=== PATIENT | female | born 1940 | race Caucasian/White ===

== ENCOUNTER 2018-01-26 16:31 | Observation (INO) | payer OTHER ==
[2018-01-26] MEDS ORDERED: ONDANSETRON 4 MG/2 ML VIAL ONE (17:05)
[2018-01-26 17:06] LABS: Absolute Lymphocytes (CBC) 3.1 K/uL (0.7-4.9); Absolute Monocytes 0.8 K/uL (0.1-1.3); Absolute Neutrophil 4.6 K/uL (1.8-8.0); Basophils % 0.8 % (0-1.3); Eosinophils % 1.6 % (0-4.4); Hematocrit 36.2 % (36.0-45.0); Lymphocytes % 35.5 % (15.3-44.8); MCV 85.5 fL (80-100); MPV 8.5 fL (7.6-11.3); Monocytes % 8.7 % (3.3-12.3); RBC Red Blood Cell Count 4.23 M/uL (3.86-4.86)
[2018-01-26 17:07] LABS: Protime INR 1.04
[2018-01-26 17:16] LABS: Potassium 4.2 mEq/L (3.6-5.0)
--- NOTE | 2018-01-26 17:41 | RAD REPORT ---
EXAM DESCRIPTION: CT - Chest For Pe Angio - 01/26/2018 5:31 pm CLINICAL HISTORY: Chest pain, shortness of breath, breast cancer history COMPARISON: Chest films same date, PE study May 2016 TECHNIQUE: Dynamically enhanced 3 mm thick images of the chest were obtained during administration o f approximately 150mL Isovue 370 IV contrast. Coronal and oblique reconstruction images were generate d and reviewed. Exam utilizes a protocol to evaluate the pulmonary arterial tree. All CT scans are performed using dose optimization technique as appropriate and may include automated exposure control or mA/KV adjustment according to patient size. FINDINGS: No pulmonary emboli are identified. The aorta as imaged shows no acute or suspicious finding. No pericardial thickening or effusion. No infiltrate or mass in the lung parenchyma. No pleural effusion or pleural thickening. Lung parench yma is similar to comparison. No mediastinal or hilar suspicious masses. No chest wall masses or abnormal axillary lymphadenopathy. IMPRESSION: No pulmonary emboli identified. No other significant or suspicious findings.
--- NOTE | 2018-01-26 18:14 | ER ---
Nurse's Notes [facility] Name: Becky Rodriguez Age: 77 yrs Sex: Female : 1940 Arrival Date: 01/26/2018 Time: 16:32 Bed 7 Private MD: Peter Gomez E Diagnosis: Precordial pain;Dyspnea Presentation: 01/26 16:40 Presenting complaint: Patient states: dizziness, shortness of breath, chest "heaviness" ss and nausea that began approx 1 hour ago. Family friend reports that patient woke him up from a nap and stated that she felt very dizzy as if she was going to "pass out". Transition of care: patient was not received from another setting of care. Onset of symptoms was January 26, 2018. Risk Assessment: Do you want to hurt yourself or someone else? Patient reports no desire to harm self or others. Initial Sepsis Screen: Does the patient meet any 2 criteria? No. Patient's initial sepsis screen is negative. Does the patient have a suspected source of infection? No. Patient's initial sepsis screen is negative. Care prior to arrival: None. 16:40 Method Of Arrival: Ambulatory ss 16:40 Acuity: CORNELIO 2 ss Triage Assessment: 19:00 Respiratory: the patient has mild shortness of breath. bp 19:00 General: Appears in no apparent distress. comfortable. Respiratory: Airway is patent. bp Historical: - Allergies: 16:59 NKDA; ph - Home Meds: 19:00 anastrozole 1 mg Oral tab 1 tab once daily [Active]; hydrochlorothiazide 25 mg Oral tab bp 1 tab once daily [Active]; lisinopril 40 mg Oral tab 1 tab once daily [Active]; metformin 500 mg Oral tab 1 tab 2 times per day [Active]; Motrin 600 mg Oral daily [Active]; probenecid 500 mg Oral tab 1 tab 2 times per day [Active]; Synthroid 50 mcg Oral tab 1 tab once daily [Active]; - PMHx: 16:59 Cancer, Breast; Diabetes - NIDDM; Hypertension; Hypothyroidism; ph - PSHx: 16:59 Mastectomy, Left; Mastectomy, Right; KNEE REPLACEMENT; Cholecystectomy; Appendectomy; ph HAND SURGERY; Hysterectomy; Knee surgery; - Immunization history:: Adult Immunizations unknown. - Social history:: Smoking status: Patient/guardian denies using tobacco. - Ebola Screening: : No symptoms or risks identified at this time. Screenin:10 Abuse screen: Denies threats or abuse. Denies injuries from another. Nutritional ph screening: No deficits noted. Tuberculosis screening: No symptoms or risk factors identified. Fall Risk No fall in past 12 months (0 pts). No secondary diagnosis (0 pts). IV access (20 points). Ambulatory Aid- None/Bed Rest/Nurse Assist (0 pts). Gait- Normal/Bed Rest/Wheelchair (0 pts) Mental Status- Oriented to own ability (0 pts). Total Weaver Fall Scale indicates No Risk (0-24 pts). Assessment: 17:00 General: Appears distressed, uncomfortable, obese, well groomed, Behavior is ph cooperative, appropriate for age, anxious, Denies fever, feeling ill. Pain: Complains of pain in mid-sternal area Pain does not radiate. Pain currently is 2 out of 10 on a pain scale. Quality of pain is described as heavy, pressure, Pain began suddenly. Neuro: Level of Consciousness is awake, alert, obeys commands, Oriented to person, place, time, situation, Bi Lead are equal bilaterally Moves all extremities. Full function Speech is normal, Facial symmetry appears normal, Facial symmetry: tongue is midline, Reports dizziness, Denies weakness difficulty swallowing, numbness headache. Cardiovascular: Reports chest pain, lightheadedness, nausea, shortness of breath, vomiting, Capillary refill < 3 seconds Patient's skin is warm and dry. Rhythm is sinus rhythm Chest pain is described as mild, quality is heaviness, pressure, is located in substernal area. Respiratory: Reports shortness of breath at rest Airway is patent Respiratory effort is even, Respiratory pattern is tachypnea Breath sounds are clear bilaterally. GI: Abdomen is non-distended, obese, Bowel sounds present X 4 quads. Abd is soft and non tender X 4 quads. Reports nausea, vomiting, Patient currently denies abdominal pain, diarrhea. : Denies burning with urination, urinary frequency. Derm: Skin is intact, is healthy with good turgor, Skin is pink, warm \\T\\ dry. Musculoskeletal: Circulation, motion, and sensation intact. Range of motion: intact in all extremities. 18:20 Reassessment: Patient appears in no apparent distress at this time. Patient and/or ph family updated on plan of care and expected duration. Pain level reassessed. Patient is alert, oriented x 3, equal unlabored respirations, skin warm/dry/pink. Pt resting quietly at this time, reports that nausea has improved and denies pain at this time, awaiting room assignment, family at bedside, VSS. 19:00 Reassessment: RECD REPORT FROM OMID ACEVEDO. 77YO WF P/W CP, ANXIETY AND N/V. CURRENT bp STUDIES UNREMARKABLE, ADMIT IN PROCESS. VS STABLE ON MONITOR. Vital Signs: 16:35 BP 179 / 103; Pulse 121; Resp 34; Pulse Ox 99% on R/A; Weight 101.15 kg; Height 5 ft. 4 ss in. (162.56 cm); 16:35 Temp 98.7(TE); ss 17:08 BP 133 / 82; Pulse 75; Resp 22; Pulse Ox 96% on R/A; ph 17:44 BP 124 / 65; Pulse 75; Resp 16; Pulse Ox 99% on R/A; dh3 18:21 BP 126 / 66; Pulse 72; Resp 16; Temp 98.2; Pulse Ox 99% on R/A; ph 19:00 BP 128 / 69; Pulse 76; Resp 9; Pulse Ox 99% ; bp 19:42 BP 129 / 73; Pulse 77; Resp 18; Pulse Ox 98% on R/A; rv 16:35 Body Mass Index 38.28 (101.15 kg, 162.56 cm) ss ED Course: 16:32 Patient arrived in ED. sb2 16:32 Peter Gomez MD is Private Physician. sb2 16:35 Quinton Barbosa MD is Attending Physician. gs 16:35 Arm band placed on right wrist. ss 16:43 Triage completed. ss 16:48 EKG done, by ED staff, reviewed by Quinton Barbosa MD. dh3 16:50 Initial lab(s) drawn, by oh, sent to lab. Inserted saline lock: 20 gauge in left ph antecubital area, using aseptic technique. 16:51 Radiology exam delayed due to lab results not completed at this time. (BUN/Creatinine). cw1 16:57 X-ray completed. Portable x-ray completed in exam room. Patient tolerated procedure mh1 well. 16:58 XRAY Chest (1 view) In Process Unspecified. EDMS 17:01 Kate Booker, RN is Primary Nurse. ph 17:19 Patient has correct armband on for positive identification. Placed in gown. Bed in low ph position. Call light in reach. Side rails up X 1. station cleaning porter on. Pulse ox on. NIBP on. Warm blanket given. Verbal reassurance given. 17:30 CT completed. Patient moved to CT via stretcher. Patient moved back from CT. cw1 17:31 CT Chest For PE Angio In Process Unspecified. EDMS 18:14 Margie Lambert MD is Hospitalizing Provider. 18:55 No provider procedures requiring assistance completed. Patient admitted, IV remains in ph place. Administered Medications: 17:08 Drug: Zofran 4 mg Route: IVP; Site: left antecubital; ph 20:05 Follow up: Response: Nausea is decreased bp Point of Care Testing: Blood Glucose: 16:35 Blood Glucose: 121 mg/dL; Ranges: Outcome: 18:14 Decision to Hospitalize by Provider. gs 18:55 Condition: stable ph 18:55 Instructed on the need for admit. 20:04 Admitted to Tele accompanied by tech, via wheelchair, room 213, with chart, Report bp called to LEOBARDO ACEVEDO 20:20 Patient left the ED. bp Signatures: Dispatcher [employer] EDMS Haleigh Abraham 1 Yaneli Boothe, Faye Price RN 1 Kate Booker, RN RN Sheri Gaxiola 3 Quinton Barbosa MD MD Darwin Saenz RN RN bp Alessandra Stephens 2 Steve Gan, RN RN rv
--- NOTE | 2018-01-26 18:14 | EDPHYS ---
Physician Documentation [facility] Name: Becky Rodriguez Age: 77 yrs Sex: Female : 1940 Arrival Date: 01/26/2018 Time: 16:32 Bed 7 Private MD: Peter Gomez E ED Physician Quinton Barbosa HPI: 01/26 18:21 This 77 yrs old Female presents to ER via Ambulatory with complaints of gs Shortness Of Breath. 18:21 The patient has shortness of breath at rest. Onset: The symptoms/episode began/occurred gs acutely, just prior to arrival. Duration: The symptoms are continuous, and are steadily getting worse. The patient's shortness of breath is aggravated by nothing, is alleviated by nothing. Associated signs and symptoms: Pertinent positives: chest pain, dizziness. Severity of symptoms: At their worst the symptoms were incapacitating in the emergency department the symptoms are unchanged. The patient has not experienced similar symptoms in the past. Historical: - Allergies: 16:59 NKDA; ph - Home Meds: 19:00 anastrozole 1 mg Oral tab 1 tab once daily [Active]; hydrochlorothiazide 25 mg Oral tab bp 1 tab once daily [Active]; lisinopril 40 mg Oral tab 1 tab once daily [Active]; metformin 500 mg Oral tab 1 tab 2 times per day [Active]; Motrin 600 mg Oral daily [Active]; probenecid 500 mg Oral tab 1 tab 2 times per day [Active]; Synthroid 50 mcg Oral tab 1 tab once daily [Active]; - PMHx: 16:59 Cancer, Breast; Diabetes - NIDDM; Hypertension; Hypothyroidism; ph - PSHx: 16:59 Mastectomy, Left; Mastectomy, Right; KNEE REPLACEMENT; Cholecystectomy; Appendectomy; ph HAND SURGERY; Hysterectomy; Knee surgery; - Immunization history:: Adult Immunizations unknown. - Social history:: Smoking status: Patient/guardian denies using tobacco. - Ebola Screening: : No symptoms or risks identified at this time. ROS: 18:21 All other systems are negative. gs Exam: 18:21 Head/Face: Normocephalic, atraumatic. Eyes: Pupils equal round and reactive to light, gs extra-ocular motions intact. Lids and lashes normal. Conjunctiva and sclera are non-icteric and not injected. Cornea within normal limits. Periorbital areas with no swelling, redness, or edema. ENT: Nares patent. No nasal discharge, no septal abnormalities noted. Tympanic membranes are normal and external auditory canals are clear. Oropharynx with no redness, swelling, or masses, exudates, or evidence of obstruction, uvula midline. Mucous membranes moist. Neck: Trachea midline, no thyromegaly or masses palpated, and no cervical lymphadenopathy. Supple, full range of motion without nuchal rigidity, or vertebral point tenderness. No Meningismus. Chest/axilla: Normal chest wall appearance and motion. Nontender with no deformity. No lesions are appreciated. Cardiovascular: Regular rate and rhythm with a normal S1 and S2. No gallops, murmurs, or rubs. Normal PMI, no JVD. No pulse deficits. 18:21 Abdomen/GI: Soft, non-tender, with normal bowel sounds. No distension or tympany. No guarding or rebound. No evidence of tenderness throughout. Back: No spinal tenderness. No costovertebral tenderness. Full range of motion. Skin: Warm, dry with normal turgor. Normal color with no rashes, no lesions, and no evidence of cellulitis. MS/ Extremity: Pulses equal, no cyanosis. Neurovascular intact. Full, normal range of motion. Neuro: Awake and alert, GCS 15, oriented to person, place, time, and situation. Cranial nerves II-XII grossly intact. Motor strength 5/5 in all extremities. Sensory grossly intact. Cerebellar exam normal. Normal gait. 18:21 Constitutional: The patient appears alert, awake. 18:21 Constitutional: The patient appears in obvious distress, severely distressed. 18:21 ECG was reviewed by the Attending Physician. 18:21 Respiratory: the patient does not display signs of respiratory distress, Respirations: normal, Breath sounds: are clear throughout. Vital Signs: 16:35 BP 179 / 103; Pulse 121; Resp 34; Pulse Ox 99% on R/A; Weight 101.15 kg; Height 5 ft. 4 ss in. (162.56 cm); 16:35 Temp 98.7(TE); ss 17:08 BP 133 / 82; Pulse 75; Resp 22; Pulse Ox 96% on R/A; ph 17:44 BP 124 / 65; Pulse 75; Resp 16; Pulse Ox 99% on R/A; dh3 18:21 BP 126 / 66; Pulse 72; Resp 16; Temp 98.2; Pulse Ox 99% on R/A; ph 19:00 BP 128 / 69; Pulse 76; Resp 9; Pulse Ox 99% ; bp 19:42 BP 129 / 73; Pulse 77; Resp 18; Pulse Ox 98% on R/A; rv 16:35 Body Mass Index 38.28 (101.15 kg, 162.56 cm) ss MDM: 16:46 Patient medically screened. 18:21 Differential diagnosis: CHF exacerbation, Chronic Obstructive Pulmonary Disease gs Myocardial Infarction Pulmonary Embolism taa. Data reviewed: vital signs, nurses notes. 01/26 16:42 Order name: Basic Metabolic Panel 01/26 16:42 Order name: BNP 01/26 16:42 Order name: CBC with Diff 01/26 16:42 Order name: PT-INR 01/26 16:42 Order name: Troponin (emerg Dept Use Only) 01/26 16:43 Order name: Basic Metabolic Panel; Complete Time: 17:54 EDMS 01/26 16:43 Order name: BNP B-Type Natriuretic Peptide; Complete Time: 17:54 EDMS 01/26 16:43 Order name: CBC with Automated Diff; Complete Time: 17:54 EDMS 01/26 16:43 Order name: Protime (+INR); Complete Time: 17:54 EDMS 01/26 16:43 Order name: Troponin (Emerg Dept Use Only); Complete Time: 17:54 EDMS 01/26 16:45 Order name: glucometer results - FOR PT WITH NO ID; Complete Time: 17:54 01/26 18:22 Order name: CBC with Automated Diff [facility] 01/26 18:22 Order name: Comprehensive Metabolic Panel [facility] 01/26 18:22 Order name: Creatine Phosphokinase [facility] 01/26 16:42 Order name: XRAY Chest (1 view) 01/26 16:42 Order name: EKG; Complete Time: 16:43 01/26 16:42 Order name: CT Chest For PE Angio; Complete Time: 17:54 01/26 18:22 Order name: Creatine Phosphokinase [facility] 01/26 18:22 Order name: Creatine Phosphokinase [facility] 01/26 18:22 Order name: Creatine Phosphokinase [facility] 01/26 18:22 Order name: Lipid Profile [facility] 01/26 18:22 Order name: Lipid Profile [facility] 01/26 18:22 Order name: Troponin I [facility] 01/26 18:22 Order name: Troponin I [facility] 01/26 18:22 Order name: Troponin I [facility] 01/26 18:22 Order name: Troponin I [facility] 01/26 18:23 Order name: Hemoglobin A1C [facility] 01/26 18:23 Order name: Lipid Profile [facility] 01/26 18:23 Order name: Thyroid Stimulating Hormone [facility] 01/26 16:42 Order name: Cardiac monitoring; Complete Time: 16:59 01/26 16:42 Order name: EKG - Nurse/Tech; Complete Time: 16:45 01/26 16:42 Order name: IV Saline Lock; Complete Time: 16:59 01/26 16:42 Order name: Labs collected and sent; Complete Time: 16:59 01/26 16:42 Order name: O2 Per Protocol; Complete Time: 16:45 01/26 16:42 Order name: O2 Sat Monitoring; Complete Time: 16:45 01/26 18:22 Order name: Heart Healthy EDMA EC:21 Rate is 94 beats/min. Rhythm is regular. [place] interval is normal. QRS interval is normal. gs T waves are Flattened. No ST changes noted. Clinical impression: NSR w/ Non-specific ST/T Changes. Interpreted by me. Administered Medications: 17:08 Drug: Zofran 4 mg Route: IVP; Site: left antecubital; ph 20:05 Follow up: Response: Nausea is decreased bp Point of Care Testing: Blood Glucose: 16:35 Blood Glucose: 121 mg/dL; ss Ranges: Critical Glucose Levels:Adult <50 mg/dl or >400 mg/dl <40 mg/dl or >180 mg/dl Disposition: 01/26/18 18:14 Hospitalization ordered by Margie Lambert for Observation. Preliminary diagnosis are Precordial pain, Dyspnea. - Bed requested for Telemetry/MedSurg (observation). - Status is Observation. bp - Condition is Stable. - Problem is new. - Symptoms have improved. UTI on Admission? No Signatures: Dispatcher [employer] [facility] Jennifer Goff RN RN Kate Booker RN RN Barbosa, Quinton, MD MD gs Dany, Darwin, RN RN bp Corrections: (The following items were deleted from the chart) 18:28 18:14 Hospitalization Ordered by Margie Lambert MD for Observation. Preliminary dw diagnosis is Precordial pain; Dyspnea. Bed requested for Telemetry/MedSurg (observation). Status is Observation. Condition is Stable. Problem is new. Symptoms have improved. UTI on Admission? No. gs 20:20 18:28 01/26/2018 18:14 Hospitalization Ordered by Margie Lambert MD for Observation. bp Preliminary diagnosis is Precordial pain; Dyspnea. Bed requested for Telemetry/MedSurg (observation). Status is Observation. Condition is Stable. Problem is new. Symptoms have improved. UTI on Admission? No. dw
[2018-01-26] MEDS ORDERED: MORPHINE 4 MG/ML SYR IV PRN (18:18)
[2018-01-26] MEDS ORDERED: ALPRAZOLAM 0.25 MG TABLET PO PRN (18:18)
[2018-01-26] MEDS ORDERED: ACETAMINOPHEN 500 MG TAB PO PRN (18:18)
[2018-01-26] MEDS ORDERED: ONDANSETRON 4 MG/2 ML VIAL IV PRN (18:18)
[2018-01-26] MEDS ORDERED: NITROGLYCERIN 0.4 MG/TAB SL PRN (18:35)
[2018-01-26] MEDS ORDERED: GLUCAGON 1 MG/VIAL IM PRN (20:13)
[2018-01-26] MEDS ORDERED: D50W 25 GM/50 ML SYRINGE IV PRN (20:13)
[2018-01-26 20:22] LABS: Absolute Lymphocytes (CBC) 1.9 K/uL (0.7-4.9); Absolute Monocytes 0.7 K/uL (0.1-1.3); Absolute Neutrophil 7.6 K/uL (1.8-8.0); Basophils % 0.7 % (0-1.3); Eosinophils % 0.5 % (0-4.4); Hematocrit 33.6 % (36.0-45.0); Lymphocytes % 18.6 % (15.3-44.8); MCH 29.2 pg (27.0-35.0); MCV 85.7 fL (80-100); MPV 8.3 fL (7.6-11.3); RBC Red Blood Cell Count 3.92 M/uL (3.86-4.86)
--- NOTE | 2018-01-26 20:41 | RAD REPORT ---
EXAM DESCRIPTION: RAD - Chest Single View - 01/26/2018 4:59 pm CLINICAL HISTORY: Chest pain, shortness of breath COMPARISON: May 2016 TECHNIQUE: AP portable chest image was obtained 1651 hours . FINDINGS: Lung volumes are low. No peripheral mass or consolidation. Heart and vasculature are miguel l. No measurable pleural effusion and no pneumothorax. No gross bony abnormality seen. No acute aorti c findings suspected. IMPRESSION: No acute cardiopulmonary process. No significant change from comparison.
[2018-01-26 20:59] LABS: Albumin 3.8 g/dL (3.2-5.5); Bilirubin Total 0.6 mg/dL (0.3-1.2); Protein, Total 7.2 g/dL (6.0-8.3)
[2018-01-26 21:00] VITALS: BMI 37.4
[2018-01-26] MEDS ORDERED: ATORVASTATIN 20 MG TAB PO SCH (21:00)
[2018-01-26 21:02] LABS: Potassium 4.8 mEq/L (3.6-5.0)
[2018-01-26 21:29] LABS: Thyroid Stimulating Hormone 1.85 uIU/mL (0.34-5.60)
[2018-01-26] MEDS: METOPROLOL TAR 50 MG TAB PO SCH (21:36)
[2018-01-26] MEDS: ENOXAPARIN 100 MG/ML SYR SQ SCH (21:36)
[2018-01-26] MEDS: NA CHLORIDE 0.9% 1,000 ML IV SCH (21:36)
[2018-01-26] MEDS: METFORMIN HCL 500 MG TAB PO SCH (21:36)
--- NOTE | 2018-01-26 23:55 | HP ---
Date of Admission: 01/26/2018 Reason For Admission: Dizziness and chest pain. History Of Present Illness: This is a 77-year-old female with history of hypothyroidism, hypertensio n, diabetes, overweight, who presented with history of chest pain that started at first today with di zziness. The patient had nausea and she vomited once. She has shortness of breath and she was not a ble to take a deep breath. In the ER, she was evaluated. A CAT scan of the chest done was negative for PE. Cardiac enzymes first set was negative. She was admitted for rule-out NH. The patient repo rted history of stress test that was negative few years ago. She never had any history of heart riaz ck. Review of Systems: Otherwise as below. Past Medical History: Significant for diabetes, hypertension, overweight, breast cancer. She was on Arimidex status post lumpectomy. Past Surgery History: Known for cholecystectomy, hysterectomy, lumpectomy, total knee replacement. Allergies: NONE. Social History: The patient is . She has 4 kids. She is retired. She does not drink, smoke , or use illicit drugs. Family History: Both father and mother of diabetes. Medication: According to medical records, the patient does not have her med list. She is on Synthro id, lisinopril, Arimidex, metformin, hydrochlorothiazide. Review of Systems: Denies any fever, chills, night sweats, dizziness, lightheaded, headache now, but she had some renal failure. She have no cough or sputum. She does have mild shortness of breath. There is no chest pa in now, but she had it earlier in the middle of her chest. No PND or orthopnea. No palpitations. N o nausea, vomiting now, but she has nausea earlier. No abdominal pain, change in bowel, diarrhea, co nstipation, dysuria, frequency, urgency, hematuria. History of depression, anxiety, seizure or strok e. Physical Examination: Vital Signs: Currently, blood pressure 126/66, respiratory rate 22, heart rate 66, saturating 98% on room air. General: She is fully alert and oriented x3. Does not look in distress. HEENT: Atraumatic, normocephalic. PERRLA. Oral mucosa is moist. Neck: Supple. No JVD. No carotid bruits. Chest: Clear to auscultation. Good air entry. Heart: Regular rate and rhythm. S1, S2 normal. No gallop or murmur. Abdomen: Soft, nontender, with normal tympanic bowel sounds. Extremities: No clubbing, cyanosis, or edema. No calf tenderness. Neurologic: Grossly intact. Cranial exam 2 through 12 intact. Normal sensation. Normal reflexes. Normal muscle strength. Laboratory Data: Labs today showed CBC within normal. CMP was normal except for BUN of 25, creatini ne 1.07 and GFR of 15. Cardiac enzymes all normal. Lipid panel is pending. Hemoglobin A1c pending. TSH pending. EKG showed normal sinus rhythm. Assessment And Plan: This is a 77-year-old female with history of progressive chest pain and shortne ss of breath. Admitted to rule out coronary artery syndrome. 1.Chest pain, rule out myocardial infarction. 2.Dyspnea. PE was ruled out. 3.Hypertension. 4.Hyperlipidemia. 5.Obesity. 6.Renal insufficiency. 7.Hypothyroidism. 8.History of breast cancer. We will admit the patient to the floor, keep her on tele, do cardiac enzyme x3. We will keep her on full dose of Lovenox 1 mg/kg twice a day. We will place the patient on statin, resume her home medic ation for blood pressure with lisinopril, hydrochlorothiazide. We will keep it on hold for now. We will start on IV hydration for renal insufficiency and place her on low-dose metoprolol. She also wi ll be given aspirin and Plavix. I will check her lipid panel and place her on low dose of statin. I will check hemoglobin A1c, place her on metformin and sliding scale. I will check her TSH and resume her Synthroid. YARIEL/NELIDA Voice ID: [id number]
[2018-01-27 04:55] LABS: Urine Appearance CLEAR; Urine Bilirubin NEGATIVE (NEG); Urine Blood NEGATIVE (NEG); Urine Color YELLOW; Urine Glucose NEGATIVE (NEG); Urine Protein NEGATIVE (NEG); Urine Specific Gravity >=1.030 (1.005-1.030); Urine Urobilinogen 0.2 mg/dL (0.2-1.0); Urine pH 5.5 (5.0-7.0)
[2018-01-27] MEDS: NA CHLORIDE 0.9% 1,000 ML IV SCH (05:00)
[2018-01-27 05:17] LABS: Urine Microscopic Reflex NO UMIC
[2018-01-27] MEDS ORDERED: PNEUMOCOCCAL VACCINE 0.5 ML IMVAC ONE (06:00)
[2018-01-27] MEDS ORDERED: LEVOTHYROXINE SOD 0.05 MG TABLET PO SCH (06:00)
[2018-01-27] MEDS: METFORMIN HCL 500 MG TAB PO SCH (08:33)
[2018-01-27] MEDS: METOPROLOL TAR 50 MG TAB PO SCH (08:33)
[2018-01-27] MEDS: ENOXAPARIN 100 MG/ML SYR SQ SCH (08:35)
[2018-01-27] MEDS ORDERED: hydroCHLOROthiazide 25 MG TAB PO SCH (09:00)
[2018-01-27] MEDS ORDERED: LISINOPRIL 20 MG TAB PO SCH (09:00)
[2018-01-27] MEDS ORDERED: ASPIRIN 325 MG TAB PO SCH (09:00)
[2018-01-27] MEDS ORDERED: CLOPIDOGREL 75 MG TABLET PO SCH (09:00)
[2018-01-27 09:52] VITALS: O2SAT 96
--- NOTE | 2018-01-27 10:42 | EKG ---
Test Date: 2018-01-26 Test Time: 16:38:15 Gear Lapper: SUMAN MEASUREMENT RESULTS: Intervals: Rate: 94 PA: 146 QRSD: 76 QT: 362 QTc: 452 Brogue: P: 34 PA: 146 QRS: 21 T: 55 INTERPRETIVE STATEMENTS: Normal sinus rhythm Normal ECG Compared to ECG 12/29/2016 10:02:31 Myocardial infarct finding no longer present Electronically Signed On 01-27-18 10:41:09 CDT by Sean Caruso
[2018-01-27 12:10] VITALS: BP 132/69; TEMP 97.8
[2018-01-27] MEDS ORDERED: METFORMIN HCL 500 MG TAB PO SCH (17:00)
--- NOTE | 2018-01-27 17:43 | DS ---
Date of Discharge: 01/27/2018 Discharge Diagnoses: Chest pain rule out myocardial infarction, dizziness resolved, hyperlipidemia, diabetes. History Of Present Illness: Please refer to my admission note from yesterday. Consult: None. Procedure: CT of the chest done on admission in the ER was negative for PE or any suspicious finding . EKG was normal sinus rhythm. Chest x-ray was normal. Hospital Course: Initially, the patient presented with a nonspecific chest pain associated with some dizziness and shortness of breath. In the ER, she was evaluated for UT and workup for initial cardi ogram was negative. CT of the chest was negative for PE. The patient was observed overnight. Cardi ac enzymes were negative x3. Her lipid panel was checked and her total cholesterol for LDL of 58, wh ich is excellent, triglyceride of 76. Disposition: She will be discharged today home in stable condition. 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 She was advised to av oid exertion. Discharge Condition: Stable. Discharge Diet: 1800 ADA. Discharge Medication: Arimidex 1 mg orally once a day, hydrochlorothiazide 12.5 mg once a day, lisin opril 40 mg once a day, metformin 500 mg twice a day, probenecid 500 mg twice a day. Discharge Examination: Vital Signs: Today, blood pressure is 132/69, respiratory rate 18, pulse 67, temperature 97.8, saturating 97 on room air. General: She is alert and oriented x3. Does not look in any distress. HEENT: Atraumatic, normocephalic. PERRLA. Oral mucosa is moist. Neck: Supple. No JVD. No carotid bruits. Chest: Clear to auscultation. Good air entry. Heart: Regular rate and rhythm. S1, S2 normal. No gallop. Abdomen: Soft, nontender. No masses. No hepatosplenomegaly. Positive bowel sounds. Extremities: No clubbing, cyanosis, or edema. Neuro Exam: Grossly intact. Of note, the patient had mild renal insufficiency and I advised her to discuss that with the primary care physician and repeat the lab in a week. Especially, the patient is on metformin, lisinopril, an d hydrochlorothiazide, and see if primary care physician would like to adjust dose of medication acco rding to her kidney function. YARIEL/NELIDA Voice ID: [id number] Report ID: [id number]
[2018-01-28 18:38] LABS: A1c Component 0.52 mg/dL; Hemoglobin A1c 6.3 % (4-6.0)
== END 2018-01-27 13:15 | disposition home or self-care (01) ==
LOC: ER 16:31 → ERHOLD 18:14 → 2ND 19:36
PROVIDERS: ADMIT Internal Medicine; ATTEND Internal Medicine
DX: R07.9 Chest pain, unspecified (principal); E03.9 Hypothyroidism, unspecified; I10 Essential (primary) hypertension; E11.9 Type 2 diabetes mellitus without complications; R06.00 Dyspnea, unspecified; E78.5 Hyperlipidemia, unspecified; E66.9 Obesity, unspecified; Z68.37 Body mass index [BMI] 37.0-37.9, adult; Z23 Encounter for immunization
CPT/HCPCS: 36415 ×2; 71045; 71275; 80048; 80053; 80061 ×2; 81003; 82550 ×3; 82962 ×3; 83036; 83880; 84443; 84484 ×4; 85025 ×2; 85610; 90670; 93005; 94760 ×2; 96374; 99285; G0009; G0378 ×2; J1650 ×2; J2405; J7030 ×2; Q9967

== ENCOUNTER 2018-09-10 16:47 | Emergency (ER) | payer OTHER ==
[2018-09-10] MEDS ORDERED: HYDROCODONE/APAP 7.5/325 MG TAB ONE (17:23)
[2018-09-10] MEDS ORDERED: HYDROCODONE/APAP 10/325 TAB ONE (17:25)
[2018-09-10] MEDS ORDERED: ONDANSETRON 4 MG (ODT) TAB ONE (17:32)
--- NOTE | 2018-09-10 17:45 | EDPHYS ---
Physician Documentation [facility] Name: Becky Rodriguez Age: 77 yrs Sex: Female : 1940 Arrival Date: 09/10/2018 Time: 16:49 Bed 25 Private MD: Peter Gomez E ED Physician Quinton Barbosa HPI: 09/10 17:30 This 77 yrs old Female presents to ER via Ambulatory with complaints of GOUT. gs 17:30 The patient presents with pain, that is acute. The complaints affect the right foot, gs right first toe. Onset: The symptoms/episode began/occurred acutely, 2 day(s) ago, and became worse and became persistent. Modifying factors: The symptoms are alleviated by elevation of extremity, the symptoms are aggravated by weight bearing, movement. Associated signs and symptoms: Pertinent negatives: fever. Severity of symptoms: At their worst the symptoms were moderate, in the emergency department the symptoms are unchanged. The patient has experienced similar episodes in the past, multiple times. Historical: - Allergies: 16:50 NKDA; sg - PMHx: 16:50 Cancer, Breast; Diabetes - NIDDM; Hypertension; Hypothyroidism; sg - PSHx: 16:50 Mastectomy, Left; Mastectomy, Right; KNEE REPLACEMENT; Cholecystectomy; Appendectomy; sg HAND SURGERY; Hysterectomy; Knee surgery; - Immunization history:: Adult Immunizations up to date. - Social history:: Smoking status: Patient/guardian denies using tobacco. - Ebola Screening: : Patient negative for fever greater than or equal to 101.5 degrees Fahrenheit, and additional compatible Ebola Virus Disease symptoms Patient denies exposure to infectious person Patient denies travel to an Ebola-affected area in the 21 days before illness onset No symptoms or risks identified at this time. ROS: 17:30 All other systems are negative. gs Exam: 17:30 Neuro: Awake and alert, GCS 15, oriented to person, place, time, and situation. gs Cranial nerves II-XII grossly intact. Motor strength 5/5 in all extremities. Sensory grossly intact. Cerebellar exam normal. Normal gait. 17:30 Constitutional: The patient appears alert, awake, uncomfortable. 17:30 Musculoskeletal/extremity: Extremities: noted in the right first toe: erythema, pain, swelling, tenderness, ROM: limited active range of motion due to pain, limited passive range of motion due to pain, Circulation is intact in all extremities. Sensation intact. Joints: 17:30 Skin: Appearance: Color: erythematous, right great toe. Vital Signs: 16:59 BP 156 / 82; Pulse 110; Resp 17; Temp 99.7; Pulse Ox 96% on R/A; Weight 120.2 kg; Pain tl3 7/10; 18:03 BP 154 / 71; Pulse 99; Resp 20; Pulse Ox 99% on R/A; aj MDM: 17:09 Patient medically screened. 17:30 Differential diagnosis: sprain, arthritis, gout. Data reviewed: vital signs, nurses gs notes. Counseling: I had a detailed discussion with the patient and/or guardian regarding: the historical points, exam findings, and any diagnostic results supporting the discharge/admit diagnosis. Medical screen evaluation completed. EMTALA emergency medical condition absent. Response to treatment: the patient's symptoms have mildly improved after treatment, and as a result, I will discharge patient. Administered Medications: 17:23 Drug: [place] 10 mg-325 mg 1 tabs Route: PO; tl3 18:01 Follow up: Response: Pain is decreased aj 17:24 Drug: Zofran 4 mg Route: PO; tl3 18:03 Follow up: Response: No adverse reaction aj Disposition: 09/10/18 17:45 Discharged to Home. Impression: Gout. - Condition is Stable. - Discharge Instructions: Gout, Urun-ex-Rpeo. - Prescriptions for Prednisone 20 mg Oral Tablet - take 1 tablet by ORAL route once daily for 5 days; 5 tablet. Tylenol- Codeine #4 300-60 mg Oral Tablet - take 1 tablet by ORAL route every 6 hours As needed; 10 tablet. - Medication Reconciliation Form, Thank You Letter, Antibiotic Education, Prescription Opioid Use form. - Follow up: Private Physician; When: 2 - 3 days; Reason: Re-evaluation by your physician. Signatures: Ryley Byrd RN RN sg Myers, Amanda, RN RN aj Starr, Gregory, MD MD gs Lowrey, Tammy, RN RN tl3 Corrections: (The following items were deleted from the chart) 18:06 17:45 09/10/2018 17:45 Discharged to Home. Impression: Gout. Condition is Stable. Forms aj are Medication Reconciliation Form, Thank You Letter, Antibiotic Education, Prescription Opioid Use. Follow up: Private Physician; When: 2 - 3 days; Reason: Re-evaluation by your physician. gs
--- NOTE | 2018-09-10 17:45 | ER ---
Nurse's Notes [facility] Name: Becky Rodriguez Age: 77 yrs Sex: Female : 1940 Arrival Date: 09/10/2018 Time: 16:49 Bed 25 Private MD: Peter Gomez E Diagnosis: Gout Presentation: 09/10 16:58 Presenting complaint: Patient states: Left big toe and left big toe joint pain for sg about a day now, reports redness and swelling, worsens with bearing weight and increased activity, has a recent hx of a gout flare up. Transition of care: patient was not received from another setting of care. Onset of symptoms was September 10, 2018. Risk Assessment: Do you want to hurt yourself or someone else? Patient reports no desire to harm self or others. Initial Sepsis Screen: Does the patient meet any 2 criteria? HR > 90 bpm. Does the patient have a suspected source of infection? No. Patient's initial sepsis screen is negative. Care prior to arrival: None. 16:58 Method Of Arrival: Ambulatory sg 16:58 Acuity: CORNELIO 4 sg Historical: - Allergies: 16:50 NKDA; sg - PMHx: 16:50 Cancer, Breast; Diabetes - NIDDM; Hypertension; Hypothyroidism; sg - PSHx: 16:50 Mastectomy, Left; Mastectomy, Right; KNEE REPLACEMENT; Cholecystectomy; Appendectomy; sg HAND SURGERY; Hysterectomy; Knee surgery; - Immunization history:: Adult Immunizations up to date. - Social history:: Smoking status: Patient/guardian denies using tobacco. - Ebola Screening: : Patient negative for fever greater than or equal to 101.5 degrees Fahrenheit, and additional compatible Ebola Virus Disease symptoms Patient denies exposure to infectious person Patient denies travel to an Ebola-affected area in the 21 days before illness onset No symptoms or risks identified at this time. Screenin:03 Abuse screen: Denies threats or abuse. Denies injuries from another. Nutritional aj screening: No deficits noted. Tuberculosis screening: No symptoms or risk factors identified. Fall Risk None identified. Assessment: 18:03 General: Appears in no apparent distress. comfortable, Behavior is calm, cooperative, aj appropriate for age. Pain: Complains of pain in right first toe. Neuro: Level of Consciousness is awake, alert, obeys commands, Oriented to person, place, time, situation, Appropriate for age. Respiratory: Airway is patent Respiratory effort is even, unlabored, Respiratory pattern is regular, symmetrical. Derm: Skin is intact, is healthy with good turgor, Skin is pink, warm \T\ dry. normal, redness and swelling to right great toe. Vital Signs: 16:59 BP 156 / 82; Pulse 110; Resp 17; Temp 99.7; Pulse Ox 96% on R/A; Weight 120.2 kg; Pain tl3 7/10; 18:03 BP 154 / 71; Pulse 99; Resp 20; Pulse Ox 99% on R/A; aj ED Course: 16:49 Patient arrived in ED. sb2 16:49 Peter Gomez MD is Private Physician. sb2 16:50 Arm band placed on. 16:55 Quinton Barbosa MD is Attending Physician. 16:57 Cecelia Kenney RN is Primary Nurse. aj 16:59 Triage completed. sg 18:03 Patient has correct armband on for positive identification. aj 18:03 No provider procedures requiring assistance completed. Patient did not have IV access aj during this emergency room visit. Administered Medications: 17:23 Drug: [place] 10 mg-325 mg 1 tabs Route: PO; tl3 18:01 Follow up: Response: Pain is decreased aj 17:24 Drug: Zofran 4 mg Route: PO; tl3 18:03 Follow up: Response: No adverse reaction Outcome: 17:45 Discharge ordered by . 18:03 Discharged to home ambulatory. aj 18:03 Condition: good 18:03 Discharge instructions given to patient, Instructed on discharge instructions, follow up and referral plans. medication usage, Demonstrated understanding of instructions, follow-up care, medications, Prescriptions given X 2. 18:06 Patient left the ED. aj Signatures: Ryley Byrd, RN RN Cecelia Fernandez RN RN aj Starr, Gregory, MD MD gs Billeau, Sheri sb2 Marla Waterman RN RN tl3 Corrections: (The following items were deleted from the chart) 17:08 16:59 BP 156 / 82; Pulse 110bpm; Resp 17bpm; Pulse Ox 96% RA; Temp 97.7F; 120.2 kg; tl3 Pain 7/10; sg
[2018-09-10 18:52] VITALS: TEMP 99.7
[2018-09-10 18:53] VITALS: BP 154/71; O2SAT 99
== END 2018-09-10 18:06 | disposition home or self-care (01) ==
LOC: ER 16:47
DX: M10.9 Gout, unspecified (principal)
CPT/HCPCS: 99283

== ENCOUNTER 2018-10-11 15:10 | Emergency (ER) | payer OTHER ==
[2018-10-11 15:48] LABS: Absolute Lymphocytes (CBC) 0.7 K/uL (0.7-4.9); Absolute Monocytes 0.7 K/uL (0.1-1.3); Basophils % 0.9 % (0-1.3); Eosinophils % 2.2 % (0-4.4); Hematocrit 31.6 % (36.0-45.0); Lymphocytes % 10.8 % (15.3-44.8); MPV 8.6 fL (7.6-11.3); Monocytes % 10.4 % (3.3-12.3); RBC Red Blood Cell Count 3.72 M/uL (3.86-4.86)
[2018-10-11 16:01] LABS: Protime INR 1.09
[2018-10-11 16:08] LABS: ALT/SGPT 34 U/L (12-78); AST/SGOT 29 U/L (15-37); Albumin 2.9 g/dL (3.4-5.0); Alkaline Phosphatase 62 U/L (45-117); BUN Blood Urea Nitrogen 21 mg/dL (7-18); Bicarbonate 27 mmol/L (21-32); Bilirubin Direct 0.1 mg/dL (0-0.2); Bilirubin Total 0.4 mg/dL (0.2-1.0); CKMB Creatine Kinase MB < 1.0 ng/mL (0.3-3.6); Creatine Phosphokinase 91 U/L (26-192); Glucose Level 150 mg/dL (74-106); Lipase 132 U/L (73-393); Potassium 3.7 mmol/L (3.5-5.1); Protein, Total 6.3 g/dL (6.4-8.2); Sodium Level 139 mmol/L (136-145); Troponin (Emerg Dept Use Only) < 0.02 ng/mL (0.0-0.045)
--- NOTE | 2018-10-11 16:19 | EKG ---
Test Date: 2018-10-11 Test Time: 15:54:57 Well Service Floorperson: KAVITA MEASUREMENT RESULTS: Intervals: Rate: 90 RI: 156 QRSD: 80 QT: 360 QTc: 440 [place]: P: 28 RI: 156 QRS: 27 T: 57 INTERPRETIVE STATEMENTS: Sinus rhythm with premature atrial complexes Cannot rule out Anterior infarct, age undetermined Abnormal ECG Compared to ECG 01/26/2018 16:38:15 Atrial premature complex(es) now present Myocardial infarct finding now present Electronically Signed On 10-11-18 16:18:03 TURNTABLE MAN by Carl Eduardo
--- NOTE | 2018-10-11 16:43 | RAD REPORT ---
EXAM DESCRIPTION: Best Single View10/11/2018 3:48 pm CLINICAL HISTORY: Cough COMPARISON: January 2018 FINDINGS: Bilateral calcified lung granulomas. The lungs appear clear of acute infiltrate. The heart is normal size IMPRESSION: No acute abnormalities displayed
[2018-10-11] MEDS ORDERED: NA CHLORIDE 0.9% 1,000 ML ONE (17:03)
[2018-10-11 17:19] LABS: Urine Amorphous Sediment TRACE /HPF (NONE SEEN); Urine Bacteria 20-50 /HPF (<20); Urine Culture Reflex Order NOT NEEDED; Urine Mucus 1+ /HPF (NONE SEEN); Urine RBC <5 /HPF (NONE SEEN)
[2018-10-11 17:38] LABS: Urine Glucose NEGATIVE (NEG)
[2018-10-11 17:39] LABS: Urine Blood TRACE (NEG); Urine Protein 1+ (NEG); Urine pH 5.5 (5.0-7.0)
[2018-10-11] MEDS ORDERED: CEFTRIAXONE/SWI 1gm 1 GM/10 ML SYR ONE (18:38)
--- NOTE | 2018-10-11 18:56 | EDPHYS ---
Physician Documentation [facility] Name: Becky Rodriguez Age: 77 yrs Sex: Female : 1940 Arrival Date: 10/11/2018 Time: 15:18 Bed 27 Private MD: ED Physician Rudy Foote HPI: 10/11 17:00 This 77 yrs old Female presents to ER via EMS with complaints of Cough, pm1 vomiting, diarrhea. 17:00 The patient presents to the emergency department with nausea, vomiting, diarrhea. pm1 Onset: The symptoms/episode began/occurred 3 day(s) ago. Possible causes: unknown. The symptoms are aggravated by nothing. The symptoms are alleviated by nothing. Associated signs and symptoms: Pertinent positives: fever, cough, Pertinent negatives: chest pain, shortness of breath. The patient has not recently seen a physician. Patient with cough for 2 weeks. No chest pain or shortness of breath. Onset of vomiting and diarrhea 3 days ago. Patient reports urinary frequency onset yesterday. Historical: - Allergies: 15:31 NKDA; mg2 - Home Meds: 15:31 anastrozole 1 mg Oral tab 1 tab once daily [Active]; hydrochlorothiazide 25 mg Oral tab mg2 1 tab once daily [Active]; lisinopril 40 mg Oral tab 1 tab once daily [Active]; metformin 500 mg Oral tab 1 tab 2 times per day [Active]; Motrin 600 mg Oral daily [Active]; probenecid 500 mg Oral tab 1 tab 2 times per day [Active]; Synthroid 50 mcg Oral tab 1 tab once daily [Active]; Sumatriptan Sub-Q [Active]; allopurinol Oral [Active]; montelukast oral oral [Active]; Nitrofurantoin Macrocrystal Oral [Active]; amlodipine oral [Active]; - PMHx: 15:31 Cancer, Breast; Diabetes - NIDDM; Hypertension; Hypothyroidism; Myocardial infarction; mg2 - PSHx: 15:31 Cholecystectomy; Mastectomy; Knee surgery; mg2 - Immunization history:: Flu vaccine is up to date. - Social history:: Smoking status: Patient/guardian denies using tobacco, Patient uses alcohol, occasionally. Patient/guardian denies using street drugs, IV drugs. - Ebola Screening: : No symptoms or risks identified at this time. ROS: 17:00 Eyes: Negative for injury, pain, redness, and discharge, ENT: Negative for injury, pm1 pain, and discharge, Neck: Negative for injury, pain, and swelling. 17:00 Cardiovascular: Negative for chest pain, palpitations, and edema. 17:00 Back: Negative for injury and pain, : Negative for injury, bleeding, discharge, and swelling, MS/Extremity: Negative for injury and deformity, Skin: Negative for injury, rash, and discoloration, Neuro: Negative for headache, weakness, numbness, tingling, and seizure. 17:00 Constitutional: Positive for body aches, fever, Negative for poor PO intake. 17:00 Respiratory: Positive for cough, Negative for shortness of breath, sputum production, wheezing. 17:00 Abdomen/GI: Positive for vomiting, diarrhea, Negative for abdominal pain. Exam: 17:00 Constitutional: This is a well developed, well nourished patient who is awake, alert, pm1 and in no acute distress. Head/Face: Normocephalic, atraumatic. Eyes: Pupils equal round and reactive to light, extra-ocular motions intact. Lids and lashes normal. Conjunctiva and sclera are non-icteric and not injected. Cornea within normal limits. Periorbital areas with no swelling, redness, or edema. ENT: Nares patent. No nasal discharge, no septal abnormalities noted. Tympanic membranes are normal and external auditory canals are clear. Oropharynx with no redness, swelling, or masses, exudates, or evidence of obstruction, uvula midline. Mucous membranes moist. Neck: Trachea midline, no thyromegaly or masses palpated, and no cervical lymphadenopathy. Supple, full range of motion without nuchal rigidity, or vertebral point tenderness. No Meningismus. Chest/axilla: Normal chest wall appearance and motion. Nontender with no deformity. No lesions are appreciated. Cardiovascular: Regular rate and rhythm with a normal S1 and S2. No gallops, murmurs, or rubs. Normal PMI, no JVD. No pulse deficits. Respiratory: Lungs have equal breath sounds bilaterally, clear to auscultation and percussion. No rales, rhonchi or wheezes noted. No increased work of breathing, no retractions or nasal flaring. Abdomen/GI: Soft, non-tender, with normal bowel sounds. No distension or tympany. No guarding or rebound. No evidence of tenderness throughout. Back: No spinal tenderness. No costovertebral tenderness. Full range of motion. Skin: Warm, dry with normal turgor. Normal color with no rashes, no lesions, and no evidence of cellulitis. MS/ Extremity: Pulses equal, no cyanosis. Neurovascular intact. Full, normal range of motion. 17:00 Neuro: Orientation: is normal, Motor: is normal. Vital Signs: 15:25 BP 124 / 64; Pulse 95; Resp 18; Temp 99.1(O); Pulse Ox 98% on R/A; Weight 100.7 kg; mg2 Height 5 ft. 4 in. (162.56 cm); Pain 2/10; 16:48 BP 126 / 92; Pulse 90; Resp 18; Temp 98.8; Pulse Ox 100% on R/A; Pain 0/10; mg2 17:56 BP 101 / 52; Pulse 88; Resp 18; Pulse Ox 98% ; Pain 0/10; mg2 18:54 BP 103 / 54; Pulse 72; Resp 18; Pulse Ox 97% on R/A; Pain 0/10; mg2 19:15 BP 113 / 67; Pulse 71; Resp 18; Pulse Ox 98% on R/A; Pain 0/10; mg2 15:25 Body Mass Index 38.11 (100.70 kg, 162.56 cm) mg2 MDM: 15:21 Patient medically screened. [facility] 18:33 Data reviewed: vital signs. Data interpreted: Pulse oximetry: on room air is 98 %. pm1 Interpretation: normal. 18:33 Counseling: I had a detailed discussion with the patient and/or guardian regarding: the pm1 historical points, exam findings, and any diagnostic results supporting the discharge/admit diagnosis, lab results, radiology results. 10/11 15:26 Order name: Urine Culture pm1 10/11 15:26 Order name: Basic Metabolic Panel; Complete Time: 16:29 pm1 10/11 15:26 Order name: Blood Culture Adult (2) pm1 10/11 15:26 Order name: CBC with Diff; Complete Time: 16:29 pm1 10/11 15:26 Order name: Ckmb; Complete Time: 16:29 pm1 10/11 15:26 Order name: CPK; Complete Time: 16:29 pm1 10/11 15:26 Order name: Lactate; Complete Time: 16:29 pm10/11 15:26 Order name: LFT's; Complete Time: 16:29 pm10/11 15:26 Order name: Lipase; Complete Time: 16:29 pm10/11 15:26 Order name: Procalcitonin; Complete Time: 16:49 pm10/11 15:26 Order name: Protime (+inr); Complete Time: 16:29 pm10/11 15:26 Order name: Ptt, Activated; Complete Time: 16:29 pm10/11 15:26 Order name: Troponin (emerg Dept Use Only); Complete Time: 16:29 pm10/11 15:26 Order name: Urine Microscopic Only; Complete Time: 17:43 pm10/11 15:26 Order name: Chest Single View XRAY; Complete Time: 16:49 pm10/11 15:26 Order name: Accucheck; Complete Time: 15:46 pm10/11 15:26 Order name: Cardiac monitoring; Complete Time: 15:46 pm10/11 15:26 Order name: EKG - Nurse/Tech; Complete Time: 16:17 pm10/11 15:26 Order name: IV Saline Lock - Large Bore; Complete Time: 15:46 pm10/11 15:26 Order name: Labs collected and sent; Complete Time: 15:46 pm10/11 15:26 Order name: O2 Per Protocol; Complete Time: 15:46 pm10/11 15:26 Order name: O2 Sat Monitoring; Complete Time: 15:46 pm10/11 15:26 Order name: Urine Dipstick-Ancillary (obtain specimen); Complete Time: 16:45 pm10/11 15:26 Order name: Flu; Complete Time: 16:29 pm10/11 15:26 Order name: Strep; Complete Time: 16:29 pm10/11 16:03 Order name: Throat Culture EDIA 10/11 16:06 Order name: EKG Electrocardiogram EDIA 10/11 16:50 Order name: Urine Dipstick--Ancillary (enter results); Complete Time: 17:43 eb Administered Medications: 17:47 Drug: NS 0.9% 500 ml Route: IV; Rate: bolus; Site: left forearm; mg2 19:25 Follow up: Response: No adverse reaction; IV Status: Completed infusion mg2 18:31 Drug: Rocephin 1 grams Route: IV; Rate: calculated rate; Site: left forearm; mg2 19:25 Follow up: Response: No adverse reaction; Medication administered at discharge.; IV mg2 Status: Completed infusion Point of Care Testing: Blood Glucose: 15:48 Blood Glucose: 140 mg/dL; mg2 Ranges: Critical Glucose Levels:Adult <50 mg/dl or >400 mg/dl <40 mg/dl or >180 mg/dl Disposition: 10/11/18 18:55 Discharged to Home. Impression: Urinary tract infection, site not specified, Diarrhea, unspecified, Vomiting, Acute upper respiratory infection, unspecified. - Condition is Stable. - Discharge Instructions: Diarrhea, Adult, Upper Respiratory Infection, Adult, Urinary Tract Infection, Adult, Viral Gastroenteritis, Adult, Viral Respiratory Infection, Vomiting, Adult. - Prescriptions for Keflex 500 mg Oral Capsule - take 1 capsule by ORAL route every 12 hours for 10 days; 20 capsule. Zofran 4 mg Oral Tablet - take 1 tablet by ORAL route every 12 hours As needed; 20 tablet. - Medication Reconciliation Form, Thank You Letter, Antibiotic Education, Prescription Opioid Use form. - Follow up: Emergency Department; When: As needed; Reason: Worsening of condition. Follow up: Private Physician; When: 2 - 3 days; Reason: Recheck today's complaints, Continuance of care, Re-evaluation by your physician. - Problem is new. - Symptoms have improved. Addendum: 10/14/2018 05:44 Co-signature as Attending Physician, Rudy Foote MD I agree with the assessment and c willis plan of care. Signatures: Dispatcher [employer] [facility] Rudy Foote MD MD cha Marinas, Patrick, NP LOPPER pm1 Ren Noonan RN RN mg2 Corrections: (The following items were deleted from the chart) 10/11 19:26 18:55 10/11/2018 18:55 Discharged to Home. Impression: Urinary tract infection, site mg2 not specifiedDiarrhea, unspecified; Vomiting; Acute upper respiratory infection, unspecified. Condition is Stable. Forms are Medication Reconciliation Form, Thank You Letter, Antibiotic Education, Prescription Opioid Use. Follow up: Emergency Department; When: As needed; Reason: Worsening of condition. Follow up: Private Physician; When: 2 - 3 days; Reason: Recheck today's complaints, Continuance of care, Re-evaluation by your physician. Problem is new. Symptoms have improved. pm1
--- NOTE | 2018-10-11 18:56 | ER ---
Nurse's Notes [facility] Name: Becky Rodriguez Age: 77 yrs Sex: Female : 1940 Arrival Date: 10/11/2018 Time: 15:18 Bed 27 Private MD: Diagnosis: Diarrhea, unspecified;Vomiting;Urinary tract infection, site not specified;Acute upper respiratory infection, unspecified Presentation: 10/11 15:18 Presenting complaint: EMS states: patient has n/v, diarrhea and fever, mild headache mg2 today, productive cough and congestion for 2 weeks. BGL -157 mg/dl. Transition of care: patient was not received from another setting of care. Onset of symptoms was September 2018. Risk Assessment: Do you want to hurt yourself or someone else? Patient reports no desire to harm self or others. Initial Sepsis Screen: Does the patient meet any 2 criteria? No. Patient's initial sepsis screen is negative. Does the patient have a suspected source of infection? No. Patient's initial sepsis screen is negative. Care prior to arrival: None. 15:18 Method Of Arrival: EMS: [facility] mg2 15:18 Acuity: CORNELIO 3 mg2 Triage Assessment: 15:46 General: Appears in no apparent distress. comfortable, Behavior is calm, cooperative. mg2 Pain: Complains of pain in head and chest Pain does not radiate. Pain currently is 2 out of 10 on a pain scale. Quality of pain is described as aching, Pain began gradually, Is intermittent. EENT: No signs and/or symptoms were reported regarding the EENT system. Neuro: Level of Consciousness is awake, alert, obeys commands, Oriented to person, place, time, situation. Cardiovascular: Capillary refill < 3 seconds Patient's skin is warm and dry. Respiratory: Airway is patent Respiratory effort is even, unlabored, Respiratory pattern is regular, symmetrical. GI: No signs and/or symptoms were reported involving the gastrointestinal system. : No signs and/or symptoms were reported regarding the genitourinary system. Derm: Skin is intact, is healthy with good turgor, Skin is pink, warm \T\ dry. normal. Musculoskeletal: Circulation, motion, and sensation intact. Capillary refill < 3 seconds. Historical: - Allergies: 15:31 NKDA; mg2 - Home Meds: 15:31 anastrozole 1 mg Oral tab 1 tab once daily [Active]; hydrochlorothiazide 25 mg Oral tab mg2 1 tab once daily [Active]; lisinopril 40 mg Oral tab 1 tab once daily [Active]; metformin 500 mg Oral tab 1 tab 2 times per day [Active]; Motrin 600 mg Oral daily [Active]; probenecid 500 mg Oral tab 1 tab 2 times per day [Active]; Synthroid 50 mcg Oral tab 1 tab once daily [Active]; Sumatriptan Sub-Q [Active]; allopurinol Oral [Active]; montelukast oral oral [Active]; Nitrofurantoin Macrocrystal Oral [Active]; amlodipine oral [Active]; - PMHx: 15:31 Cancer, Breast; Diabetes - NIDDM; Hypertension; Hypothyroidism; Myocardial infarction; mg2 - PSHx: 15:31 Cholecystectomy; Mastectomy; Knee surgery; mg2 - Immunization history:: Flu vaccine is up to date. - Social history:: Smoking status: Patient/guardian denies using tobacco, Patient uses alcohol, occasionally. Patient/guardian denies using street drugs, IV drugs. - Ebola Screening: : No symptoms or risks identified at this time. Screenin:32 Abuse screen: Denies threats or abuse. Denies injuries from another. Nutritional mg2 screening: No deficits noted. Tuberculosis screening: No symptoms or risk factors identified. Fall Risk IV access (20 points). Assessment: 15:32 Reassessment: see triage assessment. mg2 18:55 Reassessment: Patient and/or family updated on plan of care and expected duration. Pain mg2 level reassessed. Patient is alert, oriented x 3, equal unlabored respirations, skin warm/dry/pink. 19:02 Reassessment: patient for discharge after completing the iv fluid. mg2 Vital Signs: 15:25 BP 124 / 64; Pulse 95; Resp 18; Temp 99.1(O); Pulse Ox 98% on R/A; Weight 100.7 kg; mg2 Height 5 ft. 4 in. (162.56 cm); Pain 2/10; 16:48 BP 126 / 92; Pulse 90; Resp 18; Temp 98.8; Pulse Ox 100% on R/A; Pain 0/10; mg2 17:56 BP 101 / 52; Pulse 88; Resp 18; Pulse Ox 98% ; Pain 0/10; mg2 18:54 BP 103 / 54; Pulse 72; Resp 18; Pulse Ox 97% on R/A; Pain 0/10; mg2 19:15 BP 113 / 67; Pulse 71; Resp 18; Pulse Ox 98% on R/A; Pain 0/10; mg2 15:25 Body Mass Index 38.11 (100.70 kg, 162.56 cm) mg2 ED Course: 15:18 Patient arrived in ED. mg2 15:18 González Longo NP is PHCP. pm1 15:18 Rudy Foote MD is Attending Physician. pm1 15:25 Triage completed. mg2 15:31 Patient has correct armband on for positive identification. radiation monitor on. Pulse mg2 ox on. NIBP on. Door closed. Warm blanket given. 15:32 No provider procedures requiring assistance completed. Maintain EMS IV. Dressing mg2 intact. Good blood return noted. Site clean \T\ dry. Gauge \T\ site: 20 \T\ LFA. 15:33 Arm band placed on. mg2 15:46 Ren Noonan RN is Primary Nurse. mg2 15:55 Chest Single View XRAY In Process Unspecified. EDMS 16:03 EKG done, by graphics edit technician. reviewed by González Longo NP. sm3 19:16 IV discontinued, intact, bleeding controlled, No redness/swelling at site. Pressure mg2 dressing applied. Administered Medications: 17:47 Drug: NS 0.9% 500 ml Route: IV; Rate: bolus; Site: left forearm; mg2 19:25 Follow up: Response: No adverse reaction; IV Status: Completed infusion mg2 18:31 Drug: Rocephin 1 grams Route: IV; Rate: calculated rate; Site: left forearm; mg2 19:25 Follow up: Response: No adverse reaction; Medication administered at discharge.; IV mg2 Status: Completed infusion Point of Care Testing: Blood Glucose: 15:48 Blood Glucose: 140 mg/dL; mg2 Ranges: Outcome: 18:55 Discharge ordered by . pm1 19:16 Discharged to home via wheelchair, with family. mg2 19:16 Condition: stable 19:16 Discharge instructions given to patient, family, Instructed on discharge instructions, follow up and referral plans. medication usage, Demonstrated understanding of instructions, follow-up care, medications, Prescriptions given X 2. 19:26 Patient left the ED. mg2 Signatures: Dispatcher [employer] EDSD González Longo NP DENTAL FINANCIAL COORDINATOR pm1 Ren Noonan, RN RN mg2 Riana Woods sm3
[2018-10-11 20:45] VITALS: TEMP 98.8
[2018-10-11 20:49] VITALS: BP 113/67; O2SAT 98
== END 2018-10-11 19:26 | disposition home or self-care (01) ==
LOC: ER 15:10
DX: N39.0 Urinary tract infection, site not specified (principal); J06.9 Acute upper respiratory infection, unspecified; R19.7 Diarrhea, unspecified; I10 Essential (primary) hypertension; E11.9 Type 2 diabetes mellitus without complications; E03.9 Hypothyroidism, unspecified; I25.2 Old myocardial infarction; Z85.3 Personal history of malignant neoplasm of breast
CPT/HCPCS: 36415; 71045; 80048; 80076; 82550; 82553; 82962; 83605; 83690; 84145; 84484; 85025; 85610; 85730; 87040; 87070; 87081; 87086; 87088; 87804 ×2; 93005; 96361; 96365; 99284; J0696; J7030; 81003; 81015

== ENCOUNTER 2019-08-29 02:36 | Observation (INO) | payer OTHER ==
--- NOTE | 2019-08-29 03:02 | ER ---
Nurse's Notes [facility] Name: Becky Rodriguez Age: 78 yrs Sex: Female : 1940 Arrival Date: 08/29/2019 Time: 02:37 Bed 7 Private MD: Diagnosis: Chest pain, unspecified;Type 2 diabetes mellitus;Essential (primary) hypertension;Hypomagnesemia Presentation: 08/29 02:48 Presenting complaint: Patient states: she layed down to go to sleep and about 15 mins bb later she started having chest pain with SOB at approx 0130 the pain was bad enough to scare her. Transition of care: patient was not received from another setting of care. Onset of symptoms was August 29, 2019. Risk Assessment: Do you want to hurt yourself or someone else? Patient reports no desire to harm self or others. Initial Sepsis Screen: Does the patient meet any 2 criteria? No. Patient's initial sepsis screen is negative. Does the patient have a suspected source of infection? No. Patient's initial sepsis screen is negative. Care prior to arrival: None. 02:48 Method Of Arrival: Wheelchair bb 02:48 Acuity: CORNELIO 3 bb Historical: - Allergies: 02:52 NKDA; bb - Home Meds: 02:52 Allopurinol Oral [Active]; amlodipine oral [Active]; anastrozole 1 mg Oral tab 1 tab bb once daily [Active]; hydrochlorothiazide 25 mg Oral tab 1 tab once daily [Active]; lisinopril 40 mg Oral tab 1 tab once daily [Active]; metformin 500 mg Oral tab 1 tab 2 times per day [Active]; Synthroid 50 mcg Oral tab 1 tab once daily [Active]; montelukast Oral [Active]; Motrin 600 mg Oral daily [Active]; Nitrofurantoin Macrocrystal Oral [Active]; probenecid 500 mg Oral tab 1 tab 2 times per day [Active]; Sumatriptan Sub-Q [Active]; - PMHx: 02:52 Cancer, Breast; Diabetes - NIDDM; Hypertension; Hypothyroidism; Myocardial infarction; bb - PSHx: 02:52 Cholecystectomy; Mastectomy; Knee surgery; bb - Immunization history:: Adult Immunizations unknown. - Social history:: Smoking status: Patient/guardian denies using tobacco. - Ebola Screening: : No symptoms or risks identified at this time. - Family history:: not pertinent. Screenin:50 Abuse screen: Denies threats or abuse. Denies injuries from another. Nutritional aa1 screening: No deficits noted. Tuberculosis screening: No symptoms or risk factors identified. Fall Risk None identified. Assessment: 02:50 General: Appears in no apparent distress. comfortable, Behavior is calm, cooperative, aa1 appropriate for age. Pain: Complains of pain in chest Pain radiates to left arm Pain currently is 0 out of 10 on a pain scale. at worst was 8 out of 10 on a pain scale. Pain began 1 hour ago. Is intermittent. Neuro: Level of Consciousness is awake, alert, obeys commands, Oriented to person, place, time, situation, Moves all extremities. Full function Gait is steady, Speech is normal. Cardiovascular: Reports chest pain, Denies diaphoresis, nausea, palpitations, shortness of breath, Heart tones S1 S2 present Capillary refill < 3 seconds Clubbing of nail beds is absent JVD is absent Patient's skin is warm and dry. Rhythm is regular Chest pain is described as vague, is located in anterior chest wall radiates to left arm(s) began 1 hour prior to arrival episodes are intermittent. Respiratory: Airway is patent Respiratory effort is even, unlabored, Respiratory pattern is regular, symmetrical. GI: No signs and/or symptoms were reported involving the gastrointestinal system. : No signs and/or symptoms were reported regarding the genitourinary system. EENT: No signs and/or symptoms were reported regarding the EENT system. Derm: Skin is intact, is healthy with good turgor, Skin is pink, warm \T\ dry. Musculoskeletal: Circulation, motion, and sensation intact. Capillary refill < 3 seconds. 03:55 Reassessment: Patient appears in no apparent distress at this time. Patient and/or aa1 family updated on plan of care and expected duration. Pain level reassessed. Patient is alert, oriented x 3, equal unlabored respirations, skin warm/dry/pink. Patient is alert/active/playful, equal unlabored respirations, skin warm/dry/pink. Pt to be ER hold at this time. Vital Signs: 02:52 BP 144 / 70; Pulse 80; Resp 16 S; Temp 97.2(O); Pulse Ox 99% on R/A; Weight 102.51 kg bb (R); Height 5 ft. 4 in. (162.56 cm) (R); Pain 8/10; 03:55 BP 136 / 64; Pulse 67; Resp 18; Temp 97.4; Pulse Ox 98% on R/A; Pain 0/10; aa1 02:52 Body Mass Index 38.79 (102.51 kg, 162.56 cm) bb ED Course: 02:37 Patient arrived in ED. cl3 02:38 Rudy Foote MD is Attending Physician. barbara 02:50 Triage completed. bb 02:50 Patient has correct armband on for positive identification. Placed in gown. Bed in low aa1 position. Call light in reach. school lunch monitor on. Pulse ox on. NIBP on. Warm blanket given. 02:50 EKG done, by ED staff, reviewed by Rudy Foote MD. Patient maintains SpO2 saturation aa1 greater than 95% on room air. 02:52 Arm band placed on Patient placed in an exam room, on a stretcher, on compliance monitor, bb on pulse oximetry. EKG completed in triage. Results shown to MD. 02:59 Jean Mario MD is Hospitalizing Provider. barbara 03:11 Betsy Osborne, RN is Primary Nurse. aa1 03:13 Inserted saline lock: 20 gauge in left antecubital area, using aseptic technique. Blood oe collected. 03:17 XRAY Chest (1 view) In Process Unspecified. EDMS 04:08 No provider procedures requiring assistance completed. Patient admitted, IV remains in aa1 place. 07:03 Primary Nurse role handed off by Betsy Osborne, CURTIS bp 07:03 Darwin Saenz, CURTIS is Primary Nurse. bp Administered Medications: 03:15 Drug: Lopressor 25 mg Route: PO; aa1 04:43 Follow up: Response: No adverse reaction aa1 03:15 Drug: Aspirin Chewable Tablet 324 mg Route: PO; aa1 04:43 Follow up: Response: No adverse reaction aa1 03:15 Drug: Lovenox 100 mg Route: Sub-Q; Site: right lower abdomen; aa1 04:43 Follow up: Response: No adverse reaction aa1 03:21 Drug: Pepcid 20 mg Route: IVP; Site: left forearm; aa1 04:43 Follow up: Response: No adverse reaction aa1 04:48 Drug: Magnesium Sulfate 2 grams Route: IVPB; Infused Over: 2 hrs; Site: left forearm; aa1 06:41 Follow up: IV Status: Completed infusion; IV Intake: 50ml aa1 Intake: 06:41 IV: 50ml; Total: 50ml. aa1 Outcome: 02:59 Decision to Hospitalize by Provider. barbara 03:55 Admitted to ER Hold. Please see [facility] for further documentation. aa1 15:01 Discharged to home ambulatory, with family. bp 15:01 Discharged to D/C FROM ER HOLD IN [facility] 15:01 Condition: stable 15:02 Patient left the ED. bp Signatures: Dispatcher [employer] EDMS Betsy Osborne RN RN aa1 Rudy Foote MD MD cha Ballard, Brenda, RN RN Ernst Vick Brian, RN RN Jian Goins cl3 Corrections: (The following items were deleted from the chart) 04:20 04:09 Reassessment: Patient appears in no apparent distress at this time. Patient aa1 and/or family updated on plan of care and expected duration. Pain level reassessed. Patient is alert, oriented x 3, equal unlabored respirations, skin warm/dry/pink. Patient is alert/active/playful, equal unlabored respirations, skin warm/dry/pink. Pt to be ER hold at this time aa1
--- NOTE | 2019-08-29 03:03 | EDPHYS ---
Physician Documentation [facility] Name: Becky Rodriguez Age: 78 yrs Sex: Female : 1940 Arrival Date: 08/29/2019 Time: 02:37 Bed 7 Private MD: ERNIE Physician Rudy Foote HPI: 08/29 02:54 This 78 yrs old Female presents to ER via Wheelchair with complaints of Chest barbara Pain, Shortness Of Breath. 02:54 The patient or guardian reports chest pain that is located primarily in the substernal barbara area. Onset: this morning. The pain radiates to the left arm. Associated signs and symptoms: The patient has no apparent associated signs or symptoms. The chest pain is described as a heaviness, a pressure. Modifying factors: The symptoms are alleviated by nothing. the symptoms are aggravated by nothing. Severity of pain: At its worst the pain was mild in the emergency department the pain is unchanged. The patient has not experienced similar symptoms in the past. Historical: - Allergies: 02:52 NKDA; bb - Home Meds: 02:52 Allopurinol Oral [Active]; amlodipine oral [Active]; anastrozole 1 mg Oral tab 1 tab bb once daily [Active]; hydrochlorothiazide 25 mg Oral tab 1 tab once daily [Active]; lisinopril 40 mg Oral tab 1 tab once daily [Active]; metformin 500 mg Oral tab 1 tab 2 times per day [Active]; Synthroid 50 mcg Oral tab 1 tab once daily [Active]; montelukast Oral [Active]; Motrin 600 mg Oral daily [Active]; Nitrofurantoin Macrocrystal Oral [Active]; probenecid 500 mg Oral tab 1 tab 2 times per day [Active]; Sumatriptan Sub-Q [Active]; - PMHx: 02:52 Cancer, Breast; Diabetes - NIDDM; Hypertension; Hypothyroidism; Myocardial infarction; bb - PSHx: 02:52 Cholecystectomy; Mastectomy; Knee surgery; bb - Immunization history:: Adult Immunizations unknown. - Social history:: Smoking status: Patient/guardian denies using tobacco. - Ebola Screening: : No symptoms or risks identified at this time. - Family history:: not pertinent. ROS: 02:54 Constitutional: Negative for fever, chills, and weight loss, Eyes: Negative for injury, barbara pain, redness, and discharge, ENT: Negative for injury, pain, and discharge, Neck: Negative for injury, pain, and swelling, Respiratory: Negative for shortness of breath, cough, wheezing, and pleuritic chest pain, Abdomen/GI: Negative for abdominal pain, nausea, vomiting, diarrhea, and constipation, Back: Negative for injury and pain, : Negative for injury, bleeding, discharge, and swelling, MS/Extremity: Negative for injury and deformity, Skin: Negative for injury, rash, and discoloration, Neuro: Negative for headache, weakness, numbness, tingling, and seizure, Psych: Negative for depression, anxiety, suicide ideation, homicidal ideation, and hallucinations, Allergy/Immunology: Negative for hives, rash, and allergies, Endocrine: Negative for neck swelling, polydipsia, polyuria, polyphagia, and marked weight changes, Hematologic/Lymphatic: Negative for swollen nodes, abnormal bleeding, and unusual bruising. 02:54 Cardiovascular: Positive for chest pain. Exam: 02:54 Constitutional: This is a well developed, well nourished patient who is awake, alert, barbara and in no acute distress. Head/Face: Normocephalic, atraumatic. Eyes: Pupils equal round and reactive to light, extra-ocular motions intact. Lids and lashes normal. Conjunctiva and sclera are non-icteric and not injected. Cornea within normal limits. Periorbital areas with no swelling, redness, or edema. ENT: Nares patent. No nasal discharge, no septal abnormalities noted. Tympanic membranes are normal and external auditory canals are clear. Oropharynx with no redness, swelling, or masses, exudates, or evidence of obstruction, uvula midline. Mucous membranes moist. Neck: Trachea midline, no thyromegaly or masses palpated, and no cervical lymphadenopathy. Supple, full range of motion without nuchal rigidity, or vertebral point tenderness. No Meningismus. Chest/axilla: Normal chest wall appearance and motion. Nontender with no deformity. No lesions are appreciated. Cardiovascular: Regular rate and rhythm with a normal S1 and S2. No gallops, murmurs, or rubs. Normal PMI, no JVD. No pulse deficits. Respiratory: Lungs have equal breath sounds bilaterally, clear to auscultation and percussion. No rales, rhonchi or wheezes noted. No increased work of breathing, no retractions or nasal flaring. Abdomen/GI: Soft, non-tender, with normal bowel sounds. No distension or tympany. No guarding or rebound. No evidence of tenderness throughout. Back: No spinal tenderness. No costovertebral tenderness. Full range of motion. Skin: Warm, dry with normal turgor. Normal color with no rashes, no lesions, and no evidence of cellulitis. MS/ Extremity: Pulses equal, no cyanosis. Neurovascular intact. Full, normal range of motion. Neuro: Awake and alert, GCS 15, oriented to person, place, time, and situation. Cranial nerves II-XII grossly intact. Motor strength 5/5 in all extremities. Sensory grossly intact. Cerebellar exam normal. Normal gait. Psych: Awake, alert, with orientation to person, place and time. Behavior, mood, and affect are within normal limits. 02:54 Musculoskeletal/extremity: Extremities: all appear grossly normal, with no appreciated pain with palpation, DVT Exam: No signs of deep vein thrombosis. no pain, no swelling, no tenderness, negative Homans' sign noted on exam, no appreciated bluish discoloration, no erythema, no increased warmth. Vital Signs: 02:52 BP 144 / 70; Pulse 80; Resp 16 S; Temp 97.2(O); Pulse Ox 99% on R/A; Weight 102.51 kg bb (R); Height 5 ft. 4 in. (162.56 cm) (R); Pain 8/10; 03:55 BP 136 / 64; Pulse 67; Resp 18; Temp 97.4; Pulse Ox 98% on R/A; Pain 0/10; aa1 02:52 Body Mass Index 38.79 (102.51 kg, 162.56 cm) MDM: 02:38 Patient medically screened. [facility] 02:57 Data reviewed: vital signs, nurses notes, lab test result(s), EKG, radiologic studies, [facility] plain films. 08/29 02:54 Order name: Basic Metabolic Panel; Complete Time: 04:39 [facility] 08/29 02:54 Order name: CBC with Diff; Complete Time: 04:39 [facility] 08/29 02:54 Order name: LFT's; Complete Time: 04:39 [facility] 08/29 02:54 Order name: Magnesium; Complete Time: 04:39 [facility] 08/29 02:54 Order name: NT PRO-BNP; Complete Time: 04:39 [facility] 08/29 02:54 Order name: PT-INR; Complete Time: 04:39 [facility] 08/29 02:54 Order name: Troponin (emerg Dept Use Only); Complete Time: 04:39 [facility] 08/29 02:54 Order name: XRAY Chest (1 view) [facility] 08/29 02:54 Order name: Lipase; Complete Time: 04:39 [facility] 08/29 06:29 Order name: Troponin I [facility] 08/29 06:29 Order name: Lipid Profile [facility] 08/29 13:21 Order name: NM [facility] 08/29 14:38 Order name: Magnesium [facility] 08/29 02:54 Order name: EKG; Complete Time: 02:56 [facility] 08/29 02:54 Order name: Cardiac monitoring; Complete Time: 03:11 [facility] 08/29 02:54 Order name: EKG - Nurse/Tech; Complete Time: 03:11 [facility] 08/29 02:54 Order name: IV Saline Lock; Complete Time: 03:27 [facility] 08/29 02:54 Order name: Labs collected and sent; Complete Time: 03:28 [facility] 08/29 02:54 Order name: O2 Per Protocol; Complete Time: 03:11 [facility] 08/29 02:54 Order name: O2 Sat Monitoring; Complete Time: 03:11 [facility] Administered Medications: 03:15 Drug: Lopressor 25 mg Route: PO; aa1 04:43 Follow up: Response: No adverse reaction aa1 03:15 Drug: Aspirin Chewable Tablet 324 mg Route: PO; aa1 04:43 Follow up: Response: No adverse reaction aa1 03:15 Drug: Lovenox 100 mg Route: Sub-Q; Site: right lower abdomen; aa1 04:43 Follow up: Response: No adverse reaction aa1 03:21 Drug: Pepcid 20 mg Route: IVP; Site: left forearm; aa1 04:43 Follow up: Response: No adverse reaction aa1 04:48 Drug: Magnesium Sulfate 2 grams Route: IVPB; Infused Over: 2 hrs; Site: left forearm; aa1 06:41 Follow up: IV Status: Completed infusion; IV Intake: 50ml aa1 Disposition: 08/29/19 02:59 Hospitalization ordered by Jean Mario for Inpatient Admission. Preliminary diagnosis are Chest pain, unspecified, Type 2 diabetes mellitus, Essential (primary) hypertension, Hypomagnesemia. - Bed requested for [facility] ER HOLD. - Status is Inpatient Admission. bp - Condition is Stable. - Problem is new. - Symptoms have improved. UTI on Admission? No Signatures: Dispatcher [employer] EDMS Haleigh Gayle RN RN Betsy Osborne RN RN aa1 Rudy Foote MD MD cha Ballard, Brenda, RN RN Shanna Chiang RN RN iw Dany, Darwin RN RN bp Corrections: (The following items were deleted from the chart) 03:02 02:59 Hospitalization Ordered by Jean Mario MD for Inpatient Admission. Preliminary diagnosis is Chest pain, unspecified; Type 2 diabetes mellitus; Essential (primary) hypertension. Bed requested for Telemetry/MedSurg (Inpatient). Status is Inpatient Admission. Condition is Stable. Problem is new. Symptoms have improved. UTI on Admission? No. barbara 04:41 03:02 08/29/2019 02:59 Hospitalization Ordered by Jean Mario MD for Inpatient [facility] Admission. Preliminary diagnosis is Chest pain, unspecified; Type 2 diabetes mellitus; Essential (primary) hypertension. Bed requested for [facility] ER HOLD. Status is Inpatient Admission. Condition is Stable. Problem is new. Symptoms have improved. UTI on Admission? No. corrie 06:22 04:41 08/29/2019 02:59 Hospitalization Ordered by Jean Mario MD for Inpatient mw Admission. Preliminary diagnosis is Chest pain, unspecified; Type 2 diabetes mellitus; Essential (primary) hypertension; Hypomagnesemia. Bed requested for [facility] ER HOLD. Status is Inpatient Admission. Condition is Stable. Problem is new. Symptoms have improved. UTI on Admission? No. barbara 07:55 06:22 08/29/2019 02:59 Hospitalization Ordered by Jean Mario MD for Inpatient iw Admission. Preliminary diagnosis is Chest pain, unspecified; Type 2 diabetes mellitus; Essential (primary) hypertension; Hypomagnesemia. Bed requested for Telemetry/MedSurg (Inpatient). Status is Inpatient Admission. Condition is Stable. Problem is new. Symptoms have improved. UTI on Admission? No. corrie 07:58 07:55 08/29/2019 02:59 Hospitalization Ordered by Jean Mario MD for Inpatient iw Admission. Preliminary diagnosis is Chest pain, unspecified; Type 2 diabetes mellitus; Essential (primary) hypertension; Hypomagnesemia. Bed requested for Telemetry/MedSurg (Inpatient). Status is Inpatient Admission. Condition is Stable. Problem is new. Symptoms have improved. UTI on Admission? No. iw 15:02 07:58 08/29/2019 02:59 Hospitalization Ordered by Jean Mario MD for Inpatient bp Admission. Preliminary diagnosis is Chest pain, unspecified; Type 2 diabetes mellitus; Essential (primary) hypertension; Hypomagnesemia. Bed requested for [facility] ER HOLD. Status is Inpatient Admission. Condition is Stable. Problem is new. Symptoms have improved. UTI on Admission? No. iw
[2019-08-29] MEDS ORDERED: ASPIRIN 81 MG CHEWABLE TABLET ONE (03:16)
[2019-08-29] MEDS ORDERED: FAMOTIDINE 20 MG/2 ML VIAL IV ONE (03:17)
[2019-08-29] MEDS ORDERED: ENOXAPARIN 100 MG/ML SYR SQ ONE (03:17)
[2019-08-29] MEDS ORDERED: METOPROLOL TAR 25 MG TAB ONE ×2 (03:17→09:07)
[2019-08-29 03:28] LABS: Absolute Lymphocytes (CBC) 4.3 K/uL (0.7-4.9); Basophils % 0.7 % (0-1.3); Hematocrit 34.2 % (36.0-45.0); Lymphocytes % 39.3 % (15.3-44.8); MPV 8.5 fL (7.6-11.3); RBC Red Blood Cell Count 3.82 M/uL (3.86-4.86)
[2019-08-29 03:58] LABS: ALT/SGPT 22 U/L (12-78); AST/SGOT 13 U/L (15-37); Albumin 3.6 g/dL (3.4-5.0); Alkaline Phosphatase 48 U/L (45-117); BUN Blood Urea Nitrogen 23 mg/dL (7-18); Bicarbonate 29 mmol/L (21-32); Bilirubin Direct 0.1 mg/dL (0-0.2); Bilirubin Total 0.2 mg/dL (0.2-1.0); Glucose Level 92 mg/dL (74-106); Lipase 273 U/L (73-393); NT PRO-BNP 139 pg/mL (<450); Potassium 4.1 mmol/L (3.5-5.1); Protein, Total 7.1 g/dL (6.4-8.2); Sodium Level 140 mmol/L (136-145); Troponin (Emerg Dept Use Only) < 0.02 ng/mL (0.0-0.045)
[2019-08-29 04:09] LABS: Magnesium 1.3 mg/dL (1.8-2.4)
[2019-08-29] MEDS ORDERED: Magnesium Sulfate 2gm IVPB 2 G/50 ML BAG IV ONE ×2 (04:47→04:58)
--- NOTE | 2019-08-29 05:05 | P.HP ---
Certification for Inpatient Patient admitted to: Observation With expected LOS: <2 Midnights Patient will require the following post-hospital care: None Practitioner: I am a practitioner with admitting privileges, knowledge of patient current condition, hospital course, and medical plan of care. Services: Services provided to patient in accordance with Admission requirements found in Title 42 Section 412.3 of the Code of Federal Regulations Patient History Date of Service: 08/29/19 Reason for admission: Chest pain rule out acute coronary syndrome History of Present Illness: Patient is a 78-year-old female came to the hospital with chest discomfort. Pain was in the sternal region and was sharp. She called her daughter around 130 to come and take her into the hospital. Patient was seen in the emergency room initial workup is unremarkable. Troponins and EKG are negative. Patient will be admitted to be ruled out for acute coronary syndrome. This does not seem to have any association with dietary intake. This could be musculoskeletal but at her age it would be prudent to make sure there is not acute coronary syndrome. Allergies No Known Drug Allergies Allergy (Verified 01/26/18 20:22) Unknown Home Medications: Anastrozole [Arimidex*] 1 mg PO DAILY 01/26/18 Lisinopril [Zestril] 40 mg PO DAILY 01/26/18 Metformin HCl [Glucophage*] 500 mg PO BIDWM 01/26/18 Probenecid 500 mg PO BID 01/26/18 hydroCHLOROthiazide [Hydrochlorothiazide*] 12.5 mg PO DAILY 01/26/18 - Past Medical/Surgical History Diabetic: Yes -: Breast Ca -: NIDDM -: HTN -: Hypothyroidism -: ILIA mastectomy 5 years ago -: L knee replacement -: cataract extraction with lens implant -: gallbladder removal -: complete hysterectomy -: appendectomy -: R head sx, tumors removed - Family History Father Family History: Reviewed- Non-Contributory - Social History Smoking Status: Current some day smoker Smoking therapy provided: No Alcohol use: Yes CD- Drugs: No Caffeine use: Yes Review of Systems 10-point ROS is otherwise unremarkable Physical Examination - Vital Signs Temperature: 98 F Blood Pressure: 128/90 Pulse: 85 Respirations: 18 Pulse Ox (%): 96 - Physical Exam General: Alert, In no apparent distress, Oriented x3 HEENT: Atraumatic, PERRLA, Mucous membr. moist/pink, EOMI, Sclerae nonicteric Neck: Supple, 2+ carotid pulse no bruit, No LAD, Without JVD or thyroid abnormality Respiratory: Clear to auscultation bilaterally, Normal air movement Cardiovascular: Regular rate/rhythm, Normal S1 S2, No murmurs Gastrointestinal: Normal bowel sounds, Soft and benign, Non-distended, No tenderness Musculoskeletal: No clubbing, No swelling, No tenderness Integumentary: No rashes Neurological: Normal gait, Normal speech, Normal strength at 5/5 x4 extr, Normal tone, Sensation intact, Cranial nerves 3-12 intact, Normal affect Lymphatics: No axilla or inguinal lymphadenopathy - Studies Laboratory Data (last 24 hrs) 08/29/19 03:07: PT 11.8, INR 1.00 08/29/19 03:07: WBC 11.1 H, Hgb 11.2 L, Hct 34.2 L, Plt Count 265 08/29/19 03:07: Sodium 140, Potassium 4.1, BUN 23 H, Creatinine 1.12, Glucose 92 , Magnesium 1.3 L*, Total Bilirubin 0.2, AST 13 L, ALT 22, Alkaline Phosphatase 48, Lipase 273 Assessment & Plan - Problems (Diagnosis) (1) Chest pain, rule out acute myocardial infarction Current Visit: Yes Status: Acute (2) Hypertension Current Visit: Yes Status: Acute (3) Breast cancer Current Visit: Yes Status: Acute (4) Type 2 diabetes mellitus Current Visit: Yes Status: Acute (5) Hypothyroidism Current Visit: Yes Status: Acute - Plan 1. Serial troponins and EKG 2. Cardiology consultation 3. Echocardiogram and stress test 4. Anti-platelet therapy, anti coagulation, beta-james, statin, and O2 as needed 5. IV morphine for pain 6. Nitro p.r.n. Discharge Plan: Home Plan to discharge in: 24 Hours - Advance Directives Does patient have a Living Will: No Does patient have a Durable POA for Healthcare: No - Code Status/Comfort Care Code Status Assessed: Yes Code Status: Full Code Critical Care: No Time Spent Managing PTS Care (In Minutes): 45
[2019-08-29] MEDS ORDERED: ACETAMINOPHEN 500 MG TAB PO PRN (05:06)
[2019-08-29] MEDS ORDERED: ALPRAZOLAM 0.25 MG TABLET PO PRN (05:06)
[2019-08-29] MEDS ORDERED: MORPHINE 4 MG/ML SYR IV PRN (05:06)
[2019-08-29 05:45] VITALS: BMI 38.7
[2019-08-29 06:29] LABS: HDL Cholesterol 67 mg/dL (40-60); LDL Cholesterol, Calculated 42 (<130); Troponin I < 0.02 ng/mL (0.0-0.045)
[2019-08-29] MEDS: METOPROLOL TAR 50 MG TAB PO SCH ×2 (08:00→09:00)
[2019-08-29 08:13] VITALS: TEMP 98.7; O2SAT 98
[2019-08-29] MEDS ORDERED: REGADENOSON 0.4 MG/5 ML SYR IV ONE (08:26)
[2019-08-29] MEDS ORDERED: ASPIRIN EC 81 MG TAB PO SCH (09:00)
[2019-08-29] MEDS ORDERED: ENOXAPARIN 40 MG/0.4 ML SQ SCH (09:00)
[2019-08-29] MEDS ORDERED: ASPIRIN EC 81 MG TAB PO ONE (09:06)
[2019-08-29] MEDS ORDERED: ENOXAPARIN 40 MG/0.4 ML SQ ONE (09:07)
--- NOTE | 2019-08-29 09:32 | RAD REPORT ---
EXAM DESCRIPTION: RAD - Chest Single View - 08/29/2019 3:18 am CLINICAL HISTORY: Chest pain, shortness of breath COMPARISON: September 2018 TECHNIQUE: AP portable chest image was obtained 0314 hours . FINDINGS: Lungs are clear. Heart and vasculature are normal. No measurable pleural effusion and no p neumothorax. No acute bony abnormality seen. No acute aortic findings suspected. IMPRESSION: No acute cardiopulmonary process. No significant change from comparison.
--- NOTE | 2019-08-29 13:17 | RAD REPORT ---
EXAM DESCRIPTION: NM - Rest Stress Cardiac Imaging - 08/29/2019 12:58 pm CLINICAL HISTORY: Chest pain COMPARISON: None. TECHNIQUE: The patient was administered approximately 10 mCi of Tc 99m Sestamibi prior to resting SP ECT imaging of the heart. The patient was then administered approximately 30 mCi of Tc 99m Sestamibi following exercise or pharmacologic stress. Multiplanar SPECT images were reviewed. FINDINGS: The end diastolic volume is 78 ml, the end systolic volume is 26 ml, and the ejection frac tion is 60 %. No stress-induced ischemic changes identifiable. Mild to moderate areas of diminished activity are se en along the mid and base portion of the inferior wall unchanged between rest and stress imaging. Thi s is believed to attenuation artifact. Scarring is unlikely. IMPRESSION: No stress-induced ischemic change. Ventricular volumes and ejection fraction are normal range.
--- NOTE | 2019-08-29 13:49 | EKG ---
Test Date: 2019-08-29 Test Time: 02:49:52 Laboratory Miller: LESLEE MEASUREMENT RESULTS: Intervals: Rate: 76 GA: 156 QRSD: 82 QT: 382 QTc: 429 [place]: P: -17 GA: 156 QRS: 10 T: 43 INTERPRETIVE STATEMENTS: Normal sinus rhythm Normal ECG Compared to ECG 10/11/2018 15:54:57 Atrial premature complex(es) no longer present Myocardial infarct finding no longer present Electronically Signed On 08-29-19 13:46:59 [facility] by Carl Eduardo
--- NOTE | 2019-08-29 13:54 | ECHO ---
HEIGHT: 5 ft 4 in WEIGHT: 226 lb 0 oz DATE OF STUDY: 08/29/[address]: Jean Mario MD 2-DIMENSIONAL: YES M.MODE: YES DOPPLER: YES COLOR FLOW: YES TDS: PORTABLE: DEFINITY: BUBBLE STUDY: DIAGNOSIS: CHEST PAIN CARDIAC HISTORY: CATHERIZATION: NO SURGERY: NO PROSTHETIC VALVE: NO PACEMAKER: NO MEASUREMENTS (cm) DIASTOLIC (NORMALS) SYSTOLIC (NORMALS) IVSd 1.3 (0.6-1.2) LA Diam (1.9-4.0) LVEF 70% LVIDd 3.7 (3.5-5.7) LVIDs 2.3 (2.0-3.5) %FS 39% LVPWd 1.2 (0.6-1.2) Ao Diam 2.9 (2.0-3.7) 2 DIMENSIONAL ASSESSMENT: RIGHT ATRIUM: NORMAL LEFT ATRIUM: NORMAL RIGHT VENTRICLE: NORMAL LEFT VENTRICLE: NORMAL TRICUSPID VALVE: NORMAL MITRAL VALVE: MITRAL ANNULAR CALCIFICATION PULMONIC VALVE: NORMAL AORTIC VALVE: NORMAL PERICARDIAL EFFUSION: NONE AORTIC ROOT: NORMAL LEFT VENTRICULAR WALL MOTION: NORMAL DOPPLER/COLOR FLOW: MILD TRICUSPID REGURGITATION. COMMENTS: NORMAL LEFT VENTRICULAR SIZE AND FUNCTION. MITRAL ANNULAR CALCIFICATION. AORTIC SCLEROSIS NO STENOSIS. NO WALL MOTION ABNORMALITY. NO EFFUSION. TECHNOLOGIST: AMELIA SOW
--- NOTE | 2019-08-29 14:02 | TREADPHA ---
DX: CHEST PAIN Date of Study: 09/25/2019 Ht: 5 4 Wt: 226 lb 0 oz Consulting Physician: JOANNA MEDICATIONS: TYLENOL EXTRA STRENGTH, XANAX, ASPIRIN, LOVENOX, LOPRESSOR, MORPHINE SULFATE HISTORY: 78 YEAR OLD FEMALE WITH COMPLAINTS OF CHEST PAIN. HISTORY OF BREAST CANCER, NON-INSULIN DEPENDENT DIABETES MELLITUS, HYPOTHYROIDISM, NON-SMOKER PHYSICIAL EXAMINATION: RESTING B.P.: 126/70 RESTING H.R.: 70 RESTING EKG: NORMAL PROTOCOL: PHARMACOLOGIC EXERCISE TIME: 3:30 B.P. AT PEAK STRESS: 140/75 IMPRESSION: LEXISCAN INJECTED FOLLOWED BY CARDIOLITE PER PROTOCOL. SEE NUCLEAR MEDICINE REPORT. NO SUPRA VENTRICULAR TACHYCARDIA, VENTRICULAR TACHYCARDIA, PREMATURE ATRIAL COMPLEXES OR PREMATURE VENTRICULAR COMPLEXES. PATIENT REPORT NO CHEST PAIN.
[2019-08-29] MEDS ORDERED: ACETAMINOPHEN 500 MG TAB ONE (14:08)
[2019-08-29 14:47] VITALS: BP 119/65
== END 2019-08-29 15:10 | disposition home or self-care (01) ==
LOC: ER 02:36 → ERHOLD 05:12
PROVIDERS: ADMIT Hospitalist; ATTEND Hospitalist
DX: R07.9 Chest pain, unspecified (principal); E11.9 Type 2 diabetes mellitus without complications; I10 Essential (primary) hypertension; E03.9 Hypothyroidism, unspecified; Z96.652 Presence of left artificial knee joint; Z85.3 Personal history of malignant neoplasm of breast; F17.210 Nicotine dependence, cigarettes, uncomplicated
CPT/HCPCS: 96365; 93005; 93017; 93306; 85025; 80048; 36415; 83735 ×2; 85610; 80061; 80076; 84484 ×2; 83690; 83880; 71045; 78452; 96375; 96372; 99285; 96366; J1650; J3475; J2785; A9500; G0378 ×2

== ENCOUNTER 2020-02-11 11:42 | Emergency (ER) | payer OTHER ==
--- NOTE | 2020-02-11 14:23 | RAD REPORT ---
EXAM DESCRIPTION: Best Single View02/11/2020 2:04 pm CLINICAL HISTORY: Chest pain COMPARISON: Aug 2019 FINDINGS: The lungs appear clear of acute infiltrate. The heart is normal size IMPRESSION: No acute abnormalities displayed
[2020-02-11 14:41] LABS: ALT/SGPT 23 U/L (12-78); AST/SGOT 19 U/L (15-37); Albumin 3.7 g/dL (3.4-5.0); Alkaline Phosphatase 65 U/L (45-117); BUN Blood Urea Nitrogen 20 mg/dL (7-18); Bicarbonate 28 mmol/L (21-32); Bilirubin Direct 0.1 mg/dL (0-0.2); Bilirubin Total 0.4 mg/dL (0.2-1.0); Glucose Level 107 mg/dL (74-106); Magnesium 1.5 mg/dL (1.8-2.4); NT PRO-BNP 306 pg/mL (<450); Potassium 4.2 mmol/L (3.5-5.1); Protein, Total 7.6 g/dL (6.4-8.2); Sodium Level 138 mmol/L (136-145); Troponin (Emerg Dept Use Only) < 0.02 ng/mL (0.0-0.045)
[2020-02-11 14:44] LABS: Protime INR 1.03
[2020-02-11 14:47] LABS: Absolute Lymphocytes (CBC) 2.7 K/uL (0.7-4.9); Basophils % 0.8 % (0-1.3); Hematocrit 35.7 % (36.0-45.0); Lymphocytes % 25.6 % (15.3-44.8); MPV 8.5 fL (7.6-11.3); RBC Red Blood Cell Count 4.13 M/uL (3.86-4.86)
[2020-02-11] MEDS ORDERED: Magnesium Sulfate 2gm IVPB 2 G/50 ML BAG IV ONE (16:08)
--- NOTE | 2020-02-11 16:32 | RAD REPORT ---
EXAM DESCRIPTION: CT - Chest For Pe Angio - 02/11/2020 4:07 pm CLINICAL HISTORY: Chest pain COMPARISON: 2018 TECHNIQUE: Dynamically enhanced axial 3 mm thick images of the chest were obtained during administra tion of <100> mL Isovue 370 IV contrast. Coronal and oblique reconstruction images were generated and reviewed. Exam utilizes a protocol for optimal evaluation of pulmonary arterial tree. Maximum intensity projections 3D imaging was utilized All CT scans are performed using dose optimization technique as appropriate and may include automated exposure control or mA/KV adjustment according to patient size. FINDINGS: A pulmonary embolus is not seen. A thoracic aortic aneurysm is not noted. A pleural effusion is not seen. A pericardial effusion is not seen. A lung consolidation is not present. IMPRESSION: Negative for a pulmonary embolism.
[2020-02-11 16:38] LABS: Urine Bacteria <20 /HPF (<20); Urine Culture Reflex Order REFLEXED; Urine Mucus 1+ /HPF (NONE SEEN); Urine RBC <5 /HPF (NONE SEEN)
[2020-02-11 16:38] LABS: Urine Blood NEGATIVE (NEG); Urine Glucose NEGATIVE (NEG); Urine Protein NEGATIVE (NEG); Urine pH 5.5 (5.0-7.0)
--- NOTE | 2020-02-11 16:58 | EDPHYS ---
Physician Documentation [facility] Name: Becky Rodriguez Age: 79 yrs Sex: Female : 1940 Arrival Date: 02/11/2020 Time: 11:46 Bed 8 Private MD: ED Physician Rudy Foote HPI: 02/10 14:07 This 79 yrs old Female presents to ER via Ambulatory with complaints of cp Shortness Of Breath, Nausea, Headache. 14:07 The patient has shortness of breath at rest. cp 14:07 Onset: The symptoms/episode began/occurred 5 day(s) ago. cp 14:07 Duration: The symptoms are continuous. cp 14:07 Associated signs and symptoms: Pertinent positives: chest pain, productive cough, cp nausea, headache, sore throat, Pertinent negatives: diaphoresis, dizziness, fever. Historical: - Allergies: 12:09 NKDA; ss - PMHx: 12:09 Cancer, Breast; Hypertension; Hypothyroidism; Diabetes - NIDDM; Myocardial infarction; ss - PSHx: 12:09 Cholecystectomy; Mastectomy; Knee surgery; ss - Immunization history:: Adult Immunizations up to date. - Social history:: Smoking status: Patient denies any tobacco usage or history of. ROS: 14:08 Constitutional: Negative for chills, fever, poor PO intake. cp 14:08 Eyes: Negative for injury, pain, redness, and discharge. cp 14:08 ENT: Positive for sore throat, Negative for ear pain, difficulty swallowing, difficulty handling secretions. 14:08 Cardiovascular: Positive for chest pain, Negative for edema, palpitations. 14:08 Respiratory: Positive for cough, shortness of breath, Negative for wheezing. 14:08 Abdomen/GI: Positive for nausea, Negative for abdominal pain, vomiting, diarrhea, constipation. 14:08 Back: Negative for radiated pain. 14:08 : Negative for urinary symptoms. 14:08 Skin: Negative for cellulitis. 14:08 Neuro: Positive for headache, Negative for altered mental status, dizziness, weakness. 14:08 All other systems are negative. Exam: 14:09 ECG was reviewed by the Attending Physician. cp 14:15 Constitutional: The patient appears in no acute distress, alert, awake, cp non-diaphoretic, non-toxic, well developed, well nourished. 14:15 Head/Face: Normocephalic, atraumatic. cp 14:15 Eyes: Periorbital structures: appear normal, Conjunctiva: normal, no exudate, no injection, Sclera: no appreciated abnormality, Lids and lashes: appear normal, bilaterally. 14:15 ENT: External ear(s): are unremarkable, Nose: is normal, Mouth: is normal, Posterior pharynx: Airway: no evidence of obstruction, patent. 14:15 Neck: ROM/movement: is normal, is supple, without pain, no range of motions limitations, no meningismus, no nuchal rigidity, Lymph nodes: no appreciated lymphadenopathy. 14:15 Chest/axilla: Inspection: normal, Palpation: is normal, no crepitus, no tenderness. 14:15 Cardiovascular: Rate: tachycardic, Rhythm: regular, Edema: is not appreciated, JVD: is not appreciated. 14:15 Respiratory: the patient does not display signs of respiratory distress, Respirations: normal, no use of accessory muscles, no retractions, no splinting, no tachypnea, labored breathing, is not present, Breath sounds: are clear throughout, no decreased breath sounds, no stridor, no wheezing. 14:15 Abdomen/GI: Exam negative for discomfort, distension, guarding, Inspection: abdomen appears normal. 14:15 Back: pain, is absent, ROM is normal. 14:15 Neuro: Orientation: to person, place \T\ time. Mentation: is normal. Vital Signs: 12:05 BP 143 / 82; Pulse 100; Resp 16; Temp 98.9(TE); Pulse Ox 98% on R/A; Weight 95.25 kg; ss Height 5 ft. 4 in. (162.56 cm); Pain 7/10; 14:15 BP 147 / 73; Pulse 86; Resp 16 S; Pulse Ox 97% on R/A; aa5 16:30 BP 137 / 66; Pulse 87; Resp 18 S; Pulse Ox 96% on R/A; aa5 12:05 Body Mass Index 36.05 (95.25 kg, 162.56 cm) MDM: 13:38 Patient medically screened. barbara 14:00 Differential diagnosis: Bronchitis Myocardial Infarction pneumonia, pulmonary edema, cp Pulmonary Embolism Sepsis. 16:55 Data reviewed: vital signs, nurses notes, lab test result(s), EKG, radiologic studies, cp CT scan, plain films. 02/10 13:47 Order name: Basic Metabolic Panel [facility] 02/10 13:47 Order name: CBC with Diff; Complete Time: 15:02 [facility] 02/10 15:02 Interpretation: Normal except: HCT 35.7. 02/10 13:47 Order name: LFT's; Complete Time: 15:02 [facility] 02/10 15:28 Interpretation: Normal except: GLOB 3.9; A/G 0.9. 02/10 13:47 Order name: Magnesium; Complete Time: 15:02 [facility] 02/10 16:31 Interpretation: Abnormal: MG 1.5. 02/10 13:47 Order name: NT PRO-BNP; Complete Time: 15:02 [facility] 02/10 16:32 Interpretation: NT PRO-BNP 306; Reviewed. 02/10 13:47 Order name: PT-INR; Complete Time: 15:29 [facility] 02/10 16:40 Interpretation: Reviewed. 02/10 13:47 Order name: Troponin (emerg Dept Use Only); Complete Time: 15:02 [facility] 02/10 15:03 Interpretation: TROPED < 0.02; Reviewed. 02/10 13:48 Order name: COVID-19 02/10 13:48 Order name: Flu; Complete Time: 15:26 02/10 15:26 Interpretation: Reviewed. 02/10 13:48 Order name: Strep; Complete Time: 15:26 02/10 15:26 Interpretation: Reviewed. 02/10 13:48 Order name: Basic Metabolic Panel; Complete Time: 15:02 EDMS 02/10 16:31 Interpretation: Normal except: GLUC 107; BUN 20; GFR 51. 02/10 15:04 Order name: LAB Add On 02/10 13:47 Order name: XRAY Chest (1 view); Complete Time: 15:02 [facility] 02/10 13:47 Order name: EKG; Complete Time: 13:49 [facility] 02/10 13:47 Order name: Cardiac monitoring; Complete Time: 14:24 [facility] 02/10 13:47 Order name: EKG - Nurse/Tech; Complete Time: 14:24 [facility] 02/10 13:47 Order name: IV Saline Lock; Complete Time: 14:24 [facility] 02/10 13:47 Order name: Labs collected and sent; Complete Time: 14:24 [facility] 02/10 13:47 Order name: O2 Per Protocol; Complete Time: 14:24 [facility] 02/10 13:47 Order name: O2 Sat Monitoring; Complete Time: 14:24 [facility] 02/10 15:18 Order name: D-Dimer; Complete Time: 15:29 [facility] 02/10 15:30 Interpretation: Abnormal: D-DIMER 1341. 02/10 15:25 Order name: Throat Culture [facility] 02/10 15:29 Order name: CT Chest For PE Angio; Complete Time: 16:36 02/10 16:36 Interpretation: Report reviewed. 02/10 15:57 Order name: Urine Microscopic Only 02/10 15:58 Order name: Urine Dipstick--Ancillary (enter results) em 02/10 16:41 Order name: Urine Culture [facility] 02/10 13:48 Order name: Droplet/Contact Precautions; Complete Time: 14:24 02/10 16:12 Order name: Urine Dipstick-Ancillary (obtain specimen); Complete Time: 16:12 [facility] EC:09 Rate is 86 beats/min. Rhythm is regular. MN interval is normal. QRS interval is normal. QT interval is normal. Interpreted by me. Reviewed by me. Administered Medications: 16:00 Drug: Magnesium Sulfate 2 grams Route: IVPB; Infused Over: 1 hrs; Site: left [facility] antecubital; 17:00 Follow up: Response: No adverse reaction; IV Status: Completed infusion jl7 Disposition: 02/11 13:23 Co-signature as Attending Physician, Rudy Foote MD I agree with the assessment and barbara plan of care. Disposition: 02/11/20 16:57 Discharged to Home. Impression: Acute upper respiratory infection, unspecified, Hypomagnesemia. - Condition is Stable. - Discharge Instructions: Hypomagnesemia, Upper Respiratory Infection, Adult. - Prescriptions for Tessalon Perles 100 mg Oral Capsule - take 1 capsule by ORAL route every 8 hours As needed; 20 capsule. Zithromax Z- Zane 250 mg Oral Tablet - take 1 tablet by ORAL route as directed for 5 days Day 1 - take two (2) tablets one time. Day 2, 3, 4 , 5 take one (1) tablet once daily.; 6 tablet. Albuterol Sulfate 90 mcg/actuation - inhale 1-2 puff by INHALATION route every 4-6 hours; 1 Inhaler. Zofran 4 mg Oral Tablet - take 1 tablet by ORAL route every 12 hours As needed; 20 tablet. - Medication Reconciliation Form, Thank You Letter, Antibiotic Education, Prescription Opioid Use form. - Follow up: Private Physician; When: 1 - 2 days; Reason: Worsening of condition. - Problem is new. - Symptoms have improved. Signatures: Dispatcher [employer] EDTX Rudy Foote MD MD cha Calderon, Audri, RN RN aa5 Yaneli Boothe RN RN ss Rudy Dexter, PA PA cp Thien Bone RN RN jl7 Corrections: (The following items were deleted from the chart) 02/10 13:52 13:49 CORONAVIRUS+MR.LAB.BRZ ordered. EDTX EDTX 15:18 15:04 D-DIMER+COAG.LAB.BRZ ordered. [facility] EDTX 17:45 16:57 02/11/2020 16:57 Discharged to Home. Impression: Acute upper respiratory jl7 infection, unspecified; Hypomagnesemia. Condition is Stable. Forms are Medication Reconciliation Form, Thank You Letter, Antibiotic Education, Prescription Opioid Use. Follow up: Private Physician; When: 1 - 2 days; Reason: Worsening of condition. Problem is new. Symptoms have improved. cp
--- NOTE | 2020-02-11 16:58 | ER ---
Nurse's Notes [facility] Name: Becky Rodriguez Age: 79 yrs Sex: Female : 1940 Arrival Date: 02/11/2020 Time: 11:46 Bed 8 Private MD: Diagnosis: Acute upper respiratory infection, unspecified;Hypomagnesemia Presentation: 02/10 12:06 Chief complaint: Patient states: Feeling as if she is unable to get a deep breath that ss began 5 days ago. Pt reports last night she had to sleep in her chair to sleep last night. Chest discomfort that began 3 days ago. Ebola Screen: Patient denies exposure to infectious person. Patient denies travel to an Ebola-affected area in the 21 days before illness onset. Initial Sepsis Screen: Does the patient meet any 2 criteria? No. Patient's initial sepsis screen is negative. Does the patient have a suspected source of infection? No. Patient's initial sepsis screen is negative. Risk Assessment: Do you want to hurt yourself or someone else? Patient reports no desire to harm self or others. Onset of symptoms is unknown. 12:06 Method Of Arrival: Ambulatory ss 12:06 Acuity: CORNELIO 3 ss 13:50 Coronavirus screen: Surgical mask placed on patient. Patient moved to private room, aa5 placed in contact and droplet isolation with eye protection until further assessment. Patient reports a cough. Patient reports shortness of breath or difficulty breathing. Patient denies measured and/or subjective temperature greater than 100.4F prior to today's visit. Patient denies travel on a cruise ship or to a country the [facility] currently lists as an affected area. Patient denies contact with known and/or suspected case of COVID-19. Historical: - Allergies: 12:09 NKDA; ss - PMHx: 12:09 Cancer, Breast; Hypertension; Hypothyroidism; Diabetes - NIDDM; Myocardial infarction; ss - PSHx: 12:09 Cholecystectomy; Mastectomy; Knee surgery; ss - Immunization history:: Adult Immunizations up to date. - Social history:: Smoking status: Patient denies any tobacco usage or history of. Screenin:00 Abuse screen: Denies threats or abuse. Denies injuries from another. Nutritional jl7 screening: No deficits noted. Tuberculosis screening: No symptoms or risk factors identified. Fall Risk IV access (20 points). Total Weaver Fall Scale indicates No Risk (0-24 pts). Assessment: 14:00 General: Appears comfortable, Behavior is calm, cooperative. Pain: Complains of pain in aa5 mid-sternal area Pain does not radiate. Pain currently is 0 out of 10 on a pain scale. Quality of pain is described as discomfort Pain began 2-3 days ago. Neuro: Level of Consciousness is awake, alert, obeys commands, Oriented to person, place, time, situation. Cardiovascular: Heart tones S1 S2 present Rhythm is regular. Respiratory: Reports shortness of breath cough that is dry, Pt states "It's hard for me to take a deep breath" Airway is patent Respiratory effort is even, unlabored, Respiratory pattern is regular, symmetrical, Breath sounds are clear bilaterally. GI: Abdomen is round non-distended, Bowel sounds present X 4 quads. Abd is soft and non tender X 4 quads. : Denies burning with urination, inability to void. EENT: Reports scratchy throat at times. Derm: Skin is pink, warm \\T\\ dry. Reports rash to back and hips x 2 days ago that it's itchy, unable to visualize rash, pt states "I know you can't really see it but it bothers me everyday specially at night". Musculoskeletal: Range of motion: intact in all extremities. 15:00 Reassessment: Patient is alert, oriented x 3, equal unlabored respirations, skin aa5 warm/dry/pink. Pt sitting up in bed, denies any complaints at this time. Awaiting complete results at this time. . 15:40 Reassessment: Patient is alert, oriented x 3, equal unlabored respirations, skin aa5 warm/dry/pink. Pt notified of bedrest until r/o PE, pt verbalized understanding. Assisted with bedpan and clean catch specimen. . 16:00 Reassessment: Patient is alert, oriented x 3, equal unlabored respirations, skin aa5 warm/dry/pink. Pt back from CT via stretcher . 16:30 Reassessment: Patient is alert, oriented x 3, equal unlabored respirations, skin aa5 warm/dry/pink. Patient denies pain at this time. 02/11 11:39 Reassessment: [facility] # [id number]. aa5 Vital Signs: 02/10 12:05 BP 143 / 82; Pulse 100; Resp 16; Temp 98.9(TE); Pulse Ox 98% on R/A; Weight 95.25 kg; Height 5 ft. 4 in. (162.56 cm); Pain 7/10; 14:15 BP 147 / 73; Pulse 86; Resp 16 S; Pulse Ox 97% on R/A; aa5 16:30 BP 137 / 66; Pulse 87; Resp 18 S; Pulse Ox 96% on R/A; aa5 12:05 Body Mass Index 36.05 (95.25 kg, 162.56 cm) ED Course: 11:46 Patient arrived in ED. as 12:09 Triage completed. ss 12:09 Arm band placed on left wrist. 13:08 Remedios Wren, CURTIS is Primary Nurse. aa5 13:37 Rudy Dexter PA is PHCP. cp 13:37 Rudy Foote MD is Attending Physician. cp 14:00 Patient has correct armband on for positive identification. Placed in gown. Bed in low jl7 position. Call light in reach. Side rails up X2. monitoring tech on. Pulse ox on. NIBP on. Warm blanket given. 14:00 EKG done, by ED staff, reviewed by Rudy PEDROZA. [facility] 14:03 XRAY Chest (1 view) In Process Unspecified. EDMS 14:05 Initial lab(s) drawn, by wa, sent to lab. Inserted saline lock: 20 gauge in left aa5 antecubital area, using aseptic technique. Blood collected. 14:08 Flu and/or RSV swab sent to lab. Strep swab sent to lab. aa5 14:10 COVID-19 collected and walked to lab. aa5 16:07 CT Chest For PE Angio In Process Unspecified. EDMS 16:21 Throat Culture Sent. ss 17:44 No provider procedures requiring assistance completed. IV discontinued, intact, jl7 bleeding controlled, No redness/swelling at site. Pressure dressing applied. Administered Medications: 16:00 Drug: Magnesium Sulfate 2 grams Route: IVPB; Infused Over: 1 hrs; Site: left aa5 antecubital; 17:00 Follow up: Response: No adverse reaction; IV Status: Completed infusion jl7 Outcome: 16:57 Discharge ordered by . cp 17:44 Discharged to home ambulatory, with family. jl7 17:44 Condition: stable 17:44 Discharge instructions given to patient, family, Instructed on discharge instructions, follow up and referral plans. medication usage, Demonstrated understanding of instructions, follow-up care, medications, Prescriptions given X 4. 17:45 Patient left the ED. jl7 Addendum: 02/13/2020 17:31 Addendum: Other attempted to contact pt regarding negative COVID-19 swab results. d m5 17:41 Addendum: Other pt notified of negative COVID-19 swab results. d m5 Signatures: Dispatcher [employer] Roxana Delarosa RN RN james5 Irlanda Koo Audri RN RN aa5 Yaneli Boothe RN RN ss Rudy Dexter PA PA cp Leal, Jahala, RN RN jl7 Sheri Gaxiola 3 Corrections: (The following items were deleted from the chart) 02/10 14:26 12:06 Coronavirus screen: Proceed with normal triage. Patient reports shortness of aa5 breath or difficulty breathing. Patient denies measured and/or subjective temperature greater than 100.4F prior to today's visit. Patient denies travel on a cruise ship or to a country the [facility] currently lists as an affected area. Patient denies contact with known and/or suspected case of COVID-19. ss
[2020-02-11 17:51] VITALS: BP 143/82; TEMP 98.9; O2SAT 98
--- NOTE | 2020-02-12 07:26 | EKG ---
Test Date: 2020-02-11 Test Time: 14:00:08 Yarder Engineer: SUMAN MEASUREMENT RESULTS: Intervals: Rate: 86 CO: 148 QRSD: 72 QT: 350 QTc: 418 [place]: P: 16 CO: 148 QRS: 3 T: 44 INTERPRETIVE STATEMENTS: Sinus rhythm with premature supraventricular complexes Otherwise normal ECG Compared to ECG 08/29/2019 02:49:52 Atrial premature complex(es) now present Electronically Signed On 02-12-20 07:24:12 CDT by Carl Eduardo
== END 2020-02-11 17:45 | disposition home or self-care (01) ==
LOC: ER 11:42
DX: J06.9 Acute upper respiratory infection, unspecified (principal); Z20.828 Contact with and (suspected) exposure to other viral communicable diseases; E83.42 Hypomagnesemia; I10 Essential (primary) hypertension; Z85.3 Personal history of malignant neoplasm of breast
CPT/HCPCS: 96365; 93005; 87070; 87088; 85025; 87086; 80048; 36415; 83735; 85610; 85379; 80076; 87081; 84484; 83880; 87804 ×2; 71275; 71045; 99284; Q9967; J3475; 81003; 81015

== ENCOUNTER 2020-04-03 15:18 | Emergency (ER) | payer OTHER ==
[2020-04-03 16:05] LABS: Absolute Lymphocytes (CBC) 2.9 K/uL (0.7-4.9); Hematocrit 33.8 % (36.0-45.0); MPV 8.5 fL (7.6-11.3); RBC Red Blood Cell Count 3.96 M/uL (3.86-4.86)
--- NOTE | 2020-04-03 16:05 | RAD REPORT ---
EXAM DESCRIPTION: CT - Ct Stroke Brain Wo Cont - 04/03/2020 3:53 pm CLINICAL HISTORY: HEMIPLEGIAright-sided facial droop, slurred speech COMPARISON: CT head December 2016 TECHNIQUE: Axial 5 millimeter thick images of the head were obtained without IV contrast. All CT scans are performed using dose optimization technique as appropriate and may include automated exposure control or mA/KV adjustment according to patient size. FINDINGS: No intracranial hemorrhage, mass, or cerebral edema. No acute cortical based infarction. N o cortical edema or sulcal effacement evident. Asymmetry is created by head tilt. Atrophy changes are relatively mild. Ventricles are in proportion. Patient has scattered chronic ischemic changes in the cerebral white matter these changes could potentially mask nonhemorrhagic CVA. Intracranial findings are not substantially different from the comparison. Crenshaw matter-white matter differentiation is pre served. Visualized portions of the mastoid air cells, paranasal sinuses, and orbits are unremarkable. Findings telephoned to Dr. Hess at 3:59 p.m. IMPRESSION: No intracranial hemorrhage is present. No acute cortical infarction. Scattered mild chronic ischemic changes are present in the cerebral white matter. These could potenti ally mask nonhemorrhagic CVA.
--- NOTE | 2020-04-03 16:05 | RAD REPORT ---
EXAM DESCRIPTION: RAD - Chest Single View - 04/03/2020 4:00 pm CLINICAL HISTORY: cva, Stroke protocol chest film COMPARISON: Portable February 10 TECHNIQUE: AP portable chest image was obtained 04/03/2020 4:00 pm . FINDINGS: Lungs are clear. Interstitial pattern matches comparison. Heart and vasculature are normal . No measurable pleural effusion and no pneumothorax. No acute bony abnormality seen. No acute aortic findings suspected. IMPRESSION: No acute cardiopulmonary process.
[2020-04-03 16:08] LABS: Protime INR 0.99
[2020-04-03 16:17] LABS: BUN Blood Urea Nitrogen 24 mg/dL (7-18); Bicarbonate 25 mmol/L (21-32); Glucose Level 163 mg/dL (74-106); Potassium 4.2 mmol/L (3.5-5.1); Sodium Level 140 mmol/L (136-145); Troponin (Emerg Dept Use Only) < 0.02 ng/mL (0.0-0.045)
[2020-04-03 16:28] LABS: Magnesium 1.3 mg/dL (1.8-2.4)
--- NOTE | 2020-04-03 16:59 | EDPHYS ---
Physician Documentation [facility] Name: Becky Rodriguez Age: 79 yrs Sex: Female : 1940 Arrival Date: 04/03/2020 Time: 15:20 Bed 23 Private MD: ED Physician Damaso Hess HPI: 04/03 16:34 This 79 yrs old Female presents to ER via Wheelchair with complaints of jr8 Numbness Of Hand, Confused. 16:34 The patient's problem is reported as altered mental status, slow to respond, a facial jr8 droop, on right, paresthesias, in right upper extremity, in right lower extremity, in right side of face, weakness, in the right upper extremity, in the right lower extremity. Onset: The symptoms/episode began/occurred acutely, today, at an unknown time. Duration: The episode is continuous. The symptoms are alleviated by nothing. The symptoms are aggravated by nothing. Associated signs and symptoms: The patient has no apparent associated signs or symptoms. Severity of symptoms: At their worst the symptoms were moderate in the emergency department the symptoms are unchanged. Patient's baseline: Neuro: alert and fully oriented, Motor: no deficits, Ambulation: walks without assistance, Speech: normal. The patient has not experienced similar symptoms in the past. The patient has not recently seen a physician. Patient last known normal was last night. Family stated that they went to check on her today and found that the thermostat was at 88 and that she was not speaking well. Noticed that patient had right facial droop. Patient slow to respond but alert and oriented to person, place, time, event . Historical: - Allergies: 15:28 NKDA; aa5 - Home Meds: 22:02 Allopurinol Oral [Active]; amlodipine oral [Active]; anastrozole 1 mg Oral tab 1 tab sg once daily [Active]; hydrochlorothiazide 25 mg Oral tab 1 tab once daily [Active]; lisinopril 40 mg Oral tab 1 tab once daily [Active]; metformin 500 mg Oral tab 1 tab 2 times per day [Active]; montelukast Oral [Active]; Motrin 600 mg Oral daily [Active]; Nitrofurantoin Macrocrystal Oral [Active]; probenecid 500 mg Oral tab 1 tab 2 times per day [Active]; Sumatriptan Sub-Q [Active]; Synthroid 50 mcg Oral tab 1 tab once daily [Active]; - PMHx: 15:28 Cancer, Breast; Diabetes - NIDDM; Hypertension; Hypothyroidism; Myocardial infarction; aa5 Gout; - PSHx: 15:28 Cholecystectomy; Carlos Mastectomy; Knee surgery; aa5 - Immunization history:: Adult Immunizations unknown. - Social history:: Smoking status: unknown. ROS: 16:36 Eyes: Negative for injury, pain, redness, and discharge, ENT: Negative for injury, jr8 pain, and discharge, Neck: Negative for injury, pain, and swelling, Cardiovascular: Negative for chest pain, palpitations, and edema, Respiratory: Negative for shortness of breath, cough, wheezing, and pleuritic chest pain, Abdomen/GI: Negative for abdominal pain, nausea, vomiting, diarrhea, and constipation, Back: Negative for injury and pain, MS/Extremity: Negative for injury and deformity, Skin: Negative for injury, rash, and discoloration. 16:36 Neuro: Positive for altered mental status, weakness. Exam: 16:36 Radiologist reports: negative for acute ischemia or blood jr8 16:36 Eyes: Pupils equal round and reactive to light, extra-ocular motions intact. Lids and lashes normal. Conjunctiva and sclera are non-icteric and not injected. Cornea within normal limits. Periorbital areas with no swelling, redness, or edema. ENT: Nares patent. No nasal discharge, no septal abnormalities noted. Tympanic membranes are normal and external auditory canals are clear. Oropharynx with no redness, swelling, or masses, exudates, or evidence of obstruction, uvula midline. Mucous membranes moist. Neck: Trachea midline, no thyromegaly or masses palpated, and no cervical lymphadenopathy. Supple, full range of motion without nuchal rigidity, or vertebral point tenderness. No Meningismus. Cardiovascular: Regular rate and rhythm with a normal S1 and S2. No gallops, murmurs, or rubs. Normal PMI, no JVD. No pulse deficits. Respiratory: Lungs have equal breath sounds bilaterally, clear to auscultation and percussion. No rales, rhonchi or wheezes noted. No increased work of breathing, no retractions or nasal flaring. Abdomen/GI: Soft, non-tender, with normal bowel sounds. No distension or tympany. No guarding or rebound. No evidence of tenderness throughout. Back: No spinal tenderness. No costovertebral tenderness. Full range of motion. Skin: Warm, dry with normal turgor. Normal color with no rashes, no lesions, and no evidence of cellulitis. MS/ Extremity: Pulses equal, no cyanosis. Neurovascular intact. Full, normal range of motion. 16:36 Neuro: Orientation: to person, place \T\ time. Mentation: able to follow commands, slow to respond, Memory: immediate memory is intact, remote memory is intact. recent memory is intact, Cranial nerves: CN I not tested, CN II- XII are normal as tested, visual villavicencio are intact. extraocular movements are intact, facial droop noted on right, with forehead spared. Speech is clear and appropriate. slowed, Tongue strength is normal, Cerebellar function: normal finger to nose testing, Motor: moves all fours, strength is 5/5 in the left hand, left foot, left arm and left leg, strength is 4/5 in the right hand, right foot, right arm and right leg, Sensation: numbness, that is mild, of the right arm and right leg, Gait: not tested. seizure activity, is not displayed by the patient, Abnormal movements: there are no abnormal movements. Vital Signs: 15:26 BP 143 / 84; Pulse 112; Resp 18 S; Temp 99.2(O); Pulse Ox 98% on R/A; aa5 16:43 BP 138 / 71; Pulse 89; Resp 18; Temp 98.4; Pulse Ox 99% on R/A; Pain 0/10; ls4 18:15 BP 142 / 87; Pulse 79; Resp 16; Pulse Ox 99% on R/A; Pain 0/10; ls4 NIH Stroke Scale Scores: 15:30 NIHSS Score: 1 ls4 16:36 NIHSS Score: 3 jr8 MDM: 15:33 Patient medically screened. jr8 16:52 Data reviewed: vital signs, nurses notes, lab test result(s), EKG, radiologic studies, jr8 CT scan, plain films. Data interpreted: Pulse oximetry: on room air is 98 %. Interpretation: normal. Counseling: I had a detailed discussion with the patient and/or guardian regarding: the historical points, exam findings, and any diagnostic results supporting the discharge/admit diagnosis, lab results, radiology results, the need to transfer to another facility, [facility] does not immediately have the required specialist. 04/03 15:34 Order name: Troponin (emerg Dept Use Only) [facility] 04/03 15:34 Order name: Magnesium 04/03 15:34 Order name: Basic Metabolic Panel [facility] 04/03 15:34 Order name: CBC with Diff 04/03 15:34 Order name: Protime (+inr) [facility] 04/03 15:34 Order name: Ptt, Activated 04/03 15:34 Order name: CT Stroke Brain w/o Contrast 04/03 16:15 Order name: CBC with Automated Diff; Complete Time: 16:23 EDMS 04/03 16:28 Order name: Basic Metabolic Panel; Complete Time: 16:40 EDMS 04/03 16:28 Order name: Troponin (Emerg Dept Use Only); Complete Time: 16:40 EDMS 04/03 16:28 Order name: Magnesium; Complete Time: 16:40 EDMS 04/03 16:31 Order name: Protime (+INR); Complete Time: 16:40 EDMS 04/03 16:31 Order name: PTT, Activated Partial Thromb; Complete Time: 16:40 EDMS 04/03 16:35 Order name: Glucose, Ancillary Testing; Complete Time: 16:40 EDMS 04/03 15:34 Order name: Stroke CXR 1 View 04/03 15:34 Order name: EKG; Complete Time: 15:35 04/03 15:34 Order name: Accucheck; Complete Time: 16:07 04/03 15:34 Order name: Cardiac monitoring; Complete Time: 16:07 04/03 15:34 Order name: EKG - Nurse/Tech; Complete Time: 15:55 04/03 15:34 Order name: IV Saline Lock; Complete Time: 16:07 04/03 15:34 Order name: Labs collected and sent; Complete Time: 15:55 04/03 15:34 Order name: NPO; Complete Time: 15:55 04/03 15:34 Order name: O2 Per Protocol; Complete Time: 15:55 04/03 15:34 Order name: O2 Sat Monitoring; Complete Time: 15:55 04/03 15:34 Order name: Stroke Swallow Screen; Complete Time: 16:07 jr8 04/03 16:05 Order name: CT; Complete Time: 16:07 EDMS 04/03 16:06 Order name: RAD; Complete Time: 16:07 EDMS Administered Medications: 16:57 Drug: Magnesium Sulfate 2 grams Route: IVPB; Infused Over: 2 hrs; Site: right ls4 antecubital; 16:58 Drug: Aspirin 81 mg Route: PO; ls4 16:58 Drug: foLIC Acid 1 mg Route: IVPB; Site: right antecubital; ls4 Disposition: 18:55 Co-signature as Attending Physician, Damaso Hess MD. rn Disposition: 04/03/20 16:58 Transfer ordered to [facility]. Diagnosis is Cerebral infarction. - Reason for transfer: Higher level of care. - Accepting physician is Dr. Peralta. - Condition is Stable. - Problem is new. - Symptoms are unchanged. NIH Stroke Scale - NIH Stroke Score Date: 04/03/2020 Time: 15:30 Total Score = 1 1a. Level of Consciousness (LOC) - 0(Alert) 1b. Level of Consciousness (LOC) (Year \T\ Age) - 0(Both) 1c. LOC Commands (Open \T\ Closes Eyes/Gyroscopic Instrument Tester) - 0(Both) 2. Best Gaze (Lateral Gaze Paresis) - 0(Normal) 3. Visual Field Loss - 0(No visual loss) 4. Facial Palsy - 0(Normal) 5a. Left Arm: Motor (10-second hold) - 0(No drift) 5b. Right Arm: Motor (10-second hold) - 0(No drift) 6a. Left Leg: Motor (5-second hold - always test supine) - 0(No drift) 6b. Right Leg: Motor (5-second hold - always test supine) - 0(No drift) 7. Limb Ataxia (finger/nose \T\ heel/nicholson - test with eyes open) - 0(Absent) 8. Sensory Loss (pinprick arms/legs/face) - 0(Normal) 9. Best Language: Aphasia (description/naming/reading) - 0(No aphasia) 10. Dysarthria (speech clarity - read or repeat words) - 1(Mild to Moderate) 11. Extinction and Inattention (visual/tactile/auditory/spatial/personal) - 0(No abnormality) Initials: 4 NIH Stroke Scale - NIH Stroke Score Date: 04/03/2020 Time: 16:36 Total Score = 3 1a. Level of Consciousness (LOC) - 0(Alert) 1b. Level of Consciousness (LOC) (Year \T\ Age) - 0(Both) 1c. LOC Commands (Open \T\ Closes Eyes/Gyroscopic Instrument Tester) - 0(Both) 2. Best Gaze (Lateral Gaze Paresis) - 0(Normal) 3. Visual Field Loss - 0(No visual loss) 4. Facial Palsy - 1(Minor Paralysis) 5a. Left Arm: Motor (10-second hold) - 0(No drift) 5b. Right Arm: Motor (10-second hold) - 1(Drift) 6a. Left Leg: Motor (5-second hold - always test supine) - 0(No drift) 6b. Right Leg: Motor (5-second hold - always test supine) - 0(No drift) 7. Limb Ataxia (finger/nose \T\ heel/nicholson - test with eyes open) - 0(Absent) 8. Sensory Loss (pinprick arms/legs/face) - 1(Mild to moderate loss) 9. Best Language: Aphasia (description/naming/reading) - 0(No aphasia) 10. Dysarthria (speech clarity - read or repeat words) - 0(Normal) 11. Extinction and Inattention (visual/tactile/auditory/spatial/personal) - 0(No abnormality) Initials: jrGio Signatures: Dispatcher [employer] EDRyley Pelletier RN RN Damaso Elizondo MD MD rn Calderon, Audri, RN RN aa5 Guzman Guan PA PA jr8 Edda Madsen RN RN ls4 Corrections: (The following items were deleted from the chart) 16:52 16:36 NIHSS Score: 2 jr8 jr8 18:41 16:58 04/03/2020 16:58 Transfer ordered to [address] Diagnosis is Cerebral infarction. Reason for transfer: Higher level of care. Accepting physician is Dr. Peralta. Condition is Stable. Problem is new. Symptoms are unchanged. jr8
--- NOTE | 2020-04-03 16:59 | ER ---
Nurse's Notes [facility] Name: Becky Rodriguez Age: 79 yrs Sex: Female : 1940 Arrival Date: 04/03/2020 Time: 15:20 Bed 23 Private MD: Diagnosis: Cerebral infarction Presentation: 04/03 15:26 Chief complaint: Pt's daughter states "the right side of her face is droopy and her aa5 speech is a little slurred but I know her AC went out today and she was sitting in her hot house all day". Last known normal is 04/02/20 1800. Pt currently A\\T\\O x 4 with expressive aphasia noted. 15:26 Acuity: CORNELIO 2 aa5 15:26 Onset of symptoms was April 03, 2020. aa5 15:26 Coronavirus screen: Client denies travel out of the [place] in the last 14 days. At this aa5 time, the client does not indicate any symptoms associated with coronavirus-19. 15:26 Method Of Arrival: Wheelchair aa5 15:26 Ebola Screen: Patient negative for fever greater than or equal to 101.5 degrees aa5 Fahrenheit, and additional compatible Ebola Virus Disease symptoms. Initial Sepsis Screen: Does the patient meet any 2 criteria? No. Patient's initial sepsis screen is negative. Does the patient have a suspected source of infection? No. Patient's initial sepsis screen is negative. Risk Assessment: Do you want to hurt yourself or someone else? Unable to obtain. Triage Assessment: 15:32 General: Appears comfortable, obese, unkempt, Behavior is calm, cooperative. ls4 15:32 Pain: Denies pain. Neuro: Level of Consciousness is awake, alert, obeys commands, ls4 Oriented to person, place, time, situation, Sports Attorney are weak bilaterally Moves all extremities. Weakness Gait is steady, Speech is normal, Facial symmetry appears normal, Pupils are PERRLA, Intact Reports DIFFICULTY SPEAKING AND FACIAL DROOP AROUND 12 TODAY. . Respiratory: No deficits noted. GI: No deficits noted. No signs and/or symptoms were reported involving the gastrointestinal system. : No deficits noted. No signs and/or symptoms were reported regarding the genitourinary system. Derm: No deficits noted. No signs and/or symptoms reported regarding the dermatologic system. Musculoskeletal: Circulation, motion, and sensation intact. Capillary refill < 3 seconds, Range of motion: intact in all extremities. Historical: - Allergies: 15:28 NKDA; aa5 - Home Meds: 22:02 Allopurinol Oral [Active]; amlodipine oral [Active]; anastrozole 1 mg Oral tab 1 tab sg once daily [Active]; hydrochlorothiazide 25 mg Oral tab 1 tab once daily [Active]; lisinopril 40 mg Oral tab 1 tab once daily [Active]; metformin 500 mg Oral tab 1 tab 2 times per day [Active]; montelukast Oral [Active]; Motrin 600 mg Oral daily [Active]; Nitrofurantoin Macrocrystal Oral [Active]; probenecid 500 mg Oral tab 1 tab 2 times per day [Active]; Sumatriptan Sub-Q [Active]; Synthroid 50 mcg Oral tab 1 tab once daily [Active]; - PMHx: 15:28 Cancer, Breast; Diabetes - NIDDM; Hypertension; Hypothyroidism; Myocardial infarction; aa5 Gout; - PSHx: 15:28 Cholecystectomy; Carlos Mastectomy; Knee surgery; aa5 - Immunization history:: Adult Immunizations unknown. - Social history:: Smoking status: unknown. Screenin:30 VAN Screening: Arm Drift: Minor drift. Visual Disturbance: No visual disturbance noted. ls4 Aphasia: No aphasia noted. Neglect: No neglect noted. 15:46 Abuse screen: Denies threats or abuse. Denies injuries from another. Nutritional ls4 screening:. Tuberculosis screening: No symptoms or risk factors identified. Fall Risk None identified. Assessment: 15:54 Reassessment: Pt back from CT via stretcher, accompanied by me. . aa5 16:54 Reassessment: Patient appears in no apparent distress at this time. No changes from ls4 previously documented assessment. Patient and/or family updated on plan of care and expected duration. Pain level reassessed. 18:08 Reassessment: Patient appears in no apparent distress at this time. No changes from ls4 previously documented assessment. Patient and/or family updated on plan of care and expected duration. Pain level reassessed. Report called to Jaz Dalton RN [facility] [place]. 18:40 Reassessment: REPORT TO [facility]. ls4 Vital Signs: 15:26 BP 143 / 84; Pulse 112; Resp 18 S; Temp 99.2(O); Pulse Ox 98% on R/A; aa5 16:43 BP 138 / 71; Pulse 89; Resp 18; Temp 98.4; Pulse Ox 99% on R/A; Pain 0/10; ls4 18:15 BP 142 / 87; Pulse 79; Resp 16; Pulse Ox 99% on R/A; Pain 0/10; ls4 NIH Stroke Scale Scores: 15:30 NIHSS Score: 1 ls4 16:36 NIHSS Score: 3 jr8 ED Course: 15:20 Patient arrived in ED. ag5 15:26 Arm band placed on Patient placed in an exam room, on a stretcher. aa5 15:33 Guzman Guan PA is PHCP. jr8 15:33 Damaso Hess MD is Attending Physician. jr8 15:40 Triage completed. aa5 15:46 Edda Madsen, CURTIS is Primary Nurse. ls4 15:46 Patient has correct armband on for positive identification. Fall risk band placed. ls4 Placed in gown. Bed in low position. Call light in reach. Side rails up X2. russian rubber on. Pulse ox on. NIBP on. Diet: Patient is NPO. 16:02 No provider procedures requiring assistance completed. Inserted saline lock: 20 gauge ls4 in right antecubital area, using aseptic technique. Blood collected. 16:02 Initial lab(s) drawn, by research laboratory manager, sent to lab. EKG done, by ED staff, reviewed by froylan Hess MD X-ray(s) taken. Patient maintains SpO2 saturation greater than 95% on room air. 16:07 Troponin (emerg Dept Use Only) Sent. ls4 16:07 Magnesium Sent. ls4 16:07 Basic Metabolic Panel Sent. ls4 16:07 CBC with Diff Sent. ls4 16:07 Stroke CXR 1 View Sent. ls4 16:07 CT Stroke Brain w/o Contrast Sent. ls4 16:07 Protime (+inr) Sent. ls4 16:07 Ptt, Activated Sent. ls4 16:42 transfer initiated with Bianca from the [facility]. eb 16:[address] Diego the neurologist operational risk analyst for [facility] with Guzman PEDROZA for patient eb transfer consultation. 17:[address] Manzano the hospitalist operational risk analyst for [facility] with Guzman PEDROZA for eb patient transfer consultation. 17:20 administrative approval given by Bianca Monte RN/ patient has been accepted to [facility] bed 2255/ report to be called to [phone]/ Dr. Manzano has accepted the patient in transfer/. 18:40 Patient transferred, IV remains in place. intact. ls4 Administered Medications: 16:57 Drug: Magnesium Sulfate 2 grams Route: IVPB; Infused Over: 2 hrs; Site: right ls4 antecubital; 16:58 Drug: Aspirin 81 mg Route: PO; ls4 16:58 Drug: foLIC Acid 1 mg Route: IVPB; Site: right antecubital; ls4 Outcome: 16:58 ER care complete, transfer ordered by MD. escobedo 18:39 Transferred by ground EMS to [facility], Transfer form completed. ls4 X-rays sent w/ patient. 18:39 Condition: stable 18:39 Discharge instructions given to patient, family, Instructed on the need for transfer. 18:41 Patient left the ED. ls4 NIH Stroke Scale - NIH Stroke Score Date: 04/03/2020 Time: 15:30 Total Score = 1 1a. Level of Consciousness (LOC) - 0(Alert) 1b. Level of Consciousness (LOC) (Year \\T\\ Age) - 0(Both) 1c. LOC Commands (Open \\T\\ Closes Eyes/Assistant Chief Engineer) - 0(Both) 2. Best Gaze (Lateral Gaze Paresis) - 0(Normal) 3. Visual Field Loss - 0(No visual loss) 4. Facial Palsy - 0(Normal) 5a. Left Arm: Motor (10-second hold) - 0(No drift) 5b. Right Arm: Motor (10-second hold) - 0(No drift) 6a. Left Leg: Motor (5-second hold - always test supine) - 0(No drift) 6b. Right Leg: Motor (5-second hold - always test supine) - 0(No drift) 7. Limb Ataxia (finger/nose \\T\\ heel/nicholson - test with eyes open) - 0(Absent) 8. Sensory Loss (pinprick arms/legs/face) - 0(Normal) 9. Best Language: Aphasia (description/naming/reading) - 0(No aphasia) 10. Dysarthria (speech clarity - read or repeat words) - 1(Mild to Moderate) 11. Extinction and Inattention (visual/tactile/auditory/spatial/personal) - 0(No abnormality) Initials: ls4 NIH Stroke Scale - NIH Stroke Score Date: 04/03/2020 Time: 16:36 Total Score = 3 1a. Level of Consciousness (LOC) - 0(Alert) 1b. Level of Consciousness (LOC) (Year \\T\\ Age) - 0(Both) 1c. LOC Commands (Open \\T\\ Closes Eyes/Assistant Chief Engineer) - 0(Both) 2. Best Gaze (Lateral Gaze Paresis) - 0(Normal) 3. Visual Field Loss - 0(No visual loss) 4. Facial Palsy - 1(Minor Paralysis) 5a. Left Arm: Motor (10-second hold) - 0(No drift) 5b. Right Arm: Motor (10-second hold) - 1(Drift) 6a. Left Leg: Motor (5-second hold - always test supine) - 0(No drift) 6b. Right Leg: Motor (5-second hold - always test supine) - 0(No drift) 7. Limb Ataxia (finger/nose \\T\\ heel/nicholson - test with eyes open) - 0(Absent) 8. Sensory Loss (pinprick arms/legs/face) - 1(Mild to moderate loss) 9. Best Language: Aphasia (description/naming/reading) - 0(No aphasia) 10. Dysarthria (speech clarity - read or repeat words) - 0(Normal) 11. Extinction and Inattention (visual/tactile/auditory/spatial/personal) - 0(No abnormality) Initials: jr8 Signatures: Ryley Byrd RN Remedios Mathis RN RN aa5 Guzman Guan PA PA jr8 Laila Nguyen Lisa, RN RN ls4 Estelita Lopez5 Corrections: (The following items were deleted from the chart) 18:02 16:43 BP 138 / 71; Pulse 89bpm; Resp 18bpm; Pulse Ox 9% RA; Temp 98.4F; Pain ls4 0/10; ls4
[2020-04-03] MEDS ORDERED: Magnesium Sulfate 2gm IVPB 2 G/50 ML BAG IV ONE (17:06)
[2020-04-03] MEDS ORDERED: ASPIRIN EC 81 MG TAB PO ONE (17:06)
[2020-04-03] MEDS ORDERED: FOLIC ACID 5 MG/ML VIAL ONE (17:07)
[2020-04-03 18:50] VITALS: TEMP 98.4; O2SAT 99
[2020-04-03 18:51] VITALS: BP 142/87
--- NOTE | 2020-04-04 07:50 | EKG ---
Test Date: 2020-04-03 Test Time: 15:40:40 [employer]: JENNIE MEASUREMENT RESULTS: Intervals: Rate: 103 DC: 156 QRSD: 78 QT: 336 QTc: 440 [place]: P: 38 DC: 156 QRS: 1 T: 54 INTERPRETIVE STATEMENTS: Sinus tachycardia Inferior infarct, age undetermined Abnormal ECG Compared to ECG 02/11/2020 14:00:08 Myocardial infarct finding now present Sinus rhythm no longer present Atrial premature complex(es) no longer present Electronically Signed On 04-04-20 07:49:01 CDT by Carl Eduardo
== END 2020-04-03 18:41 | disposition short-term general hospital (02) ==
LOC: ER 15:18
DX: I63.9 Cerebral infarction, unspecified (principal); I10 Essential (primary) hypertension; R29.703 NIHSS score 3; E03.9 Hypothyroidism, unspecified; E11.9 Type 2 diabetes mellitus without complications; Z85.3 Personal history of malignant neoplasm of breast; Z90.13 Acquired absence of bilateral breasts and nipples
CPT/HCPCS: 93005; 85025; 80048; 36415; 83735; 85610; 82947; 85730; 84484; 70450; 71045; 96375; 96374; 99285; J3475

== ENCOUNTER 2020-05-13 13:49 | Emergency (ER) | payer OTHER ==
--- OUTSIDE RECORDS SUMMARY | 2020-05-13 13:51 | XMS REPORT | Clinical Summary ---
:1940 Author Organization [facility] Address [address] [place] [address] Care Team Providers Name Role Phone Unavailable Primary Care Provider Unavailable Allergies Active Allergy Reactions Severity Noted Date Comments Penicillins Anaphylaxis High 04/03/2020 Medications Medication Sig Dispensed Refills Start Date End Date Status metFORMIN Take 1,000 mg by 0 Act janes (GLUCOPHAGE) 1000 mouth daily with MG tablet breakfast. ibuprofen Take 800 mg by 0 Activ e (ADVIL,MOTRIN) mouth 2 (two) times 800 MG tablet daily as needed for Pain. denosumab Inject 60 mg 0 Active (PROLIA) 60 mg/mL subcutaneously Syrg once. aspirin 81 MG EC Take 1 tablet (81 30 tablet 0 04/06/202003/27 Discontinued tablet mg total) by mouth 20 daily for 30 days. atorvastatin Take 1 tablet (40 30 tablet 0 04/05/2020 04/05/20 Discontinued (LIPITOR) 40 MG mg total) by mouth 20 tablet nightly for 30 days. cyanocobalamin, Take 1 tablet 30 tablet 1 04/05/2020 05/05/20 vitamin B-12, (1,000 mcg total) 20 1000 MCG tablet by mouth daily for 30 days. 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 2019 TIA (transient ischemic attack) 04/03/2020 Encounters Date Type Specialty Care Team Description 04/03/2020 - Hospital General Internal Leonardo Manzano Essential hypertension; 04/05/2020 Encounter Antoinette Beaver MD TIA (transient ischemic attack); Balta Love Other spec ified hypothyroidism; MD Yazmin 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, unspecified estrogen receptor status, unspecified laterality (HCC); Dee Moncada Type 2 diabet es mellitus without complication, without long- term current use of insulin (HCC); MD Emanuel Benign essentia l HTN; Acute CVA (cere brovascular accident) (HCC); Suspected cereb rovascular accident (CVA); Confusion 04/03/2020 Orders Only General Internal Medicine 04/03/2020 Travel after 05/13/2019 Family History Medical History Relation Name Comments Cancer Brother Cancer Brother Stroke Mother Cancer Sister Relation Name Status Comments Brother Brother Mother Sister Social History Tobacco Use Types Packs/Day Years Used Date Never Smoker Smokeless Tobacco: Never Used Alcohol Use Drinks/Week oz/Week Comments Yes Occassional Alcohol Habits Answer Date Recorded How often do you have a drink containing alcohol? Never 04/03/2020 How many drinks containing alcohol do you have on a typical Not asked day when you are drinking? How often do you have six or more drinks on one occasion? No t asked Sex Assigned at Date Recorded Not on file Job Start Date Occupation Industry Not on file Not on file Not on file Travel History Travel Start Travel End No recent travel history available. Last Filed Vital Signs Vital Sign Reading Time Taken Blood Pressure 101/57 04/05/2020 12:00 PM CDT Pulse 89 04/05/2020 12:00 PM CDT Temperature 36.6 C (97.8 F) 04/05/2020 12:00 PM CDT Respiratory Rate 16 04/05/2020 12:00 PM CDT Oxygen Saturation 94% 04/05/2020 12:00 PM CDT Inhaled Oxygen Concentration - - Weight 99.3 kg (219 lb) 04/03/2020 8:50 PM CDT Height 162.6 cm (5' 4") 04/03/2020 8:50 PM CDT Body Mass Index 37.59 04/03/2020 8:50 PM CDT Plan of Treatment Health Maintenance Due Date Last Done Comments DIABETIC EYE EXAM 1950 DIABETIC FOOT EXAM 1950 URINE MICROALBUMIN 1952 PNEUMOCOCCAL 65+ LOW/MEDIUM RISK (1 of 2 - PCV13) 10/29/2007 Medicare IPPE (WELCOME TO MEDICARE) 08/27/2019 INFLUENZA VACCINE (#1) 2020 HEMOGLOBIN A1C 10/04/2020 04/03/2020 Procedures Procedure Name Priority Date/Time Associated Comments Diagnosis REPORT OF PROCEDURE - 04/06/2020 2:22 ENDOSCOPY SCAN PM CDT RHYTHM STRIP - SCAN 04/06/2020 2:22 PM CDT EEG AWAKE AND DROWSY STAT 04/05/2020 4:29 Res ults for this PM CDT procedure are i n the results section. POCT-GLUCOSE METER Routine 04/05/2020 12:03 Resul ts for this PM CDT procedure are i n the results section. POCT-GLUCOSE METER Routine 04/05/2020 7:33 Resul ts for this AM CDT procedure are i n the results section. MAGNESIUM Routine 04/05/2020 4:16 Results for this AM CDT procedure are i n the results section. PHOSPHORUS Routine 04/05/2020 4:16 Results for this AM CDT procedure are i n the results section. BASIC METABOLIC PANEL Routine 04/05/2020 4:16 Re sults for this (7) AM CDT procedure are i n the results section. CBC (HEMOGRAM ONLY) Routine 04/05/2020 4:16 Resu lts for this AM CDT procedure are i n the results section. POCT-GLUCOSE METER Routine 04/04/2020 8:15 Resul ts for this PM CDT procedure are i n the results section. POCT-GLUCOSE METER Routine 04/04/2020 6:13 Resul ts for this PM CDT procedure are i n the results section. MR BRAIN WITHOUT IV MARTINEZ 04/04/2020 5:54 Resu lts for this CONTRAST PM CDT procedure are i n the results section. 2D ECHO W/ DOPPLER MARTINEZ 04/04/2020 12:07 Resul ts for this (CW/PW/COLOR) PM CDT procedure are in the results section. POCT-GLUCOSE METER Routine 04/04/2020 11:56 Resul ts for this AM CDT procedure are i n the results section. POCT-GLUCOSE METER Routine 04/04/2020 8:12 Resul ts for this AM CDT procedure are i n the results section. MAGNESIUM Routine 04/04/2020 4:48 Results for this AM CDT procedure are i n the results section. PHOSPHORUS Routine 04/04/2020 4:48 Results for this AM CDT procedure are i n the results section. BASIC METABOLIC PANEL Routine 04/04/2020 4:48 Re sults for this (7) AM CDT procedure are i n the results section. CBC (HEMOGRAM ONLY) Routine 04/04/2020 4:48 Resu lts for this AM CDT procedure are i n the results section. HOMOCYSTEINE Routine 04/04/2020 4:48 Results for this AM CDT procedure are i n the results section. CTA BRAIN MARTINEZ 04/04/2020 12:58 Results for this AM CDT procedure are i n the results section. SARS-COV2/RT-PCR (HS Routine 04/03/2020 10:21 R esults for this & REF LABS) PM CDT procedure are i n the results section. CBC W/PLT COUNT & AUTO STAT 04/03/2020 10:13 R esults for this DIFFERENTIAL PM CDT procedure are i n the results section. CBC W/PLT COUNT & AUTO STAT 04/03/2020 10:13 R esults for this DIFFERENTIAL PM CDT procedure are i n the results section. PHOSPHORUS STAT 04/03/2020 10:13 Results for this PM CDT procedure are i n the results section. MAGNESIUM STAT 04/03/2020 10:13 Results for this PM CDT procedure are i n the results section. COMPREHENSIVE STAT 04/03/2020 10:13 Results fo r this METABOLIC PANEL PM CDT procedure ar e in the results section. RPR STAT 04/03/2020 10:13 Results for this PM CDT procedure are i n the results section. HEMOGLOBIN A1C STAT 04/03/2020 10:13 Results f or this PM CDT procedure are i n the results section. LIPID PANEL STAT 04/03/2020 10:13 Results for this PM CDT procedure are i n the results section. C-REACTIVE PROTEIN STAT 04/03/2020 10:13 Resul ts for this PM CDT procedure are i n the results section. VITAMIN B12 AND FOLATE STAT 04/03/2020 10:13 R esults for this PM CDT procedure are i n the results section. TSH/FREE T4 IF STAT 04/03/2020 10:13 Results f or this INDICATED PM CDT procedure are i n the results section. ECG 12-LEAD Routine 04/03/2020 9:09 PM CDT Procedure Note - Interface, External Ris In - 04/03/2020 9:28 PM CDT Ventricular Rate 74 BPM Atrial Rate 74 BPM P-R Interval 160 ms QRS Duration 82 ms Q-T Interval 392 ms QTC Calculation(Bazett) 435 ms P Decker -18 degrees R Decker 5 degrees T Decker 41 degrees Normal sinus rhythm Normal ECG No previous ECGs available ECG 12-LEAD MARTINEZ 04/03/2020 9:09 PM CDT Resu lts for this procedure are in the results section. POCT-GLUCOSE METER Routine 04/03/2020 8:21 PM CDT after 05/13/2019 Results EKG-SCANNED (04/06/2020 2:22 PM CDT) Narrative Performed At This result has an attachment that is no t available. RHYTHM STRIP - SCAN (04/06/2020 2:22 PM CDT) Narrative Performed At This result has an attachment that is no t available. EEG AWAKE AND DROWSY (04/05/2020 4:29 PM CDT) Specimen Narrative Performed At ELECTROENCEPHALOGRAM GE RIS Date(s) of EE04/05/2020 DATE OF REPORT: 04/05/2020 ACC: [id number] EEG Number: [id number] Test Location: Start time:4:08 PM Stop time:4:29 PM ICD-10: R56.9 CPT Code: 82087 HISTORY:79yo R-handed female w/ Hx o f breast cancer (s/p bilateral mastectomy, on hormone therapy), HTN, DM 2 and hypothyroidism who presented to [facility] w/ transient R facial droop & R-sided numbness/weakness, now transferred for s troke workup. NIHSS at OSH was 3, [facility] w/o contrast negative for CVA or bleed, MRI showed no futher evidence of acute infarct. CTA shows questionable multifoc al intracranial stenosis, but would not explain symptoms. Want to r/o seizure given the transient word-finding difficulty. MEDICATIONS THAT COULD AFFECT EEG:as pirin, atorvastatin, cyanocobalamin, enoxaparin TECHNICAL SUMMARY: This is a digital video-EEG recorded wit h 32 input channels reviewed with bipolar and referential montages us ing the modified combinatorial system nomenclature. DESCRIPTION OF RECORD: During the maximally alert state, a well -developed, well-modulated 9-10 Hz posterior dominant rhythm was se en that was symmetric, reactive to eye opening and well regulat ed.More anteriorly, low voltage frontocentral beta predominated. Drowsiness was characterized by decreased eye blinks, alpha attenuati on and increased frontocentral theta. Stage 2 sleep was r eached and characterized by symmetric sleep spindles seen over the f rontocentral derivations and K-complexes. SIGNIFICANT VIDEO EVENTS: None SIGNIFICANT ELECTROCARDIOGRAM EVENTS: No ne HV: Hyperventilation was not performed. PHOTIC STIMULATION: Photic stimulation w as done from 1-33 Hz. Photic stimulation was physiologic. IMPRESSION:Normal Awake and Drowsy / Sleep EEG CLINICAL CORRELATION: An EEG without epi leptiform discharges does not exclude the possibility of epilepsy. It the clinical suspicion of epilepsy remains, consider additional EE G recordings. Antoinette Nuno MD Neurophysiology Fellow Alec Juan MD Attending Neurophysiology [facility] Procedure Note Interface, External Ris In - 04/05/2020 5:06 PM CDT ELECTROENCEPHALOGRAM Date(s) of EE04/05/2020 DATE OF REPORT: 04/05/2020 ACC: [id number] EEG Number: [id number] Test Location: Start time: 4:08 PM Stop time: 4:29 PM ICD-10: R56.9 CPT Code: 07768 HISTORY: 79yo R-handed female w/ Hx of breast cancer (s/p bilateral mastectomy, on hormone therapy), HTN, DM 2 and hypothyroidism who presented to [facility] w/ transient R facial droop & R-sided numbness/weakness, now transferred for s troke workup. NIHSS at OSH was 3, improved to 2 by arrival at [facility]. CT head w/o contrast negative for CVA or bleed, MRI showed no futher evidence of acute infarct. CTA shows questionable multifoc al intracranial stenosis, but would not explain symptoms. Want to r/o seizure given the transient word-finding difficulty. MEDICATIONS THAT COULD AFFECT EEG: aspi rin, atorvastatin, cyanocobalamin, enoxaparin TECHNICAL SUMMARY: This is a digital video-EEG recorded wit h 32 input channels reviewed with bipolar and referential montages us ing the modified combinatorial system nomenclature. DESCRIPTION OF RECORD: During the maximally alert state, a well -developed, well-modulated 9-10 Hz posterior dominant rhythm was se en that was symmetric, reactive to eye opening and well regulat ed. More anteriorly, low voltage frontocentral beta predominated. Drowsiness was characterized by decreased eye blinks, alpha attenuati on and increased frontocentral theta. Stage 2 sleep was r eached and characterized by symmetric sleep spindles seen over the f rontocentral derivations and K-complexes. SIGNIFICANT VIDEO EVENTS: None SIGNIFICANT ELECTROCARDIOGRAM EVENTS: No ne HV: Hyperventilation was not performed. PHOTIC STIMULATION: Photic stimulation w as done from 1-33 Hz. Photic stimulation was physiologic. IMPRESSION: Normal Awake and Drowsy /Sl eep EEG CLINICAL CORRELATION: An EEG without epi leptiform discharges does not exclude the possibility of epilepsy. It the clinical suspicion of epilepsy remains, consider additional EE G recordings. Antoinette Nuno MD Neurophysiology Fellow Alec Juan MD Attending Neurophysiology [facility] Performing Organization Address City/[facility] Cent[facility] Phone Number [facility] POC-Glucose meter (04/05/2020 12:03 PM CDT)Only the most recent of7 results within the time period is included. POC-Glucose Meter 199 (H)Comment: : TESTED 70 - 110 mg/dL [facility] AT [address], [address]: Patient Transition Specialist/Flight Kitchen Manager ID = [id number] for ANGELA GONZALEZ Specimen Blood Performing Organization Address [facility] Cent[facility]ode Phone Number [address] [address] CENTER CBC (Hemogram only) (04/05/2020 4:16 AM CDT)Only the most recent of2 results within the time period is included. WBC 10.6 (H) 3.5 - 10.5 K/L [facility] RBC 3.86 (L) 3.93 - 5.22 M/L [facility] Hemoglobin 10.9 (L) 11.2 - 15.7 GM/DL [facility] Hematocrit 34.1 34.1 - 44.9 % [facility] MCV 88.3 79.4 - 94.[address] [facility] MCH 28.2 25.6 - 32.[address] [facility] MCHC 32.0 (L) 32.2 - 35.5 GM/DL [facility] RDW 13.2 11.7 - 14.4 % [facility] Platelets 248 150 - 450 K/CU MM [facility] MPV 9.7 9.4 - 12.[address] [facility] nRBC 0 0 - 0 /[address] [facility] Specimen Blood Performing Organization Address [facility] Centercode Phone Number [address] [address] CENTER Phosphorus (04/05/2020 4:16 AM CDT)Only the most recent of3 resultswithin the time period is included. Phosphorus 3.8 2.3 - 4.7 mg/dL [facility] Specimen Blood Narrative Performed At Patient Transition Specialist ID - [facility] Performing Organization Address [facility] Phone Number [address] [address] CENTER Magnesium (04/05/2020 4:16 AM CDT)Only the most recent of3 resultswithin the time period is included. Magnesium 1.5 (L) 1.6 - 2.6 mg/dL [facility] Specimen Blood Narrative Performed At Patient Transition Specialist ID - [facility] Performing Organization Address City/[facility] Centercode Phone Number [address] [address] CENTER Basic Metabolic Panel (04/05/2020 4:16 AM CDT)Only the most recent of2 results within the time period is included. Sodium 140 136 - 145 meq/L [facility] Potassium 4.3 3.5 - 5.1 meq/L [facility] Chloride 105 98 - 107 meq/L [facility] CO2 27 22 - 29 meq/L [facility] BUN 20 7 - 21 mg/dL [facility] Creatinine 0.99 0.57 - 1.25 mg/dL [facility] Glucose 123 (H) 70 - 105 mg/dL [facility] Calcium 9.5 8.4 - 10.2 mg/dL [facility] EGFR 54Comment: ESTIMATED GFR IS mL/min/1.73 sq m [facility] NOT ACCURATE CREATININE [facility] CLEARANCE IN PREDICTING GLOMERULAR FILTRATION RATE. ESTIMATED GFR IS NOT APPLICABLE FOR DIALYSIS PATIENTS. Specimen Blood Narrative Performed At Patient Transition Specialist ID - [facility] Performing Organization Address City/State/Zipcode Phone Number [facility] [address] [place] [address] CENTER MR brain without IV contrast (04/04/2020 5:54 PM CDT) Specimen Narrative Performed At FINAL REPORT [employer] MRI Brain without contrast Clinical History: Neuro deficit, acute, stroke suspected Technique: MRI of the brain utilizing ax ial T2, FLAIR, GRE, DWI; sagittal and coronal T1-weighted images. Comparisons: CTA head and neck dated 04/04. Findings: There is no evidence of acute infarct or hemorrhage. Multiple bilateral T2 and FLAIR hyperintense whit e matter foci likely represent chronic white matter microvasc ular disease.. Generalized parenchymal volume loss with commensurat e enlargement of the CSF spaces and ventricles. There is no hydro cephalus or midline shift. There are no extra-axial fluid collectio ns. The craniocervical junction is preserved. The major intracr anial flow-voids appear patent. Again seen is the Air-fluid level in the right sphenoid sinus. Middle ears and mastoid air cells are clear. In traorbital contents are unremarkable. No aggressive osseous or s oft tissue lesions identified. IMPRESSION: No evidence of acute infarct, hemorrhage , or hydrocephalus. Signed: Balta Ortiz MD Report Verified Date/Time:04/04/2020 18:06:36 Procedure Note Interface, External Ris In - 04/04/2020 6:09 PM CDT FINAL REPORT MRI Brain without contrast Clinical History: Neuro deficit, acute, stroke suspected Technique: MRI of the brain utilizing ax ial T2, FLAIR, GRE, DWI; sagittal and coronal T1-weighted images. Comparisons: CTA head and neck dated 04/04. Findings: There is no evidence of acute infarct or hemorrhage. Multiple bilateral T2 and FLAIR hyperintense whit e matter foci likely represent chronic white matter microvasc ular disease.. Generalized parenchymal volume loss with commensurat e enlargement of the CSF spaces and ventricles. There is no hydro cephalus or midline shift. There are no extra-axial fluid collectio ns. The craniocervical junction is preserved. The major intracr anial flow-voids appear patent. Again seen is the Air-fluid level in the right sphenoid sinus. Middle ears and mastoid air cells are clear. In traorbital contents are unremarkable. No aggressive osseous or s oft tissue lesions identified. IMPRESSION: No evidence of acute infarct, hemorrhage , or hydrocephalus. Signed: Balta Ortiz MD Report Verified Date/Time: 04/04/2020 1 8:06:36 Performing Organization Address City/State/Zipcode Phone Number RIS 2D Echo W/Doppler(CW/PW/Color) (04/04/2020 12:07 PM CDT) Ejection Fraction [facility] ECHO HEAR TLAB [facility] Specimen Narrative Performed At Transthoracic Echocardiography Report (T TE) [facility] ECHO HEARTLAB [facility] Demographics Patient NameFISK, MARYDate of Study04/04/2020 Female Visit [id number] Unknown Room [id number] Number Date of 1940Referring Balta Arce Physician MD Ivan Age 79 year(s)SonographerChitra Lima [facility] [employer] Lace Machine Operator Kristi Barnard, Interpreting Dg carrillo MD RDCSPhysician Procedure Type of Study TTE procedure:2DECHO W DOPPLER(CW/PW/COLOR) (MARTINEZ) Indications:Suspected cardiac source of emboli. Clinical History Cancer Coronary Artery Disease Diabetes Hypertension Thyroid disease S/P Coronary Angioplasty HGB 11 HCT 34.6 % Contrast Medium: Bubble Study. Height: 64 inches Weight: 99.34 kg (219 lbs) BSA: 2.03 m^2 BMI: 37.59 kg/m^2 HR: 76 bpm BP: 124/59 mmHg Summary IV saline contrast injection was negative for a PFO (patent foramen ovale) at rest and post Valsalva . The left ventricle is chamber size (by vol index) is normal (female - LVED vol - 29-61ml/m2). All of the LV segments contract normally . LVEF by Nino's method of disk assessment is normal (>60%) . Grade 1 diastolic dysfunction (impaired relaxation and low-normal LA pressure). Estimated peak systolic PA pressure is 25-30 mmHg (normal range) . Previous Study No prior studies available for comparis on. Signature Findings Technical Quality: Technically adequate exam. Left Ventricle The left ventricle is chamber size (by vol index) is normal (female - LVED vol - 29-61ml/m2). No ev idence of LV hypertrophy. All of the LV segments co ntract normally . Global LV systolic fun ction no rmal . LVEF by Nino's method of disk as sessment is normal (>60%) . Grade 1 sun tolic dy sfunction (impaired relaxation and low-n ormal LA pr essure). Left AtriumLA size is normal (16-34 ml/m2) . Right VentricleThe right ventricular chamber size and systolic fu nction are within normal limits. Right Atrium RA size is normal. Atrial SeptumIV saline contrast injection was negative for a PF O (p atent foramen ovale) at rest and post Va lsalva . Aortic Valve Mild AoV cusp thickening. No evidence of aortic regurgitation. Mitral Valve Mild mitral annular calcification. Mi ld MV leaflet thickening. Tr katalina mitral regurgitation. Tricuspid ValveTV structure is normal. Mi ld tricuspid regurgitation. Es timated peak systolic PA pressure is 25- 30 mmHg (n ormal range) . Pulmonic Valve Mild pulmonary regurgitation. No rmal PV structure appears normal by avai lable vi ews. AortaAortic root size (SInus of Valsalva diameter) i s no rmal . PericardiumNo pericardial effusion is visualized. IVC/SVC/PA/PV/PleuralThe estimated RA pressure by IVC dynamics 0-5mmHg . Chambers/Structures Left Atrium LA Volume: 46.58 ml LA Area: 16.16 cm^2 LA Vol. Index: 23 ml/m^2 Left Ventricle LVIDd: 4.59 cm LVIDs: 2.53 cm LV Septum Diastolic: 0.95 cm LV PW Diastolic: 0.86 cmLV FS: 44.9 % LVEDV Nino's:81.07 ml LVESV Nino's:27.59 mlLVEDVI: 40 ml/m^2 LVEF Nino's: 66 %L VESVI: 14 ml/m^2 LVOT Diameter: 2.05 cm Aorta Ao Root S of Louann.: 3.35 cm Doppler/Quantitative Measurements Mitral Valve MV Peak E-Wave: 0.94 m/sMV Peak A-Wave: 1.31 m/s E/A Ratio: 0. 71 Peak Gradient : 3.5 mmHg Deceleration Time: 257.4 msec MV Derrick. Peak: Tissue Doppler E' Lateral Velocity: 0.07 m/s E/E': 13.67 Aortic Valve Peak Velocity: 1.77 m/sMean Velocity: 1.27 m/s Peak Gradient: 12.54 mmHgMean Gradient: 7.22 mmHg AV Area (continuity): 1.91 cm^2 AV VTI: 39.14 cm AV DVI: 0.58 LVOT Peak Velocity: 1 m/s Peak Gradient: 3.98 mmHg Mean Velocity: 0.7 m/s Mean Gradient: 2.22 mmHg LVOT Diameter: 2.05 cm LVOT VTI: 22.7 cm LVOT Area: 3.3 cm^2LVOT SV:74.89 ml LVOT CO: 5.69 l/minLVOT CI: 2.8 l/min/m^2 RVOT RVOT VTI (PW): 16.45 cm Tricuspid Valve TR Velocity: 2.5 m/s TR Gradient: 25.07 mmHg Procedure Note Interface, External Ris In - 04/05/2020 12:03 PM CDT Transthoracic Echocardiography Report (TTE) Demographics Patient Name BECKY FLORENCE Date of S rich 04/04/2020 Gender Female Visit Number [id number] Race Unknown Room Numb er 2231 Number Date of 1940 Referring Balta Arce Physician MD Ivan Age 79 year(s) Sonograph er Darwin Lima RD Levers Lace Machine Operator Kristi Barnard, Interpret ing Dg Zamarripa MD RDCS Physician Procedure Type of Study TTE procedure:2DECHO W DOPPLE R(CW/PW/COLOR) (MARTINEZ) Indications:Suspected cardiac source of emboli. Clinical History Cancer Coronary Artery Disease Diabetes Hypertension Thyroid disease S/P Coronary Angioplasty HGB 11 HCT 34.6 % Contrast Medium: Bubble Study. Height: 64 inches Weight: 99.34 kg (219 lbs) BSA: 2.03 m^2 BMI: 37.59 kg/m^2 HR: 76 bpm BP: 124/59 mmHg Summary IV saline contrast injection was negati ve for a PFO (patent foramen ovale) at rest and post Valsalva . The left ventricle is chamber size (by vol index) is normal (female - LVED vol - 29-61ml/m2). All of the LV segmen ts contract normally . LVEF by Nino's method of disk assessment is normal (>60%) . Grade 1 diastolic dysfunction (impaired relaxation and low-normal LA pressure). Estimated peak systolic PA pressure is 25-30 mmHg (normal range) . Previous Study No prior studies available for comparis on. Signature Findings Technical Quality: Technically adequate exam. Left Ventricle The left ventric le is chamber size (by vol index) is normal (femal e - LVED vol - 29-61ml/m2). No evidence of LV h ypertrophy. All of the LV segments contract normall y . Global LV systolic function normal . LVEF by Nino's method of disk assessment is no rmal (>60%) . Grade 1 diastolic dysfunction (imp aired relaxation and low-normal LA pressure). Left Atrium LA size is miguel l (16-34 ml/m2) . Right Ventricle The right ventri cular chamber size and systolic function are wit hin normal limits. Right Atrium RA size is miguel l. Atrial Septum IV saline contra st injection was negative for a PFO (patent foramen ovale) at rest and post Valsalva . Aortic Valve Mild AoV cusp th ickening. No evidence of a ortic regurgitation. Mitral Valve Mild mitral laura lar calcification. Mild MV leaflet thickening. Trace mitral reg urgitation. Tricuspid Valve TV structure is normal. Mild tricuspid r egurgitation. Estimated peak s ystolic PA pressure is 25-30 mmHg (normal range) . Pulmonic Valve Mild pulmonary r egurgitation. Normal PV struct ure appears normal by available views. Aorta Aortic root size (SInus of Valsalva diameter) is normal . Pericardium No pericardial e ffusion is visualized. IVC/SVC/PA/PV/Pleural The estimated RA pressure by IVC dynamics 0-5mmHg . Chambers/Structures Left Atrium LA Volume: 46.58 ml LA Area: 16.16 cm^2 LA Vol. Index: 23 ml/m^2 Left Ventricle LVIDd: 4.59 cm LVIDs: 2.53 cm LV Septum Diastolic: 0.95 cm LV PW Diastolic: 0.86 cm LV FS: 44.9 % LVEDV Nino's:81.07 ml LVESV Nino's:27.59 ml LVEDVI: 40 ml/m^2 LVEF Nino's: 66 % LVESVI: 14 ml/m^2 LVOT Diameter: 2.05 cm Aorta Ao Root S of Louann.: 3.35 cm Doppler/Quantitative Measurements Mitral Valve MV Peak E-Wave: 0.94 m/s M V Peak A-Wave: 1.31 m/s E /A Ratio: 0.71 P eak Gradient: 3.5 mmHg D eceleration Time: 257.4 msec MV Derrick. Peak: Tissue Doppler E' Lateral Velocity: 0.07 m/s E /E': 13.67 Aortic Valve Peak Velocity: 1.77 m/s Mean Velocity: 1.27 m/s Peak Gradient: 12.54 mmHg Mean Gradient: 7.22 mmHg AV Area (continuity): 1.91 cm^2 AV VTI: 39.14 cm AV DVI: 0.58 LVOT Peak Velocity: 1 m/s Peak Gradient: 3.98 mmHg Mean Velocity: 0.7 m/s Mean Gradient: 2.22 mmHg LVOT Diameter: 2.05 cm LVOT VTI: 22.7 cm LVOT Area: 3.3 cm^2 LVOT SV:74.89 ml LVOT CO: 5.69 l/min LVOT CI: 2.8 l/min/m^2 RVOT RVOT VTI (PW): 16.45 cm Tricuspid Valve TR Velocity: 2.5 m/s TR Gradient: 25.07 mmHg Performing Organization Address City/[facility]/Zipcode Phone Number [facility] MKCKESSON CPACS Homocysteine (04/04/2020 4:48 AM CDT) Homocysteine 14.7 5.1 - 15.4 umol/L [facility] [place] Specimen Blood Narrative Performed At Patient Transition Specialist ID - EDASI [facility] Performing Organization Address City/[facility]/Zipcode Phone Number [facility] [address] [place] [address] CENTER CTA brain (04/04/2020 12:58 AM CDT) Specimen Narrative Performed At FINAL REPORT [employer] CLINICAL HISTORY: Neuro deficit, acute, stroke suspected TECHNIQUE: Initially, noncontrast head C T images were performed. Contiguous contrast-enhanced axial image s through the head with coronal and sagittal reformations to ass ess the arterial circulation. 3-D reconstructions were performed using a volume rendered technique separately on a workstation. This exam w as performed according to the departmental dose optimization program w [facility] includes automated exposure control, adjustment of the mA a nd/or kV according to the patient size, and/or use of an iterative reconstruction technique. COMPARISON: None FINDINGS: The noncontrast head CT images reveal no evidence of acute infarct or hemorrhage. There is periventricular and subcortical white matter hypodensity which is nonspecific but com patible with chronic microvascular ischemic change. There are atherosclerotic calcifications of the intracranial circu lation. There is generalized parenchymal volume loss without hydrocep halus, midline shift, or apparent mass effect. No extra-axial flu id collections. The skull is intact. Air-fluid level in the right sph enoid sinus. Mastoid air cells are clear. Intraorbital contents a re unremarkable. The CT angiogram images reveal no eviden ce of intracranial aneurysm, focal stenosis, or branch vessel occlusi on. Atherosclerotic calcifications of the bilateral carotid siphons with no flow-limiting stenosis on the right and mild stenosis of the clinoid segment on the left. Diminutive P1 right posterior cere bral artery. The P2 segments are patent with multifocal moderate sten osis on the left, likely multifocal severe stenosis in the P3 and P4 segment on the left however limited evaluation given venous contamination. The right posterior cerebral artery is patent. Carlos ateral anterior and middle cerebral arteries are patent. IMPRESSION: No evidence of intracranial aneurysm, or branch vessel occlusion. Multifocal intracranial stenosis, worse in the left posterior cerebral artery where there is multifoca l moderate to severe stenosis in the distal P2, P3 and P2 four branche s.. No CT evidence of acute infarct or hemor rhage. Air-fluid level in the right sphenoid si nus. Correlate for signs acute sinusitis. Signed: Balta Ortiz MD Report Verified Date/Time:04/04/2020 01:46:19 Procedure Note Interface, External Ris In - 04/04/2020 1:48 AM CDT FINAL REPORT CLINICAL HISTORY: Neuro deficit, acute, stroke suspected TECHNIQUE: Initially, noncontrast head C T images were performed. Contiguous contrast-enhanced axial image s through the head with coronal and sagittal reformations to ass ess the arterial circulation. 3-D reconstructions were performed using a volume rendered technique separately on a workstation. This exam w as performed according to the departmental dose optimization program w hich includes automated exposure control, adjustment of the mA a nd/or kV according to the patient size, and/or use of an iterative reconstruction technique. COMPARISON: None FINDINGS: The noncontrast head CT images reveal no evidence of acute infarct or hemorrhage. There is periventricular and subcortical white matter hypodensity which is nonspecific but com patible with chronic microvascular ischemic change. There are atherosclerotic calcifications of the intracranial circu lation. There is generalized parenchymal volume loss without hydrocep halus, midline shift, or apparent mass effect. No extra-axial flu id collections. The skull is intact. Air-fluid level in the right sph enoid sinus. Mastoid air cells are clear. Intraorbital contents a re unremarkable. The CT angiogram images reveal no eviden ce of intracranial aneurysm, focal stenosis, or branch vessel occlusi on. Atherosclerotic calcifications of the bilateral carotid siphons with no flow-limiting stenosis on the right and mild stenosis of the clinoid segment on the left. Diminutive P1 right posterior cere bral artery. The P2 segments are patent with multifocal moderate sten osis on the left, likely multifocal severe stenosis in the P3 and P4 segment on the left however limited evaluation given venous contamination. The right posterior cerebral artery is patent. Carlos ateral anterior and middle cerebral arteries are patent. IMPRESSION: No evidence of intracranial aneurysm, or branch vessel occlusion. Multifocal intracranial stenosis, worse in the left posterior cerebral artery where there is multifoca l moderate to severe stenosis in the distal P2, P3 and P2 four branche s.. No CT evidence of acute infarct or hemor rhage. Air-fluid level in the right sphenoid si nus. Correlate for signs acute sinusitis. Signed: Balta Ortiz MD Report Verified Date/Time: 04/04/2020 0 1:46:19 Performing Organization Address City/State/Zipcode Phone Number [facility] SARS-CoV2/RT-PCR (Asymptomatic ONLY) (04/03/2020 10:21 PM CDT) SARS-COV2/RT-PCR Negative Not Detected, Negative, [facility] See external report for MEDICAL CENTER linked test SARS-COV-2 PERFORMING LAB [facility] Specimen Other Narrative Performed At Negative result for this test determines that [facility] SARS-CoV-2 RNA was not present in the specimen above the Limit of Detection (LOD).However, Negative results do not preclude SARS-CoV-2 infection and should not be used as the sole basis for treatment or patient management decisions. Negative results must be combined with clinical observations, patient history, and epidemiological information. A false negative result may occur if a specimen is improperly collected, transported or handled.A false negative result should be considered if patient's recent exposures or clinical presentation indicate that COVID-19 (SARS-CoV-2) is likely and diagnostic tests for other causes of illness are negative.Re-testing should be considered in cases of suspected false negatives. The limit of detection for this assay is 800 copies/mL. This SARS CoV-2 test is a real-time RT-PCR test intended for the qualitative detection of nucleic acid from SARS-CoV-2 in a nasopharyngeal swab specimen collected from individuals suspected of COVID-19 by their healthcare provider. This test has not been Food and Drug Administration (FDA) cleared or approved.This is a modified version of an approved Emergency Use Authorization (EUA) and is in the process of review by the FDA. Once authorized by the FDA, the issued EUA will be effective until the declaration that circumstances exist justifying the authorization of the emergency use of in vitro diagnostic tests for detection and/or diagnosis of COVID-19 is terminated under Section 564(b)(2) of the Act or the EUA is revoked under Section 564(g) of the Act. Fact Sheet for Healthcare Providers: https://www.[employer].com/sites/default/files/pro duct/documents/Fact_Sheet_HC_Providers_Lyra_SA RS-CoV-2.pdf Fact Sheet for Healthcare Patients: https://www.[employer]/sites/default/files/pro duct/documents/Fact_Sheet_Patients_Lyra_SARS-C oV-2.pdf Performing Laboratory: [address] [address] Performing Organization Address City/[facility]ode Phone Number [address] [address] CENTER Vitamin B12 and Folate (04/03/2020 10:13 PM CDT) Vitamin B12 174 (L) 213 - 816 pg/mL [facility] Folate 32.90 >=7.00 ng/mL [facility] Specimen Blood Narrative Performed At Patient Transition Specialist ID - [facility] Performing Organization Address [facility] Centercomn Phone Number [address] [address] CENTER TSH/Free T4 If Indicated (04/03/2020 10:13 PM CDT) TSH 1.026 0.350 - 4.940 uIU/mL [facility] Specimen Blood Narrative Performed At Patient Transition Specialist ID - [facility] Performing Organization Address [facility] Centercode Phone Number [address] [address] CENTER C-Reactive Protein (04/03/2020 10:13 PM CDT) CRP 0.92 (H) 0.00 - 0.50 mg/dL [facility] Specimen Blood Narrative Performed At Patient Transition Specialist ID [facility] Performing Organization Address [facility] Centercode Phone Number [address] [address] CENTER CBC with platelet count + automated diff (04/03/2020 10:13 PM CDT) WBC 10.2 3.5 - 10.5 K/L [facility] RBC 3.80 (L) 3.93 - 5.22 M/L [facility] Hemoglobin 10.8 (L) 11.2 - 15.7 GM/DL [facility] Hematocrit 33.8 (L) 34.1 - 44.9 % [facility] MCV 88.9 79.4 - 94.8 fL [facility] MCH 28.4 25.6 - 32.2 pg [facility] MCHC 32.0 (L) 32.2 - 35.5 GM/DL [facility] RDW 13.2 11.7 - 14.4 % [facility] Platelets 276 150 - 450 K/CU MM [facility] MPV 9.8 9.4 - 12.3 fL [facility] nRBC 0 0 - 0 /100 WBC [facility] % Neutros 70 % [facility] % Lymphs 21 % [facility] % Monos 8 % [facility] % Eos 1 % [facility] % Baso 1 % [facility] # Neutros 7.14 (H) 1.56 - 6.13 K/L [facility] # Lymphs 2.14 1.18 - 3.74 K/L [facility] # Monos 0.79 (H) 0.24 - 0.36 K/L [facility] # Eos 0.08 0.04 - 0.36 K/L [facility] # Baso 0.06 0.01 - 0.08 K/L [facility] Immature Granulocytes-Relative 0 0 - 1 % [facility] Specimen Blood Performing Organization Address City/State/Zipcode Phone Number [address] [address] [place] RPR (04/03/2020 10:13 PM CDT) RPR Nonreactive Nonreactive [facility] Specimen Blood Performing Organization Address City/[facility]/Zipcode Phone Number [address] [address] [place] Hemoglobin A1c (04/03/2020 10:13 PM CDT) Hemoglobin A1C 6.3 (H) 4.3 - 6.1 % [facility] Specimen Blood Performing Organization Address City/[facility] Centercode Phone Number [address] [address] [place] Lipid panel (04/03/2020 10:13 PM CDT) Triglycerides 86 mg/dL [facility] Cholesterol 162 mg/dL [facility] HDL 54 mg/dL [facility] LDL Calculated 91 mg/dL [facility] Specimen Blood Narrative Performed At Triglyceride Reference Range: [facility] Low Risk <150 [id number] High Risk 200-499 Very High Risk>=500 Cholesterol Reference Range: Low Risk <200 [id number] High Risk>240 HDL Cholesterol Reference Range: Low Risk >=60 High Risk <40 LDL Cholesterol Reference Range: Optimal<100 Near Entthtp646-525 [id number] Boub082-320 Very High >=190 Patient Transition Specialist ID - CARLOSG Performing Organization Address [facility]/Zipcode Phone Number [address] [address] CENTER Comprehensive metabolic panel (04/03/2020 10:13 PM CDT) Protein, Total 6.8 6.0 - 8.3 gm/dL [facility] Albumin 4.0 3.5 - 5.0 g/dL [facility] Alkaline Phosphatase 51 40 - 150 U/L [facility] Total Bilirubin 0.4 0.2 - 1.2 mg/dL [facility] Sodium 138 136 - 145 meq/L [facility] Potassium 4.0 3.5 - 5.1 meq/L [facility] Chloride 103 98 - 107 meq/L [facility] CO2 25 22 - 29 meq/L [facility] BUN 23 (H) 7 - 21 mg/dL [facility] Creatinine 1.07 0.57 - 1.25 mg/dL [facility] Glucose 134 (H) 70 - 105 mg/dL [facility] Calcium 9.5 8.4 - 10.2 mg/dL [facility] AST 16 5 - 34 U/L [facility] ALT 16 6 - 55 U/L [facility] EGFR 50Comment: ESTIMATED GFR mL/min/1.73 sq m [facility] IS NOT ACCURATE [facility] CREATININE CLEARANCE IN PREDICTING GLOMERULAR FILTRATION RATE. ESTIMATED GFR IS NOT APPLICABLE FOR DIALYSIS PATIENTS. Specimen Blood Narrative Performed At Patient Transition Specialist ID - [facility] Performing Organization Address City/State/Zipcode Phone Number [facility] [address] [place] [address] CENTER ECG 12 lead (04/03/2020 9:09 PM CDT) Specimen Narrative Performed At Ventricular Rate 74 BPM GE MUSE Atrial Rate 74 BPM P-R Interval 160 ms QRS Duration 82 ms Q-T Interval 392 ms QTC Calculation(Bazett) 435 ms P Decker -18 degrees R Decker 5 degrees T Decker 41 degrees Normal sinus rhythm Normal ECG No previous ECGs available Confirmed by MD MENDEZ, BERNARDA ([id number]) on 04/05/2020 6:50:42 AM Procedure Note Interface, External Ris In - 04/05/2020 6:50 AM CDT Ventricular Rate 74 BPM Atrial Rate 74 BPM P-R Interval 160 ms QRS Duration 82 ms Q-T Interval 392 ms QTC Calculation(Bazett) 435 ms P Decker -18 degrees R Decker 5 degrees T Decker 41 degrees Normal sinus rhythm Normal ECG No previous ECGs available Confirmed by MD MENDEZ, BERNARDA ([id number]) on 04/05/2020 6:50:42 AM Performing Organization Address City/State/Zipcode Phone Number JM MUSE after 05/13/2019 Insurance Payer Benefit Plan / Subscriber ID Type Phone Address Group [employer] xxxxxxxx [facility] Contracted ALL CDC REVIEW CDC REVIEW [place]xxxx[place] [address] Advance Directives For more information, please contact:[id number] [place], [place] [phone] Code Status Date Activated Date Inactivated Comments Full Code 04/03/2020 8:28 PM 04/05/2020 10:02 PM This code status was determined by: Patient
--- OUTSIDE RECORDS SUMMARY | 2020-05-13 13:52 | XMS REPORT | Summary of Care ---
:1940 Author Organization [facility] - [facility] Address [address] [place] [id number] Care Team Providers Name Role Phone Jason Dudley Primary Care Provider Reason for Referral Radiology Services (STAT) Status Reason Specialty Diagnoses / Referred By Referred To Procedures Contact Contact New Request Diagnostic Diagnoses Nausea and vomiting, intractability of vomiting not specified, unspecified vomiting type Wilber Berry, Radiology Procedures XR CHEST 1 VW DO [address] [place] [address] [place] [id number] MRI/CAT Scan (STAT) Status Reason Specialty Diagnoses / Referred By Referred To Procedures Contact Contact New Request Diagnostic Diagnoses Nausea and vomiting, intractability of vomiting not specified, unspecified vomiting type Wilber Berry, Radiology Procedures CT HEAD WO CONTRAST DO [address] [place] [address] [place] [id number] Reason for Visit Reason Comments Headache Vomiting Auth/Cert Status Reason Specialty Diagnoses / Referred By Referred To Procedures Contact Contact Emergency Medicine [facility] Dept [address] [place] [address] Fax: Encounter Details Date Type Department Care Team Description 05/08/2020 Emergency [facility]-Emergency Wilber Berry DO Complicated migraine (Primary Dx); Department [address] [place] [address]. Nausea and vomiting, intractability of v omiting not specified, unspecified vomiting type [address] [facility] [address] [place] [address] [place] [address] [phone] Allergies Active Allergy Reactions Severity Noted Date Comments Penicillin Anaphylaxis 05/08/2020 documented as of this encounter (statuses as of 05/08/2020) Medications Medication Sig Dispensed Refills Start Date End Date Status METFORMIN 500 MG ORAL one tab po daily 30 1 07/03/2006 Active TAB documented as of this encounter (statuses as of 05/08/2020) Active Problems Not on filedocumented as of this encounter (statuses as of 05/08/2020) Social History Tobacco Use Types Packs/Day Years Used Date Never Assessed Sex Assigned at Date Recorded Not on file COVID-19 Exposure Response Date Recorded In the last month, have you been in contact with No / Unsure 05/08/2020 7:14 PM CDT someone who was confirmed or suspected to have Coronavirus / COVID-19? documented as of this encounter Last Filed Vital Signs Vital Sign Reading Time Taken Comments Blood Pressure 159/76 05/08/2020 11:00 PM CDT Pulse 80 05/08/2020 11:00 PM CDT Temperature 36.2 C (97.1 F) 05/08/2020 7:25 PM CDT Respiratory Rate 14 05/08/2020 11:00 PM CDT Oxygen Saturation 96% 05/08/2020 11:00 PM CDT Inhaled Oxygen Concentration - - Weight 99.8 kg (220 lb) 05/08/2020 7:25 PM CDT Height - - Body Mass Index - - documented in this encounter Discharge Instructions Wilber Michaud DO - 05/08/2020 DIAGNOSIS Diagnoses that have been ruled out: None Diagnoses that are still under consideration: None Final diagnoses: Nausea and vomiting, intractability of vomiting not specified, unspecified vomiting type Complicated migraine NO LIFE-THREATENING FINDINGS ON TODAY'S EXAM. PROCEDURES IN THE ER TODAY: Orders Placed This Encounter Procedures CT HEAD WO CONTRAST XR CHEST 1 VW CBC WITH DIFF COMP. METABOLIC PANEL (44658) TROPONIN I URINALYSIS COVID-19 (ID NOW RAPID TESTING) MEDICATIONS ADMINISTERED IN THE ER TODAY AND DISCHARGE MEDICATIONS: Orders Placed This Encounter Medications NaCl 0.9% (NS) bolus infusion 1,000 mL metoclopramide HCl (REGLAN) injection 10 mg diphenhydrAMINE (BENADRYL) injection 25 mg FOLLOW-UP RECOMMENDATIONS: RECOMMEND FOLLOW-UP WITH A PRIMARY CARE PROVIDER OR SPECIALIST IN 2-5 DAYS, ESPECIALLY IF NO IMPROVEMENT IN SYMPTOMS. MAY FOLLOW-UP WITH A PROVIDER OF YOUR CHOICE, SUCH : 1. A PHYSICIAN OF YOUR CHOICE 2. [facility], . LOCATIONS IN [facility] 3. [facility], [address], [place]; [phone] OR, IF YOU WISH TO FOLLOW-UP WITHIN THE [facility], MAY TRY THESE OPTIONS (CLINIC APPOINTMENTS AVAILABLE ON [id number]-[id number] BASIS): 1. SCHEDULE AN APPOINTMENT ONLINE AT WWW[facility] 2. OR CALL THE [facility] ACCESS CENTER AT OR 3. OR CALL YOUR [facility] PHYSICIAN'S OFFICE DIRECTLY IF YOU ARE ALREADY AN ESTABLISHED [facility] PATIENT. RETURN TO ER FOR WORSENING OF SYMPTOMS. AttachmentsThe following attachments cannot be sent through Care Everywhere. Headache, Migraine: Stages and Treatment (Ivorian)documented in this encounter ED Notes Paula Andrews RN - 05/08/2020 7:24 PM CDTPatient with a history of vomiting and head pain for the past few days. Patient with a history of stroke and TIA in the past month. 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 Reportedly she had some slurred speech that started yesterday and then had another episode this morning. She has a history of TIA's in the past with similar presentations. Her LKN has been over 24 hours. No urinary complaints or cough. She states that sometimes this is associated with her BROUSSARD. Still maintains a right sided headache, throbbing. No fever. Past Medical History / Immunizations Past Medical History: Diagnosis Date Bilateral malignant neoplasm of breast in female H/O bilateral mastectomy Tetanus received in last 5 years: Yes Childhood immunizations: Up-to-date Past Surgical History No past surgical history on file. Allergies Allergies Allergen Reactions Penicillin Anaphylaxis Social History Substance & Sexual Activity No substance use or sexual activity history on file. Review of Systems Review of Systems Constitutional: Negative for chills, fatigue and fever. HENT: Negative for sore throat. Eyes: Negative for pain. Respiratory: Negative for cough, chest tightness, shortness of breath and stridor. Breasts: Negative for pain. Cardiovascular: Negative for chest pain and palpitations. Gastrointestinal: Negative for abdominal pain, constipation and diarrhea. Genitourinary: Negative for bladder incontinence, vaginal discharge and difficulty urinating. Musculoskeletal: Negative for back pain. Skin: Negative for color change and wound. Neurological: Positive for speech difficulty, weakness (on right side. similar to previous encounters. Improved) and headaches. Negative for dizziness, seizures and light-headedness. Physical Exam BP 131/69 | Pulse 77 | Temp 36.2 C (97.1 F) | Resp 17 | Wt 99.8 kg (220 lb) | SpO2 98% Physical Exam Vitals signs and nursing note reviewed. Constitutional: General: She is not in acute distress. Appearance: She is well-developed. She is not diaphoretic. HENT: Head: Normocephalic and atraumatic. Right Ear: External ear normal. Left Ear: External ear normal. Nose: Nose normal. Eyes: General: No scleral icterus. Conjunctiva/sclera: Conjunctivae normal. Pupils: Pupils are equal, round, and reactive to light. Neck: Musculoskeletal: Normal range of motion and neck supple. Cardiovascular: Rate and Rhythm: Normal rate and regular rhythm. Heart sounds: Normal heart sounds. Pulmonary: Effort: Pulmonary effort is normal. Breath sounds: Normal breath sounds. Abdominal: General: Bowel sounds are normal. Palpations: Abdomen is soft. Tenderness: There is no abdominal tenderness. Musculoskeletal: Normal range of motion. Skin: General: Skin is warm and dry. Neurological: Mental Status: She is alert and oriented to person, place, and time. Cranial Nerves: Cranial nerves are intact. No cranial nerve deficit. Sensory: Sensation is intact. Motor: Motor function is intact. No weakness or abnormal muscle tone. Coordination: Coordination is intact. Deep Tendon Reflexes: Reflexes are normal and symmetric. Comments: NIHSS 0. Psychiatric: Behavior: Behavior normal. Thought Content: Thought content normal. Labs Recent Results (from the past 24 hour(s)) CBC WITH DIFF Collection Time: 05/08/20 7:54 PM Result Value Ref Range WBC 11.01 4.30 - 11.10 10*3/L RBC 3.94 3.93 - 5.25 10*6/L HGB 11.2 (L) 11.6 - 15.0 g/dL HCT 33.8 (L) 35.7 - 45.2 % MCV 85.8 80.6 - 95.5 fL MCH 28.4 25.9 - 32.8 pg MCHC 33.1 31.6 - 35.1 g/dL RDW-SD 42.4 39.0 - 49.9 fL RDW-CV 13.5 12.0 - 15.5 % PLT 298 166 - 358 10*3/L MPV 9.8 9.5 - 12.9 fL NRBC/100 WBC 0.0 0.0 - 10.0 /100 WBCs NRBC x10^3 <0.01 10*3/L GRAN MAT (NEUT) % 59.3 % IMM GRAN % 0.40 % LYMPH % 29.7 % MONO % 9.6 % EOS % 0.5 % BASO % 0.5 % GRAN MAT x10^3(ANC) 6.52 1.88 - 7.09 10*3/uL IMM GRAN x10^3 0.04 0.00 - 0.06 10*3/uL LYMPH x10^3 3.27 1.32 - 3.29 10*3/uL MONO x10^3 1.06 (H) 0.33 - 0.92 10*3/uL EOS x10^3 0.06 0.03 - 0.39 10*3/uL BASO x10^3 0.06 0.01 - 0.07 10*3/uL COMP. METABOLIC PANEL ([id number]) Collection Time: 05/08/20 7:54 PM Result Value Ref Range NA 137 135 - 145 mmol/L K 3.7 3.5 - 5.0 mmol/L CL 100 98 - 108 mmol/L CO2 TOTAL 25 23 - 31 mmol/L AGAP 12 2 - 16 BUN 27 (H) 7 - 23 mg/dL GLUCOSE 132 (H) 70 - 110 mg/dL CREATININE 1.21 (H) 0.50 - 1.04 mg/dL TOTAL BILI 0.4 0.1 - 1.1 mg/dL CALCIUM 9.7 8.6 - 10.6 mg/dL T PROTEIN 7.1 6.3 - 8.2 g/dL ALBUMIN 4.0 3.5 - 5.0 g/dL ALK PHOS 44 34 - 122 U/L ALTv 15 5 - 35 U/L AST(SGOT) 23 13 - 40 U/L eGFR Calculation (Non-) 43.1 mL/min/1.73m2 eGFR Calculation () 52.3 mL/min/1.73m2 TROPONIN I Collection Time: 05/08/20 7:54 PM Result Value Ref Range TROPONIN I 0.023 <=0.034 ng/mL URINALYSIS Collection Time: 05/08/20 8:20 PM Result Value Ref Range APPEARANCE Clear Clear COLOR Yellow Yellow PH 5.0 4.8 - 8.0 SP GRAVITY 1.017 1.003 - 1.030 GLU U QUAL Normal Normal BLOOD Negative Negative KETONES Negative Negative PROTEIN Negative Negative UROBILIN Normal Normal BILIRUBIN Negative Negative NITRITE Negative Negative LEUK JIMBO 250/uL (A) Negative RBC/HPF 3 0 - 3 HPF WBC/HPF 4 0 - 5 HPF BACTERIA Few (A) Negative MUCOUS Slight (A) Negative LPF SQ EPITH 2 HPF HYAL CAST 12 (H) <=2 LPF COVID-19 (ID NOW RAPID TESTING) Collection Time: 05/08/20 9:18 PM Specimen: NASOPHARYNGEAL SWAB Result Value Ref Range SARS-CoV-2 Rapid ID NOW Not Detected Not Detected Imaging [facility] Encounter on 05/08/20 CT HEAD WO CONTRAST Narrative CT HEAD WITHOUT CONTRAST HISTORY: Neuro deficit(s), subacute COMPARISON: None. TECHNIQUE: Axial CT of the head was performed and reconstructed at 5 mm intervals. Coronal and sagittal reformatted images were generated. FINDINGS: No intracranial abnormality such as hemorrhage, edema, mass, mass-effect, midline shift, or extra axial fluid collection is appreciated. The ventricles, sulci, and basal cisterns are within normal limits. No hydrocephalus is seen. The ness-white matter differentiation is preserved. The calvarium and skull base are intact. Hyperostosis frontalis interna is noted. Partially empty sella configuration is noted. The paranasal sinuses and mastoid air cells are clear. Impression No acute intracranial abnormality. Aspect score: 10. Preliminary Report Dictated by Resident: Lopez Chong MD., have reviewed this study and agree with the above report. XR CHEST 1 VW Narrative XR CHEST 1 VW HISTORY: stroke like symptoms COMPARISON: None available FINDINGS: The lungs are clear. No focal consolidation. No pleural effusion or pneumothorax is present. The cardiomediastinal silhouette is normal. The osseous structures are unremarkable. Impression No acute cardiopulmonary abnormality is present. Preliminary Report Dictated by Resident: Niraj Mendoza Orders and Treatments Orders Placed This Encounter Procedures CT HEAD WO CONTRAST XR CHEST 1 VW CBC WITH DIFF COMP. METABOLIC PANEL (79199) TROPONIN I URINALYSIS COVID-19 (ID NOW RAPID TESTING) Orders Placed This Encounter Medications NaCl 0.9% (NS) bolus infusion 1,000 mL metoclopramide HCl (REGLAN) injection 10 mg diphenhydrAMINE (BENADRYL) injection 25 mg Procedures See ED Procedure Note Notes & MDM Patient was evaluated for an emergency medical condition related to Headache and Vomiting . Differential diagnoses considered by presenting complaints but not limited to: Complicated Migraine, TIA, Stroke, UTI, Infection NOS, and others. Labs:were ordered, and resulted, any relevant abnormalities were considered. Imaging:Ordered, and resulted, any relevant abnormalities were considered. IV fluids: not indicated Procedures:were not performed. EKG: Time: 19:26 Rate: 85. normal sinus rhythm, normal axis, normal intervals. Normal EKG. Interpreted. Rhythm Strip Interpretation: 77 Normal Sinus Rhythm Pulse Oximetry room air Assessment: Becky Rodriguez is a 79 year old female with complicated migraine. No changes on EKG. Normal labs. Better after migraine cocktail. Requesting to go home. Referral to neurology for OP testing and further evaluation. Return precautions given if symptoms worsen as documented in the discharge instructions. History, physical exam findings, results of visit, differential diagnosis, medication regimens and plan of future care have been considered. Additional MDM may be found in the ED course. Differential diagnosis considered and final disposition made based on information gathered during evaluation and may not be completely ruled out or specifically listed. Vital signs were rechecked before final disposition and determined to be stable. Diagnosis ICD-10-CM ICD-9-CM 1. Complicated migraine G43.109 346.00 2. Nausea and vomiting, intractability of vomiting not specified, unspecified vomiting type R11.2 787.01 Disposition & Follow Up ED Disposition ED Disposition Condition Comment Disch - Home Stable Patient's Medications START taking these medications No medications on file CONTINUE taking these medications which have NOT CHANGED METFORMIN 500 MG ORAL TAB one tab po daily START taking Modified Medications as Prescribed No medications on file STOP taking these medications No medications on file Contact information for follow-up Carlos Miranda MD Specialty: PN-NEUROLOGY [facility] AND [address] [id number] ADC-Emergency Department Specialty: Emergency Medicine [address] [place] [id number] Instructions: If symptoms worsen as documented in the discharge Wilber Berry DO 05/08/2020 10:58 PM ACTIVE COVID-19 PANDEMIC. documented in this encounter Miscellaneous Notes ED Nurse Note - Ty Bright RN - 05/08/2020 11:28 PM CDT Pt given printed and verbal discharge instructions regarding Nausea and vomiting, intractability of vomiting not specified, unspecified vomiting type Complicated migraine , encouraged hydration, Pt verbalized understanding of instructions, pt awake alert oriented, resp reg unlabored, skin w/d, color appropriate for race, moves all ext well,pt encouraged to follow up with pcp Advised to seek medical attention for new/prolonged/worsening of symptoms, Symptoms improved No adverse reaction to meds given in ER noted upon discharge PIV d'cd, dressing to site, catheter in tact. Awake, alert oriented, resp reg unlabored, skin w/d, pt leaving amb with steady gait, in no apparent distress, D Nurse Note - Janice Lerma RN - 05/08/2020 9:51 PM CDTDaughter Becky called and wanted to know an update on her mother. Spoke with the patient and she stated she didn't want to release her information at this time but that it was okay to tell her that she is doing okay and stable and she will call her when she leaves. Message was relayed to daughter. documented in this encounter Plan of Treatment Name Type Priority Associated Diagnoses Date/Ti me XR CHEST 1 VW IMAGING STAT Nausea and vomiting, 2019 9:14 PM CDT intractability of vomiting n ot specified, unspecified vomiting type Health Maintenance Due Date Last Done Comments Depression Screening 1952 DTaP,Tdap,and Td Vaccines (1 - Tdap) 1961 Zoster Recombinant Vaccine (SHINGRIX) (1 of 2) 1992 Medicare Wellness Visit 10/29/2007 Osteoporosis Screening 10/29/2007 PNEUMOCOCCAL VACCINES 65+ (1 of 1 - PPSV23) 10/29/2007 INFLUENZA VACCINE (#1) 2020 documented as of this encounter Procedures Procedure Name Priority Date/Time Associated Diagnosis Comme nts COVID-19 (ID NOW STAT 05/08/2020 9:18 Nausea and vomiting, Results for this RAPID TESTING) PM CDT intractability of procedur e are in vomiting not specified, the results unspecified vomiting section . type XR CHEST 1 VW STAT 05/08/2020 9:14 Nausea and vomiting, PM CDT intractability of vomiting not specified, unspecified vomiting type Procedure Note - [facility], Radia nt Results Inft User - 05/08/2020 9:46 PM CDT XR CHEST 1 VW HISTORY: stroke like symptom s COMPARISON: None available FINDINGS: The lungs are clear. No foca l consolidation. No pleural effusion or pneum othorax is present. The cardiomediastinal silhou ette is normal. The osseous structures are u nremarkable. IMPRESSION No acute cardiopulmonary abn ormality is present. Preliminary Report Dictated by Resident: Niraj Mendoza URINALYSIS STAT 05/08/2020 8:20 PM Nausea and vomiting, Results for this CDT intractability of procedure are in vomiting not the results specified, unspecified secti on. vomiting type CT HEAD WO CONTRAST STAT 05/08/2020 8:06 PM Nausea and vom iting, Results for this CDT intractability of procedure are in vomiting not the results specified, unspecified secti on. vomiting type CBC WITH DIFF STAT 05/08/2020 7:54 PM Nausea and vomiting, Results for this CDT intractability of procedure are in vomiting not the results specified, unspecified secti on. vomiting type COMP. METABOLIC STAT 05/08/2020 7:54 PM Nausea and vomitin g, Results for this PANEL ([id number]) CDT intractability of procedure are in vomiting not the results specified, unspecified secti on. vomiting type TROPONIN I STAT 05/08/2020 7:54 PM Nausea and vomiting, Results for this CDT intractability of procedure are in vomiting not the results specified, unspecified secti on. vomiting type CONSENT/REFUSAL FOR Routine 05/08/2020 7:14 PM DIAGNOSIS AND CDT TREATMENT NOTICE OF PRIVACY Routine 05/08/2020 7:14 PM PRACTICES CDT documented in this encounter Results COVID-19 (ID NOW RAPID TESTING) (05/08/2020 9:18 PM CDT) SARS-CoV-2 Rapid ID Not Detected Not Detected [facility] Specimen Swab - NASOPHARYNGEAL SWAB Narrative Performed At ID NOW COVID-19 Assay is an isothermal nucleic [facility] acid amplification test intended for the qualitative detection of nucleic acid from SARS-CoV-2 viral RNA in nasopharyngeal (PRACTICE SUPPORT SPECIALIST) specimens. It is used under Emergency Use Authorization (EUA) by FDA. The limit of detection (LOD) of the assay is 125 Genome Equivalents/mL. A positive result is indicative of the presence of SARS-CoV-2 RNA. Clinical correlation with patient history and other diagnostic information is necessary to determine patient infection status. A negative (Not Detected) result does not preclude SARS-CoV-2 infection. In patients with clinical symptoms and other tests that are consistent with SARS-CoV-2 infection, negative results should be treated as presumptive negative and a new specimen should be tested with alternative PCR molecular test. Invalid: Please collect a new specimen for repeat patient testing if clinically indicated. Performing Organization Address City/State/Zipcode Phone Number [facility] CLIA: [id number] [place] [address] URINALYSIS (05/08/2020 8:20 PM CDT) Pathologist Sig nature APPEARANCE Clear Clear [facility] COLOR Yellow Yellow [facility] PH 5.0 4.8 - 8.0 [facility] SP GRAVITY 1.017 1.003 - 1.030 [facility] GLU U QUAL Normal Normal [facility] BLOOD Negative Negative [facility] KETONES Negative Negative [facility] PROTEIN Negative Negative [facility] UROBILIN Normal Normal [facility] BILIRUBIN Negative Negative [facility] NITRITE Negative Negative [facility] LEUK JIMBO 250/uL (A) Negative [facility] RBC/HPF 3 0 - 3 HPF [facility] WBC/HPF 4 0 - 5 HPF [facility] BACTERIA Few (A) Negative [facility] MUCOUS Slight (A) Negative LPF [facility] SQ EPITH 2 HPF [facility] HYAL CAST 12 (H) <=2 LPF [facility] Specimen Urine - URINE, CLEAN CATCH Performing Organization Address City/State/Zipcode Phone Number [facility] CLIA: [id number] [place] [address] HEAD WO CONTRAST (05/08/2020 8:06 PM CDT) Specimen Impressions Performed At PACS/VR/DOSE No acute intracranial abnormality. Aspect score: 10. Preliminary Report Dictated by Resident: Bernard Najera I, Lopez Galan MD., have reviewed this stud y and agree with the above report. Narrative Performed At CT HEAD WITHOUT CONTRAST PACS/VR/DOSE HISTORY: Neuro deficit(s), subacute COMPARISON: None. TECHNIQUE: Axial CT of the head was perf ormed and reconstructed at 5 mm intervals. Coronal and sagittal reformat akilah images were generated. FINDINGS: No intracranial abnormality such as hemorrhage, edema, mass, mass-effect, midline shift, or extra axial fluid shalonda ection is appreciated. The ventricles, sulci, and basal cistern s are within normal limits. No hydrocephalus is seen. The ness-white matter differentiation is preserved. The calvarium and skull base are intact. Hyperostosis frontalis interna is noted. Partially empty sella configuration is noted. T he paranasal sinuses and mastoid air cells are clear. Procedure Note [facility], Radiant Results Inft User - 2019 9:[address] HEAD WITHOUT CONTRAST HISTORY: Neuro deficit(s), subacute COMPARISON: None. TECHNIQUE: Axial CT of the head was perf ormed and reconstructed at 5 mm intervals. Coronal and sagittal reformat akilah images were generated. FINDINGS: No intracranial abnormality such as hemo rrhage, edema, mass, mass-effect, midline shift, or extra axial fluid shalonda ection is appreciated. The ventricles, sulci, and basal cistern s are within normal limits. No hydrocephalus is seen. The ness-white matter differentiation is preserved. The calvarium and skull base are intact. Hyperostosis frontalis interna is noted. Partially empty sella configurati on is noted. The paranasal sinuses and mastoid air cells are clear. IMPRESSION No acute intracranial abnormality. Aspect score: 10. Preliminary Report Dictated by Resident: Bernard Najera I, Lopez Galan MD., have revi ewed this study and agree with the above report. Performing Organization Address City/State/[facility] Phone Number PACS/VR/DOSE TROPONIN I (05/08/2020 7:54 PM CDT) Pathologist Sig nature TROPONIN I 0.023 <=0.034 ng/mL [facility] Specimen Blood - VENOUS Narrative Performed At Equal or Less than 0.034 ng/ml---Normal [facility] Note: Cardiac troponin begins to rise 3-4 hours after the onset of ischemia. Repeat in 4-6 hours if the sample was drawn within 3-4 hours of the onset of the symptom and found normal. Between 0.035 and 0.120 ng/mL--- Borderline. Questionable myocardial injury or necros is Note: Serial measurement may be necessary to confirm or exclude the diagnosis of myocardial injury or necrosis; Clinical correlation (symptoms, EKGs, imaging studies, and others) required; Repeat in 4-6 hours if clinically indicated. Equal or Higher than 0.121 ng/mL---Abnormal. Myocardial Injury or Necrosis Likely Biotin has been reported to cause a negative bias, interpret results relative to patient's use of biotin. Performing Organization Address [facility] Phone Number [facility] CLIA: [id number] [place] [address] COMP. METABOLIC PANEL (88606) (05/08/2020 7:54 PM CDT) NA 137 135 - 145 [facility] mmol/L [facility] LABORATORY K 3.7 3.5 - 5.0 [facility] mmol/L [facility] LABORATORY CL 100 98 - 108 mmol/L [facility] LABORATORY CO2 TOTAL 25 23 - 31 mmol/L [facility] LABORATORY AGAP 12 2 - 16 [facility] LABORATORY BUN 27 (H) 7 - 23 mg/dL [facility] LABORATORY GLUCOSE 132 (H) 70 - 110 mg/dL [facility] LABORATORY CREATININE 1.21 (H) 0.50 - 1.04 [facility] mg/dL [facility] LABORAT[facility] TOTAL BILI 0.4 0.1 - 1.1 mg/dL [facility] LABORATORY CALCIUM 9.7 8.6 - 10.6 [facility] mg/dL [facility] LABORAT[facility] T PROTEIN 7.1 6.3 - 8.2 g/dL [facility] LABORATORY ALBUMIN 4.0 3.5 - 5.0 g/dL [facility] LABORATORY ALK PHOS 44 34 - 122 U/L [facility] LABORATORY ALTv 15 5 - 35 U/L [facility] LABORATORY AST(SGOT) 23 13 - 40 U/L [facility] LABORATORY eGFR Calculation 43.1 mL/min/1.73m2 [facility] [place] eGFR Calculation 52.3 mL/min/1.73m2 [facility] ([facility]) [facility] LABORATORY Specimen Blood - VENOUS Narrative Performed At Association of Glomerular Filtration Rate (GFR) [facility] LABORATORY and Staging of Kidney Disease* + + +- + | GFR (mL/min/1.73 m2) | With Kidney Damage | Without Kidney Damage + + +- + | >90 | Stage one | Normal + + +- + | 60-89 | Stage two | Decreased GFR + + +- + | 30-59 | Stage three | Stage three + + +- + | 15-29 | Stage four | Stage four + + +- + | <15 (or dialysis) | Stage five | Stage five + + +- + *Each stage assumes the associated GFR level has been in effect for at least three months. Stages 1 to 5, with or without kidney disease, indicate chronic kidney disease. Notes: Determination of stages one and two (with eGFR >59mL/min/1.73 m2) requires estimation of kidney damage for at least three months as defined by structural or functional abnormalities of the kidney, manifested by either: Pathological abnormalities or Markers of kidney damage (including abnormalities in the composition of the blood or urine or abnormalities in imaging tests). Performing Organization Address City/State/Zipcode Phone Number [facility] CLIA: [id number] [place] [address] CBC WITH DIFF (05/08/2020 7:54 PM CDT) Pathologist Sig nature WBC 11.01 4.30 - 11.10 [facility] 10*3/L [facility] LABORAT[facility] RBC 3.94 3.93 - 5.25 [facility] 10*6/L [facility] LAB[facility] HGB 11.2 (L) 11.6 - 15.0 [facility] g/dL [facility] LAB[facility] HCT 33.8 (L) 35.7 - 45.2 % [facility] LABORATORY MCV 85.8 80.6 - 95.5 fL [facility] LABORATORY MCH 28.4 25.9 - 32.8 pg [facility] LABORATORY MCHC 33.1 31.6 - 35.1 [facility] g/dL [facility] LAB[facility]AT[facility] RDW-SD 42.4 39.0 - 49.9 fL [facility] LABORATORY RDW-CV 13.5 12.0 - 15.5 % [facility] LABORATORY PLT 298 166 - 358 [facility] 10*3/L [facility] LABORATORY MPV 9.8 9.5 - 12.9 fL [facility] LABORATORY NRBC/100 WBC 0.0 0.0 - 10.0 /100 [facility] WBCs [facility] LABORATORY NRBC x10^3 <0.01 10*3/L [facility] LABORATORY GRAN MAT (NEUT) % 59.3 % [facility] LABORATORY IMM GRAN % 0.40 % [facility] LABORATORY LYMPH % 29.7 % [facility] LABORATORY MONO % 9.6 % [facility] LABORATORY EOS % 0.5 % [facility] LABORATORY BASO % 0.5 % [facility] LABORATORY GRAN MAT x10^3(ANC) 6.52 1.88 - 7.09 [facility] 10*3/uL HOSPITAL LABORATORY IMM GRAN x10^3 0.04 0.00 - 0.06 [facility] 10*3/uL HOSPITAL LABORATORY LYMPH x10^3 3.27 1.32 - 3.29 [facility] 10*3/uL [facility] LABORATORY MONO x10^3 1.06 (H) 0.33 - 0.92 [facility] 10*3/uL [facility] LAB[facility] EOS x10^3 0.06 0.03 - 0.39 [facility] 10*3/uL [facility] LABORATORY BASO x10^3 0.06 0.01 - 0.07 [place] [address]*3/uL [facility] LABORATORY Specimen Blood - VENOUS Performing Organization Address City/State/Zipcode Phone Number [facility] CLIA: [id number] [place] [address] documented in this encounter Visit Diagnoses Diagnosis Complicated migraine - Primary Migraine with aura, without mention of i ntractable migraine without mention of status migrainosus Nausea and vomiting, intractability of v omiting not specified, unspecified vomiting type documented in this encounter Administered Medications Medication Order MAR Action Action Date Dose Rate Site diphenhydrAMINE (BENADRYL) Given 05/08/2020 8:50 PM CDT 25 mg injection 25 mg 25 mg, Slow IV Push, ONCE, 1 dose, 05/08/20 at 2145, STAT metoclopramide HCl (REGLAN) injection 10 mg Given 05/08/2020 8:50 PM CDT 10 mg 10 mg, Slow IV Push, ONCE, 1 dose, 05/08/20 at 2145, MARTINEZ NaCl 0.9% (NS) bolus infusion New Bag 05/08/2020 8:25 PM CDT 1,000 mL 999 mL/hr 1,000 mL at 999 mL/hr, 1,000 mL, IV Piggyback, ONCE, 1 dose, 05/08/20 at 2100, STAT documented in this encounter Additional Health Concerns Infection Onset Date Last Indicated Resolved Time COVID-19 Rule Out 05/08/2020 05/08/2020 05/08/2020 10: 39 PM CDT documented as of this encounter Insurance Payer Benefit Plan / Subscriber ID Effective Dates Phone Addre ss Type Group [employer] [id number] 2019-Present Medicare Adv spring HMO documented as of this encounter"
--- OUTSIDE RECORDS SUMMARY | 2020-05-13 13:52 | XMS REPORT | Continuity of Care Document ---
:1940 Author Organization [facility] t Address [address] [place] [address] Care Team Providers Name Role Phone Berry DO Attending Clinician Saranya SESAY Attending Clinician Unavailable Saranya Sesay MD Attending Clinician Marcel Love MD Attending Clinician Emanuel Moncada MD Attending Clinician MARCEL LOVE Admitting Clinician Unavailable Payers Payer Name Policy Type Policy Number Effective Date Expiration Source Date CIGNA xxxxxxxx [facility] HEALTHSPRINGCIGNA Formerly [facility] ALLxxxxxxxxMaps Center Contracted [facility] REVIEWCDC xxxxxxxx [facility] REVIEWxxxxxxxxPO [facility] [id number] Center Problems Condition Condition Condition Status Onset Resolution Last Treating Co mments Source Name Details Category Date Date Treatment Clinician Date Suspected Suspected Disease Active [facility] cerebrovas cerebrovas 04-03 Annie kes - cular cular 00:00: Medical accident accident 00 Center (CVA) (CVA) Essential Essential Disease Active [facility] hypertensi hypertensi 04-03 Annie kes - on on 00:00: Medical 00 Center Type 2 Type [address] [facility] diabetes diabetes 04-03 Rajat - mellitus mellitus 00:00: Medica l without without 00 Center complicati complicati on, on, without without long-term long-term current current use of use of insulin insulin Other Other Disease Active [facility] specified specified 04-03 [place] - hypothyroi hypothyroi 00:00: Me dical dism dism 00 Center Overlappin Overlappin Disease Active [facility] g g 04-03 kes - malignant malignant 00:00: Medi dipak neoplasm neoplasm 00 Center of female of female breast breast TIA TIA Disease Active [facility] (transient (transient 04-03 [facility] - ischemic ischemic 00:00: Medica l attack) attack) 00 Center Allergies, Adverse Reactions, Alerts Allergy Allergy Status Severity Reaction(s) Onset Inactive Treating Comm ents Source Name Type Date Date Clinician Penicill Drug Active Anaphylaxis [facility] ins Allergy 04-03 kes - 00:00: Medical 00 Center Family History Family Member Diagnosis Comments Start Date Stop Date Source Natural brother Cancer [facility] Natural mother Stroke [facility] Natural sister Cancer [facility] Social History Social Habit Start Date Stop Date Quantity Comments Source History SDOH [facility] - Alcohol Std Drinks Medica Center History SDOH [facility] - Alcohol Binge Medical [facility] ter Sex Assigned At [facility] History SDOH 2020-04-03 2020-04-[address] [facility] - Alcohol Frequency 00:00:00 00:00:00 [facility] Alcohol Comment 2020-04-03 2020-04-[address] [facility] - 00:00:00 00:00:00 [facility] [place] Smoking Status Start Date Stop Date Source Never smoker [facility] edical [place] Medications Ordered Filled Start Stop Current Ordering Indication Dosage Frequency Signature Comments Components Source Medication Medication Date Date Medication? Clinician (SIG) Name Name aspirin 81 2020- No 81mg QD Take [address] MG EC 04-06 tablet (81 [facility] - tablet 00:00: 00:00 mg total) Medic al 00 :00 by mouth Center daily for 30 days. cyanocobala 2020- No 1000ug QD Take [address] min, 04-05 tablet [facility] - vitamin 00:00: 23:59 (1,000 mcg Med ical B-12, 1000 00 :00 total) by Cent er MCG tablet mouth daily for 30 days. atorvastati 2020- No 40mg QD Take [address] n (LIPITOR) 8-10 08-10 tablet (40 L ukes - 40 MG 00:00: 00:00 mg total) Medica l tablet 00 :00 by mouth Center nightly for 30 days. denosumab 2019- Yes 60mg Inject [address] (PROLIA) 60 8-08 mg [facility]ukes - mg/mL Syrg 22:14: subcutaneo M edical 11 usly once. Center ibuprofen 2019-0 Yes 800mg Take [address] [facility] (ADVIL,MOTR 8-08 mg by [facility]ukes - IN) 800 MG 21:43: mouth 2 Medi dipak tablet 55 (two) Center times daily as needed for Pain. metFORMIN Yes 1000mg Take 1,[address] (GLUCOPHAGE 8-08 mg by Lukes - ) 1000 MG 21:43: mouth Medical tablet 54 daily with Center breakfast. Vital Signs Vital Name Observation Time Observation Value Comments Source Systolic blood 2020-04-05 12:00:00 101 mm[Hg] [facility] Diastolic blood 2020-04-05 12:00:00 57 mm[Hg] [facility] S [facility] Heart rate 2020-04-05 12:00:00 89 /min [facility] Body temperature 2020-04-05 12:00:00 36.56 Maddie [facility] Respiratory rate 2020-04-05 12:00:00 16 /min [facility] Oxygen saturation in 2020-04-05 12:00:00 94 /min [facility] Arterial blood by Medical Ce nter Pulse oximetry Body height 2020-04-03 20:50:00 162.6 cm [facility] Body weight Measured 2020-04-03 20:50:00 99.338 kg [facility] BMI 2020-04-03 20:50:00 37.59 kg/m2 [facility] Procedures Procedure Date / Time Performed Performing Clinician [facility] e REPORT OF PROCEDURE - 2020-04-06 14:22:23 Provider, Default [facility] ENDOSCOPY SCAN Scanning [facility] RHYTHM STRIP - SCAN 2020-04-06 14:22:21 Provider, Default [facility] EEG AWAKE AND DROWSY 2020-04-05 16:29:00 Adio, Dee Castellanos [facility] POCT-GLUCOSE METER 2020-04-05 12:03:00 Adio, Dee Castellanos [facility] POCT-GLUCOSE METER 2020-04-05 07:33:00 Adio, Dee Castellanos [facility] CBC (HEMOGRAM ONLY) 2020-04-05 04:16:00 [facility] BASIC METABOLIC PANEL (7) 2020-04-05 04:16:00 [facility] PHOSPHORUS 2020-04-05 04:16:00 [facility] MAGNESIUM 2020-04-05 04:16:00 [facility] POCT-GLUCOSE METER 2020-04-04 20:15:00 Adio, Dee Castellanos [facility] POCT-GLUCOSE METER 2020-04-04 18:13:00 Adio, Dee Castellanos [facility] MR BRAIN WITHOUT IV 2020-04-04 17:54:00 [facility]/ DOPPLER 2020-04-04 12:07:[address] [facility] (CW/PW/COLOR) [facility] POCT-GLUCOSE METER 2020-04-04 11:56:00 Adio, Dee Castellanos [facility] POCT-GLUCOSE METER 2020-04-04 08:12:00 Adio, Dee Castellanos [facility] HOMOCYSTEINE 2020-04-04 04:48:00 [facility] CBC (HEMOGRAM ONLY) 2020-04-04 04:48:00 Ivan [facility] BASIC METABOLIC PANEL (7) 2020-04-04 04:48:00 [facility] PHOSPHORUS 2020-04-04 04:48:00 Balta Love [facility] MAGNESIUM 2020-04-04 04:48:00 [facility] 2020-04-04 00:58:00 Balta Love [facility] SARS-COV2/RT-PCR ([facility] & 2020-04-03 22:21:00 Balta Love [facility] - REF LABS) [facility] TSH/FREE T4 IF INDICATED 2020-04-03 22:13:00 Balta Love [facility] VITAMIN B12 AND FOLATE 2020-04-03 22:13:00 Ivan [facility] C-REACTIVE PROTEIN 2020-04-03 22:13:00 Ivan [facility] LIPID PANEL 2020-04-03 22:13:00 Ivan Balta [facility] HEMOGLOBIN A1C 2020-04-03 22:13:00 Balta Love [facility] RPR 2020-04-03 22:13:00 Ivan [facility] COMPREHENSIVE METABOLIC 2020-04-03 22:13:[address] [facility] MAGNESIUM 2020-04-03 22:13:00 Balta Love [facility] PHOSPHORUS 2020-04-03 22:13:00 [facility] W/PLT COUNT & AUTO 2020-04-03 22:13:[address] [facility] DIFFERENTIAL [facility] ECG 12-LEAD 2020-04-03 21:09:47 Unknown, Hl7 Doctor [facility] POCT-GLUCOSE METER 2020-04-03 20:21:00 Leonardo Sesay [facility] Plan of Care Planned Activity Planned Date Details Comments Source Future Scheduled 2020-10-04 Hemoglobin A1c [facility] kes - Test 00:00:00 [facility] (procedure) [code = 61212938] Future Scheduled 2020-04-27 INFLUENZA VACCINE (#1) [facility] - Test 00:00:00 [code = INFLUENZA Medical Ce nter VACCINE (#1)] Future Scheduled 2019-08-27 Medicare IPPE (WELCOME [facility] - Test 00:00:00 TO MEDICARE) [code = Medical Center Medicare IPPE (WELCOME TO MEDICARE)] Future Scheduled 2007-10-29 PNEUMOCOCCAL [address] - Test 00:00:00 LOW/MEDIUM RISK (1 of Medica l Center 2 - PCV13) [code = PNEUMOCOCCAL 65+ LOW/MEDIUM RISK (1 of 2 - PCV13)] Future Scheduled 1950 DIABETIC EYE EXAM [facility] - Test 00:00:00 [code = DIABETIC EYE Medical Center EXAM] Future Scheduled [address] [facility] - Test 00:00:00 examination Medical Center (regime/therapy) [code = 133795824] Future Scheduled 1950 Urine screening for [facility] - Test 00:00:00 protein (procedure) Medical Center [code = 622794427] Encounters Start End Encounter Admission Attending Care Care Encounter Source Date/Time Date/Time Type Type Clinicians Facility Department ID 2020-05-08 2020-05-08 [id number] 19:23:00 23:28:00 Wilber Gayle [id number] [place] [id number] [place] [id number] Results Test Description Test Time Test Comments Results Result Comments Source POCT-GLUCOSE METER 2020-04-06 07:42:00 Test Item Value Reference Range Interpretation Comme nts POC-GLUCOSE METER (BEAKER) 100 mg/dL 70-110 : TESTED AT [facility] [address] [facility] (test code = 1538) [place] Self, [address]: Tabulating Supervisor/Techni sky ID = [id number] for KESHAWN ASHER EEG AWAKE AND [id number] 17:06:00Reason for exam:->r/o seizure. discharge pending this for today.ELECTROENCEPHALOGRAM Date(s) of EE04/05/2020 DATE OF REPORT: 04/05/2020 ACC: [id number] EEG Number: [id number] Test Location: Start time: 4:08 PM Stop time: 4:29 PM ICD-10: R56.9 CPT Code: 26333 HISTORY: 79yo R-handed female w/ Hx of breast cancer (s/p bilateral mastectomy, on hormone therapy), HTN, DM2 and hypothyroidism who presented to [facility] w/ transient R facial droop & R-sided numbness/weakness, now transferred for stroke workup. NIHSS at OSH was 3, improved to 2 by arrival at [facility]. CT head w/o contrast negative for CVA or bleed, MRI showed no futher evidence of acute infarct. CTA shows questionable multifocal intracranial stenosis, but would not explain symptoms. Want to r/o seizure given the transient word-finding difficulty. MEDICATIONS THAT COULD AFFECT EEG: aspi rin, atorvastatin, cyanocobalamin, enoxaparin TECHNICAL SUMMARY: This is a digital video-EEG recorded with 32 input channels reviewed with bipolar and referential montages using the modified combinatorial system nomenclature. DESCRIPTION OF RECORD: During the maximally alert state, a well-developed, well-modulated 9-10 Hz posterior dominant rhythm was seen that was symmetric, reactive to eye opening and well regulated. More anteriorly, low voltage frontocentral beta predominated. Drowsiness was characterized by decreased eye blinks, alpha attenuation and increased frontocentral theta. Stage2 sleep was reached and characterized by symmetric sleep spindles seen over the frontocentral derivations and K-complexes. SIGNIFICANT VIDEO EVENTS: None SIGNIFICANT ELECTROCARDIOGRAM EVENTS: None HV: Hyperventilation was not performed. PHOTIC STIMULATION: Photic stimulation was done from 1-33 Hz. Photic stimulation was physiologic. IMPRESSION: Normal Awake and Drowsy /Sleep EEG CLINICAL CORRELATION: An EEG without epileptiform discharges does not exclude the possibility of epilepsy. It the clinical suspicion of epilepsy remains, consider additional EEG recordings. Antoinette Nuno MD Neurophysiology Fellow Alec Juan MD Attending Neurophysiology [facility] EEG AWAKE AND [id number] 17:06:00 Interface, External Ris In - 04/05/2020 5:06 PM CDTELECTROENCEPHALOGRAM Date(s) of EE04/05/2020 DATE OF REPORT: 04/05/2020 ACC: [id number] EEG Number: [id number] Test Location: Start time: 4:08 PM Stop time: 4:29 PM ICD-10: R56.9 CPT Code: 67962 HISTORY: 79yo R-handed female w/ Hx of breast cancer (s/p bilateral mastectomy, on hormone therapy), HTN, DM2 and hypothyroidism who presented to [facility] w/ transient R facial droop & R-sided numbness/weakness, now transferred for strokeworkup. NIHSS at OSH was 3, improved to 2 by arrival at [facility]. CT head w/o contrast negative for CVA or bleed, MRI showed no futher evidence of acute infarct. CTA shows questionable multifocal intracranial stenosis, but would not explain symptoms. Want to r/o seizure given the transient word-finding difficulty. MEDICATIONS THAT COULD AFFECT EEG: aspirin, atorvastatin, cyanocobalamin, enoxaparin TECHNICAL SUMMARY: This is a digital video-EEG recorded with 32 input channels reviewed with bipolarand referential montages using the modified combinatorial system nomenclature. DESCRIPTION OF RECORD: During the maximally alert state, a well-developed, well-modulated 9-10 Hz posterior dominant rhythm was seen that was symmetric, reactive to eye opening and well regulated. More anteriorly, low voltage frontocentral beta predominated. Drowsiness was characterized by decreased eye blinks, alpha attenuation and increased frontocentral theta. Stage 2 sleep was reached and characterized by symmetric sleep spindles seen over the frontocentral derivations and K-complexes. SIGNIFICANT VIDEO EVENTS: None SIGNIFICANT ELECTROCARDIOGRAM EVENTS: None HV: Hyperventilation was not performed. PHOTIC STIMULATION: Photic stimulation was done from 1-33 Hz. Photic stimulation was physiologic. IMPRESSION: Normal Awake and Drowsy /Sleep EEG CLINICAL CORRELATION: An EEG without epileptiform discharges does not exclude the possibility of epilepsy. It the clinical suspicion of epilepsy remains, consider additional EEG recordings. Antoinette Nuno MD Neurophysiology Fellow Alec Juan MD Attending Neurophysiology [facility] 13:20:00 Test Item Value Reference Range Interpretation Comments RPR (test code = 32097-5) Nonreactive Nonreactive Lab Interpretation (test code = Normal 24654-0) [facility] 13:20[facility]00 Test Item Value Reference Range Interpretation Comments RPR SCREEN (BEAKER) (test code = Nonreactive Nonreactive 420) POC-Glucose [id number] 12:14:00 Test Item Value Reference Range Interpretation Comments POC-Glucose Meter (test 199 mg/dL 70-110 H : TE STED AT [facility] code = 1538) [address] [facility], 7[address] 30: Tabulating Supervisor/Techni sky ID = [id number] for AKINSONU, ANGELA Lab Interpretation (test Abnormal code = 05025-3) [facility] [id number] 12:14:00 Test Item Value Reference Range Interpretation Comments POC-GLUCOSE METER 199 mg/dL 70-110 H : TESTED A T [facility] [address] (JAN) (test code = [facility], 1538) [address]: Tabulating Supervisor/Techni sky ID = [id number] for AK INSONU, ANGELA 2D Echo W/Doppler(CW/PW/Color)2020-04-05 12:03:00Ejection FractionSLEH ECHO HEARTLAB MKCKESSON CPACSInterface, External Ris In - 04/05/2020 12:03 PM C DTTransthoracic Echocardiography Report (TTE) Demographics Patient Name MONICO FLORENCE Date of Study 04/04/2020 Gender Female Visit Number [id number] Race Unknown Room Number 2231 Number Dateof 1940 Referring Balta Love MD Age 79 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 Signature Findings Technical Quality: Technically adequate exam. Left Ventricle The left ventricle is chamber size (by vol index) is normal (female - LVED vol - 29-61ml/m2). No evidence of LV hypertrophy. All of the LV segments contract normally . Global LV systolic function normal . LVEF by Nino's method of disk assessment is normal (>60%) . Grade 1 diastolic dysfunction (impaired relaxation and low-normal LA pressure). Left Atrium LA size is normal (16-34 ml/m2) . Right Ventricle The right ventricular chamber size and systolic function are within normal limits. Right Atrium RA size is normal. Atrial Septum IV saline contrast injection was negative for a PFO (patent foramen ovale) at rest and post Valsalva . Aortic Valve Mild AoV cusp thickening. No evidence of aortic regurgitation. Mitral Valve Mild mitral annular calcification. Mild MV leaflet thickening. Trace mitral regurgitation. Tricuspid Valve TV structure is norm al. Mild tricuspid regurgitation. Estimated peak systolic PA pressure is 25-30 mmHg (normal range) . Pulmonic Valve Mild pulmonary regurgitation. Normal PV structure appears normal by available views. Aorta Aortic root size (SInus of Valsalva diameter) is normal . Pericardium No pericardial effusion is visualized. IVC/SVC/PA/PV/Pleural The estimated RA pressure [...] Mitral Valve MV Peak E-Wave: 0.94 m/s MV Peak A-Wave: 1.31 m/s E/A Ratio: 0.71 Peak Gradient: 3.5 mmHg Deceleration Time: 257.4 msec MV Derrick. Peak: Tissue Doppler E' Lateral Velocity: 0.07 m/s E/E': 13.67 Aortic Valve Peak Velocity: 1.77 m/s [...] TR Velocity: 2.5 m/s TR Gradient: 25.07 mmHgSan Gorgonio Memorial HospitalCT-GLUCOSE [id number] 07:44:00 Test Item Value Reference Range Interpretation Comments POC-GLUCOSE METER 133 mg/dL 70-110 H : TESTED A T [facility] [address] (JAN) (test code = [place], 1538) [address]: Tabulating Supervisor/Techni sky ID = [id number] for ANGELA STEVE ECG 12 [id number] 06:50:44Interface, External Ris In - 04/05/2020 6:50 AM CDTVentricular Rate 74 BPMAtrial Rate 74 BPMP-R Interval 160 msQRS Duration 82 msQ-T Interval 392 msQTC Calculation(Bazett) 435 msP [place] -18 degreesR [place] 5 degreesT [place] 41 degreesNormal sinus rhythmNormal ECGNo previous ECGs availableConfirmed by MD MENDEZ, BERNARDA ([id number]) on 04/05/2020 6:50:42 [facility] Center[facility] Metabolic [id number] 04:55:00 Test Item Value Reference Range Interpretation Comments Sodium (test code = 140 meq/L 945-404 9049-2) Potassium (test code = 4.3 meq/L 3.5-5.1 2823-3) Chloride (test code = 105 meq/L 98-107 2075-0) CO2 (test code = 27 meq/L 22-29 2028-9) BUN (test code = 20 mg/dL 7-21 3094-0) Creatinine (test code 0.99 mg/dL 0.57-1.25 = 2160-0) Glucose (test code = 123 mg/dL 70-105 H 2345-7) Calcium (test code = 9.5 mg/dL 8.4-10.2 67114-6) EGFR (test code = 54 mL/min/1.73 [place] [address]-1) NOT ACCURATE CREATININE CLEARANCE IN PREDICTING GLOMERULAR FILTRATION RATE . ESTIMATED GFR I S NOT APPLICABLE FOR DIALYSIS PATIENTS. MIKEY (test code = MIKEY) Tabulating Supervisor ID - EDASI Lab Interpretation Abnormal (test code = 47763-9) [facility] Hospital[facility]esium2020-08-10 04:55:00 Test Item Value Reference Range Interpretation Comments Magnesium (test code = 1.5 mg/dL 1.6-2.6 L 49451-7) MIKEY (test code = MIKEY) Tabulating Supervisor ID - EDASI Lab Interpretation (test Abnormal code = 69404-1) [facility] Hospital[facility]osphorus2020-08-10 04:55:00 Test Item Value Reference Range Interpretation Comments Phosphorus (test code = 3.8 mg/dL 2.3-4.7 2777-1) MIKEY (test code = MIKEY) Tabulating Supervisor ID - EDASI Lab Interpretation (test Normal code = 47254-5) [facility] HospitalPHOSPHORUS2020-08-10 04:55:00 Test Item Value Reference Range Interpretation Comments PHOSPHORUS (BEAKER) (test code = 3.8 mg/dL 2.3-4.7 604) Tabulating Supervisor ID - [id number] 04:55:00 Test Item Value Reference Range Interpretation Comments MAGNESIUM (BEAKER) (test code = 1.5 mg/dL 1.6-2.6 L 627) Tabulating Supervisor ID - EDASIBASIC METABOLIC [id number] 04:55:00 Test Item Value Reference Range Interpretation Comments SODIUM (BEAKER) 140 meq/L 136-145 (test code = 381) POTASSIUM (BEAKER) 4.3 meq/L 3.5-5.1 (test code = 379) CHLORIDE (BEAKER) 105 meq/L 98-107 (test code = 382) CO2 (BEAKER) (test 27 meq/L 22-29 code = 355) BLOOD UREA NITROGEN 20 mg/dL 7-21 (BEAKER) (test code = 354) CREATININE (BEAKER) 0.99 mg/dL 0.57-1.25 (test code = 358) GLUCOSE RANDOM 123 mg/dL 70-105 H (BEAKER) (test code = 652) CALCIUM (BEAKER) 9.5 mg/dL 8.4-10.2 (test code = 697) EGFR (BEAKER) (test 54 mL/min/1.73 ESTIMA NNEKA GFR IS code = 1092) sq m NOT ACCURATE CREATININE CLEARANCE IN PREDICTING GLOMERULAR FILTRATION RATE . ESTIMATED GFR I S NOT APPLICABLE FOR DIALYSIS PATIEN TS. Tabulating Supervisor ID - EDASICBC (Hemogram only)2020-04-05 04:25:00 Test Item Value Reference Range Interpretation Comments WBC (test code = 6690-2) 10.6 3.5- 10.5 K/L H RBC (test code = 789-8) 3.86 3.93- 5.22 M/L L MCHC (test code = 786-4) 32.0 32.2- 35.5 GM/DL L Hematocrit (test code = 4544-3) 34.1 % 34.1-44.9 MCV (test code = 787-2) 88.3 fL 79.4-94.8 MCH (test code = 785-6) 28.2 pg 25.6-32.2 RDW (test code = 788-0) 13.2 % 11.7-14.4 Platelets (test code = 777-3) 248 150- 450 K/CU MM MPV (test code = 16531-0) 9.7 fL 9.4-12.3 nRBC (test code = 413) 0 0- 0 /100 WBC Lab Interpretation (test code = Abnormal 78799-3) [facility] (HEMOGRAM ONLY)2020-04-05 04:25:00 Test Item Value Reference Range Interpretation Comments WHITE BLOOD CELL COUNT (BEAKER) 10.6 K/ L 3.5-10.5 H (test code = 775) RED BLOOD CELL COUNT (BEAKER) 3.86 M/ L 3.93-5.22 L (test code = 761) HEMOGLOBIN (BEAKER) (test code = 10.9 GM/DL 11.2-15.7 L 410) HEMATOCRIT (BEAKER) (test code = 34.1 % 34.1-44.9 411) MEAN CORPUSCULAR VOLUME (BEAKER) 88.3 fL 79.4-94.8 (test code = 753) MEAN CORPUSCULAR HEMOGLOBIN 28.2 pg 25.6-32.2 (BEAKER) (test code = 751) MEAN CORPUSCULAR HEMOGLOBIN CONC 32.0 GM/DL 32.2-35.5 L (BEAKER) (test code = 752) RED CELL DISTRIBUTION WIDTH 13.2 % 11.7-14.4 (BEAKER) (test code = 412) PLATELET COUNT (BEAKER) (test 248 K/CU MM 150-450 code = 756) MEAN PLATELET VOLUME (BEAKER) 9.7 fL 9.4-12.3 (test code = 754) NUCLEATED RED BLOOD CELLS 0 /100 WBC 0-0 (BEAKER) (test code = 413) POCT-GLUCOSE [id number] 20:26:00 Test Item Value Reference Range Interpretation Comments POC-GLUCOSE METER 158 mg/dL 70-110 H : TESTED A T [facility] [address] (JAN) (test code = [place], 1538) [address]: Tabulating Supervisor/Techni sky ID = [id number] for TANISHA YOUNG SARS-CoV2/RT-PCR (Asymptomatic ONLY)2020-04-04 18:40:00 Test Item Value Reference Range Interpretation Comments SARS-COV2/RT-PCR Negative Not Detected, (test code = Negative, See 00261-2) external report for linked test SARS-COV-2 [facility] AMBER PERFORMING LAB (test code = 05274-2) MIKEY (test code = Negative result for this MIKEY) test determines that SARS-CoV-2 RNA was not present in the specimen above the Limit of Detection (LOD). However, Negative results do not preclude SARS-CoV-2 infection and should not be used as the sole basis for treatment or patient management decisions. Negative results must be combined with clinical observations, patient history, and epidemiological information. A false negative result may occur if a specimen is improperly collected, transported or handled. A false negative result should be considered if patient's recent exposures or clinical presentation indicate that COVID-19 (SARS-CoV-2) is likely and diagnostic tests for other causes of illness are negative. Re-testing should be considered in cases of suspected [...] Food and Drug Administration (FDA) cleared or approved. This is a modified version of an approved [...] of the Act. Fact Sheet for Healthcare Providers:https://www.eROIl.[employer]/sites/default/f kevin/product/documents/F act_Sheet_HC_Providers_L ffx_WXIV-GfG-6.pdf Fact Sheet for Healthcare Patients:https://www.[employer]/sites/default/fi les/product/documents/Fa ct_Sheet_Patients_Lyra_S ARS-CoV-2.pdf Performing Laboratory:[facility] [place] [address] [facility]2020-04-04 18:40:00 Test Item Value Reference Range Interpretation Comments SARS-COV2/RT-PCR (test Negative Not Detected, Negative, code = 6430015) See external report for linked test SARS-COV-2 PERFORMING LAB [facility] (test code = 1273632) Negative result for this test determines that SARS-CoV-2 RNA was not present in the specimen above the Limit of Detection (LOD). However, Negative results do not preclude SARS-CoV-2 infection and should not be used as the sole basis for treatment or patient management decisions. Negative results mustbe combined with clinical observations, patient history, and epidemiological information. A false negative result may occur if a specimen is improperly collected, transported or handled. A false negative result should be considered if patient's recent exposures or clinical presentation indicate that COVID-19 (SARS-CoV-2) is likely and diagnostic tests for other causes of illness are negative. Re-testing should be considered in cases of suspected false negatives.The limit of detection for this assay is 800 copies/mL.This SARS CoV-2 test is a real-time RT-PCR test intended for the qualitative detection of nucleic acid from SARS-CoV-2 in a nasopharyngeal swab specimen collected from individuals susp ected of COVID-19 by their healthcare provider.This test has not been Food and Drug Administration (FDA) cleared or approved. This is a modified version of an approved [...] is revoked under Section 564(g) of the Act.Fact Sheet for Healthcare Providers:https://www.[employer]/sites/default/files/product/documents/Fact_Shesolomon gonzalesm_YG_Hszpcgfts_Ualm_NYIQ-MiJ-5.pdfFact Sheet for Healthcare Patients:https://www.[employer]/sites/default/files/product/ documents/Jhks_Vodtp_Jtnnispa_Hhwj_DSCC-JqL-8.pdfPerforming Laboratory:[place] [address], [place] [address]ZM, BRAIN, WITHOUT [id number] 18:06:00FINAL REPORT MRI Brain without contrast Clinical History: Neuro deficit, acute, stroke suspected Technique: MRI of the brain utilizing axial T2, FLAIR, GRE, DWI; sagittal and coronal T1- weighted images. Comparisons: CTA head and neck dated 04/04/2020. Findings: There is no evidence of acute infarct or hemorrhage. Multiple bilateral T2 and FLAIR hyperintense white matter foci likely represent chronic white matter microvascular disease.. Generalized parenchymal volume loss with commensurate enlargement of the CSF spaces and ventricles. There is no hydrocephalus or midline shift. There are no extra-axial fluid collections. The craniocervical junction is preserved. The major intracranial flow-voids appear patent. Again seen is the Air-fluid level in the right sphenoid sinus. Middle ears and mastoid air cells are clear. Intraorbital contents are unremarkable. No aggressive osseous or soft tissue lesions identified. IMPRESSION: No evidence of acute infarct, hemorrhage, or hydrocephalus. Signed: Balta Ortiz MDReport Verified Date/Time: 04/04/2020 18:06:36 MR brain without IV [id number] 18:06:00Interface, External Ris In - 04/04/2020 6:09 PM CDTFINAL REPORT MRI Brain without contrast Clinical History: Neuro deficit, acute, stroke suspected Technique: MRI of the brain utilizing axial T2, FLAIR, GRE, DWI; sagittal and coronal T1-weighted images. Comparisons: CTA head and neck dated 04/04/2020. Findings: There is no evidence of acute infarct or hemorrhage. Multiple bilateral T2 and FLAIR hyperintense white matter foci likely represent chronic white matter microvascular disease.. Generalized parenchymal volume loss with commensurate enlargement of the CSF spaces and ventricles. There is no hydrocephalus or midline shift. There are no extra-axial fluid collections. The craniocervical junction is preserved. The major intracranial flow-voids appear patent. Again seen is the Air-fluid level in the right sphenoid sinus. Middle ears and mastoid air cells are clear. Intraorbital contents are unremarkable. No aggressive osseous or soft tissue lesions identified. IMPRESSION:No evidence of acute infarct, hemorrhage, or hydrocephalus. Signed: Balta Ortiz Verified Date/Time: 04/04/2020 18:06:36 [facility] [id number] 17:18:00 Test Item Value Reference Range Interpretation Comments POC-GLUCOSE METER 179 mg/dL 70-110 H : TESTED A T [facility] 6720 (BEAKER) (test code = [facility], 1538) [address]: Tabulating Supervisor/Techni sky ID = [id number] for KESHAWN KRISHNA Hemoglobin [id number] 10:37:00 Test Item Value Reference Range Interpretation Comments Hemoglobin A1C (test code = 4548-4) 6.3 % 4.3-6.1 H Lab Interpretation (test code = Abnormal 88833-5) [facility] [id number] 10:37:00 Test Item Value Reference Range Interpretation Comments HEMOGLOBIN A1C (BEAKER) (test code = 6.3 % 4.3-6.1 H 368) POCT-GLUCOSE [id number] 08:24:00 Test Item Value Reference Range Interpretation Comments POC-GLUCOSE METER 123 mg/dL 70-110 H : TESTED A T [facility] 6720 (BEAKER) (test code = [facility], 1538) [address]: Tabulating Supervisor/Techni sky ID = [id number] for KESHAWN KRISHNA [id number] 05:45:00 Test Item Value Reference Range Interpretation Comments Homocysteine (test code = 14.7 umol/L 5.1-15.4 74224-7) MIKEY (test code = MIKEY) Tabulating Supervisor ID - EDASI Lab Interpretation (test Normal code = 45499-7) [facility]2020-[facility]09 05:45:00 Test Item Value Reference Range Interpretation Comments HOMOCYSTEINE (BEAKER) (test code 14.7 umol/L 5.1-15.4 = 642) Tabulating Supervisor ID - [id number] 05:35:00 Test Item Value Reference Range Interpretation Comments MAGNESIUM (BEAKER) 1.6 mg/dL 1.6-2.6 Specimen slightly (test code = 627) hemolyzed Tabulating Supervisor ID - [id number] 05:35:00 Test Item Value Reference Range Interpretation Comments PHOSPHORUS (BEAKER) 3.5 mg/dL 2.3-4.7 Specimen slightly (test code = 604) hemolyzed Tabulating Supervisor ID - EDASIBASIC METABOLIC [id number] 05:35:00 Test Item Value Reference Range Interpretation Comments SODIUM (BEAKER) 139 meq/L 136-145 (test code = 381) POTASSIUM (BEAKER) 4.0 meq/L 3.5-5.1 Specimen slightly (test code = 379) hemolyzed CHLORIDE (BEAKER) 105 meq/L 98-107 (test code = 382) CO2 (BEAKER) (test 24 meq/L 22-29 code = 355) BLOOD UREA NITROGEN 21 mg/dL 7-21 (BEAKER) (test code = 354) CREATININE (BEAKER) 1.04 mg/dL 0.57-1.25 Specimen slightly (test code = 358) hemolyzed GLUCOSE RANDOM 105 mg/dL 70-105 (BEAKER) (test code = 652) CALCIUM (BEAKER) 9.5 mg/dL 8.4-10.2 (test code = 697) EGFR (BEAKER) (test 51 mL/min/1.73 ESTIMA NNEKA GFR IS code = 1092) sq m NOT ACCURATE CREATININE CLEARANCE IN PREDICTING GLOMERULAR FILTRATION RATE . ESTIMATED GFR I S NOT APPLICABLE FOR DIALYSIS PATIEN TS. Tabulating Supervisor ID - EDASICBC (HEMOGRAM ONLY)2020-04-04 05:20:00 Test Item Value Reference Range Interpretation Comments WHITE BLOOD CELL COUNT (BEAKER) 9.3 K/ L 3.5-10.5 (test code = 775) RED BLOOD CELL COUNT (BEAKER) 3.87 M/ L 3.93-5.22 L (test code = 761) HEMOGLOBIN (BEAKER) (test code = 11.0 GM/DL 11.2-15.7 L 410) HEMATOCRIT (BEAKER) (test code = 34.6 % 34.1-44.9 411) MEAN CORPUSCULAR VOLUME (BEAKER) 89.4 fL 79.4-94.8 (test code = 753) MEAN CORPUSCULAR HEMOGLOBIN 28.4 pg 25.6-32.2 (BEAKER) (test code = 751) MEAN CORPUSCULAR HEMOGLOBIN CONC 31.8 GM/DL 32.2-35.5 L (BEAKER) (test code = 752) RED CELL DISTRIBUTION WIDTH 13.3 % 11.7-14.4 (BEAKER) (test code = 412) PLATELET COUNT (BEAKER) (test 277 K/CU MM 150-450 code = 756) MEAN PLATELET VOLUME (BEAKER) 10.2 fL 9.4-12.3 (test code = 754) NUCLEATED RED BLOOD CELLS 0 /100 WBC 0-0 (BEAKER) (test code = 413) [facility] [id number] 01:46:00FINAL REPORT CLINICAL HISTORY: Neuro deficit, acute, stroke suspected TECHNIQUE: Initially, noncontrast head CT images were performed. Contiguous contrast-enhanced axial images through the head with coronal and sagittal reformations to assess the arterial circulation. 3-D reconstructions were performed using a volume rendered technique separately on a workstation. This exam wasperformed according to the departmental dose optimization program which includes automated exposure c ontrol, adjustment of the mA and/or kV according to the patient size, and/or use of an iterative reconstruction technique. COMPARISON: None FINDINGS: The noncontrast head CT images reveal no evidence of acute infarct or hemorrhage. There is periventricular and subcortical white matter hypodensity which is nonspecific but compatible with chronic microvascular ischemic change. There are atheroscleroticcalcifications of the intracranial circulation. There is generalized parenchymal volume loss withouthydrocephalus, midline shift, or apparent mass effect. No extra-axial fluid collections. The skull is intact. Air-fluid level in the right sphenoid sinus. Mastoid air cells are clear. Intraorbital contents are unremarkable. The CT angiogram images reveal no evidence of intracranial aneurysm, focal stenosis, or branch vessel occlusion. Atherosclerotic calcifications of the bilateral carotid siphons with no flow- limiting stenosis on the right and mild stenosis of the clinoid segment on the left. Diminutive P1 right posterior cerebral artery. The P2 segments are patent with multifocal moderate stenosis on the left, likely multifocal severe stenosis in the P3 and P4 segment on the left however limitedevaluation given venous contamination. The right posterior cerebral artery is patent. Bilateral anterior and middle cerebral arteries are patent. IMPRESSION: No evidence of intracranial aneurysm, or branch vessel occlusion. Multifocal intracranial stenosis, worse in the left posterior cerebral artery where there is multifocal moderate to severe stenosis in the distal P2, P3 and P2 four branches.. No CT evidence of acute infarct or hemorrhage. Air-fluid level in the right sphenoid sinus. Correlate for signs acute sinusitis. Signed: Balta Ortiz [facility] Verified Date/Time: 04/04/2020 01:46:19 [facility] [id number] 01:46:00Interface, External Ris In - 04/04/2020 1:48 AM CDTFINAL REPORT CLINICAL HISTORY: Neuro deficit, acute, stroke suspected TECHNIQUE: Initially, noncontrast head CT images were performed. Contiguous contrast-enhanced axial images through the head with coronal and sagittal reformations to assess the arterial circulation. 3-D reconstructions were performed using a volume rendered technique separately on a workstation. This exam was performed according to the departmental dose optimization program which includes automated exposure control, adjustment of the mA and/or kV accordingto the patient size, and/or use of an iterative reconstruction technique. COMPARISON: None FINDINGS:The noncontrast head CT images reveal no evidence of acute infarct or hemorrhage. There is periventricular and subcortical white matter hypodensity which is nonspecific but compatible with chronic microvascular ischemic change. There are atherosclerotic calcifications of the intracranial circulation. There is generalized parenchymal volume loss without hydrocephalus, midline shift, or apparent mass effect. No extra-axial fluid collections. The skull is intact. Air-fluid level in the right sphenoid sinus. Mastoid air cells are clear. Intraorbital contents are unremarkable. The CT angiogram images reveal no evidence of intracranial aneurysm, focal stenosis, or branch vessel occlusion. Atherosclerotic calcifications of the bilateral carotid siphons with no flow- limiting stenosis on the right and mild stenosis of the clinoid segment on the left. Diminutive P1 right posterior cerebral artery. The P2 segments are patent with multifocal moderate stenosis on the left, likely multifocal severe stenosis in the P3 and P4 segment on the left however limited evaluation given venous contamination. The rightposterior cerebral artery is patent. Bilateral anterior and middle cerebral arteries are patent. IMPRESSION: No evidence of intracranial aneurysm, or branch vessel occlusion. Multifocal intracranial stenosis, worse in the left posterior cerebral artery where there is multifocal moderate to severe stenosis in the distal P2, P3 and P2 four branches.. No CT evidence of acute infarct or hemorrhage. Air-fluid level in the right sphenoid sinus. Correlate for signs acute sinusitis. Signed: [facility] Verified Date/Time: 04/04/2020 01:46:19 [facility] CenterVitamin B12 and [id number] 00:01:00 Test Item Value Reference Range Interpretation Comments Vitamin B12 (test code = 174 pg/mL 213-816 L 2132-9) Folate (test code = 32.90 ng/mL >=7.00 2284-8) MIKEY (test code = MIKEY) Tabulating Supervisor ID - ROSARLENE Lab Interpretation (test Abnormal code = 93099-1) [facility]IT[facility] B12 AND [id number] 00:01:00 Test Item Value Reference Range Interpretation Comments VITAMIN B12 (BEAKER) (test code = 174 pg/mL 213-816 L 774) FOLATE (BEAKER) (test code = 362) 32.90 ng/mL >=7.00 Tabulating Supervisor ID - CARLOSGTSH/Free T4 If [id number] 23:59:00 Test Item Value Reference Range Interpretation Comments TSH (test code = 1.026 0.350- 4.940 uIU/mL 63893-5) MIKEY (test code = MIKEY) Tabulating Supervisor ID - ROSARLENE Lab Interpretation (test Normal code = 77816-6) [facility]/FREE T4 IF [id number] 23:59:00 Test Item Value Reference Range Interpretation Comments THYROID STIMULATING HORMONE 1.026 uIU/mL 0.350-4.940 (BEAKER) (test code = 772) Tabulating Supervisor ID - CARLOSGComprehensive metabolic [id number] 22:41:00 Test Item Value Reference Range Interpretation Comments Protein, Total (test 6.8 6.0- 8.3 gm/dL code = 2885-2) Albumin (test code = 4.0 g/dL 3.5-5 12348-0) Alkaline Phosphatase 51 U/L 40-150 (test code = 6768-6) Total Bilirubin (test 0.4 mg/dL 0.2-1.2 code = 1974-2) Sodium (test code = 138 meq/L 018-560 7093-2) Potassium (test code = 4.0 meq/L 3.5-5.1 2823-3) Chloride (test code = 103 meq/L 98-107 2075-0) CO2 (test code = 25 meq/L 22-29 2028-9) BUN (test code = 23 mg/dL 7-21 H 3094-0) Creatinine (test code 1.07 mg/dL 0.57-1.25 = 2160-0) Glucose (test code = 134 mg/dL 70-105 H 2345-7) Calcium (test code = 9.5 mg/dL 8.4-10.2 00172-5) AST (test code = 16 U/L 5-34 1920-8) ALT (test code = 16 U/L 6-55 1742-6) EGFR (test code = 50 mL/min/1.73 [place] [address]-1) NOT ACCURATE CREATININE CLEARANCE IN PREDICTING GLOMERULAR FILTRATION RATE . ESTIMATED GFR I S NOT APPLICABLE FOR DIALYSIS PATIENTS. MIKEY (test code = MIKEY) Tabulating Supervisor ID - CARLOSG Lab Interpretation Abnormal (test code = 43372-2) [facility] HospitalLipid [id number] 22:41:00 Test Item Value Reference Range Interpretation Comments Triglycerides (test 86 mg/dL code = 2571-8) Cholesterol (test code 162 mg/dL = 2093-3) HDL (test code = 54 mg/dL 2085-04) LDL Calculated (test 91 mg/dL code = 86083-6) MIKEY (test code = MIKEY) Triglyceride Reference Range: Low Risk <150 Borderline 150-199 High Risk 200-499 Very High Risk >=500 Cholesterol Reference Range: Low Risk <200 Borderline 200-239 High Risk >240 HDL Cholesterol Reference Range: Low Risk >=60 High Risk <40 LDL Cholesterol Reference Range: Optimal <100 Near Optimal 100-129 Borderline 130-159 High 160-189 Very High >=190 Tabulating Supervisor ID - YASHADEOLAGigi [facility] HospitalC-Reactive [id number] 22:41:00 Test Item Value Reference Range Interpretation Comments CRP (test code = 676) 0.92 mg/dL 0-0.5 H MIKEY (test code = MIKEY) Tabulating Supervisor ID - ALBINO Lab Interpretation (test Abnormal code = 05334-1) [facility] HospitalPHOSPHORUS2020-08-08 22:41:00 Test Item Value Reference Range Interpretation Comments PHOSPHORUS (BEAKER) (test code = 3.0 mg/dL 2.3-4.7 604) Tabulating Supervisor ID - [id number] 22:41:00 Test Item Value Reference Range Interpretation Comments MAGNESIUM (BEAKER) (test code = 1.7 mg/dL 1.6-2.6 627) Tabulating Supervisor ID - CARLOSGCOMPREHENSIVE METABOLIC [id number] 22:41:00 Test Item Value Reference Range Interpretation Comments TOTAL PROTEIN 6.8 gm/dL 6.0-8.3 (BEAKER) (test code = 770) ALBUMIN (BEAKER) 4.0 g/dL 3.5-5.0 (test code = 1145) ALKALINE PHOSPHATASE 51 U/L 40-150 (BEAKER) (test code = 346) BILIRUBIN TOTAL 0.4 mg/dL 0.2-1.2 (BEAKER) (test code = 377) SODIUM (BEAKER) (test 138 meq/L 136-145 code = 381) POTASSIUM (BEAKER) 4.0 meq/L 3.5-5.1 (test code = 379) CHLORIDE (BEAKER) 103 meq/L 98-107 (test code = 382) CO2 (BEAKER) (test 25 meq/L 22-29 code = 355) BLOOD UREA NITROGEN 23 mg/dL 7-21 H (BEAKER) (test code = 354) CREATININE (BEAKER) 1.07 mg/dL 0.57-1.25 (test code = 358) GLUCOSE RANDOM 134 mg/dL 70-105 H (BEAKER) (test code = 652) CALCIUM (BEAKER) 9.5 mg/dL 8.4-10.2 (test code = 697) AST (SGOT) (BEAKER) 16 U/L 5-34 (test code = 353) ALT (SGPT) (BEAKER) 16 U/L 6-55 (test code = 347) EGFR (BEAKER) (test 50 mL/min/1.73 ESTIMA NNEKA GFR IS code = 1092) sq m NOT ACCURATE CREATININE CLEARANCE IN PREDICTING GLOMERULAR FILTRATION RATE . ESTIMATED GFR I S NOT APPLICABLE FOR DIALYSIS PATIEN TS. Tabulating Supervisor ID - ROSIANGLIPID [id number] 22:41:00 Test Item Value Reference Range Interpretation Comments TRIGLYCERIDES (BEAKER) (test code = 86 mg/dL 540) CHOLESTEROL (BEAKER) (test code = 162 mg/dL 631) HDL CHOLESTEROL (BEAKER) (test code 54 mg/dL = 976) LDL CHOLESTEROL CALCULATED (BEAKER) 91 mg/dL (test code = 633) Triglyceride Reference Range: Low Risk <150 Borderline 150-199 High Risk 200-499 Very High Risk >=500Cholesterol Reference Range: Low Risk <200 Borderline 200-239 High Risk >240HDL Cholesterol Reference Range: Low Risk >=60 High Risk <40LDL Cholesterol Reference Range: Optimal <100 Near Optimal 100-129 Borderline 130-159 High 160-189 Very High >=190 Tabulating Supervisor ID - ROSIANGC-REACTIVE [id number] 22:41:00 Test Item Value Reference Range Interpretation Comments C-REACTIVE PROTEIN (BEAKER) (test 0.92 mg/dL 0.00-0.50 H code = 676) Tabulating Supervisor ID - ROSIANGCBC with platelet count + automated [id number] 22:26:00 Test Item Value Reference Range Interpretation Comments WBC (test code = 6690-2) 10.2 3.5- 10.5 K/L RBC (test code = 789-8) 3.80 3.93- 5.22 M/L L MCHC (test code = 786-4) 32.0 32.2- 35.5 GM/DL L Hematocrit (test code = 4544-3) 33.8 % 34.1-44.9 L MCV (test code = 787-2) 88.9 fL 79.4-94.8 MCH (test code = 785-6) 28.4 pg 25.6-32.2 RDW (test code = 788-0) 13.2 % 11.7-14.4 Platelets (test code = 777-3) 276 150- 450 K/CU MM MPV (test code = 97597-9) 9.8 fL 9.4-12.3 nRBC (test code = 413) 0 0- 0 /100 WBC % Neutros (test code = 429) 70 % % Lymphs (test code = 430) 21 % % Monos (test code = 431) 8 % % Eos (test code = 432) 1 % % Baso (test code = 437) 1 % # Neutros (test code = 670) 7.14 1.56- 6.13 K/L H # Lymphs (test code = 414) 2.14 1.18- 3.74 K/L # Monos (test code = 415) 0.79 0.24- 0.36 K/L H # Eos (test code = 416) 0.08 0.04- 0.36 K/L # Baso (test code = 417) 0.06 0.01- 0.08 K/L Immature Granulocytes-Relative 0 % 0-1 (test code = 2801) Lab Interpretation (test code = Abnormal 97583-0) [facility] W/PLT COUNT & AUTO [id number] 22:26:00 Test Item Value Reference Range Interpretation Comments WHITE BLOOD CELL COUNT (BEAKER) 10.2 K/ L 3.5-10.5 (test code = 775) RED BLOOD CELL COUNT (BEAKER) 3.80 M/ L 3.93-5.22 L (test code = 761) HEMOGLOBIN (BEAKER) (test code = 10.8 GM/DL 11.2-15.7 L 410) HEMATOCRIT (BEAKER) (test code = 33.8 % 34.1-44.9 L 411) MEAN CORPUSCULAR VOLUME (BEAKER) 88.9 fL 79.4-94.8 (test code = 753) MEAN CORPUSCULAR HEMOGLOBIN 28.4 pg 25.6-32.2 (BEAKER) (test code = 751) MEAN CORPUSCULAR HEMOGLOBIN CONC 32.0 GM/DL 32.2-35.5 L (BEAKER) (test code = 752) RED CELL DISTRIBUTION WIDTH 13.2 % 11.7-14.4 (BEAKER) (test code = 412) PLATELET COUNT (BEAKER) (test 276 K/CU MM 150-450 code = 756) MEAN PLATELET VOLUME (BEAKER) 9.8 fL 9.4-12.3 (test code = 754) NUCLEATED RED BLOOD CELLS 0 /100 WBC 0-0 (BEAKER) (test code = 413) NEUTROPHILS RELATIVE PERCENT 70 % (BEAKER) (test code = 429) LYMPHOCYTES RELATIVE PERCENT 21 % (BEAKER) (test code = 430) MONOCYTES RELATIVE PERCENT 8 % (BEAKER) (test code = 431) EOSINOPHILS RELATIVE PERCENT 1 % (BEAKER) (test code = 432) BASOPHILS RELATIVE PERCENT 1 % (BEAKER) (test code = 437) NEUTROPHILS ABSOLUTE COUNT 7.14 K/ L 1.56-6.13 H (BEAKER) (test code = 670) LYMPHOCYTES ABSOLUTE COUNT 2.14 K/ L 1.18-3.74 (BEAKER) (test code = 414) MONOCYTES ABSOLUTE COUNT (BEAKER) 0.79 K/ L 0.24-0.36 H (test code = 415) EOSINOPHILS ABSOLUTE COUNT 0.08 K/ L 0.04-0.36 (BEAKER) (test code = 416) BASOPHILS ABSOLUTE COUNT (BEAKER) 0.06 K/ L 0.01-0.08 (test code = 417) IMMATURE GRANULOCYTES-RELATIVE 0 % 0-1 PERCENT (BEAKER) (test code = 2801) POCT-GLUCOSE [id number] 21:02:00 Test Item Value Reference Range Interpretation Comments POC-GLUCOSE METER 114 mg/dL 70-110 H : TESTED A T [facility] 6720 (BEAKER) (test code = [place], 1538) [address]: Tabulating Supervisor/Techni syk ID = [id number] for Nell Bergeron (contrac t)
[2020-05-13] MEDS ORDERED: PROMETHAZINE INJ 25 MG/ML AMP ONE (15:59)
[2020-05-13] MEDS ORDERED: DIPHENHYDRAMINE 50 MG/ML VIAL ONE (15:59)
[2020-05-13] MEDS ORDERED: KETOROLAC 30 MG/ML INJ ONE (15:59)
--- NOTE | 2020-05-13 16:10 | ER ---
Nurse's Notes [facility] Name: Becky Rodriguez Age: 79 yrs Sex: Female : 1940 Arrival Date: 05/13/2020 Time: 13:53 Bed 8 Private MD: Peter Gomez E Diagnosis: Headache Presentation: 05/13 14:02 Chief complaint: Patient states: right sided headache that started this morning, also em reports dizziness and N/V, denies fever. Coronavirus screen: Client denies travel out of the [place] in the last 14 days. Ebola Screen: Patient negative for fever greater than or equal to 101.5 degrees Fahrenheit, and additional compatible Ebola Virus Disease symptoms Patient denies exposure to infectious person. Patient denies travel to an Ebola-affected area in the 21 days before illness onset. No symptoms or risks identified at this time. Initial Sepsis Screen: Does the patient meet any 2 criteria? No. Patient's initial sepsis screen is negative. Does the patient have a suspected source of infection? No. Patient's initial sepsis screen is negative. Risk Assessment: Do you want to hurt yourself or someone else? Patient reports no desire to harm self or others. Onset of symptoms was May 13, 2020. 14:02 Method Of Arrival: Wheelchair em 14:02 Acuity: CORNELIO 3 em Triage Assessment: 15:38 Headache History: The patient has had previous headaches and this one is similar to ca1 previous episodes. General: Appears. General: Appears in no apparent distress. Pain: Complains of pain in right jew and right occipital area and right side of forehead and right temporal area and right side of the back of head and right frontal area. Historical: - Allergies: 14:14 NKDA; em - PMHx: 14:14 Cancer, Breast; Diabetes - NIDDM; Gout; Hypertension; Hypothyroidism; Myocardial em infarction; - PSHx: 14:14 Cholecystectomy; Carlos Mastectomy; Knee surgery; em - Immunization history:: Adult Immunizations up to date. - Social history:: Smoking status: Patient denies any tobacco usage or history of. Screenin:20 Abuse screen: Denies threats or abuse. Denies injuries from another. Nutritional ca1 screening: No deficits noted. Tuberculosis screening: No symptoms or risk factors identified. Fall Risk IV access (20 points). Assessment: 14:20 General: Appears in no apparent distress. uncomfortable, Behavior is calm, cooperative, ca1 appropriate for age. Pain: Complains of pain in right frontal area, right side of the back of head, right temporal area, right side of forehead, right occipital area and right jew Pain currently is 8 out of 10 on a pain scale. Quality of pain is described as pressure, throbbing, Pain began this morning Is continuous. Pain: Also complains of nausea. Neuro: Level of Consciousness is awake, alert, obeys commands, Oriented to person, place, time, situation, Radiation Oncology Therapist are equal bilaterally Moves all extremities. Gait is steady, Speech is normal, Facial symmetry appears normal, Pupils are PERRLA, Intact Reports dizziness, headache. Neuro: Reports photophobia. Cardiovascular: Heart tones S1 S2 present Capillary refill < 3 seconds Patient's skin is warm and dry. Respiratory: Airway is patent Respiratory effort is even, unlabored, Respiratory pattern is regular, symmetrical, Breath sounds are clear bilaterally. GI: Abdomen is round non-distended, Bowel sounds present X 4 quads. Abd is soft and non tender X 4 quads. Reports nausea, vomiting. : No signs and/or symptoms were reported regarding the genitourinary system. EENT: No signs and/or symptoms were reported regarding the EENT system. Derm: Skin is intact, is healthy with good turgor, Skin is pink, warm \\T\\ dry. Musculoskeletal: Circulation, motion, and sensation intact. Capillary refill < 3 seconds. 15:29 Reassessment: Patient appears in no apparent distress at this time. Patient and/or ca1 family updated on plan of care and expected duration. Pain level reassessed. Patient is alert, oriented x 3, equal unlabored respirations, skin warm/dry/pink. Pt reports diarrhea and states, "I want to go home and clean myself up". Offered to go to the ER restroom, wipes and briefs. Pt refused. Notified provider. 15:33 Reassessment: Dr. Hutson at bedside. ca1 16:20 Reassessment: Patient appears in no apparent distress at this time. Patient is alert, ca1 oriented x 3, equal unlabored respirations, skin warm/dry/pink. Patient states feeling better. Vital Signs: 14:02 BP 135 / 69; Pulse 85; Resp 18; Temp 98.9; Pulse Ox 99% on R/A; Weight 102.06 kg (R); em Height 5 ft. 4 in. (162.56 cm) (R); Pain 10/10; 15:29 BP 147 / 82; Pulse 81; Resp 16 S; Pulse Ox 99% on R/A; ca1 16:20 BP 140 / 79; Pulse 86; Resp 16 S; Pulse Ox 99% on R/A; ca1 14:02 Body Mass Index 38.62 (102.06 kg, 162.56 cm) em ED Course: 13:53 Patient arrived in ED. mr 13:53 Peter Gomez MD is Private Physician. mr 14:13 Triage completed. em 14:14 Arm band placed on. em 14:20 Patient has correct armband on for positive identification. Bed in low position. Call ca1 light in reach. Side rails up X 1. Pulse ox on. NIBP on. Door closed. Noise minimized. Lights dimmed. Warm blanket given. 14:32 Ainsley Carrera RN is Primary Nurse. ca1 14:34 Ravi Hutson MD is Attending Physician. kdr 16:08 Peter Gomez MD is Referral Physician. kdr 16:20 No provider procedures requiring assistance completed. Patient did not have IV access ca1 during this emergency room visit. Administered Medications: 15:44 Drug: TORadol - Ketorolac 15 mg Route: IM; Site: left deltoid; ca1 16:07 Follow up: Response: No adverse reaction; Pain is decreased ca1 15:46 Drug: Benadryl 25 mg Route: IM; Site: right deltoid; ca1 16:07 Follow up: Response: No adverse reaction; Pain is decreased ca1 15:48 Drug: Phenergan 12.5 mg Route: IM; Site: right gluteus; ca1 16:07 Follow up: Response: No adverse reaction; Nausea is decreased ca1 Outcome: 16:09 Discharge ordered by . kdr 16:20 Discharged to home via wheelchair, with family. ca1 16:20 Condition: stable 16:20 Discharge instructions given to patient, Instructed on discharge instructions, follow up and referral plans. Demonstrated understanding of instructions, follow-up care. 16:21 Patient left the ED. ca1 Signatures: Ravi Hutson MD MD [facility] Becky Pollock mr Fu, Patel, RN RN em Acob, Ainsley, RN RN ca1
--- NOTE | 2020-05-13 16:10 | EDPHYS ---
Physician Documentation [facility] Name: Becky Rodriguez Age: 79 yrs Sex: Female : 1940 Arrival Date: 05/13/2020 Time: 13:53 Bed 8 Private MD: Peter Gomez E ED Physician Ravi Hutson HPI: 05/14 07:56 This 79 yrs old Female presents to ER via Wheelchair with complaints of kdr Headache. 07:56 The patient complains of pain to the right frontal area and right temporal area. The kdr patient describes the headache as aching, constant, a pressure, unrelenting. Onset: The symptoms/episode began/occurred suddenly, this morning, Awoke her from sleep. Associated signs and symptoms: Pertinent positives: nausea, vomiting, Associated s/s are very minor and in the ED there was minimal nausea and no vomiting. States she wants a shot and to go home.. Severity of symptoms: At its worst the pain was mild, in the emergency department the pain is unchanged. Headache History: Other The patient was recently transferred for w/u of [place] to [facility]. She states that she had extensive w/u there without an etiology or medication given. Additionally, she was recently seen at [facility] and diagnosed with a migraine but not given any medication. The symptoms are alleviated by nothing. the symptoms are aggravated by lights, stress. The patient has experienced similar episodes in the past, several times. The patient has been recently seen by a physician:. Historical: - Allergies: 05/13 14:14 NKDA; em - PMHx: 14:14 Cancer, Breast; Diabetes - NIDDM; Gout; Hypertension; Hypothyroidism; Myocardial em infarction; - PSHx: 14:14 Cholecystectomy; Carlos Mastectomy; Knee surgery; em - Immunization history:: Adult Immunizations up to date. - Social history:: Smoking status: Patient denies any tobacco usage or history of. ROS: 05/14 07:56 Constitutional: Negative for fever, chills, and weight loss, Eyes: Negative for injury, kdr pain, redness, and discharge, ENT: Negative for injury, pain, and discharge, Neck: Negative for injury, pain, and swelling, Cardiovascular: Negative for chest pain, palpitations, and edema, Respiratory: Negative for shortness of breath, cough, wheezing, and pleuritic chest pain, Abdomen/GI: Negative for abdominal pain, nausea, vomiting, diarrhea, and constipation, Back: Negative for injury and pain, : Negative for injury, bleeding, discharge, and swelling, MS/Extremity: Negative for injury and deformity, Skin: Negative for injury, rash, and discoloration, Psych: Negative for depression, anxiety, suicide ideation, homicidal ideation, and hallucinations, Allergy/Immunology: Negative for hives, rash, and allergies, Endocrine: Negative for neck swelling, polydipsia, polyuria, polyphagia, and marked weight changes, Hematologic/Lymphatic: Negative for swollen nodes, abnormal bleeding, and unusual bruising. Neuro: Positive for headache, Negative for altered mental status, dizziness, gait disturbance, hearing loss, loss of consciousness, numbness, seizure activity, speech changes, syncope, near syncope, tingling, tinnitus, tremor, visual changes, weakness, acute changes. Exam: 07:56 Constitutional: This is a well developed, well nourished patient who is awake, alert, kdr and in no acute distress. Head/Face: Normocephalic, atraumatic. Eyes: Pupils equal round and reactive to light, extra-ocular motions intact. Lids and lashes normal. Conjunctiva and sclera are non-icteric and not injected. Cornea within normal limits. Periorbital areas with no swelling, redness, or edema. Neck: Trachea midline, no thyromegaly or masses palpated, and no cervical lymphadenopathy. Supple, full range of motion without nuchal rigidity, or vertebral point tenderness. No Meningismus. Chest/axilla: Normal chest wall appearance and motion. Nontender with no deformity. No lesions are appreciated. Cardiovascular: Regular rate and rhythm with a normal S1 and S2. No gallops, murmurs, or rubs. Normal PMI, no JVD. No pulse deficits. Respiratory: Lungs have equal breath sounds bilaterally, clear to auscultation and percussion. No rales, rhonchi or wheezes noted. No increased work of breathing, no retractions or nasal flaring. Abdomen/GI: Soft, non-tender, with normal bowel sounds. No distension or tympany. No guarding or rebound. No evidence of tenderness throughout. Back: No spinal tenderness. No costovertebral tenderness. Full range of motion. Skin: Warm, dry with normal turgor. Normal color with no rashes, no lesions, and no evidence of cellulitis. MS/ Extremity: Pulses equal, no cyanosis. Neurovascular intact. Full, normal range of motion. Neuro: Awake and alert, GCS 15, oriented to person, place, time, and situation. Cranial nerves II-XII grossly intact. Motor strength 5/5 in all extremities. Sensory grossly intact. Cerebellar exam normal. Normal gait. Psych: Awake, alert, with orientation to person, place and time. Behavior, mood, and affect are within normal limits. Vital Signs: 05/13 14:02 BP 135 / 69; Pulse 85; Resp 18; Temp 98.9; Pulse Ox 99% on R/A; Weight 102.06 kg (R); em Height 5 ft. 4 in. (162.56 cm) (R); Pain 10/10; 15:29 BP 147 / 82; Pulse 81; Resp 16 S; Pulse Ox 99% on R/A; ca1 16:20 BP 140 / 79; Pulse 86; Resp 16 S; Pulse Ox 99% on R/A; ca1 14:02 Body Mass Index 38.62 (102.06 kg, 162.56 cm) em MDM: 16:09 Patient medically screened. kdr 05/14 07:56 Data reviewed: vital signs, nurses notes, lab test result(s), radiologic studies. kdr Counseling: I had a detailed discussion with the patient and/or guardian regarding: the historical points, exam findings, and any diagnostic results supporting the discharge/admit diagnosis, the need for outpatient follow up. ED course: The patient was stable and non-toxic in the ED. She did not have any s/s of acute illness or meningeal s/s. Administered Medications: 05/13 15:44 Drug: TORadol - Ketorolac 15 mg Route: IM; Site: left deltoid; ca1 16:07 Follow up: Response: No adverse reaction; Pain is decreased ca1 15:46 Drug: Benadryl 25 mg Route: IM; Site: right deltoid; ca1 16:07 Follow up: Response: No adverse reaction; Pain is decreased ca1 15:48 Drug: Phenergan 12.5 mg Route: IM; Site: right gluteus; ca1 16:07 Follow up: Response: No adverse reaction; Nausea is decreased ca1 Disposition: 05/13/20 16:09 Discharged to Home. Impression: Headache. - Condition is Stable. - Discharge Instructions: General Headache Without Cause, Migraine Headache, [id number]. - Medication Reconciliation Form, Thank You Letter form. - Follow up: Peter Gomez MD; When: 2 - 3 days; Reason: If symptoms return, Further diagnostic work-up, Recheck today's complaints, Continuance of care, Re-evaluation by your physician. - Problem is an acute exacerbation. - Symptoms have improved. Signatures: Ravi Hutson MD MD kdr Patel Fu, RN RN em AcAinsley mckenzie RN RN ca1 Corrections: (The following items were deleted from the chart) 16:21 16:09 05/13/2020 16:09 Discharged to Home. Impression: Headache. Condition is Stable. ca1 Forms are Medication Reconciliation Form, Thank You Letter, Antibiotic Education, Prescription Opioid Use. Follow up: Peter Gomez; When: 2 - 3 days; Reason: If symptoms return, Further diagnostic work-up, Recheck today's complaints, Continuance of care, Re-evaluation by your physician. Problem is an acute exacerbation. Symptoms have improved. kdr
[2020-05-13 17:15] VITALS: TEMP 98.9; O2SAT 99
[2020-05-13 17:17] VITALS: BP 140/79
== END 2020-05-13 16:21 | disposition home or self-care (01) ==
LOC: ER 13:49
DX: R51 Headache (principal); I10 Essential (primary) hypertension; Z85.3 Personal history of malignant neoplasm of breast; Z90.13 Acquired absence of bilateral breasts and nipples
CPT/HCPCS: 96372; 99283; J2550; J1200

== ENCOUNTER 2022-05-05 07:22 | Emergency (ER) | payer MEDICARE ==
--- OUTSIDE RECORDS SUMMARY | 2022-05-05 07:25 | XMS REPORT | Continuity of Care Document ---
:1940 Author Organization [facility] t Address [address] [place] [address] Care Team Providers Name Role Phone NATE MORA Primary Care Physician Unavailable RAVI SESAY Attending Clinician Unavailable JEY HUNTER Attending Clinician Unavailable IKM VALDEZ Attending Clinician Unavailable Wilber Berry DO Attending Clinician RAVI SESAY Admitting Clinician Unavailable BALTA GRIFFITH Admitting Clinician Unavailable Payers Payer Name Policy Type Policy Number Effective Date Expiration Date Camron hsu [employer] [id number] 2019 00:00:00 SPRING Problems Condition Condition Condition Status Onset Resolution Last Treating Co mments Source Name Details Category Date Date Treatment Clinician Date Suspected Suspected Disease Active [facility] cerebrovas cerebrovas 8 Annie kes cular cular 00:00: Medical accident accident 00 Center (CVA) (CVA) Essential Essential Disease Active [facility] hypertensi hypertensi 8 Annie kes on on 00:00: Medical 00 Center Type 2 Type [address] [facility] diabetes diabetes [facility] mellitus mellitus 00:00: Medica l without without 00 Center complicati complicati on, on, without without long-term long-term current current use of use of insulin insulin Other Other Disease Active [facility] specified specified 8 [facility] hypothyroi hypothyroi 00:00: Me dical dism dism 00 Center Overlappin Overlappin Disease Active [facility] malignant malignant 00:00: Medi dipak neoplasm neoplasm 00 Center of female of female breast breast TIA TIA Disease Active [facility] (transient (transient 04-03 Annie kes ischemic ischemic 00:00: Medica l attack) attack) 00 Center Allergies, Adverse Reactions, Alerts Allergy Allergy Status Severity Reaction(s) Onset Inactive Treating Comm ents Source Name Type Date Date Clinician PENICILL DRUG Active Anaphylaxis Uni vers IN INGREDI 05-08 ity of 00:00: [address] Penicill Drug Active Anaphylaxis [facility] Allergy 04[facility] 00:00: Medical [place] PENICILL Allergy Active High Anaphylaxis [facility] 04[facility] 00:00: Medical 00 [place] NO KNOWN Allergy Active [facility] ALLERGIE S NO KNOWN Drug Active Univers ALLERGIE Class ity of S [facility] Family History Family Member Diagnosis Comments Start Date Stop Date Source Natural brother Cancer [facility] Natural sister Cancer [facility] Social History Social Habit Start Date Stop Date Quantity Comments Source History SDOH [facility] Alcohol Std Medical Cent[facility] r Drinks History SDOH [facility] Alcohol Binge Medical [address] History SDOH 2020-04-04 2020-04-[address] [facility] Alcohol Frequency 00:00:00 00:00:00 [facility] Alcohol Comment 2020-04-03 2020-04-[address] [facility] 00:00:00 00:00:00 [facility] Tobacco use and 2020-04-03 2020-04-[address] Annie kes exposure 00:00:00 00:00:00 [facility] Alcohol intake 2020-04-03 2020-04-03 Current drinker of [facility] 00:00:00 00:00:00 alcohol (finding) Medical Center Sex Assigned At [address] [address] Annie kes 00:00:00 00:00:00 [facility] Smoking Status Start Date Stop Date Source Never smoker [facility] Medications Ordered Filled Start Stop Current Ordering Indication Dosage Frequency Signature Comments Components Source Medication Medication Date Date Medication? Clinician (SIG) Name Name metFORMIN Yes 1000mg Take 1,[address] [facility] (GLUCOPHAGE 8-10 mg by [facility] ) 1000 MG 20:02: mouth Medical tablet 47 daily with Center breakfast. ibuprofen 2020-0 Yes 800mg Take [address] (ADVIL,MOTR 8-10 mg by [facility] [place]) 800 MG 20:02: mouth 2 Medi dipak tablet 47 (two) Center times daily as needed for Pain. denosumab 2020-0 Yes 60mg Inject [address] (PROLIA) 60 8-10 mg [facility] mg/mL Syrg 20:02: subcutaneo M edical 47 usly once. Center Vital Signs Vital Name Observation Time Observation Value Comments Source HEIGHT 2020-04-03 00:00:00 162.6 cm WEIGHT 2020-04-03 00:00:00 99.338 kg HEIGHT 2020-04-03 00:00:00 162.6 cm WEIGHT 2020-04-03 00:00:00 99.338 kg Procedures This patient has no known procedures. Plan of Care Planned Activity Planned Date Details Comments Source Future Scheduled 2022-04-27 INFLUENZA VACCINE (#1) [facility] Test 00:00:00 [code = INFLUENZA Medical Ce nter VACCINE (#1)] Future Scheduled 2021-08-[address] [facility] Test 00:00:00 (12+) [code = Medical Center DEPRESSION SCREENING (12+)] Future Scheduled 2021-08-27 FALLS RISK SCREENING [facility] Test 00:00:00 [code = FALLS RISK Medical C enter SCREENING] Future Scheduled 2020-10-[address] Annie kes Test 00:00:00 measurement [facility] (procedure) [code = 99385624] Future Scheduled 2020-08-[address] [facility] Test 00:00:00 WELLNESS (YEAR 2 or Medical Center FIRST YEAR if no IPPE) [code = MEDICARE ANNUAL WELLNESS (YEAR 2 or FIRST YEAR if no IPPE)] Future Scheduled 1992 SHINGLES VACCINES ([address] [facility] Test 00:00:00 of 2) [code = SHINGLES Medic al Center VACCINES (1 of 2)] Future Scheduled 1961 DTAP/TDAP/TD VACCINES [facility] Test 00:00:00 (1 - Tdap) [code = Medical C enter DTAP/TDAP/TD VACCINES (1 - Tdap)] Future Scheduled 1960 HEPATITIS C SCREENING [facility] Test 00:00:00 [code = HEPATITIS C Medical Center SCREENING] Future Scheduled 1952 DIABETIC EYE EXAM [facility] Test 00:00:00 [code = DIABETIC EYE Medical Center EXAM] Future Scheduled [address] [facility] es Test 00:00:00 examination Medical Center (regime/therapy) [code = 452859344] Future Scheduled 1952 Urine screening for [facility] Test 00:00:00 protein (procedure) Medical Center [code = 790552354] Future Scheduled 1948 PNEUMOCOCCAL 65+ YRS [facility] Test 00:00:00 (1 - PCV) [code = Medical Ce nter PNEUMOCOCCAL 65+ YRS (1 - PCV)] Future Scheduled 1943-04-30 COVID-19 VACCINE (#1) [facility] Test 00:00:00 [code = COVID-[address] VACCINE (#1)] Future Scheduled 1940 DXA SCAN [code = DXA [facility] Test 00:00:00 SCAN] Medical Center Encounters Start End Encounter Admission Attending Care Care Encounter Source Date/Time Date/Time Type Type Clinicians Facility Department ID 2021-10-31 Out[facility] [id number] Common 15:12:05 [facility] 2020-04-03 Inpatient ER [facility] Med [id number] [facility] 20:16:00 RAVI 2020-11-12 2020-11-12 Outpatient [facility] [id number] Univers 13:40:00 13:40:00 [facility] 2020-11-01 2020-11-01 Outpatient Raffi HUNTER [facility] [id number] Univers 13:45:00 13:45:00 JEY [facility] 2020-09-24 2020-09-24 Outpatient Raffi VALDEZ [facility] [id number] Univers 13:00:00 13:00:00 KIM [facility] 2020-05-08 2020-05-08 Emergency [facility] [id number] 19:23:00 23:28:00 Wilber Gayle [id number] [place] [id number] [place] [id number] 2020-05-08 2020-05-08 Emergency X [facility] ERT [id number] Univers 19:15:00 19:15:00 [facility] Results Test Description Test Time Test Comments Results Result Comments Source POCT-GLUCOSE METER 2020-04-06 07:42:00 Test Item Value Reference Range Interpretation Comme nts POC-GLUCOSE METER (BEAKER) 100 mg/dL 70-110 : TEST[facility] [facility] (test code = 1538) SILVIA Self, [id number]: Silo Worker/Techni sky ID = [id number] for KESHAWN ASHER EEG AWAKE AND [id number] 17:06:00Reason for exam:->r/o seizure. discharge pending this for today.ELECTROENCEPHALOGRAM Date(s) of EE04/05/2020 DATE OF REPORT: 04/05/2020 ACC: [id number] EEG Number:[id number] Test Location: Start time: 4:08 PM Stop time: 4:29 PM ICD-10: R56.9 CPT Code: 19263 HISTORY: 79yo R-handed female w/ Hx of breast cancer (s/p bilateral mastectomy, on hormone therapy), HTN, DM2 and hypothyroidism who presented to [facility] w/ transient R facial droop & R-sided numbness/weakness, now transferred for stroke workup. NIHSS at OSH was 3, improved to 2 by [facility]CT head w/o contrast negative for CVA or [...] spindles seen over the frontocentral derivations and K-complexes.SIGNIFICANT VIDEO EVENTS: None SIGNIFICANT ELECTROCARDIOGRAM EVENTS: None HV: Hyperventilation was not performed. PHOTIC STIMULATION: Photic stimulation was done from 1-33 Hz. Photic stimulation was physiologic. IMPRESSION: Normal Awake and Drowsy /Sleep EEG CLINICAL CORRELATION: An EEG without epileptiform discharges does not exclude the possibility of epilepsy. It the clinical suspicion of epilepsyremains, consider additional EEG recordings. Antoinette Nuno MD Neurophysiology Fellow Alec Juan MD Attending Neurophysiology [facility] Electronically signedby: ALEC JUAN MD on 04/05/2020 05:06 PMRPR 2020-04-05 13:20:00 Test Item Value Reference Range Interpretation Comments RPR SCREEN (BEAKER) (test code = Nonreactive Nonreactive 420) POCT-GLUCOSE [id number] 12:14:00 Test Item Value Reference Range Interpretation Comments POC-GLUCOSE METER 199 mg/dL 70-110 H : TESTED A T [facility] 6720 (BEAKER) (test code = [facility], 1538) [address]: Silo Worker/Techni sky ID = [id number] for AK INSONU, ANGELA POCT-GLUCOSE [id number] 07:44:00 Test Item Value Reference Range Interpretation Comments POC-GLUCOSE METER 133 mg/dL 70-110 H : TESTED A T [facility] 6720 (BEAKER) (test code = [facility], 1538) [address]: Silo Worker/Techni sky ID = [id number] for [place] INSONU, ANGELA [id number] 04:55:00 Test Item Value Reference Range Interpretation Comments PHOSPHORUS (BEAKER) (test code = 3.8 mg/dL 2.3-4.7 604) Silo Worker ID - [id number] 04:55:00 Test Item Value Reference Range Interpretation Comments MAGNESIUM (BEAKER) (test code = 1.5 mg/dL 1.6-2.6 L 627) Silo Worker ID - EDASIBASIC METABOLIC [id number] 04:55:00 Test Item Value Reference Range Interpretation [...] S NOT APPLICABLE FOR DIALYSIS PATIEN TS. Silo Worker ID - EDASICBC (HEMOGRAM ONLY)2020-04-05 04:25:00 Test Item Value Reference [...] RED BLOOD CELLS 0 /100 WBC 0-0 (JAN) (test code = 413) POCT-GLUCOSE [id number] 20:26:00 Test Item Value Reference Range Interpretation Comments POC-GLUCOSE METER 158 mg/dL 70-110 H : TESTED A T [facility] 6720 (JAN) (test code = [place], 1538) [address]: Silo Worker/Techni sky ID = [id number] for DO VE, CHEKARA SARS-COV2/RT-PCR ([facility])2020-04-04 18:40:00 Test Item Value Reference Range Interpretation Comments SARS-COV2/RT-PCR (test Negative Not Detected, Negative, code = 3084416) See external report for linked test SARS-COV-[address] [facility] AMBER (test code = 9884067) Negative result for this test determines that [...] individuals suspected of COVID-19 by their healthcare provider.This test [...] justifying the authorization of the emergency use ofin vitro diagnostic tests for detection and/or diagnosis of COVID-19 is terminated under Section 564(b)(2) of the Act or the EUA is revoked under Section 564(g) of the Act.Fact Sheet for Healthcare Prov iders:https://www.[employer]/sites/default/files/product/documents/Fact_Sheet_HC _Zsqeatufn_Bndi_POKJ-BgN-2.pdfFact Sheet for Healthcare Patients:https://www.[employer]/sites/default/files/product/docume nts/Agzl_Drzuu_Qiurefcd_Wozi_FLYF-FjW-2.pdfPerforming Laboratory:[facility], [place] [address]VO, BRAIN, WITHOUT [id number] 18:06:00FINAL REPORT MRI Brain without contrast Clinical History: Neuro deficit, acute,stroke suspected Technique: MRI of the brain utilizing axial T2, FLAIR, GRE, DWI; sagittal and coronal T1- weighted images. Comparisons: CTA head and neck dated 04/04/2020. Findings: There is no evidence of acute infarct or hemorrhage. Multiple bilateral T2 and FLAIR hyperintense white matter foci likelyrepresent chronic white matter microvascular disease.. Generalized parenchymal volume loss with commensurate enlargement of the CSF spaces and ventricles. There is no hydrocephalus or midline shift. There are no extra-axial fluid collections. The craniocervical junction is preserved. The major intracranial flow-voids appear patent. Again seen is the Air-fluid level in the right sphenoid sinus. Middleears and mastoid air cells are clear. Intraorbital contents are unremarkable. No aggressive osseous or soft tissue lesions identified. IMPRESSION: No evidence of acute infarct, hemorrhage, or hydrocephalus. Signed: Balta Ortiz Verified Date/Time: 04/04/2020 18:06:36 POCT-GLUCOSE [id number] 17:18:00 Test Item Value Reference Range Interpretation Comments POC-GLUCOSE METER 179 mg/dL 70-110 H : TESTED A T [facility] 6720 (JAN) (test code = [place] [facility], 1538) [address]: Silo Worker/Techni sky ID = [id number] for KESHAWN KRISHNA HEMOGLOBIN [id number] 10:37:00 Test Item Value Reference Range Interpretation Comments HEMOGLOBIN A1C (DEMETRIUSAKER) (test code = 6.3 % 4.3-6.1 H 368) POCT-GLUCOSE [id number] 08:24:00 Test Item Value Reference Range Interpretation Comments POC-GLUCOSE METER 123 mg/dL 70-110 H : TESTED A T [facility] 6720 (BEAKER) (test code = [place], 1538) [address]: Silo Worker/Techni sky ID = [id number] for KESHAWN KRISHNA [id number] 05:45:00 Test Item Value Reference Range Interpretation Comments HOMOCYSTEINE (BEAKER) (test code 14.7 umol/L 5.1-15.4 = 642) Silo Worker ID - [id number] 05:35:00 Test Item Value Reference Range Interpretation Comments MAGNESIUM (BEAKER) 1.6 mg/dL 1.6-2.6 Specimen slightly (test code = 627) hemolyzed Silo Worker ID - [id number] 05:35:00 Test Item Value Reference Range Interpretation Comments PHOSPHORUS (BEAKER) 3.5 mg/dL 2.3-4.7 Specimen slightly (test code = 604) hemolyzed Silo Worker ID - EDASIBASIC METABOLIC [id number] 05:35:00 Test Item Value Reference Range Interpretation [...] S NOT APPLICABLE FOR DIALYSIS PATIEN TS. Silo Worker ID - EDASICBC (HEMOGRAM ONLY)2020-04-04 05:20:00 Test [...] 0-0 (BEAKER) (test code = 413) CT, CTANGIO [id number] 01:46:00FINAL REPORT CLINICAL HISTORY: Neuro deficit, acute, stroke suspected TECHNIQUE: Initially, noncontrast head CT images were performed. Contiguous contrast-enhanced axial images through the head with coronal and sagittal reformations to assess the arterial circulation. 3-D reconstructions were performed using a volume rendered technique separately on a workstation. This exam was performed according to the departmental dose optimization program which includes automated exposure con trol, adjustment of the mA and/or kV according [...] Atherosclerotic calcifications of the bilateral carotid siphons withno flow- limiting stenosis on the right and [...] P2, P3 and P2 four branches.. No CTevidence of acute infarct or hemorrhage. Air-fluid level in the right sphenoid sinus. Correlate for signs acute sinusitis. Signed: Balta Ortiz MDReport Verified Date/Time: 04/04/2020 01:46:19 VITAMIN B12 AND [id number] 00:01:00 Test Item Value Reference Range Interpretation Comments VITAMIN B12 (BEAKER) (test code = 174 pg/mL 213-816 L 774) FOLATE (BEAKER) (test code = 362) 32.90 ng/mL >=7.00 Silo Worker ID - ROSADEOLAGTSH/FREE T4 IF [id number] 23:59:00 Test Item Value Reference Range Interpretation Comments THYROID STIMULATING HORMONE 1.026 uIU/mL 0.350-4.940 (BEAKER) (test code = 772) Silo Worker ID - [id number] 22:41:00 Test Item Value Reference Range Interpretation Comments PHOSPHORUS (BEAKER) (test code = 3.0 mg/dL 2.3-4.7 604) Silo Worker ID - [id number] 22:41:00 Test Item Value Reference Range Interpretation Comments MAGNESIUM (BEAKER) (test code = 1.7 mg/dL 1.6-2.6 627) Silo Worker ID - CARLOSGCOMPREHENSIVE METABOLIC [id number] 22:41:00 Test Item Value Reference Range Interpretation [...] S NOT APPLICABLE FOR DIALYSIS PATIEN TS. Silo Worker ID - CARLOSGLIPID [id number] 22:41:00 Test Item Value Reference Range Interpretation Comments TRIGLYCERIDES (BEAKER) (test code = 86 mg/dL 540) CHOLESTEROL (BEAKER) (test code = 162 mg/dL 631) HDL CHOLESTEROL (BEAKER) (test code 54 mg/dL = 976) LDL CHOLESTEROL CALCULATED (BEAKER) 91 mg/dL (test code = 633) Triglyceride Reference Range: Low Risk <150 Borderline 150-199 High Risk 200- 499 Very High Risk >=500Cholesterol Reference Range: Low Risk <200 Borderline 200-239 High Risk >240HDL Cholesterol Reference Range: Low Risk >=60 High Risk <40LDL Cholesterol Reference Range: Optimal <100 Near Optimal 100-129 Borderline 130-159 High 160-189 Very High >=190 Silo Worker ID - ROSIANGC-REACTIVE [id number] 22:41:00 Test Item Value Reference Range Interpretation Comments C-REACTIVE PROTEIN (BEAKER) (test 0.92 mg/dL 0.00-0.50 H code = 676) Silo Worker ID - ROSIANGCBC W/PLT COUNT & AUTO [id number] 22:26:00 Test Item Value Reference Range Interpretation [...] PERCENT (BEAKER) (test code = 2801) POCT-GLUCOSE [id number] 21:02:00 Test Item Value Reference Range Interpretation Comments POC-GLUCOSE METER 114 mg/dL 70-110 H : TESTED A T [facility] 6720 (BEAKER) (test code = [place], 1538) [address]: Silo Worker/Techni sky ID = [id number] for Nell Bergeron (contrac t)
[2022-05-05] MEDS ORDERED: METOCLOPRAMIDE 10 MG/2mL INJ ONE (07:49)
[2022-05-05] MEDS ORDERED: DIPHENHYDRAMINE 50 MG/ML VIAL ONE (07:50)
[2022-05-05] MEDS ORDERED: KETOROLAC 30 MG/ML INJ ONE (07:50)
[2022-05-05] MEDS ORDERED: NA CHLORIDE 0.9% 500 ML ONE (07:50)
[2022-05-05 08:01] LABS: Absolute Lymphocytes (CBC) 2.8 K/uL (0.7-4.9); Hematocrit 34.4 % (36.0-45.0); Lymphocytes % 29.8 % (15.3-44.8); MCV 85.5 fL (80-100); MPV 8.3 fL (7.6-11.3); RBC Red Blood Cell Count 4.02 M/uL (3.86-4.86)
--- NOTE | 2022-05-05 08:16 | RAD REPORT ---
EXAM DESCRIPTION: CT - Head Brain Wo Cont - 05/05/2022 7:54 am CLINICAL HISTORY: Headache, new or worsening COMPARISON: Head angio dated 11/05/2020; Ct Stroke Brain Wo Cont dated 04/03/2020 TECHNIQUE: All CT scans are performed using dose optimization technique as appropriate and may inclu de automated exposure control or mA/KV adjustment according to patient size. FINDINGS: There is mild motion degradation, limiting the study quality. No gross intracranial hemorrhage, hydrocephalus or extra-axial fluid collection.No areas of brain zainab ma or evidence of midline shift. The paranasal sinuses and mastoids are clear. The calvarium is intact. Atherosclerosis noted left joe tebral artery. IMPRESSION: No gross acute intracranial abnormality.
[2022-05-05 08:41] LABS: Albumin 3.8 g/dL (3.4-5.0); Bilirubin Total 0.2 mg/dL (0.2-1.0); Protein, Total 7.7 g/dL (6.4-8.2)
[2022-05-05 08:48] LABS: Potassium 4.2 mmol/L (3.5-5.1)
[2022-05-05] MEDS ORDERED: ONDANSETRON 4 MG/2 ML VIAL ONE (08:52)
[2022-05-05] MEDS ORDERED: ACETYLCYST 20% 800 MG/4 ML VIAL PO ONE (10:00)
[2022-05-05 10:46] LABS: Urine Blood Negative (Negative); Urine Glucose Negative (Negative); Urine Protein Negative (Negative); Urine Specific Gravity 1.025 (1.005-1.030)
--- NOTE | 2022-05-05 11:04 | EDPHYS ---
Physician Documentation [facility] Name: Becky Rodriguez Age: 81 yrs Sex: Female : 1940 Arrival Date: 05/05/2022 Time: 07:26 Bed 14 Private MD: ERNIE Physician Rudy Foote HPI: 05/05 09:46 This 81 yrs old Female presents to ER via Ambulatory with complaints of barbara Migraine, Vomiting. 09:46 The patient presents to the emergency department with nausea, vomiting, that is barbara intermittent. Onset: The symptoms/episode began/occurred this morning. Possible causes: unknown. The symptoms are aggravated by nothing. The symptoms are alleviated by. Associated signs and symptoms: Pertinent positives: nausea, vomiting. Historical: - Allergies: 07:53 NKDA; jh6 - PMHx: 07:53 Cancer, Breast; Myocardial infarction; Hypothyroidism; Hypertension; Gout; Diabetes - [facility] NIDDM; - Immunization history:: Adult Immunizations up to date. - Social history:: Smoking status: Patient denies any tobacco usage or history of. ROS: 09:47 Constitutional: Negative for fever, chills, and weight loss, Eyes: Negative for injury, barbara pain, redness, and discharge, ENT: Negative for injury, pain, and discharge, Neck: Negative for injury, pain, and swelling, Cardiovascular: Negative for chest pain, palpitations, and edema, Respiratory: Negative for shortness of breath, cough, wheezing, and pleuritic chest pain, Back: Negative for injury and pain, : Negative for injury, bleeding, discharge, and swelling, MS/Extremity: Negative for injury and deformity, Skin: Negative for injury, rash, and discoloration. 09:47 Respiratory: Positive for cough, with no reported sputum. 09:47 Abdomen/GI: Positive for nausea and vomiting. 09:47 Neuro: Positive for headache. Exam: 09:47 Constitutional: This is a well developed, well nourished patient who is awake, alert, barbara and in no acute distress. Head/Face: Normocephalic, atraumatic. Eyes: Pupils equal round and reactive to light, extra-ocular motions intact. Lids and lashes normal. Conjunctiva and sclera are non-icteric and not injected. Cornea within normal limits. Periorbital areas with no swelling, redness, or edema. ENT: Nares patent. No nasal discharge, no septal abnormalities noted. Tympanic membranes are normal and external auditory canals are clear. Oropharynx with no redness, swelling, or masses, exudates, or evidence of obstruction, uvula midline. Mucous membranes moist. Neck: Trachea midline, no thyromegaly or masses palpated, and no cervical lymphadenopathy. Supple, full range of motion without nuchal rigidity, or vertebral point tenderness. No Meningismus. Chest/axilla: Normal chest wall appearance and motion. Nontender with no deformity. No lesions are appreciated. Cardiovascular: Regular rate and rhythm with a normal S1 and S2. No gallops, murmurs, or rubs. Normal PMI, no JVD. No pulse deficits. Respiratory: Lungs have equal breath sounds bilaterally, clear to auscultation and percussion. No rales, rhonchi or wheezes noted. No increased work of breathing, no retractions or nasal flaring. Abdomen/GI: Soft, non-tender, with normal bowel sounds. No distension or tympany. No guarding or rebound. No evidence of tenderness throughout. Back: No spinal tenderness. No costovertebral tenderness. Full range of motion. Female : Normal external genitalia. Skin: Warm, dry with normal turgor. Normal color with no rashes, no lesions, and no evidence of cellulitis. MS/ Extremity: Pulses equal, no cyanosis. Neurovascular intact. Full, normal range of motion. Neuro: Awake and alert, GCS 15, oriented to person, place, time, and situation. Cranial nerves II-XII grossly intact. Motor strength 5/5 in all extremities. Sensory grossly intact. Cerebellar exam normal. Normal gait. Psych: Awake, alert, with orientation to person, place and time. Behavior, mood, and affect are within normal limits. 09:47 Neck: ROM/movement: is normal, no acute changes, pain, is not appreciated, limited range of motion, is not appreciated, Meningeal signs: are not present, Kernig's sign is negative, Brudzinski's sign is negative, nuchal rigidity, is not appreciated, Lymph nodes: no appreciated lymphadenopathy. 09:47 Musculoskeletal/extremity: DVT Exam: No signs of deep vein thrombosis. no pain, no swelling, no tenderness, negative Homans' sign noted on exam, no appreciated bluish discoloration, no erythema, no increased warmth. Vital Signs: 07:35 BP 164 / 93; Pulse 102; Resp 22; Temp 97.7; Pulse Ox 100% ; Weight 97.52 kg; Height 5 6 ft. 4 in. (162.56 cm); Pain 10/10; 09:23 BP 144 / 62; Pulse 83; Resp 98; Pulse Ox 100% ; Pain 4/10; jh6 07:35 Body Mass Index 36.90 (97.52 kg, 162.56 cm) [facility] MDM: 07:30 Patient medically screened. [facility] 05/05 07:30 Order name: CBC with Diff; Complete Time: 09:26 [facility] 05/05 07:30 Order name: Comprehensive Metabolic Panel; Complete Time: 09:26 [facility] 05/05 07:30 Order name: Urine Culture [facility] 05/05 07:30 Order name: CT Head Brain wo Cont; Complete Time: 09:26 [facility] 05/05 10:46 Order name: Urine Dipstick-Ancillary; Complete Time: 11:03 EDMS 05/05 07:30 Order name: Urine Dipstick-Ancillary (obtain specimen); Complete Time: 10:48 [facility] 05/05 07:30 Order name: Oxygen Per Protocol; Complete Time: 07:47 [facility] Administered Medications: 07:48 Drug: NS 0.9% 500 ml Route: IV; Rate: bolus; Site: right antecubital; 6 07:48 Drug: Benadryl (diphenhydrAMINE) 50 mg Route: IVP; Site: right antecubital; 6 09:30 Follow up: Response: No adverse reaction [facility] 07:48 Drug: Reglan (metoCLOPramide) 10 mg Route: IVP; Site: right antecubital; 6 09:30 Follow up: Response: Nausea unchanged 6 07:48 Drug: Ketorolac 30 mg Route: IVP; Site: right antecubital; 6 09:30 Follow up: Response: Pain is decreased 6 10:09 Drug: Mucomyst - Acetylcysteine 600 mg Route: PO; 6 11:00 Follow up: Response: No adverse reaction [facility] 10:20 Drug: Zofran (Ondansetron) 4 mg Route: IVP; Site: right antecubital; 6 11:00 Follow up: Response: Nausea is decreased jh6 Disposition Summary: 05/05/22 11:03 Discharge Ordered Location: Home barbara Problem: new barbara Symptoms: have improved barbara Condition: Stable barbara Diagnosis - Headache barbara - Vomiting barbara - Unspecified kidney failure - insufficency barbara Followup: barbara - With: Private Physician - When: 2 - 3 days - Reason: Recheck today's complaints, Continuance of care, Re-evaluation by your physician Followup: barbara - With: - When: 2 - 3 days - Reason: Recheck today's complaints, Re-evaluation by your physician Discharge Instructions: - Discharge Summary Sheet barbara - General Headache Without Cause barbara - Migraine Headache barbara - Migraine Headache, [id number] barbara - General Headache Without Cause, [id number] barbara - Vomiting, Adult barbara Forms: - Medication Reconciliation Form barbara - Thank You Letter barbara - Antibiotic Education barbara - Prescription Opioid Use barbara Prescriptions: - Fioricet with Codeine [id number] mg Oral capsule - take 1 capsule by ORAL route every 4 hours as needed not to exceed 6 capsules barbara per 24hrs; 24 capsule; Refills: 0, Product Selection Permitted - Zofran 4 mg Oral Tablet - take 1 tablet by ORAL route every 12 hours As needed; 20 tablet; Refills: 0, barbara Product Selection Permitted - promethazine 25 mg Oral Tablet - take 1 tablet by ORAL route every 6 hours As needed prn as needed; 20 tablet; barbara Refills: 0, Product Selection Permitted Signatures: Dispatcher [employer] Rudy Das MD MD cha Hastedt, Jennifer, RN RN jh6
--- NOTE | 2022-05-05 11:04 | ER ---
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 States that she has a Hx of migraines and HTN. 07:35 Coronavirus screen: Vaccine status: Patient reports receiving the 2nd dose of the covid 6 vaccine. Ebola Screen: Patient negative for fever greater than or equal to 101.5 degrees Fahrenheit, and additional compatible Ebola Virus Disease symptoms Patient denies exposure to infectious person. Patient denies travel to an Ebola-affected area in the 21 days before illness onset. Initial Sepsis Screen: Does the patient meet any 2 criteria? RR > 20 per min. No. Patient's initial sepsis screen is negative. Does the patient have a suspected source of infection? No. Patient's initial sepsis screen is negative. Risk Assessment: Do you want to hurt yourself or someone else? Patient reports no desire to harm self or others. Onset of symptoms was May 05, 2022. 07:35 Method Of Arrival: Ambulatory [facility] 07:35 Acuity: CORNELIO 3 [facility] Triage Assessment: 07:35 General: Appears uncomfortable, Behavior is agitated, anxious. [facility] 07:35 Pain: Complains of pain in right temporal area and right side of forehead Pain [facility] currently is 10 out of 10 on a pain scale. Quality of pain is described as dull, throbbing. GI: Reports nausea, vomiting. Historical: - Allergies: 07:53 NKDA; 6 - PMHx: 07:53 Cancer, Breast; Myocardial infarction; Hypothyroidism; Hypertension; Gout; Diabetes - [facility] NIDDM; - Immunization history:: Adult Immunizations up to date. - Social history:: Smoking status: Patient denies any tobacco usage or history of. Screenin:49 Abuse screen: Denies threats or abuse. Denies injuries from another. Nutritional [facility] screening: No deficits noted. Tuberculosis screening: No symptoms or risk factors identified. Fall Risk IV access (20 points). Assessment: 07:54 General: see triage note. jh6 09:26 Reassessment: Patient and/or family updated on plan of care and expected duration. Pain jh6 level reassessed. Patient is alert, oriented x 3, equal unlabored respirations, skin warm/dry/pink. Patient states feeling better. Pain: Complains of pain in right temporal area and right side of forehead Pain currently is 4 out of 10 on a pain scale. Quality of pain is described as aching, dull. 11:00 Reassessment: Patient and/or family updated on plan of care and expected duration. Pain jh6 level reassessed. Patient is alert, oriented x 3, equal unlabored respirations, skin warm/dry/pink. Patient states feeling better. 11:00 Pain: Denies pain. 6 Vital Signs: 07:35 BP 164 / 93; Pulse 102; Resp 22; Temp 97.7; Pulse Ox 100% ; Weight 97.52 kg; Height 5 jh6 ft. 4 in. (162.56 cm); Pain 10/10; 09:23 BP 144 / 62; Pulse 83; Resp 98; Pulse Ox 100% ; Pain 4/10; jh6 07:35 Body Mass Index 36.90 (97.52 kg, 162.56 cm) 6 ED Course: 07:26 Patient arrived in ED. rg4 07:30 Rudy Foote MD is Attending Physician. barbara 07:35 Ruthy Sawant, RN is Primary Nurse. jh6 07:35 Bed in low position. Call light in reach. Side rails up X 1. Adult w/ patient. jh6 07:46 Inserted saline lock: 20 gauge in right antecubital area, using aseptic technique. kc6 Blood collected. 07:47 Comprehensive Metabolic Panel Sent. kc6 07:47 CBC with Diff Sent. kc6 07:52 Triage completed. jh6 07:54 CT Head Brain wo Cont In Process Unspecified. EDMS 07:[address] jh6 10:48 Urine Culture Sent. kc6 11:03 Nicolás Borjas MD is Referral Physician. barbara 11:30 IV discontinued, intact, bleeding controlled, No redness/swelling at site. Pressure jh6 dressing applied. Administered Medications: 07:48 Drug: NS 0.9% 500 ml Route: IV; Rate: bolus; Site: right antecubital; 6 07:48 Drug: Benadryl (diphenhydrAMINE) 50 mg Route: IVP; Site: right antecubital; 6 09:30 Follow up: Response: No adverse reaction 6 07:48 Drug: Reglan (metoCLOPramide) 10 mg Route: IVP; Site: right antecubital; 6 09:30 Follow up: Response: Nausea unchanged 6 07:48 Drug: Ketorolac 30 mg Route: IVP; Site: right antecubital; 6 09:30 Follow up: Response: Pain is decreased 6 10:09 Drug: Mucomyst - Acetylcysteine 600 mg Route: PO; 6 11:00 Follow up: Response: No adverse reaction [facility] 10:20 Drug: Zofran (Ondansetron) 4 mg Route: IVP; Site: right antecubital; 6 11:00 Follow up: Response: Nausea is decreased [facility] Outcome: 11:03 Discharge ordered by MD. jimenez 11:30 Discharged to home via wheelchair. [facility] 11:30 Condition: improved 11:30 Discharge instructions given to patient, family, Instructed on discharge instructions, follow up and referral plans. Demonstrated understanding of instructions, follow-up care, medications, Prescriptions given X 3. 11:31 Patient left the ED. 3 Signatures: Dispatcher [employer] Rudy Das MD MD cha Garcia, Rubi 4 Sheri Gaxiola 3 Ruthy Sawant RN RN jh6 Geraldine Guillen6
[2022-05-05 12:02] VITALS: TEMP 97.7; O2SAT 100
[2022-05-05 12:10] VITALS: BP 144/62
== END 2022-05-05 11:31 | disposition home or self-care (01) ==
LOC: ER 07:22
DX: R51.9 Headache, unspecified (principal); R11.10 Vomiting, unspecified; N28.9 Disorder of kidney and ureter, unspecified; I10 Essential (primary) hypertension; E11.9 Type 2 diabetes mellitus without complications
CPT/HCPCS: 87088; 85025; 87086; 36415; 81003; 80053; 70450; 96375; 96374; 99284; J2765; J1200; J7040; J2405

== ENCOUNTER 2022-06-29 15:56 | Observation (INO) | payer MEDICARE, OTHER ==
--- OUTSIDE RECORDS SUMMARY | 2022-06-29 15:59 | XMS REPORT | Continuity of Care Document ---
:1940 Author Organization [facility] t Address [address] [place] [address] Care Team Providers Name Role Phone NATE MORA Primary Care Physician Unavailable RAVI SESAY Attending Clinician Unavailable JEY HUNTER Attending Clinician Unavailable KIM VALDEZ Attending Clinician Unavailable Wilber Berry DO Attending Clinician RAVI SESAY Admitting Clinician Unavailable BALTA GRIFFITH Admitting Clinician Unavailable Payers Payer Name Policy Type Policy Number Effective Date Expiration Date Camron SeeMe [id number] 2019 00:00:00 SPRING Problems Condition Condition Condition Status Onset Resolution Last Treating Co mments Source Name Details Category Date Date Treatment Clinician Date Overlappin Overlappin Disease Active [facility] malignant malignant 00:00: [facility] dipak neoplasm neoplasm 00 Center of female of female breast breast TIA TIA Disease Active [facility] (transient (transient [facility] ischemic ischemic 00:00: Medica l attack) attack) 00 Center Suspected Suspected Disease Active [facility] cerebrovas cerebrovas 8-08 [facility] cular cular 00:00: Medical accident accident 00 Center (CVA) (CVA) Essential Essential Disease Active [facility] hypertensi hypertensi 8-08 [facility] on on 00:00: Medical 00 Center Type 2 Type 2 Disease Active 2019- [facility] diabetes diabetes [facility] mellitus mellitus 00:00: Medica l without without 00 Center complicati complicati on, on, without without long-term long-term current current use of use of insulin insulin Other Other Disease Active [facility] specified specified 04-03 [facility] hypothyroi hypothyroi 00:00: Me dical dism dism 00 Center Allergies, Adverse Reactions, Alerts Allergy Allergy Status Severity Reaction(s) Onset Inactive Treating Comm ents Source Name Type Date Date Clinician P[facility]IC[facility] DRUG Active Anaphylaxis Uni vers IN INGREDI 05-08 ity of 00:00: [address] Penic[facility] Drug Active Anaphylaxis [facility] 00:[facility]: Medical [address] [place] PENICILL Allergy Active High Anaphylaxis [facility] 04[facility] 00:[facility]: Medical [address] [place] NO KNOWN Allergy Active [facility]IE S NO KNOWN Drug Active Univers ALLERGIE Class ity of S [facility] Family History Family Member Diagnosis Comments Start Date Stop Date Source Natural brother Cancer [facility] Natural mother St[facility] Natural sister Cancer [facility] Social History Social Habit Start Date Stop Date Quantity Comments Source History SDOH [facility] Dr[facility] SDOH [facility] Alcohol Binge Medical [address] History SDOH 2020-04-04 2020-04-[address] [facility] Alcohol Frequency 00:00:00 00:00:00 [facility] Alcohol Comment 2020-04-03 2020-04-[address] [facility] 00:00:00 00:00:00 [facility] Tobacco use and 2020-04-03 2020-04-[address] [facility] exposure 00:00:00 00:00:00 [facility] Alcohol intake 2020-04-03 2020-04-03 Current drinker of [facility] 00:00:00 00:00:00 alcohol (finding) [facility] Sex Assigned At [address] [facility] 00:00:00 00:00:00 [facility] Smoking Status Start Date Stop Date Source Never sm[facility] Medications Ordered Filled Start Stop Current [...] subcutaneo M edical 47 usly once. Center metFORMIN 2020-0 Yes 1000mg Take 1,[address] (GLUCOPHAGE [...] 60 8-10 mg [facility] mg/mL Syrg 20:02: [facility] edical 47 usly once. Center Vital Signs [...] Medical Ce nter VACCINE (#1)] Future Scheduled 2022-04-27 INFLUENZA VACCINE (#1) [facility] Test 00:00:00 [code = INFLUENZA Medical Ce nter VACCINE (#1)] Future Scheduled 2021-08-[address] [facility] Test 00:00:00 (12+) [code = Medical Center DEPRESSION SCREENING (12+)] Future Scheduled 2021-08-27 FALLS RISK SCREENING [facility] Test 00:00:00 [code = FALLS RISK Medical C enter SCREENING] Future Scheduled 2021-08-[address] [facility] Test 00:00:00 (12+) [code = Medical Center DEPRESSION SCREENING (12+)] Future Scheduled 2021-08-27 FALLS RISK SCREENING [facility] Test 00:00:00 [code = FALLS RISK Medical C enter SCREENING] Future Scheduled 2020-10-[address] [facility] Test 00:00:00 measurement Medical Center (procedure) [code = 01655095] Future Scheduled 2020-10-[address] [facility] Test 00:00:00 measurement Medical Center (procedure) [code = 51815418] Future Scheduled 2020-08-[address] [facility] Test 00:00:00 WELLNESS (YEAR 2 or Medical Center FIRST YEAR if no IPPE) [code = MEDICARE ANNUAL WELLNESS (YEAR 2 or FIRST YEAR if no IPPE)] Future Scheduled 2020-08-[address] [facility] Test 00:00:00 WELLNESS (YEAR 2 or Medical Center FIRST YEAR if no IPPE) [code = MEDICARE ANNUAL WELLNESS (YEAR 2 or FIRST YEAR if no IPPE)] Future Scheduled 1992 SHINGLES VACCINES ([address] [facility] Test 00:00:00 of 2) [code = SHINGLES Medic al Center VACCINES (1 of 2)] Future Scheduled 1992 SHINGLES VACCINES ([address] [facility] Test 00:00:00 of 2) [code = SHINGLES Medic al Center VACCINES (1 of 2)] Future Scheduled 1961 DTAP/TDAP/TD VACCINES [facility] Test 00:00:00 (1 - Tdap) [code = Medical C enter DTAP/TDAP/TD VACCINES (1 - Tdap)] Future Scheduled 1961 DTAP/TDAP/TD VACCINES [facility] Test 00:00:00 (1 - Tdap) [code = Medical C enter DTAP/TDAP/TD VACCINES (1 - Tdap)] Future Scheduled 1960 HEPATITIS C SCREENING [facility] Test 00:00:00 [code = HEPATITIS C Medical Center SCREENING] Future Scheduled 1960 HEPATITIS C [facility]CRE[facility]ING [facility] Test 00:00:00 [code = HEPATITIS C Medical Center SCREENING] Future Scheduled [address] DIABETIC EYE EXAM [facility] Test 00:00:00 [code = DIABETIC EYE Medical Center EXAM] Future Scheduled [address] [facility] Test 00:00:00 examination Medical Center (regime/therapy) [code = 046502097] Future Scheduled 1952 Urine screening for [facility] Test 00:00:00 protein (procedure) Medical Center [code = 353877724] Future Scheduled [address] EYE EXAM [facility] Test 00:00:00 [code = DIABETIC EYE Medical Center EXAM] Future Scheduled [address] [facility] Test 00:00:00 examination Medical Center (regime/therapy) [code = 265909292] Future Scheduled 1952 Urine screening for [facility] Test 00:00:00 protein (procedure) Medical Center [code = 956330379] Future Scheduled 1948 PNEUMOCOCCAL 65+ Y[facility] Test 00:00:00 (1 - PCV) [code = Medical Ce nter PNEUMOCOCCAL 65+ YRS (1 - PCV)] Future Scheduled 1948 PNEUMOCOCCAL 65+ YRS [facility] Test 00:00:00 (1 - PCV) [code = Medical Ce nter PNEUMOCOCCAL 65+ YRS (1 - PCV)] Future Scheduled 1943-04-30 COVID-19 VACCINE (#1) [facility] Test 00:00:00 [code = COVID-[address] VACCINE (#1)] Future Scheduled 1943-04-30 COVID-19 VACCINE (#1) [facility] Test 00:00:00 [code = COVID-[address] VACCINE (#1)] Future Scheduled 1942 DXA SCAN [code = DXA [facility] Test 00:00:00 SCAN] Medical Center Future Scheduled 1942 DXA SCAN [code = DXA [facility] Test 00:00:00 SCAN] Medical Center Encounters Start End Encounter Admission Attending Care Care Encounter Source Date/Time Date/Time Type Type Clinicians Facility Department ID 2021-10-31 Outpatient [facility] [id number] Common 15:12:05 [facility] 2020-04-03 Inpatient ER SHAMA, [facility] General Med [id number] [facility] 20:16:00 RAVI 2020-11-122020-11-12 Outpatient [facility] [id number] Univers 13:40:00 13:40:00 [facility] 2020-11-01 2020-11-01 Outpatient R ELSA, [facility] [id number] Univers 13:45:00 13:45:[address] [facility] 2020-09-24 2020-09-24 Outpatient R JOSÉ MIGUEL, [facility] [id number] Univers 13:00:00 13:00:[address] [facility] 2020-05-08 2020-05-08 Emergency [facility] [id number] 19:23:00 23:28:00 Wilber Nalini [id number] [place] [id number] [place] [id number] 2020-05-08 2020-05-08 Emergency X [facility] ERT [id number] Univers 19:15:00 19:15:00 [facility] Results Test Description Test Time Test Comments Results Result Comments Source POCT-GLUCOSE METER 2020-04-06 07:42:00 Test Item Value Reference Range Interpretation Comme nts POC-GLUCOSE METER (BEAKER) 100 mg/dL 70-110 : TESTED AT [address] (test code = 1538) [place] [address]: Design Specialist/Techni sky ID = [id number] for KESHAWN ASHER EEG AWAKE AND [id number] 17:06:00Reason for exam:->r/o seizure. discharge pending this for today.ELECTROENCEPHALOGRAM Date(s) of EE04/05/2020 DATE OF REPORT: 04/05/2020 ACC: [id number] EEG Number:[id number] Test Location: Start time: 4:08 PM Stop time: 4:29 PM ICD-10: R56.9 CPT Code: 50002 HISTORY: 79yo R-handed female w/ Hx of breast cancer (s/p bilateral mastectomy, on hormone therapy), HTN, DM2 and hypothyroidism who presented to [facility] w/ transient R facial droop & R-sided numbness/weakness, now transferred for stroke workup. NIHSS at OSH was 3, improved to 2 by arrival at [facility].CT head w/o contrast negative for CVA or [...] Fellow Alec Juan MD Attending Neurophysiology [facility] [id number] 13:20:00 Test Item Value Reference Range Interpretation Comments RPR SCREEN ([employer]) (test code = Nonreactive Nonreactive 420) POCT-GLUCOSE [id number] 12:14:00 Test Item Value Reference Range Interpretation Comments POC-GLUCOSE METER 199 mg/dL 70-110 H : TESTED A T [facility] 6720 ([employer]) (test code = MILAD Nugent [facility], 1538) [address]: Design Specialist/Techni sky ID = [id number] for [place] ANGELA ROBERTS POCT-GLUCOSE [id number] 07:44:00 Test Item Value Reference Range Interpretation Comments POC-GLUCOSE METER 133 mg/dL 70-110 H : TESTED A T [facility] 6720 ([employer]) (test code = MILAD Raffi [facility], 1538) [address]: Design Specialist/Techni sky ID = [id number] for ANGELA STEVE [id number] 04:55:00 Test Item Value Reference Range Interpretation Comments PHOSPHORUS (BEAKER) (test code = 3.8 mg/dL 2.3-4.7 604) Design Specialist ID - [id number] 04:55:00 Test Item Value Reference Range Interpretation Comments MAGNESIUM (BEAKER) (test code = 1.5 mg/dL 1.6-2.6 L 627) Design Specialist ID - EDASIBASIC METABOLIC [id number] 04:55:00 Test Item Value Reference Range Interpretation [...] S NOT APPLICABLE FOR DIALYSIS PATIEN TS. Design Specialist ID - [id number] (HEMOGRAM ONLY)2020-04-05 04:25:00 Test [...] 0-0 (BEAKER) (test code = 413) POCT-GLUCOSE [id number] 20:26:00 Test Item Value Reference Range Interpretation Comments POC-GLUCOSE METER 158 mg/dL 70-110 H : TESTED A T [facility] 6720 (BEBANNER) (test code = MILAD Nugent [facility], 1538) [address]: Design Specialist/Techni sky ID = [id number] for TANISHA YOUNG SARS-COV2/RT-PCR ([facility])2020-04-04 18:40:00 Test Item Value Reference Range Interpretation Comments SARS-COV2/RT-PCR (test Negative Not Detected, Negative, code = 6074877) See external report for linked test SARS-COV-[address] [facility] AMBER (test code = 3015803) Negative result for this test determines that [...] of the Act.Fact Sheet for Healthcare Prov iders:https://www.[employer]/sites/default/files/product/documents/Fact_Sheet_HC _Tvxfaqsfq_Iebc_VADC-ZuI-9.pdfFact Sheet for Healthcare Patients:https://www.[employer]/sites/default/files/product/docume nts/Fpox_Uuvyk_Raezmhth_Cuaq_EDXG-PwL-5.pdfPerforming Laboratory:[place] [address], [place] [address]RR, BRAIN, WITHOUT [id number] 18:06:00FINAL REPORT MRI Brain without contrast Clinical [...] Balta Ortiz Verified Date/Time: 04/04/2020 18:06:36 POCT-GLUCOSE [id number] 17:18:00 Test Item Value Reference Range Interpretation Comments POC-GLUCOSE METER 179 mg/dL 70-110 H : TESTED A T [facility] 6720 (BEAKER) (test code = [facility], 1538) [address]: Design Specialist/Techni sky ID = [id number] for KESHAWN KRISHNA HEMOGLOBIN [id number] 10:37:00 Test Item Value Reference Range Interpretation Comments HEMOGLOBIN A1C (BEAKER) (test code = 6.3 % 4.3-6.1 H 368) POCT-GLUCOSE [id number] 08:24:00 Test Item Value Reference Range Interpretation Comments POC-GLUCOSE METER 123 mg/dL 70-110 H : TESTED A T [facility] 6720 (BEAKER) (test code = [facility], 1538) [address]: Design Specialist/Techni sky ID = [id number] for KESHAWN KRISHNA [id number] 05:45:00 Test Item Value Reference Range Interpretation Comments HOMOCYSTEINE (BEAKER) (test code 14.7 umol/L 5.1-15.4 = 642) Design Specialist ID - [id number] 05:35:00 Test Item Value Reference Range Interpretation Comments MAGNESIUM (BEAKER) 1.6 mg/dL 1.6-2.6 Specimen slightly (test code = 627) hemolyzed Design Specialist ID - [id number] 05:35:00 Test Item Value Reference Range Interpretation Comments PHOSPHORUS (BEAKER) 3.5 mg/dL 2.3-4.7 Specimen slightly (test code = 604) hemolyzed Design Specialist ID - EDASIBASIC METABOLIC [id number] 05:35:00 Test Item Value Reference Range Interpretation [...] S NOT APPLICABLE FOR DIALYSIS PATIEN TS. Design Specialist ID - [id number] (HEMOGRAM ONLY)2020-04-04 05:20:00 Test [...] (BEAKER) (test code = 413) CT, CTANGIO [id number] 01:46:00FINAL REPORT CLINICAL HISTORY: Neuro deficit, acute, [...] for signs acute sinusitis. Signed: Balta Ortiz [facility] Verified Date/Time: 04/04/2020 01:46:19 VITAMIN B12 AND [id number] 00:01:00 Test Item Value Reference Range Interpretation Comments VITAMIN B12 (BEAKER) (test code = 174 pg/mL 213-816 L 774) FOLATE (BEAKER) (test code = 362) 32.90 ng/mL >=7.00 Design Specialist ID - CARLOSGTSH/FREE T4 IF [id number] 23:59:00 Test Item Value Reference Range Interpretation Comments THYROID STIMULATING HORMONE 1.026 uIU/mL 0.350-4.940 (BEAKER) (test code = 772) Design Specialist ID - [id number] 22:41:00 Test Item Value Reference Range Interpretation Comments PHOSPHORUS (BEAKER) (test code = 3.0 mg/dL 2.3-4.7 604) Design Specialist ID - [id number] 22:41:00 Test Item Value Reference Range Interpretation Comments MAGNESIUM (BEAKER) (test code = 1.7 mg/dL 1.6-2.6 627) Design Specialist ID - CARLOSGCOMPREHENSIVE METABOLIC [id number] 22:41:00 Test Item Value Reference Range Interpretation [...] S NOT APPLICABLE FOR DIALYSIS PATIEN TS. Design Specialist ID - ROSIANGLIPID [id number] 22:41:00 Test Item Value Reference Range Interpretation [...] Borderline 130-159 High 160-189 Very High >=190 Design Specialist ID - CARLOSGC-REACTIVE [id number] 22:41:00 Test Item Value Reference Range Interpretation Comments C-REACTIVE PROTEIN (BEAKER) (test 0.92 mg/dL 0.00-0.50 H code = 676) Design Specialist ID - ROSIANGCBC W/PLT COUNT & AUTO [id number] 22:26:00 Test Item Value Reference Range Interpretation [...] PERCENT (BEAKER) (test code = 2801) POCT-GLUCOSE [id number] 21:02:00 Test Item Value Reference Range Interpretation Comments POC-GLUCOSE METER 114 mg/dL 70-110 H : TESTED A T [facility] 6720 (BEAKER) (test code = [place], 1538) [address]: Design Specialist/Techni sky ID = [id number] for Nell Bergeron (contrac t)
[2022-06-29] MEDS ORDERED: TENECTEPLASE 50 MG/10 ML VIAL IV ONE (17:29)
[2022-06-29 17:37] LABS: Hematocrit 35.2 % (36.0-45.0); Lymphocytes % 17.9 % (15.3-44.8); MCV 86.7 fL (80-100); MPV 8.1 fL (7.6-11.3); RBC Red Blood Cell Count 4.06 M/uL (3.86-4.86)
[2022-06-29 17:38] LABS: Protime INR 1.05
--- NOTE | 2022-06-29 17:45 | RAD REPORT ---
EXAM DESCRIPTION: CT - Ct Stroke Brain Wo Cont - 06/29/2022 5:29 pm CLINICAL HISTORY: syncope, right sided facial droop Headache, drowsiness COMPARISON: Head Brain Wo Cont dated 05/05/2022; Head angio dated 11/05/2020 TECHNIQUE: All CT scans are performed using dose optimization technique as appropriate and may inclu de automated exposure control or mA/KV adjustment according to patient size. FINDINGS: No intracranial hemorrhage, hydrocephalus or extra-axial fluid collection.No areas of brai n edema or evidence of midline shift. The paranasal sinuses and mastoids are clear. The calvarium is intact. IMPRESSION: No acute intracranial abnormality. If there is continued clinical concern for CVA, MR imaging of the brain would be recommended. The findings were discussed with doctor Foote in the emergency room on 06/29/2022 at 5:19 p.m. by telephone.
[2022-06-29 17:46] LABS: Albumin 3.7 g/dL (3.4-5.0)
[2022-06-29 17:57] LABS: Bilirubin Direct 0.1 mg/dL (0-0.2); Bilirubin Total 0.2 mg/dL (0.2-1.0); Protein, Total 7.4 g/dL (6.4-8.2); Troponin High Sensitivity 10.5 pg/mL (<58.9)
[2022-06-29 17:59] LABS: Magnesium 1.3 mg/dL (1.8-2.4)
[2022-06-29] MEDS ORDERED: MAGNESIUM SULFATE 1 gm IVPB 1 GM/100 ML BAG IV ONE (18:11)
--- NOTE | 2022-06-29 18:32 | RAD REPORT ---
EXAM DESCRIPTION: RAD - Chest Single View - 06/29/2022 6:03 pm CLINICAL HISTORY: syncope Chest pain. COMPARISON: Chest Single View dated 04/03/2020; Chest Single View dated 02/11/2020; Chest Single View d ated 08/29/2019; Chest Single View dated 10/11/2018; Chest For Pe Angio dated 02/11/2020 FINDINGS: Portable technique limits examination quality. The lungs are grossly clear. The heart is normal in size. No displaced fractures. IMPRESSION: No acute intrathoracic process suspected.
[2022-06-29 19:02] LABS: SARS-CoV-2 Antigen Rapid Res Negative (Negative)
--- NOTE | 2022-06-29 20:22 | EDPHYS ---
Physician Documentation [facility] Name: Becky Rodriguez Age: 81 yrs Sex: Female : 1940 Arrival Date: 06/29/2022 Time: 15:57 Bed 8 Private MD: ED Physician Rudy Foote HPI: 06/29 17:09 This 81 yrs old Female presents to ER via Wheelchair with complaints of Near Syncope, jmm Dizziness. 17:09 The patient has experienced syncope. Onset: The symptoms/episode began/occurred jmm acutely. Associated injury: The patient did not suffer any apparent associated injury. 17:19 Associated signs and symptoms:. jmm 17:20 This is a 81 year old female with a history of breast cancer, dm, gout, htn that jmm presents to the ED with complaints of syncope while at a restaurant. . 17:38 family states the patient was having speech difficulty during the episode. patient now jmm has a right sided facial droop. family states this is not normal for the patient. . Historical: - Allergies: 16:02 NKDA; jh5 - PMHx: 16:02 Cancer, Breast; Diabetes - NIDDM; Gout; Hypertension; Hypothyroidism; Myocardial jh5 infarction; - Immunization history:: Adult Immunizations up to date. - Social history:: Smoking status: Patient denies any tobacco usage or history of. ROS: 17:38 Cardiovascular: Negative for chest pain, palpitations, and edema. jmm 17:38 Constitutional: Positive for weakness. 17:38 Respiratory: Positive for shortness of breath. 17:38 Neuro: Positive for speech changes, syncope, weakness. 17:38 All other systems are negative. Exam: 17:38 Constitutional: This is a well developed, well nourished patient who is awake, alert, jmm and in no acute distress. 17:38 ENT: Moist Mucus Membranes Neck: Trachea midline, Supple Chest/axilla: Normal chest wall appearance and motion. Cardiovascular: Regular rate and rhythm. No edema appreciated Respiratory: Normal respirations, no respiratory distress appreciated Abdomen/GI: Non distended Back: Normal ROM Skin: General appearance color normal MS/ Extremity: Moves all extremities, no obvious deformities appreciated, no edema noted to the lower extremities 17:38 Head/face: Noted is right sided facial droop, spares the right eyebrow. 17:38 Neuro: Orientation: is normal, Mentation: is normal, Memory: is normal, Cranial nerves: facial droop noted on right, with forehead spared. Vital Signs: 16:01 BP 113 / 63; Pulse 101; Resp 18; Temp 98.6; Pulse Ox 97% ; Weight 88 kg; Height 5 ft. 5 jh5 in. (165.10 cm); 17:03 BP 133 / 66; jh5 17:42 BP 129 / 70; Pulse 78; mb8 18:35 mb8 21:55 vc1 16:01 Body Mass Index 32.28 (88.00 kg, 165.10 cm) jh5 18:35 See [facility] stroke flowsheet for vitals [facility] 21:55 See TNK flowsheet vc1 NIH Stroke Scale Scores: 17:38 NIHSS Score: 2 [facility] 17:48 NIHSS Score: 3 8 MDM: 17:01 Patient medically screened. barbara 17:43 Data reviewed: vital signs, nurses notes. [facility] 20:16 Counseling: I had a detailed discussion with the patient and/or guardian regarding: the [facility] historical points, exam findings, and any diagnostic results supporting the discharge/admit diagnosis, lab results, radiology results, the need for further work-up and treatment in the hospital. ED course: I discussed the patient with Dr. Borjas whom recommended tnk. I discussed risks of administration with patient and family whom agreed with plan of care. Unable to perform cta due to elevated creatinine. I discussed the patient with Dara Bernard, whom accepted the patient to Dr. Harley's service. . 06/29 16:13 Order name: Glucose, Ancillary Testing; Complete Time: 16:56 [facility] 06/29 17:08 Order name: Basic Metabolic Panel; Complete Time: 18:00 [facility] 06/29 17:08 Order name: CBC with Diff; Complete Time: 17:44 [facility] 06/29 17:08 Order name: Hepatic Function; Complete Time: 18:00 [facility] 06/29 17:08 Order name: High Sensitivity Troponin; Complete Time: 18:00 [facility] 06/29 17:08 Order name: Magnesium; Complete Time: 18:00 [facility] 06/29 17:08 Order name: Protime (+inr); Complete Time: 17:44 [facility] 06/29 17:08 Order name: Ptt, Activated; Complete Time: 17:44 [facility] 06/29 17:08 Order name: CT Stroke Brain w/o Contrast; Complete Time: 17:54 [facility] 06/29 17:08 Order name: Stroke CXR 1 View; Complete Time: 18:35 [facility] 06/29 18:27 Order name: SARS RAPID; Complete Time: 19:10 [facility] 06/29 17:08 Order name: EKG; Complete Time: 17:09 [facility] 06/29 17:08 Order name: Accucheck; Complete Time: 17:29 [facility] 06/29 17:08 Order name: Cardiac monitoring; Complete Time: 17:27 [facility] 06/29 17:08 Order name: EKG - Nurse/Tech; Complete Time: 17:29 [facility] 06/29 17:08 Order name: IV Saline Lock; Complete Time: 17:27 [facility] 06/29 17:08 Order name: Labs collected and sent; Complete Time: 17:27 [facility] 06/29 17:08 Order name: NPO; Complete Time: 17:27 [facility] 06/29 17:08 Order name: O2 Per Protocol; Complete Time: 17:27 [facility] 06/29 17:08 Order name: O2 Sat Monitoring; Complete Time: 17:27 [facility] 06/29 17:08 Order name: Stroke Swallow Screen; Complete Time: 18:20 [facility] 06/29 19:12 Order name: CT Head Angio [facility] 06/29 19:18 Order name: US Carotid Artery Bilateral; Complete Time: 20:31 [facility] Administered Medications: 17:43 Drug: TNK FOR STROKE - Tenecteplase 0.25 mg/kg {Co-Signature: ll1 (Armen hamlin8 RN).} Route: IV; Rate: per protocol; Site: right antecubital; 18:15 Drug: Magnesium Sulfate 1 grams Route: IVPB; Infused Over: 1 hrs; Site: right 8 antecubital; Disposition Summary: 06/29/22 20:21 Hospitalization Ordered Hospitalization Status: Inpatient Admission [facility] Provider: Dg Harley Location: Intensive Care Unit [facility] Condition: Stable [facility] Problem: new jmm Symptoms: have improved [facility] Bed/Room Type: Standard [facility] Room Assignment: 6-(06/29/22 20:53) Diagnosis - Cerebral infarction, unspecified [facility] Forms: - Medication Reconciliation Form [facility] - SBAR form [facility] NIH Stroke Scale - NIH Stroke Score Date: 06/29/2022 Time: 17:38 Total Score = 2 1a. Level of Consciousness (LOC) - 0(Alert) 1b. Level of Consciousness (LOC) (Month \T\ Age) - 0(Both) 1c. LOC Commands (Open \T\ Closes Eyes/Silk Weaver) - 0(Both) 2. Best Gaze (Lateral Gaze Paresis) - 0(Normal) 3. Visual Field Loss - 0(No visual loss) 4. Facial Palsy - 2(Partial paralysis) 5a. Left Arm: Motor (10-second hold) - 0(No drift) 5b. Right Arm: Motor (10-second hold) - 0(No drift) 6a. Left Leg: Motor (5-second hold - always test supine) - 0(No drift) 6b. Right Leg: Motor (5-second hold - always test supine) - 0(No drift) 7. Limb Ataxia (finger/nose \T\ heel/nicholson - test with eyes open) - 0(Absent) 8. Sensory Loss (pinprick arms/legs/face) - 0(Normal) 9. Best Language: Aphasia (description/naming/reading) - 0(No aphasia) 10. Dysarthria (speech clarity - read or repeat words) - 0(Normal) 11. Extinction and Inattention (visual/tactile/auditory/spatial/personal) - 0(No abnormality) Initials: [facility] NIH Stroke Scale - NIH Stroke Score Date: 06/29/2022 Time: 17:48 Total Score = 3 1a. Level of Consciousness (LOC) - 0(Alert) 1b. Level of Consciousness (LOC) (Month \T\ Age) - 0(Both) 1c. LOC Commands (Open \T\ Closes Eyes/Silk Weaver) - 0(Both) 2. Best Gaze (Lateral Gaze Paresis) - 0(Normal) 3. Visual Field Loss - 0(No visual loss) 4. Facial Palsy - 1(Minor Paralysis) 5a. Left Arm: Motor (10-second hold) - 0(No drift) 5b. Right Arm: Motor (10-second hold) - 0(No drift) 6a. Left Leg: Motor (5-second hold - always test supine) - 0(No drift) 6b. Right Leg: Motor (5-second hold - always test supine) - 0(No drift) 7. Limb Ataxia (finger/nose \T\ heel/nicholson - test with eyes open) - 0(Absent) 8. Sensory Loss (pinprick arms/legs/face) - 0(Normal) 9. Best Language: Aphasia (description/naming/reading) - 1(Mild to moderate aphasia) 10. Dysarthria (speech clarity - read or repeat words) - 1(Mild to Moderate) 11. Extinction and Inattention (visual/tactile/auditory/spatial/personal) - 0(No abnormality) Initials: mb8 Signatures: Dispatcher [employer] EDMS Haleigh Gayle RN RN Rudy Newman MD MD cha Mickail, Joel, PA PA jmm Rees, Jessica RN RN jh5 Moragn Willett RN RN mb8 Iris Bernard PA-C PA-C sb4 Armen Agrawal RN ll1 Corrections: (The following items were deleted from the chart) 19:18 19:18 Head angio ordered. EDMS EDMS 19:20 19:16 Neck Angio ordered. EDMS EDMS 20:53 20:21 chong denton
--- NOTE | 2022-06-29 20:22 | ER ---
Nurse's Notes [facility] Name: Becky Rodriguez Age: 81 yrs Sex: Female : 1940 Arrival Date: 06/29/2022 Time: 15:57 Bed 8 Private MD: Diagnosis: Cerebral infarction, unspecified Presentation: 06/29 16:01 Chief complaint: Patient states: was at [address] house with family and "blacked out" per 5 grand daughter. Pt is diabetic and hadnt eaten all day. Coronavirus screen: Vaccine status: Patient reports receiving the 2nd dose of the covid vaccine. Client denies travel out of the [place] in the last 14 days. Ebola Screen: Patient negative for fever greater than or equal to 101.5 degrees Fahrenheit, and additional compatible Ebola Virus Disease symptoms Patient denies exposure to infectious person. Patient denies travel to an Ebola-affected area in the 21 days before illness onset. Initial Sepsis Screen: Does the patient meet any 2 criteria? No. Patient's initial sepsis screen is negative. Does the patient have a suspected source of infection? No. Patient's initial sepsis screen is negative. Risk Assessment: Do you want to hurt yourself or someone else? Patient reports no desire to harm self or others. 16:01 Method Of Arrival: Wheelchair [facility] 16:01 Acuity: CORNELIO 3 5 Triage Assessment: 16:02 General: Appears comfortable, obese, well groomed, well developed, Behavior is calm, jh5 cooperative, appropriate for age. Pain: Denies pain. Historical: - Allergies: 16:02 NKDA; jh5 - PMHx: 16:02 Cancer, Breast; Diabetes - NIDDM; Gout; Hypertension; Hypothyroidism; Myocardial 5 infarction; - Immunization history:: Adult Immunizations up to date. - Social history:: Smoking status: Patient denies any tobacco usage or history of. Screenin:48 Abuse screen: Denies threats or abuse. Denies injuries from another. Nutritional mb8 screening: No deficits noted. Tuberculosis screening: No symptoms or risk factors identified. Fall Risk Fall in past 12 months (25 points). Secondary diagnosis (15 points) IV access (20 points). Ambulatory Aid- None/Bed Rest/Nurse Assist (0 pts). Gait- Weak (10 pts.). Mental Status- Oriented to own ability (0 pts). Total Weaver Fall Scale indicates High Risk Score (45 or more points). Fall prevention measures have been instituted. Side Rails Up X 2 Frequent Obs/Assessments Occuring Family Present and informed to notify staff if the need to leave the bedside As available patient and family educated on Fall Prevention Program and Strategies. 18:21 The patient has not been NPO before screening. The patient is alert, able to follow mb8 commands. The patient exhibits slurred or garbled speech. The patient is not exhibiting difficulty speaking. The patient does not exhibit difficulty understanding words. The patient is able to swallow own secretions with no drooling or need for suction. Patient tolerated one teaspoon of water. No drooling, immediate coughing, gurgling, or clearing of the throat was noted. The patient tolerated 90mL of water. No drooling, immediate coughing, gurgling, or clearing of the throat was noted. The patient passed the bedside swallow screening. Oral medications may be given as ordered. Contact Physician for further diet orders. Provider notified of bedside swallow screening results: Nicanor PEDROZA. Assessment: 17:46 Neuro: Reports dizziness, headache weakness. Neuro: Level of Consciousness is awake, mb8 alert, obeys commands, Oriented to person, place, time, situation, Appropriate for age Nipple Threader are weak bilaterally Moves all extremities. Weakness Gait is unsteady, Speech is slurred, Facial droop on right, Pupils are PERRLA, Pupil Size: 3 Intact. Cardiovascular: No deficits noted. Respiratory: No deficits noted. 19:00 Reassessment: Patient and/or family updated on plan of care and expected duration. Pain vc1 level reassessed. Patient is alert, oriented x 3, equal unlabored respirations, skin warm/dry/pink. Patient states symptoms have improved. 20:00 Reassessment: No changes from previously documented assessment. Patient and/or family vc1 updated on plan of care and expected duration. Pain level reassessed. 21:00 Reassessment: No changes from previously documented assessment. Patient and/or family vc1 updated on plan of care and expected duration. Pain level reassessed. 21:55 Reassessment: No changes from previously documented assessment. Patient and/or family vc1 updated on plan of care and expected duration. Pain level reassessed. Vital Signs: 16:01 BP 113 / 63; Pulse 101; Resp 18; Temp 98.6; Pulse Ox 97% ; Weight 88 kg; Height 5 ft. 5 jh5 in. (165.10 cm); 17:03 BP 133 / 66; jh5 17:42 BP 129 / 70; Pulse 78; mb8 18:35 mb8 21:55 vc1 16:01 Body Mass Index 32.28 (88.00 kg, 165.10 cm) jh5 18:35 See CTK stroke flowsheet for vitals mb8 21:55 See TNK flowsheet vc1 Vitals: 17:42 Cardiac Rhythm Assessment Sinus rhythm. mb8 18:35 Cardiac Rhythm Assessment Sinus rhythm. mb8 NIH Stroke Scale Scores: 17:38 NIHSS Score: 2 [facility] 17:48 NIHSS Score: 3 8 ED Course: 15:57 Patient arrived in ED. am2 16:02 Triage completed. [facility] 16:02 Arm band placed on right wrist. [facility] 16:58 Nicanor Enamorado PA is PHCP. [facility] 16:58 Rudy Foote MD is Attending Physician. [facility] 17:27 Morgan Willett, CURTIS is Primary Nurse. 8 17:30 Patient has correct armband on for positive identification. Placed in gown. Bed in low mb8 position. Call light in reach. Side rails up X2. Client placed on continuous cardiac and pulse oximetry monitoring. NIBP monitoring applied. hide spreader on. 17:30 Inserted saline lock: 18 gauge in right antecubital area, using aseptic technique. mb8 Blood collected. 17:31 CT Stroke Brain w/o Contrast In Process Unspecified. EDMS 17:49 No provider procedures requiring assistance completed. 8 18:06 Stroke CXR 1 View In Process Unspecified. EDMS 19:56 US Carotid Artery Bilateral In Process Unspecified. EDMS 20:20 Dg Harley is Hospitalizing Provider. [facility] 21:56 Patient admitted, IV remains in place. vc1 Administered Medications: 17:43 Drug: TNK FOR STROKE - Tenecteplase 0.25 mg/kg {Co-Signature: sahara1 (Armen hamlin8 RN).} Route: IV; Rate: per protocol; Site: right antecubital; 18:15 Drug: Magnesium Sulfate 1 grams Route: IVPB; Infused Over: 1 hrs; Site: right mb8 antecubital; Medication: 17:47 VIS not applicable for this client. mb8 Outcome: 20:21 Decision to Hospitalize by Provider. chong 21:55 Admitted to ICU accompanied by nurse, accompanied by tech, family with patient, via vc1 stretcher, room 6-, on monitor, with chart. 21:55 Condition: improved 21:55 Instructed on the need for admit. 21:[address] [facility] NIH Stroke Scale - NIH Stroke Score Date: 06/29/2022 Time: 17:38 Total Score = 2 1a. Level of Consciousness (LOC) - 0(Alert) 1b. Level of Consciousness (LOC) (Month \\T\\ Age) - 0(Both) 1c. LOC Commands (Open \\T\\ Closes Eyes/Military Police Officer) - 0(Both) 2. Best Gaze (Lateral Gaze Paresis) - 0(Normal) 3. Visual Field Loss - 0(No visual loss) 4. Facial Palsy - 2(Partial paralysis) 5a. Left Arm: Motor (10-second hold) - 0(No drift) 5b. Right Arm: Motor (10-second hold) - 0(No drift) 6a. Left Leg: Motor (5-second hold - always test supine) - 0(No drift) 6b. Right Leg: Motor (5-second hold - always test supine) - 0(No drift) 7. Limb Ataxia (finger/nose \\T\\ heel/nicholson - test with eyes open) - 0(Absent) 8. Sensory Loss (pinprick arms/legs/face) - 0(Normal) 9. Best Language: Aphasia (description/naming/reading) - 0(No aphasia) 10. Dysarthria (speech clarity - read or repeat words) - 0(Normal) 11. Extinction and Inattention (visual/tactile/auditory/spatial/personal) - 0(No abnormality) Initials: [facility] NIH Stroke Scale - NIH Stroke Score Date: 06/29/2022 Time: 17:48 Total Score = 3 1a. Level of Consciousness (LOC) - 0(Alert) 1b. Level of Consciousness (LOC) (Month \\T\\ Age) - 0(Both) 1c. LOC Commands (Open \\T\\ Closes Eyes/[employer] Police Officer) - 0(Both) 2. Best Gaze (Lateral Gaze Paresis) - 0(Normal) 3. Visual Field Loss - 0(No visual loss) 4. Facial Palsy - 1(Minor Paralysis) 5a. Left Arm: Motor (10-second hold) - 0(No drift) 5b. Right Arm: Motor (10-second hold) - 0(No drift) 6a. Left Leg: Motor (5-second hold - always test supine) - 0(No drift) 6b. Right Leg: Motor (5-second hold - always test supine) - 0(No drift) 7. Limb Ataxia (finger/nose \\T\\ heel/nicholson - test with eyes open) - 0(Absent) 8. Sensory Loss (pinprick arms/legs/face) - 0(Normal) 9. Best Language: Aphasia (description/naming/reading) - 1(Mild to moderate aphasia) 10. Dysarthria (speech clarity - read or repeat words) - 1(Mild to Moderate) 11. Extinction and Inattention (visual/tactile/auditory/spatial/personal) - 0(No abnormality) Initials: mb8 Signatures: Dispatcher [employer] EDNicanor John PA PA jmm Moreno, Amanda am2 Joseline Ann, RN RN jh5 Miroslava Cifuentes RN RN vc1 Morgan Willett RN RN mb8 Armen Agrawal RN ll1
--- NOTE | 2022-06-29 20:27 | RAD REPORT ---
EXAM DESCRIPTION: US - CP - 06/29/2022 7:55 pm CLINICAL HISTORY: right sided facial droop Headache, drowsiness COMPARISON: Neck Angio dated 11/05/2020 TECHNIQUE: Real-time sonographic evaluation of both carotid systems was performed. Doppler interroga tion was performed with waveform tracing bilaterally. FINDINGS: Normal high resistance waveforms are noted in both external carotid arteries. The common c arotid arteries and internal carotid arteries show normal low resistance waveforms. Mild plaque is seen in both carotid bulbs. Peak systolic and end diastolic velocity values and the IC A/CCA ratios are in the non-hemodynamically significant range. Antegrade flow seen in both vertebral arteries. IMPRESSION: Mild plaque is seen in both carotid bulbs. No evidence of a hemodynamically significant stenosis.
--- NOTE | 2022-06-29 20:30 | P.HP ---
Certification for Inpatient Patient admitted to: Observation With expected LOS: <2 Midnights Patient will require the following post-hospital care: None Practitioner: I am a practitioner with admitting privileges, knowledge of patient current condition, hospital course, and medical plan of care. Services: Services provided to patient in accordance with Admission requirements found in Title 42 Section 412.3 of the Code of Federal Regulations Patient History Date of Service: 06/29/22 Primary Care Provider: Tawanna Reason for admission: CVA s/p TNK History of Present Illness: Patient is a 81 year old female with past medical history significant for non insulin dependent type 2 diabetes, hypertension, hypothyroidism, CAD, and TIAs who presented to the ED after reported syncopal episode today. Family reports that patient "blacked out" then noticed aphasia and right sided facial droop. Dr. Borjas was consulted and recommended TNK as patient was in the window. Labs significant for WBC 11, Cr 1.73, hgb 11.7, BUN 29, magensium 1.3. Brain CT was negative for acute findings. Kidney function prevented head/neck CTA from being performed. She had carotid US that showed mild plaque in both carotid bulbs without evidence of a hemodynamically significant stenosis. The aphasia has resolved and facial droop have improved s/p TNK. Vital signs stable. Patient is admitted for further management. Allergies No Known Drug Allergies Allergy (Verified 01/26/18 20:22) Unknown Home Medications: Anastrozole [Arimidex*] 1 mg PO DAILY 01/26/18 Lisinopril [Zestril] 40 mg PO DAILY 01/26/18 Metformin HCl [Glucophage*] 500 mg PO BIDWM 01/26/18 Probenecid 500 mg PO BID 01/26/18 hydroCHLOROthiazide [Hydrochlorothiazide*] 12.5 mg PO DAILY 01/26/18 Methylprednisolone [Medrol dosepack] 4 mg PO DIRECTED #1 karely 08/29/19 Metoprolol Tartrate [Lopressor] 25 mg PO BID #60 tab 08/29/19 - Past Medical/Surgical History Diabetic: Yes -: Breast Ca -: NIDDM -: HTN -: Hypothyroidism -: Bilateral mastectomy -: L knee replacement -: cataract extraction with lens implant -: Cholecystectomy -: complete hysterectomy -: appendectomy -: R head sx, tumors removed Psychosocial/ Personal History: Patient lives at home. - Social History Smoking Status: Never smoker Alcohol use: Yes CD- Drugs: No Caffeine use: Yes Place of Residence: Home Review of Systems Neurological: Weakness, Change in Speech, Other (Syncope, Right sided facial droop) Physical Examination - Physical Exam General: Alert, In no apparent distress, Oriented x3 HEENT: Atraumatic, PERRLA, EOMI, Sclerae nonicteric Neck: Supple, 2+ carotid pulse no bruit, No LAD, Without JVD or thyroid abnormality Respiratory: Clear to auscultation bilaterally, Normal air movement Cardiovascular: Regular rate/rhythm, Normal S1 S2 Gastrointestinal: Normal bowel sounds, No tenderness Musculoskeletal: No tenderness Integumentary: No rashes Neurological: Normal gait, Normal speech, Normal strength at 5/5 x4 extr, Normal affect - Studies Laboratory Data (last 24 hrs) 06/29/22 17:27: PT 11.6, INR 1.05, APTT 30.1 06/29/22 17:27: WBC 11.00 H, Hgb 11.7 L, Hct 35.2 L, Plt Count 324 06/29/22 17:27: Sodium 138, Potassium 4.0, BUN 29 H, Creatinine 1.73 H, Glucose 173 H, Magnesium 1.3 L*, Total Bilirubin 0.2, AST 14 L, ALT 17, Alkaline Phosphatase 67 Assessment and Plan - Problems (Diagnosis) (1) CVA (cerebral vascular accident) Current Visit: Yes Status: Acute Qualifiers: CVA mechanism: unspecified Qualified Code(s): I63.9 - Cerebral infarction, unspecified (2) Hypertension Current Visit: Yes Status: Chronic Qualifiers: Hypertension type: primary hypertension Qualified Code(s): I10 - Essential (primary) hypertension (3) Hypothyroidism Current Visit: Yes Status: Chronic Qualifiers: Hypothyroidism type: acquired Qualified Code(s): E03.9 - Hypothyroidism, unspecified (4) Type 2 diabetes mellitus Current Visit: Yes Status: Chronic Qualifiers: Diabetes mellitus detention insulin use: without terminal manager use Diabetes mellitus complication status: with kidney complications Diabetes mellitus complication detail: with chronic kidney disease Chronic kidney disease stage: stage 3 (moderate) Chronic kidney disease stage 3 subtype: stage 3b (GFR 30- 44) Qualified Code(s): E11.22 - Type 2 diabetes mellitus with diabetic chronic kidney disease; N18.32 - Chronic kidney disease, stage 3b (5) Hypomagnesemia Current Visit: Yes Status: Acute - Plan Patient is admitted to ICU for observation s/p TNK administration. CVA symptoms have significantly improved, almost completely resolved. Head CT and carotid US negative. MRI stroke protocol and echo ordered for the morning. Neurology consulted. Speech and physical therapy consult. Aspirin, folic acid, and atorvastatin daily. Lipid panel, TSH, A1C ordered. Monitor and replete electrolytes per protocol. Patient appears to have chronic hypomagnesmia. Received replacement in ED. Reconcile and continue home medications. Full code. Discharge Plan: Home Plan to discharge in: 24 Hours - Advance Directives Does patient have a Living Will: No Does patient have a Durable POA for Healthcare: No - Code Status/Comfort Care Code Status Assessed: Yes (Full) Critical Care: No Time Spent Managing Pts Care (In Minutes): 50
[2022-06-29] MEDS: INSULIN -REGULAR HUMAN 50 UNIT/0.5 ML ML SQ SCH (21:02)
[2022-06-29] MEDS ORDERED: ATORVASTATIN 20 MG TAB PO SCH (21:02)
[2022-06-29] MEDS ORDERED: ACETAMINOPHEN 500 MG TAB PO PRN (21:02)
[2022-06-29] MEDS ORDERED: NA CHLORIDE 0.9% 1,000 ML IV SCH (21:02)
[2022-06-29] MEDS ORDERED: ALBUTEROL 2.5 MG/3 ML NEB SOL NEB PRN (21:02)
[2022-06-29] MEDS ORDERED: ONDANSETRON 4 MG/2 ML VIAL IV PRN (21:02)
[2022-06-29 22:58] VITALS: BMI 34.4
[2022-06-30 05:08] LABS: Absolute Lymphocytes (CBC) 2.8 K/uL (0.7-4.9); Hematocrit 29.6 % (36.0-45.0); Lymphocytes % 34.8 % (15.3-44.8); MCV 86.9 fL (80-100); MPV 8.2 fL (7.6-11.3); RBC Red Blood Cell Count 3.41 M/uL (3.86-4.86)
[2022-06-30 05:29] LABS: Magnesium 1.6 mg/dL (1.8-2.4); Phosphorus 3.9 mg/dL (2.5-4.9); Potassium 3.6 mmol/L (3.5-5.1); Thyroid Stimulating Hormone 1.38 uIU/mL (0.360-3.740)
[2022-06-30] MEDS ORDERED: MAGNESIUM SULFATE 1 gm IVPB 1 GM/100 ML BAG IV ONE (05:55)
[2022-06-30] MEDS: INSULIN -REGULAR HUMAN 50 UNIT/0.5 ML ML SQ SCH ×2 (07:30→11:30)
[2022-06-30 08:51] VITALS: O2SAT 94
[2022-06-30] MEDS ORDERED: POTASSIUM CL SA 10 MEQ TAB PO ONE (09:00)
[2022-06-30] MEDS ORDERED: FOLIC ACID 1 MG TABLET PO SCH (09:00)
--- NOTE | 2022-06-30 12:08 | RAD REPORT ---
EXAM DESCRIPTION: MRI - Brain Wo Cont - 06/30/2022 11:37 am CLINICAL HISTORY: CVA S/P TNK COMPARISON: MRA Head Wo Cont dated 06/30/2022; Brain Wo Cont dated 01/23/2017; MRI BRAIN WITHOUT CONTR AST dated 10/23/2013 TECHNIQUE: Sagittal T1-weighted images were obtained along with PD/heavily T2-weighted and T2-FLAIR images. Axial DWI and ADC mapping sequences were also obtained along with coronal heavily T2-weighted images were obtained. FINDINGS: No intracranial hemorrhage, mass or acute infarction. There is no edema or shift of midlin e structures. No extra-axial fluid collections. Signal voids are seen as a normal finding in the matthew r intracranial vessels. Mild chronic small vessel ischemic changes. Cerebral atrophy. Mastoid air cells and paranasal sinuses are clear. IMPRESSION: No acute intracranial abnormality. Specifically, no evidence of acute infarct. Mild reinsurance clerk lexy small vessel ischemic changes.
--- NOTE | 2022-06-30 12:13 | RAD REPORT ---
EXAM DESCRIPTION: MRI - MRA Head Wo Cont - 06/30/2022 11:37 am CLINICAL HISTORY: CVA S/P TNK CVA COMPARISON: Brain Wo Cont dated 01/23/2017; MRI BRAIN WITHOUT CONTRAST dated 10/23/2013; Head angio [place] 11/05/2020; Carotid Artery Bilateral dated 06/29/2022 FINDINGS: 3D noncontrast [id number] MR angiography of the [place] was performed. Possible high-grade focal stenosis of the left P1 segment of the posterior cerebral artery. There is also a mild stenosis of P2 on the left. The right posterior cerebral artery is widely patent. Both mi ddle cerebral arteries are patent. The anterior cerebral arteries are patent. Left dominant vertebral artery. 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 The visualized dural venous sinuses appear patent. IMPRESSION: No large vessel occlusion or aneurysm. Possible high-grade focal stenosis of the left P1 segment of the posterior cerebral artery.
[2022-06-30 15:04] VITALS: TEMP 97.4
--- NOTE | 2022-06-30 15:43 | P.DS ---
Admission Date: 06/29/22 Discharge Date: 06/30/22 Primary Care Provider: Tawanna Disposition: ROUTINE DISCHARGE Discharge Condition: FAIR Reason for Admission: CVA s/p TNK - Problems (1) TIA (transient ischemic attack) Current Visit: Yes Status: Acute (2) Hypomagnesemia Current Visit: Yes Status: Acute (3) Hypertension Current Visit: Yes Status: Chronic Qualifiers: Hypertension type: primary hypertension Qualified Code(s): I10 - Essential (primary) hypertension (4) Hypothyroidism Current Visit: Yes Status: Chronic Qualifiers: Hypothyroidism type: acquired Qualified Code(s): E03.9 - Hypothyroidism, unspecified (5) Type 2 diabetes mellitus Current Visit: Yes Status: Chronic Qualifiers: 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 insulin use: without group home use Diabetes mellitus complication status: with kidney complications Diabetes mellitus complication detail: with chronic kidney disease Chronic kidney disease stage: stage 3 (moderate) Chronic kidney disease stage 3 subtype: stage 3b (GFR 30- 44) Qualified Code(s): E11.22 - Type 2 diabetes mellitus with diabetic chronic kidney disease; N18.32 - Chronic kidney disease, stage 3b Brief History of Present Illness: Patient is a 81 year old female with past medical history significant for non insulin dependent type 2 diabetes, hypertension, hypothyroidism, CAD, and TIAs who presented to the ED after reported syncopal episode today. Family reports that patient "blacked out" then noticed aphasia and right sided facial droop. Dr. Borjas was consulted and recommended TNK as patient was in the window. Labs significant for WBC 11, Cr 1.73, hgb 11.7, BUN 29, magensium 1.3. Brain CT was negative for acute findings. Kidney function prevented head/neck CTA from being performed. She had carotid US that showed mild plaque in both carotid bulbs without evidence of a hemodynamically significant stenosis. The aphasia resolved and facial droop improved s/p TNK. Vital signs stable. Patient was hospitalized for further management. Hospital Course: Patient placed on observation in the ICU post TNKase. She was asymptomatic during the hospital stay, she had no aphasia or speech problem or swallowing problem. She is independent with ambulation. MRI of the brain did not show any acute CVA, no bleed. Lipid profile within normal range. Patient's symptoms could be related to another TIA. She was seen in consultation by neurology recommended medical management with aspirin, Plavix, folic acid and statin. Echocardiogram is done and the result is pending. Her magnesium level was low w hich was replaced. Patient is discharged with oral magnesium replacement, aspirin, Plavix, statins and folic acid. Vital Signs/Physical Exam: Temp Pulse Resp BP Pulse Ox 97.4 F 78 15 133/80 95 06/30/22 12:00 06/30/22 14:00 06/30/22 14:00 06/30/22 14:00 06/30/22 14:00 General: Alert, In no apparent distress, Oriented x3 HEENT: PERRLA, Mucous membr. moist/pink, Sclerae nonicteric Neck: Supple, JVD not distended Respiratory: Clear to auscultation bilaterally, Normal air movement Cardiovascular: No edema, Regular rate/rhythm, Normal S1 S2, No murmurs Gastrointestinal: Normal bowel sounds, Soft and benign, Non-distended, No tenderness Musculoskeletal: No swelling Integumentary: No rashes, No erythema, No cyanosis Neurological: Normal strength at 5/5 x4 extr, Cranial nerves 3-12 intact Laboratory Data at Discharge: WBC 7.90 K/uL (4.3-10.9) 06/30/22 04:41 Hgb 10.1 g/dL (12.0-15.0) L D 06/30/22 04:41 Hct 29.6 % (36.0-45.0) L 06/30/22 04:41 Plt Count 262 K/uL (152-406) 06/30/22 04:41 PT 11.6 SECONDS (9.5-12.5) 06/29/22 17:27 INR 1.05 06/29/22 17:27 APTT 30.1 SECONDS (24.3-36.9) 06/29/22 17:27 Sodium 138 mmol/L (136-145) 06/30/22 04:41 Potassium 3.6 mmol/L (3.5-5.1) 06/30/22 04:41 BUN 32 mg/dL (7-18) H 06/30/22 04:41 Creatinine 1.71 mg/dL (0.55-1.3) H 06/30/22 04:41 Glucose 94 mg/dL (74-106) 06/30/22 04:41 Phosphorus 3.9 mg/dL (2.5-4.9) 06/30/22 04:41 Magnesium 1.6 mg/dL (1.8-2.4) L 06/30/22 04:41 Total Bilirubin 0.2 mg/dL (0.2-1.0) 06/29/22 17:27 AST 14 U/L (15-37) L 06/29/22 17:27 ALT 17 U/L (12-78) 06/29/22 17:27 Alkaline Phosphatase 67 U/L (45-117) 06/29/22 17:27 Triglycerides 88 mg/dL (<150) 06/30/22 04:41 Cholesterol 130 mg/dL (<200) 06/30/22 04:41 HDL Cholesterol 57 mg/dL (40-60) 06/30/22 04:41 Cholesterol/HDL Ratio 2.28 06/30/22 04:41 Home Medications: Lisinopril [Zestril] 40 mg PO DAILY 01/26/18 Metformin HCl [Glucophage*] 1,000 mg PO BIDWM 01/26/18 hydroCHLOROthiazide [Hydrochlorothiazide*] 25 mg PO DAILY 01/26/18 Allopurinol 300 mg PO DIRECTED 06/29/22 Levothyroxine [Synthroid*] 75 mcg PO [id number] 06/29/22 Multivit-Min/FA/Lycopen/Lutein [Centrum Silver Tablet] 1 tab PO DAILY 06/29/22 Ondansetron [Zofran (Odt)*] 4 mg PO Q6H PRN 06/29/22 Aspirin [Aspirin EC 81 MG] 81 mg PO DAILY #30 tab 06/30/22 Atorvastatin Calcium [Lipitor*] 40 mg PO BEDTIME #30 tab 06/30/22 Clopidogrel Bisulfate [Plavix] 75 mg PO DAILY #30 tab 06/30/22 Folic Acid 1 mg PO DAILY #30 tab 06/30/22 Magnesium Oxide 400 mg PO BID #14 tab 06/30/22 New Medications: Aspirin [Aspirin EC 81 MG] 81 mg PO DAILY #30 tab Folic Acid 1 mg PO DAILY #30 tab Atorvastatin Calcium [Lipitor*] 40 mg PO BEDTIME #30 tab Magnesium Oxide 400 mg PO BID #14 tab Clopidogrel Bisulfate [Plavix] 75 mg PO DAILY #30 tab Diet: AHA Activity: Ad bailey Followup: Peter Gomez MD [Primary Care Provider] - 1-2 Weeks
[2022-06-30 16:51] VITALS: BP 137/86
--- NOTE | 2022-06-30 22:17 | CON ---
Reason For Consultation: Consultation called because of possible stroke, status post TNK. History Of Present Illness: Ms. Rodriguez is a 81-year-old patient with hypertension, diabetes mellitus, who said she had been off her aspirin for about 2 days as she ran out when she apparently blacked out and was noted as when she returned to have difficulty expressing herself along with right facial gloria oping. She came to [facility] within the window for TNKs and was noted again to have the ri ght facial drooping. CT scan of the head was negative. At most, an NIH Stroke Scale was 3 for facia l drooping, dysarthria, and aphasia. She again arrives at [facility] at 1557 and received T NKs at 1743. She did have some improvement noted within the hour. NIH Stroke Scale at the time she was admitted from the emergency room was still listed as a 3. She came up to the ICU and while there she felt she had to come back to her baseline, which does appear to have a slight asymmetry of the f katalina on the right, which perhaps predated the new stroke symptoms, but there is no aphasia and speech was clear. Most NIH would be a 1. Past Medical History: Hypertension, diabetes mellitus, history of breast cancer. Allergies: NO KNOWN ALLERGIES. Medications: Anastrozole 1 mg daily, lisinopril 40 mg daily, Glucophage 500 mg twice daily, probenec id 500 mg twice daily, hydrochlorothiazide 12.5 mg daily. She had a Medrol Dosepak earlier and metop rolol 25 mg twice daily. Past Medical History: Hyperthyroidism. Past Surgical History: Bilateral mastectomy, left knee replacement, cataract extraction, lens replac ements, cholecystectomy, hysterectomy, appendectomy, tumor removal from right hip. Social History: No cigarette smoking. Occasional alcohol. Caffeinated beverages. Review of Systems: Noted some asymmetry with slight decrease in the right face, but she denies any dysarthria or dysphag ia. No weakness in the arms or legs. No loss of sensation in the arms or legs. No psychiatric issu es or gastrointestinal issues or genitourinary issues. No active neurological issues. Physical Examination: Vital Signs: Blood pressure 133/80, pulse 78, respiratory rate 15, temperature 97.4, oxygen saturati on 94% on room air. Weight 200 pounds, height 5 feet 5 inches, BMI 33. General: Ms. Rodriguez is resting in ICU bed. HEENT: She is normocephalic, atraumatic. Sclerae anicteric. Oropharynx is pink and moist. Neck: Supple. Chest: Clear. Heart: Regular. Extremities: Show no clubbing, cyanosis, or edema. Neurological: She is alert and oriented to person, place, situation. She has no expressive or part time receptionist tive aphasia. She has a slight decrease in right nasolabial fold, but excellent excursions and smili ng. Otherwise, cranial nerves are intact. Motor exam is upper and lower extremities 5/5 proximally distally. Sensory exam decreased slightly to light touch and temperature in a stocking-glove fashion . Reflexes depressed and symmetric. Coordination is intact in upper and lower extremities. Because of knee issues when she ambulated with a front wheeled walker, did have an antalgic gait, but she wa s able to walk without an assistive device 150 feet. Laboratory Studies: Complete blood count with differential is essentially unremarkable except for mi ld anemia, hemoglobin 10.1, white blood cell count 7.9, platelets are normal at 262. INR 1.05. Chem istry is consistent with dehydration. Creatinine 1.71, BUN 32, glucose ranged 94 to 173. Hemoglobin A1c 5.7. Magnesium is very low on admission of 1.3, corrected today at 1.6, still low. Liver funct ion studies are unremarkable. LDL cholesterol 55, HDL 57. COVID testing is negative. She does not have atrial fibrillation on evaluation. Assessment: Ms. Rodriguez is list is noted to have hypertension, diabetes, hypothyroidism, and stroke fro m which she did receive TNK and there is no evidence of any residual findings on MRI and clinically s he is back to baseline. Plan: 1.Aspirin, Plavix, folic acid, and statin. 2.She may benefit from a 4-vessel angiogram to determine if she is a candidate for intra-arterial pr ocedures in the posterior circulation. 3.Discharge home. Follow up with Dr. Borjas in 2 weeks. ALEKSANDER/NELIDA Voice ID: [id number] Report ID: [id number]
--- NOTE | 2022-07-01 12:38 | EKG ---
Test Date: 2022-06-29 Test Time: 17:30:13 Supervisor Telephone Answering Service: SALEEM MEASUREMENT RESULTS: Intervals: Rate: 87 HI: 172 QRSD: 88 QT: 374 QTc: 450 [place]: P: 53 HI: 172 QRS: 46 T: 61 INTERPRETIVE STATEMENTS: Normal sinus rhythm Cannot rule out Anterior infarct, age undetermined Abnormal ECG Compared to ECG 04/03/2020 15:40:40 Sinus tachycardia no longer present Myocardial infarct finding still present Electronically Signed On 07-01-22 12:36:04 CDT by Carl Eduardo
--- NOTE | 2022-07-03 07:10 | ECHO ---
HEIGHT: 5 ft 5 in WEIGHT: 200 lb 14.4 oz DATE OF STUDY: 06/30/[address]: Iris Bernard 2-DIMENSIONAL: YES M.MODE: YES DOPPLER: YES COLOR FLOW: YES TDS: PORTABLE: YES DEFINITY: BUBBLE STUDY: DIAGNOSIS: STROKE CARDIAC HISTORY: CATHERIZATION: NO SURGERY: NO PROSTHETIC VALVE: NO PACEMAKER: NO MEASUREMENTS (cm) DIASTOLIC (NORMALS) SYSTOLIC (NORMALS) IVSd 1.0 (0.6-1.2) LA Diam 2.4 (1.9-4.0) LVEF 66% LVIDd 3.6 (3.5-5.7) LVIDs 2.3 (2.0-3.5) %FS 35% LVPWd 1.0 (0.6-1.2) Ao Diam 2.2 (2.0-3.7) 2 DIMENSIONAL ASSESSMENT: RIGHT ATRIUM: NORMAL LEFT ATRIUM: NORMAL RIGHT VENTRICLE: NORMAL LEFT VENTRICLE: NORMAL TRICUSPID VALVE: NORMAL MITRAL VALVE: MITRAL ANNULAR CALCIFICATION PULMONIC VALVE: NORMAL AORTIC VALVE: SCLEROSIS PERICARDIAL EFFUSION: NONE AORTIC ROOT: NORMAL LEFT VENTRICULAR WALL MOTION: NORMAL DOPPLER/COLOR FLOW: MILD MITRAL REGURGITATION, TRICUSPID REGURGITATION. NORMAL RIGHT VENTRICULAR SYSTOLIC PRESSURE. COMMENTS: NORMAL LEFT VENTRICULAR SIZE AND FUNCTION. MITRAL ANNULAR CALCIFICATION. MILD MITRAL REGURGITATION, TRICUSPID REGURGITATION. AORTIC SCLEROSIS. NO THROMBUS OR VEGETATION. TECHNOLOGIST: ALEKSANDR OBRIEN
== END 2022-06-30 16:25 | disposition home or self-care (01) ==
LOC: ER 15:56 → ERHOLD 20:42 → 3RD-ICU 21:34
PROVIDERS: ADMIT Internal Medicine; ATTEND Internal Medicine
DX: I63.9 Cerebral infarction, unspecified (principal); R29.703 NIHSS score 3; I10 Essential (primary) hypertension; E03.9 Hypothyroidism, unspecified; E11.22 Type 2 diabetes mellitus with diabetic chronic kidney disease; N18.32 Chronic kidney disease, stage 3b; E83.42 Hypomagnesemia; Z85.3 Personal history of malignant neoplasm of breast; Z20.822 Contact with and (suspected) exposure to COVID-19
CPT/HCPCS: 92977; 93005; 93306; 85025 ×2; 80048 ×2; 36415; 83735 ×2; 84100; 85610; 80061; 82947 ×2; 80076; 85730; 84443; 83036; 84484; 70450; 71045; 93880; 70551; 70544; 92523; 97112; 97116; 97161; 96375; 96374; 99291; 99292; 87811; J3101; J3475 ×2; J7030; G0378

== ENCOUNTER 2022-07-01 10:48 | Emergency (ER) | payer OTHER ==
--- OUTSIDE RECORDS SUMMARY | 2022-07-01 10:53 | XMS REPORT | Continuity of Care Document ---
:1940 Author Organization [facility] t Address [address] [place] [address] Care Team Providers Name Role Phone NATE MORA Primary Care Physician Unavailable RAVI SESAY Attending Clinician Unavailable JEY HUNTER Attending Clinician Unavailable KIM VALDEZ Attending Clinician Unavailable Wilber Berry DO Attending Clinician RAVI SESAY Admitting Clinician Unavailable BALTA GRIFFITH Admitting Clinician Unavailable Payers Payer Name Policy Type Policy Number Effective Date Expiration Date Camron Okan [id number] 2019 00:00:00 SPRING Problems Condition Condition Condition [...] [address] [facility] 8 [facility] mellitus mellitus 00:00: Medica l without without 00 Center complicati complicati on, on, without without long-term long-term current current use of use of insulin insulin Other Other Disease Active [facility] specified specified 04-03 [facility] hypothyroi hypothyroi 00:00: Me dical dism dism 00 Center Overlappin Overlappin Disease Active [facility] 04[facility]03 [facility] malignant malignant 00:00: Medi dipak neoplasm [...] vers IN INGREDI 05-08 ity of 00:00: [address] [facility] Drug Active Anaphylaxis [facility]03 [facility] [place] Allergy Active High Anaphylaxis [facility] 04[facility] 00[facility]00: Medical 00 [place] NO KNOWN Allergy Active [facility]ERG[facility] S NO KNOWN Drug Active Univers ALLERGIE Class ity of S [facility] Family History Family Member Diagnosis Comments Start Date Stop Date Source Natural brother Cancer [facility] Natural mother Stroke [facility] Natural sister Cancer [facility] Social History Social Habit Start Date Stop Date Quantity Comments Source History SDOH [facility] Drinks History SDOH [facility] Alcohol Binge Medical [address] [facility] History SDOH 2020-04-04 2020-04-[address] [facility] Alcohol Frequency 00:00:00 00:00:00 [facility] Alcohol Comment 2020-04-03 2020-04-[address] [facility] 00:00:00 00:00:00 [facility] Tobacco use and 2020-04-03 2020-04-[address] [facility] exposure 00:00:00 00:00:00 [facility] Alcohol intake 2020-04-03 2020-04-03 Current drinker [facility] 00[facility]00 [facility]finding[facility] Sex Assigned At [address] [facility] 00:00:00 00:00:00 [facility] Smoking Status Start Date Stop Date Source Never smoker [facility] Medications Ordered Filled Start Stop Current [...] 00:00:00 measurement Medical Center (procedure) [code = 90583820] Future Scheduled 2020-10-[address] [facility] Test 00:00:00 measurement Medical Center (procedure) [code = 82703201] Future Scheduled 2020-10-[address] [facility] [address] [facility] Test 00:00:00 measurement Medical Center (procedure) [code = 63457103] Future Scheduled 2020-08-[address] [...] 00:00:00 examination Medical Center (regime/therapy) [code = 183147869] Future Scheduled 1952 Urine screening for [facility] Test 00:00:00 protein (procedure) Medical Center [code = 615857925] Future Scheduled 1950 DIABETIC EYE EXAM [facility] Test 00:00:00 [code = DIABETIC EYE Medical Center EXAM] Future Scheduled [address] [facility] Test 00:00:00 examination Medical Center (regime/therapy) [code = 108760276] Future Scheduled 1952 Urine screening for [facility] Test 00:00:00 protein (procedure) Medical Center [code = 191782077] Future Scheduled 1950 DIABETIC EYE EXAM [facility] Test 00:00:00 [code = DIABETIC EYE Medical Center EXAM] Future Scheduled [address] Test 00:00:00 examination Medical Center (regime/therapy) [code = 814709995] Future Scheduled 1952 Urine screening for [facility] Test 00:00:00 protein (procedure) Medical Center [code = 481322613] Future Scheduled 1946 PNEUMOCOCCAL 65+ YRS [facility] [...] Type Clinicians Facility Department ID 2021-10-31 Outpatient [facility] [id number] Common 15:12:05 [facility] 2020-04-03 Inpatient ER [facility], [facility] Med [id number] SLE 20:16:00 RAVI 2020-11-12 2020-11-12 Outpatient [facility] [id number] Univers 13:40:00 13:40:00 [facility] 2020-11-01 2020-11-01 Outpatient Raffi HUNTER, [facility] [id number] Univers 13:45:00 13:45:00 JEY [facility] 2020-09-24 2020-09-24 Outpatient Raffi VALDEZ, [facility] [id number] Univers 13:00:00 13:00:00 KIM [facility] 2020-05-08 2020-05-08 Emergency [facility] [id number] 19:23:00 23:28:00 Wilber Gayle [id number] [place] [id number] [place] [id number] 2020-05-08 2020-05-08 Emergency X [facility] ERT [id number] Univers 19:15:00 19:15:00 [facility] Results Test Description Test Time Test Comments Results Result Comments Source POCT-GLUCOSE METER 2020-04-06 07:42:00 Test Item Value Reference Range Interpretation Comme nts POC-GLUCOSE METER (BEAKER) 100 mg/dL 70-110 : TESTED AT [facility] [address] (test code = 1538) SILVIA Self, [address]: Disbursing Agent/Techni sky ID = [id number] for KESHAWN ASHER EEG AWAKE AND [id number] 17:06:00Reason for exam:->r/o seizure. discharge pending this for today.ELECTROENCEPHALOGRAM Date(s) of EE04/05/2020 DATE OF REPORT: 04/05/2020 ACC: [id number] EEG Number:[id number] Test Location: Start time: 4:08 PM Stop time: 4:29 PM ICD-10: R56.9 CPT Code: 80313 HISTORY: 79yo R-handed female w/ Hx of breast cancer (s/p bilateral mastectomy, on hormone therapy), HTN, DM2 and hypothyroidism who presented to [facility] w/ transient R facial droop & R-sided numbness/weakness, now transferred for stroke workup. NIHSS at OSH was 3, improved to 2 [address] [facility]. CT head w/o contrast negative for CVA or bleed, MRI showed no futher evidence of acute infarct. CTAshows questionable multifocal intracranial stenosis, but would not explain symptoms. Want to r/o seizure given the transient word-finding difficulty. MEDICATIONS THAT COULD AFFECT EEG: aspirin, atorvastatin, cyanocobalamin, enoxaparin TECHNICAL SUMMARY: This is a digital video-EEG recorded with 32 input channels reviewed with bipolar and referential montages using the modified combinatorial system nomenclature. DESCRIPTION OF RECORD: During the maximally alert state, a well-developed, tiif-ileioexds5-39 Hz posterior dominant rhythm was seen that [...] done from 1-33 Hz. Photic stimulation was ph ysiologic. IMPRESSION: Normal Awake and Drowsy /Sleep EEG CLINICAL CORRELATION: An EEG without epileptiform discharges does not exclude the possibility of epilepsy. It the clinical suspicion of epilepsy remains, consider additional EEG recordings. Antoinette Nuno MD Neurophysiology Fellow Alec Juan MD Attending Neurophysiology [facility] [id number] 13:20:00 Test Item Value Reference Range Interpretation Comments RPR SCREEN (BEAKER) (test code = Nonreactive Nonreactive 420) POCT-GLUCOSE [id number] 12:14:00 Test Item Value Reference Range Interpretation Comments POC-GLUCOSE METER 199 mg/dL 70-110 H : TESTED A T [facility] [address] (BEAKER) (test code = [facility], 1538) [address]: Disbursing Agent/Techni sky ID = [id number] for ZOE INSONU, ANGLEA POCT-GLUCOSE [id number] 07:44:00 Test Item Value Reference Range Interpretation Comments POC-GLUCOSE METER 133 mg/dL 70-110 H : TESTED A T [facility] [address] (BEAKER) (test code = [facility], 1538) [address]: Disbursing Agent/Techni sky ID = [id number] for ZOE INSONU, ANGELA [id number] 04:55:00 Test Item Value Reference Range Interpretation Comments PHOSPHORUS (BEAKER) (test code = 3.8 mg/dL 2.3-4.7 604) Disbursing Agent ID - [id number] 04:55:00 Test Item Value Reference Range Interpretation Comments MAGNESIUM (BEAKER) (test code = 1.5 mg/dL 1.6-2.6 L 627) Disbursing Agent ID - EDASIBASIC METABOLIC [id number] 04:55:00 Test Item Value Reference Range Interpretation [...] S NOT APPLICABLE FOR DIALYSIS PATIEN TS. Disbursing Agent ID - EDASICBC (HEMOGRAM ONLY)2020-04-05 04:25:00 Test [...] 0-0 (BEAKER) (test code = 413) POCT-GLUCOSE [id number] 20:26:00 Test Item Value Reference Range Interpretation Comments POC-GLUCOSE METER 158 mg/dL 70-110 H : TESTED A T [facility] [address] (BEAKER) (test code = [place], 1538) [address]: Disbursing Agent/Techni sky ID = [id number] for TANISHA YOUNG SARS-COV2/RT-PCR ([facility])2020-04-04 18:40:00 Test Item Value Reference Range Interpretation Comments SARS-COV2/RT-PCR (test Negative Not Detected, Negative, code = 4753328) See external report for linked test SARS-COV-[address] [facility] (test code = 2482883) Negative result for this test determines that [...] of the Act.Fact Sheet for Healthcare Prov iders:https://www.[employer]/sites/default/files/product/documents/Fact_Sheet_HC _Ytfzifxqp_Czvt_CGEU-MzS-3.pdfFact Sheet for Healthcare Patients:https://www.[employer]/sites/default/files/product/docume nts/Smob_Thclr_Iggurpbt_Xcjf_FSBC-CcA-6.pdfPerforming Laboratory:[facility], [place] [address]TI, BRAIN, WITHOUT [id number] 18:06:00FINAL REPORT MRI Brain without contrast Clinical [...] acute infarct, hemorrhage, or hydrocephalus. Signed: Balta [facility] Verified Date/Time: 04/04/2020 18:06:36 POCT-GLUCOSE [id number] 17:18:00 Test Item Value Reference Range Interpretation Comments POC-GLUCOSE METER 179 mg/dL 70-110 H : TESTED A T [facility] 6720 (BEAKER) (test code = [facility], 1538) [address]: Disbursing Agent/Techni sky ID = [id number] for KESHAWN KRISHNA HEMOGLOBIN [id number] 10:37:00 Test Item Value Reference Range Interpretation Comments HEMOGLOBIN A1C (BEAKER) (test code = 6.3 % 4.3-6.1 H 368) POCT-GLUCOSE [id number] 08:24:00 Test Item Value Reference Range Interpretation Comments POC-GLUCOSE METER 123 mg/dL 70-110 H : TESTED A T [facility] [address] (BEAKER) (test code = [facility], 1538) [address]: Disbursing Agent/Techni sky ID = [id number] for KESAHWN KRISHNA [id number] 05:45:00 Test Item Value Reference Range Interpretation Comments HOMOCYSTEINE (BEAKER) (test code 14.7 umol/L 5.1-15.4 = 642) Disbursing Agent ID - [id number] 05:35:00 Test Item Value Reference Range Interpretation Comments MAGNESIUM (BEAKER) 1.6 mg/dL 1.6-2.6 Specimen slightly (test code = 627) hemolyzed Disbursing Agent ID - [id number] 05:35:00 Test Item Value Reference Range Interpretation Comments PHOSPHORUS (BEAKER) 3.5 mg/dL 2.3-4.7 Specimen slightly (test code = 604) hemolyzed Disbursing Agent ID - EDASIBASIC METABOLIC [id number] 05:35:00 Test Item Value Reference Range Interpretation [...] S NOT APPLICABLE FOR DIALYSIS PATIEN TS. Disbursing Agent ID - EDASICBC (HEMOGRAM ONLY)2020-04-04 05:20:00 Test [...] (BEAKER) (test code = 413) CT, CTANGIO [id number] 01:46:00FINAL REPORT CLINICAL HISTORY: Neuro deficit, acute, [...] Correlate for signs acute sinusitis. Signed: Balta [facility] Verified Date/Time: 04/04/2020 01:46:19 VITAMIN B12 AND [id number] 00:01:00 Test Item Value Reference Range Interpretation Comments VITAMIN B12 (BEAKER) (test code = 174 pg/mL 213-816 L 774) FOLATE (BEAKER) (test code = 362) 32.90 ng/mL >=7.00 Disbursing Agent ID - ROSIANGTSH/FREE T4 IF [id number] 23:59:00 Test Item Value Reference Range Interpretation Comments THYROID STIMULATING HORMONE 1.026 uIU/mL 0.350-4.940 (BEAKER) (test code = 772) Disbursing Agent ID - [id number] 22:41:00 Test Item Value Reference Range Interpretation Comments PHOSPHORUS (BEAKER) (test code = 3.0 mg/dL 2.3-4.7 604) Disbursing Agent ID - [id number] 22:41:00 Test Item Value Reference Range Interpretation Comments MAGNESIUM (BEAKER) (test code = 1.7 mg/dL 1.6-2.6 627) Disbursing Agent ID - ROSIANGCOMPREHENSIVE METABOLIC [id number] 22:41:00 Test Item Value Reference Range Interpretation [...] S NOT APPLICABLE FOR DIALYSIS PATIEN TS. Disbursing Agent ID - ROSIANGLIPID [id number] 22:41:00 Test Item Value Reference Range Interpretation [...] Borderline 130-159 High 160-189 Very High >=190 Disbursing Agent ID - ROSIANGC-REACTIVE [id number] 22:41:00 Test Item Value Reference Range Interpretation Comments C-REACTIVE PROTEIN (BEAKER) (test 0.92 mg/dL 0.00-0.50 H code = 676) Disbursing Agent ID - ROSIANGCBC W/PLT COUNT & AUTO [id number] 22:26:00 Test Item Value Reference Range Interpretation [...] PERCENT (BEAKER) (test code = 2801) POCT-GLUCOSE [id number] 21:02:00 Test Item Value Reference Range Interpretation Comments POC-GLUCOSE METER 114 mg/dL 70-110 H : TESTED A T [facility] [address] (BEAKER) (test code = [place], 1538) [address]: Disbursing Agent/Techni sky ID = [id number] for Nell Bergeron (contrac t)
[2022-07-01] MEDS ORDERED: ONDANSETRON 4 MG/2 ML VIAL ONE (11:50)
[2022-07-01] MEDS ORDERED: HYDROMORPHONE HCL 1 MG/ML INJ ONE (11:50)
[2022-07-01 12:12] LABS: Absolute Lymphocytes (CBC) 1.5 K/uL (0.7-4.9); Hematocrit 33.6 % (36.0-45.0); Lymphocytes % 13.3 % (15.3-44.8); MCV 86.4 fL (80-100); MPV 8.2 fL (7.6-11.3); RBC Red Blood Cell Count 3.89 M/uL (3.86-4.86)
[2022-07-01 12:30] LABS: Albumin 3.5 g/dL (3.4-5.0); Bilirubin Total 0.5 mg/dL (0.2-1.0); Potassium 4.5 mmol/L (3.5-5.1); Protein, Total 7.7 g/dL (6.4-8.2); Troponin High Sensitivity 11.2 pg/mL (<58.9)
--- NOTE | 2022-07-01 12:31 | RAD REPORT ---
EXAM DESCRIPTION: CTAbdomen Pelvis Wo Contrast - 07/01/2022 12:11 pm CLINICAL HISTORY: Left flank pain COMPARISON: Abdomen Exam Limited dated 11/29/2021tone Protocol dated 01/07/2016 TECHNIQUE: CT of the abdomen and pelvis was performed. All CT scans are performed using dose optimization technique as appropriate and may include automated exposure control or mA/KV adjustment according to patient size. FINDINGS: Lower chest: Multi-vessel coronary artery disease. Mitral annular calcifications. Liver: No acute abnormality or suspicious lesions. Biliary: No biliary ductal dilatation. Stomach: No significant focal abnormality. Duodenum: No significant focal abnormality. Pancreas: No significant abnormality. Spleen: No significant abnormality. Adrenal: No suspicious lesions. Kidney/ureter: No hydronephrosis. No renal calculi. Retroperitoneum: No retroperitoneal adenopathy. Vascular: No aneurysm. Bowel: Diverticulosis. No evidence of acute diverticulitis. Appendix not identified. No secondary sig ns of acute appendicitis. . Peritoneum: No ascites or free air. Small fat containing umbilical hernia. Bladder: Grossly unremarkable. Reproductive: No adnexal masses. Hysterectomy Bones: No acute fracture. Grade 1 anterolisthesis of L5 on S1. Other: n/a IMPRESSION: No acute intra-abdominal or pelvic finding. No urinary tract calculi or hydronephrosis.
[2022-07-01] MEDS ORDERED: PROMETHAZINE INJ 25 MG/ML AMP ONE (14:46)
[2022-07-01 15:02] LABS: Urine Blood Negative (Negative); Urine Glucose Negative (Negative); Urine Protein 1+ (Negative); Urine Specific Gravity >=1.030 (1.005-1.030)
[2022-07-01 15:48] LABS: Urine Bacteria 20-50 /HPF (<20); Urine Mucus Slight /HPF (None Seen); Urine RBC 21-50 /HPF (None Seen)
--- NOTE | 2022-07-01 16:24 | EDPHYS ---
Physician Documentation [facility] Name: Becky Rodriguez Age: 81 yrs Sex: Female : 1940 Arrival Date: 07/01/2022 Time: 10:51 Bed 18 Private MD: ED Physician Adria Montoya HPI: 07/01 13:05 This 81 yrs old Female presents to ER via Ambulatory with complaints of Low Back Pain. sp3 13:05 31-year-old female with distant breast cancer, diabetes, hypertension who was sp3 discharged yesterday from the intensive care unit subsequent to receiving lytic therapy for CVA. Patient was on the hospitalist service. After arriving at home yesterday, she developed left flank and low back pain which throughout the night and into today has gotten much more severe in nature. Pain is described as dull and constant while waxing and waning in severity. No prior history of similar pain. No prior history of kidney stones and no reports of muscle pain or exertion. She denies hematuria, urinary frequency, fever, abdominal pain, nausea, vomiting, diarrhea, or any other symptoms at this time.. Historical: - Allergies: 11:25 NKDA; ss - Home Meds: 11:27 magnesium oxide 400 mg magnesium Oral tab daily [Active]; folic acid 1 mg Oral tab 1 ss tab once daily [Active]; Plavix 75 mg Oral tab 1 tab once daily [Active]; 11:28 promethazine 25 mg Oral tab 1 tab every 6 hours [Active]; lisinopril 40 mg Oral tab 1 ss tab once daily [Active]; levothyroxine 75 mcg cap 1 cap once daily [Active]; hydrochlorothiazide 25 mg Oral tab 1 tab once daily [Active]; amlodipine 5 mg tab 1 tab once daily [Active]; Butalbital Compound 50-325-40 mg Oral cap 1 cap every 4 hours [Active]; ondansetron HCl 4 mg Oral tab 1 tab 2 times per day [Active]; - PMHx: 11:25 Cancer, Breast; Diabetes - NIDDM; Gout; Hypertension; Hypothyroidism; Myocardial ss infarction; CVA; - Immunization history:: Client reports receiving the 2nd dose of the Covid vaccine. - Social history:: Smoking status: Patient denies any tobacco usage or history of. ROS: 13:07 Constitutional: Negative for fever, chills, and weight loss, Eyes: Negative for injury, sp3 pain, redness, and discharge, ENT: Negative for injury, pain, and discharge, Neck: Negative for injury, pain, and swelling, Cardiovascular: Negative for chest pain, palpitations, and edema, Respiratory: Negative for shortness of breath, cough, wheezing, and pleuritic chest pain, Back: Negative for injury and pain, MS/Extremity: Negative for injury and deformity, Skin: Negative for injury, rash, and discoloration, Neuro: Negative for headache, weakness, numbness, tingling, and seizure, Psych: Negative for depression, anxiety, suicide ideation, homicidal ideation, and hallucinations, Allergy/Immunology: Negative for hives, rash, and allergies, Endocrine: Negative for neck swelling, polydipsia, polyuria, polyphagia, and marked weight changes. 13:07 All other systems are negative. Exam: 13:08 Constitutional: This is a well developed, well nourished patient who is awake, alert, sp3 and in no acute distress. Head/Face: Normocephalic, atraumatic. Eyes: Pupils equal round and reactive to light, extra-ocular motions intact. Lids and lashes normal. Conjunctiva and sclera are non-icteric and not injected. Cornea within normal limits. Periorbital areas with no swelling, redness, or edema. ENT: Nares patent. No nasal discharge, no septal abnormalities noted. External auditory canals are clear. Oropharynx with no redness, swelling, or masses, exudates, or evidence of obstruction, uvula midline. Mucous membranes moist. Neck: Trachea midline, no thyromegaly or masses palpated, and no cervical lymphadenopathy. Supple, full range of motion without nuchal rigidity, or vertebral point tenderness. No Meningismus. Chest/axilla: Normal chest wall appearance and motion. Nontender with no deformity. No lesions are appreciated. Cardiovascular: Regular rate and rhythm with a normal S1 and S2. No gallops, murmurs, or rubs. Normal PMI, no JVD. No pulse deficits. Respiratory: Lungs have equal breath sounds bilaterally, clear to auscultation and percussion. No rales, rhonchi or wheezes noted. No increased work of breathing, no retractions or nasal flaring. Abdomen/GI: Soft, non-tender, with normal bowel sounds. No distension or tympany. No guarding or rebound. No evidence of tenderness throughout. Skin: Warm, dry with normal turgor. Normal color with no rashes, no lesions, and no evidence of cellulitis. 13:08 Back: Positive CVA tenderness on the left side and mild pain to palpation on the left lower back although out of proportion to the level of pain she is having.. Vital Signs: 11:23 BP 92 / 60; Pulse 89; Resp 16; Temp 98.8(TE); Pulse Ox 97% on R/A; Weight 88 kg; Height ss 5 ft. 4 in. (162.56 cm); Pain 10/10; 11:49 BP 115 / 56; Pulse 85; Resp 18; Pulse Ox 95% on R/A; db 12:51 Pain 0/10; db 14:00 BP 110 / 54; Pulse 78; Resp 18; Pulse Ox 99% 2 lpm ; db 15:00 BP 116 / 55; Pulse 74; Resp 18; Pulse Ox 95% on R/A; db 15:30 BP 113 / 57; Pulse 73; Resp 18 S; Pulse Ox 97% on R/A; db 16:00 BP 107 / 54; Pulse 69; Resp 18; Pulse Ox 95% on R/A; db 11:23 Body Mass Index 33.30 (88.00 kg, 162.56 cm) ss MDM: 11:46 Patient medically screened. sp3 13:09 Data reviewed: vital signs, nurses notes, old medical records, EKG, radiologic studies. sp3 ED course: 81-year-old female with left flank and low back pain after just being discharged from lytic therapy in the intensive care unit after ischemic CVA. Differential diagnosis for the current visit includes intraperitoneal bleed, kidney stone, pyelonephritis, UTI, referred intestinal pain, vascular pathology including aorta, among others. Patient is not septic and not hemodynamically unstable. Plan will be to medicate her pain with Dilaudid and Zofran and obtain CT scan of the abdomen/pelvis along with laboratory values to further elucidate etiology of his symptoms. Pt has core rectal temp of 94 F -- Lj hugger ordered. Will admit for general support and prophylactic antibiotics once diagnostics reviewed. . 07/01 11:46 Order name: CBC with Diff; Complete Time: 13:46 sp3 07/01 11:46 Order name: CMP; Complete Time: 13:46 sp3 07/01 11:46 Order name: Lipase; Complete Time: 13:46 sp3 07/01 11:46 Order name: Urine Microscopic Only sp3 07/01 11:46 Order name: Troponin High Sensitivity; Complete Time: 13:46 sp3 07/01 15:02 Order name: Urine Dipstick-Ancillary EDMS 07/01 11:46 Order name: CT Abd/Pelvis - Without Contrast; Complete Time: 13:46 sp3 07/01 11:46 Order name: IV Saline Lock; Complete Time: 12:08 sp3 07/01 11:46 Order name: Labs collected and sent; Complete Time: 12:08 sp3 07/01 11:46 Order name: Urine Dipstick-Ancillary (obtain specimen); Complete Time: 14:55 sp3 07/01 15:56 Order name: Urine Culture EDMS 07/01 11:46 Order name: EKG - Nurse/Tech; Complete Time: 13:05 sp3 Administered Medications: 12:00 Drug: Zofran (Ondansetron) 4 mg Route: IVP; Site: right antecubital; db 13:42 Follow up: Response: No adverse reaction db 12:00 Drug: Dilaudid (HYDROmorphone) 1 mg Route: IVP; Site: right antecubital; db 12:51 Follow up: Response: No adverse reaction db 14:55 Drug: Phenergan (promethazine) 12.5 mg Route: IVP; Site: right antecubital; db 15:18 Follow up: Response: No adverse reaction db Disposition Summary: 07/01/22 16:23 Discharge Ordered Location: Home sp3 Condition: Stable sp3 Diagnosis - FLANK PAIN, CONSTIPATION sp3 Followup: sp3 - With: Private Physician - When: Upon discharge from the Emergency Department - Reason: Continuance of care Discharge Instructions: - Discharge Summary Sheet sp3 - Constipation, Adult sp3 Forms: - Medication Reconciliation Form sp3 - Thank You Letter sp3 - Antibiotic Education sp3 - Prescription Opioid Use sp3 Prescriptions: - Zofran 4 mg Oral Tablet - take 1 tablet by ORAL route every 12 hours As needed; 20 tablet; Refills: 0, sp3 Product Selection Permitted Signatures: Dispatcher [employer] Yaneli Fernandez, RN RN Adria Montoya MD MD sp3 Lorie Richards RN RN db Corrections: (The following items were deleted from the chart) 11:31 11:27 Home Meds: promethazine 25 mg Oral tab 1 tab once daily; sary ss 14:46 13:09 ED course: 81-year-old female with left flank and low back pain after just being sp3 discharged from lytic therapy in the intensive care unit after ischemic CVA. Differential diagnosis for the current visit includes intraperitoneal bleed, kidney stone, pyelonephritis, UTI, referred intestinal pain, vascular pathology including aorta, among others. Patient is not septic and not hemodynamically unstable. Plan will be to medicate her pain with Dilaudid and Zofran and obtain CT scan of the abdomen/pelvis along with laboratory values to further elucidate etiology of her symptoms. Disposition pending.. sp3
--- NOTE | 2022-07-01 16:24 | ER ---
Nurse's Notes [facility] Name: Becky Rodriguez Age: 81 yrs Sex: Female : 1940 Arrival Date: 07/01/2022 Time: 10:51 Bed 18 Private MD: Diagnosis: FLANK PAIN, CONSTIPATION Presentation: 07/01 11:23 Chief complaint: Patient states: Urinary frequency, urgency and bilateral flank pain ss that began last night. Pt was discharged from ICU after receiving TNK for stroke. Coronavirus screen: Client denies travel out of the [place] in the last 14 days. Ebola Screen: Patient denies exposure to infectious person. Patient denies travel to an Ebola-affected area in the 21 days before illness onset. Initial Sepsis Screen: Does the patient meet any 2 criteria? No. Patient's initial sepsis screen is negative. Does the patient have a suspected source of infection? No. Patient's initial sepsis screen is negative. Risk Assessment: Do you want to hurt yourself or someone else? Patient reports no desire to harm self or others. Onset of symptoms was June 30, 2022. 11:23 Method Of Arrival: Ambulatory ss 11:23 Acuity: CORNELIO 3 ss Historical: - Allergies: 11:25 NKDA; ss - Home Meds: 11:27 magnesium oxide 400 mg magnesium Oral tab daily [Active]; folic acid 1 mg Oral tab 1 ss tab once daily [Active]; Plavix 75 mg Oral tab 1 tab once daily [Active]; 11:28 promethazine 25 mg Oral tab 1 tab every 6 hours [Active]; lisinopril 40 mg Oral tab 1 ss tab once daily [Active]; levothyroxine 75 mcg cap 1 cap once daily [Active]; hydrochlorothiazide 25 mg Oral tab 1 tab once daily [Active]; amlodipine 5 mg tab 1 tab once daily [Active]; Butalbital Compound 50-325-40 mg Oral cap 1 cap every 4 hours [Active]; ondansetron HCl 4 mg Oral tab 1 tab 2 times per day [Active]; - PMHx: 11:25 Cancer, Breast; Diabetes - NIDDM; Gout; Hypertension; Hypothyroidism; Myocardial ss infarction; CVA; - Immunization history:: Client reports receiving the 2nd dose of the Covid vaccine. - Social history:: Smoking status: Patient denies any tobacco usage or history of. Screenin:10 Abuse screen: Denies threats or abuse. Denies injuries from another. Nutritional db screening: No deficits noted. Tuberculosis screening: No symptoms or risk factors identified. Fall Risk None identified. No fall in past 12 months (0 pts). No secondary diagnosis (0 pts). IV access (20 points). Ambulatory Aid- Crutches/Cane/Walker (15 pts). Gait- Weak (10 pts.). Mental Status- Oriented to own ability (0 pts). Total Weaver Fall Scale indicates High Risk Score (45 or more points). Assessment: 12:08 Reassessment: Patient is alert, oriented x 3, equal unlabored respirations, skin db warm/dry/pink. left flank pain started last night worse this AM. States released yesterday from ICU for recent stroke. General: Appears distressed, uncomfortable, Behavior is cooperative, appropriate for age. Pain: Complains of pain in left flank Pain currently is 10 out of 10 on a pain scale. Neuro: No deficits noted. Level of Consciousness is awake, alert, obeys commands, Oriented to person, place, time, situation, Appropriate for age Speech is normal, Facial symmetry appears normal, Pupils are PERRLA. Cardiovascular: No deficits noted. Respiratory: No deficits noted. GI:. : No deficits noted. EENT: No deficits noted. No signs and/or symptoms were reported regarding the EENT system. 13:06 Reassessment: Patient appears in no apparent distress at this time. No changes from db previously documented assessment. Patient and/or family updated on plan of care and expected duration. Pain level reassessed. Patient is alert, oriented x 3, equal unlabored respirations, skin warm/dry/pink. Patient states feeling better. Patient states symptoms have improved. 14:00 Reassessment: Patient appears in no apparent distress at this time. No changes from db previously documented assessment. Patient and/or family updated on plan of care and expected duration. Pain level reassessed. Patient is alert, oriented x 3, equal unlabored respirations, skin warm/dry/pink. 14:30 Reassessment: Patient and/or family updated on plan of care and expected duration. Pain db level reassessed. GI: Reports nausea, vomiting. 15:20 Reassessment: Patient appears in no apparent distress at this time. patient wheeled to restroom for urine sample. 16:35 Reassessment: Patient appears in no apparent distress at this time. Patient and/or db family updated on plan of care and expected duration. Pain level reassessed. Patient is alert, oriented x 3, equal unlabored respirations, skin warm/dry/pink. Patient states feeling better. Patient states symptoms have improved. Vital Signs: 11:23 BP 92 / 60; Pulse 89; Resp 16; Temp 98.8(TE); Pulse Ox 97% on R/A; Weight 88 kg; Height ss 5 ft. 4 in. (162.56 cm); Pain 10/10; 11:49 BP 115 / 56; Pulse 85; Resp 18; Pulse Ox 95% on R/A; db 12:51 Pain 0/10; db 14:00 BP 110 / 54; Pulse 78; Resp 18; Pulse Ox 99% 2 lpm ; db 15:00 BP 116 / 55; Pulse 74; Resp 18; Pulse Ox 95% on R/A; db 15:30 BP 113 / 57; Pulse 73; Resp 18 S; Pulse Ox 97% on R/A; db 16:00 BP 107 / 54; Pulse 69; Resp 18; Pulse Ox 95% on R/A; db 11:23 Body Mass Index 33.30 (88.00 kg, 162.56 cm) ED Course: 10:51 Patient arrived in ED. rg4 11:10 Adria Montoya MD is Attending Physician. sp3 11:25 Triage completed. ss 11:25 Arm band placed on left wrist. ss 11:45 Lorie Richards RN is Primary Nurse. db 11:59 Inserted saline lock: 20 gauge in right antecubital area, using aseptic technique. db Blood collected. 12:10 Bed in low position. Call light in reach. Side rails up X 1. db 12:10 Client placed on continuous cardiac and pulse oximetry monitoring. NIBP monitoring db applied. Warm blanket given. 12:10 No provider procedures requiring assistance completed. db 12:15 CT Abd/Pelvis - Without Contrast In Process Unspecified. EDMS 16:33 IV discontinued, intact, bleeding controlled, No redness/swelling at site. db Administered Medications: 12:00 Drug: Zofran (Ondansetron) 4 mg Route: IVP; Site: right antecubital; db 13:42 Follow up: Response: No adverse reaction db 12:00 Drug: Dilaudid (HYDROmorphone) 1 mg Route: IVP; Site: right antecubital; db 12:51 Follow up: Response: No adverse reaction db 14:55 Drug: Phenergan (promethazine) 12.5 mg Route: IVP; Site: right antecubital; db 15:18 Follow up: Response: No adverse reaction db Medication: 12:10 VIS not applicable for this client. db Outcome: 16:23 Discharge ordered by . spAndrew 16:33 Discharged to home via wheelchair, with family. db 16:33 Condition: stable 16:33 Discharge instructions given to patient, family, Instructed on discharge instructions, follow up and referral plans. Demonstrated understanding of follow-up care, Prescriptions given X 1. 16:47 Patient left the ED. db Signatures: Dispatcher [employer] EDMS Yaneli Boothe RN RN ss Janeen Pelaez rg4 Adria Montoya MD MD sp3 Lorie Richards RN RN db Corrections: (The following items were deleted from the chart) 11:31 11:27 Home Meds: promethazine 25 mg Oral tab 1 tab once daily; [facility]
[2022-07-01 17:40] VITALS: TEMP 98.8
[2022-07-01 17:47] VITALS: BP 107/54; O2SAT 95
--- NOTE | 2022-07-03 12:15 | EKG ---
Test Date: 2022-07-01 Test Time: 13:00:43 Manager Home: [facility] MEASUREMENT RESULTS: Intervals: Rate: 69 MN: 164 QRSD: 84 QT: 394 QTc: 422 [place]: P: 33 MN: 164 QRS: 8 T: 47 INTERPRETIVE STATEMENTS: Normal sinus rhythm Normal ECG Compared to ECG 06/29/2022 17:30:13 Myocardial infarct finding no longer present Electronically Signed On 07-03-22 12:12:39 [facility] & PRESIDENT by Kristopher Marie
== END 2022-07-01 16:47 | disposition home or self-care (01) ==
LOC: ER 10:48
DX: K59.00 Constipation, unspecified (principal); I10 Essential (primary) hypertension; E11.9 Type 2 diabetes mellitus without complications; Z86.73 Personal history of transient ischemic attack (TIA), and cerebral infarction without residual deficits
CPT/HCPCS: 93005; 87088; 85025; 87086; 36415; 87077; 87186; 84484; 83690; 80053; 74176; 96375; 96374; 99284; J2550; J1170; J2405; 81003; 81015